=== PATIENT | male | born 1945 | race Caucasian/White ===

== ENCOUNTER → 2019-03-15 06:47 | Outpatient (CLI) | payer MEDICARE, SELFPAY ==
[2019-03-03 09:15] VITALS: BMI 28.7
[2019-03-15 07:44] LABS: Absolute Lymphocyte Count 3.06 X10^3/uL (0.83-4.51); Absolute Neutrophil Count 3.7 X10^3/uL (2.0-7.7); Basophil# 0.06 X10^3/uL; Basophil% 0.8 % (0-1); Eosinophil# 0.28 X10^3/uL; Eosinophils% 3.6 % (0-5); Hematocrit 42.3 % (40-54); Hemoglobin 14.1 g/dL (13.0-16.5); Lymphocyte # 3.06 X10^3/ul (4.0); Mean Corp Hgb Conc 33.3 g/dL (32-36); Mean Corpuscular Hgb 29.9 pg (27.0-32.0); Mean Corpuscular Volume 89.8 fL (80-94); Mean Platelet Vol. 10.7 fl (6.2-12.0); Monocyte# 0.76 X10^3/uL; Monocyte% 9.7 % (0-10); NRBC Flagged by Analyzer 0 % (0-5); Neutrophil # 3.66 X10^3/uL (2.7-7.7); Neutrophil % 46.6 % (47-70); Platelet Count 283 K/mm3 (150-450); RBC Distribution Width SD 39.3 fl (35.1-43.9); Red Blood Count 4.71 M/mm3 (4.6-6.2); White Blood Count 7.8 K/mm3 (4.4-11.0)
[2019-03-15 07:59] LABS: Microalbumin,Random Urine 73.8 mg/L (NO RANGE EST.)
[2019-03-15 08:08] LABS: ALB/GLOB Ratio 1.1 RATIO (0.9-2.4); AST(SGOT) 13 U/L (15-37); Alanine Aminotransfer ALT/SGPT 24 U/L (16-61); Albumin, Serum 3.8 g/dL (3.2-5.0); Alkaline Phosphatase 49 U/L (45-117); Anion Gap 7 (5-15); BUN 18 mg/dL (7-18); BUN/Creat Ratio 16.1 RATIO (10-20); Calcium,Total 9.1 mg/dL (8.5-10.1); Chloride 107 mmol/L (98-107); Cholesterol 168 mg/dL (200); Creatinine, Serum 1.12 mg/dL (0.70-1.30); EST Glomerular Filtration Rate 68 mL/min (>60); Est Glom Filt Rate - Afr Amer 83 mL/min (>60); Globulin 3.6 g/dL (2.2-4.2); Glucose 129 mg/dL (74-106); High Density Lipoprotein 27 mg/dL; Protein, Total 7.4 g/dL (6.4-8.2); Sodium Level 140 mmol/L (136-145); Triglycerides 237 mg/dL; Very Low Density Lipoprotein 47 mg/dL (5-40)
== END ==
PROVIDERS: Family Provider Internal Medicine; PCP Internal Medicine; Referring Provider Internal Medicine; Visit Provider Internal Medicine
DX: E11.9 Type 2 diabetes mellitus without complications (principal)
CPT/HCPCS: 36415; 80053; 80061; 82043; 82570; 85025

== ENCOUNTER → 2019-05-12 08:50 | Outpatient (CLI) | payer MEDICARE, SELFPAY ==
[2019-05-12 08:29] VITALS: BMI 24.8
--- NOTE | 2019-05-12 09:22 | EKG12_ITS ---
Test Reason : CAD Blood Pressure : / mmHG Vent. Rate : 059 BPM Atrial Rate : 059 BPM P-R Int : 204 ms QRS Dur : 086 ms QT Int : 402 ms P-R-T Axes : 041 -36 071 degrees QTc Int : 397 ms Sinus bradycardia Left axis deviation Abnormal ECG Confirmed by LAURY ANDINO, KEYSHA ([id number]), magazine editor MARCI VAZQUEZ ([id number]) on 05/15/2019 3:23:50 PM Referred By: Chase Cohen Confirmed By:KEYSHA SCHAEFFER MD
[2019-05-12 12:55] LABS: Anion Gap 8 (5-15); BUN 17 mg/dL (7-18); BUN/Creat Ratio 13.7 RATIO (10-20); Calcium,Total 9.3 mg/dL (8.5-10.1); Chloride 106 mmol/L (98-107); Creatinine, Serum 1.24 mg/dL (0.70-1.30); EST Glomerular Filtration Rate 61 mL/min (>60); Est Glom Filt Rate - Afr Amer 74 mL/min (>60); Glucose 187 mg/dL (74-106); Potassium 4.3 mmol/L (3.5-5.1); Sodium Level 140 mmol/L (136-145)
== END ==
PROVIDERS: Family Provider Internal Medicine; PCP Internal Medicine; Referring Provider Internal Medicine; Visit Provider Internal Medicine
DX: I10 Essential (primary) hypertension (principal); I25.10 Atherosclerotic heart disease of native coronary artery without angina pectoris
CPT/HCPCS: 36415; 80048; 93005

== ENCOUNTER → 2019-06-20 06:11 | Outpatient (CLI) | payer MEDICARE, SELFPAY ==
[2019-06-13 09:25] VITALS: BMI 24.8
--- NOTE | 2019-06-20 14:36 | STRESSREP ---
Stress Test Report Date: 06-20-19 Procedure: Pharmacologic stress nuclear imaging study Indications: CAD; PCI Consent: Per the patient Procedure: The patient underwent pharmacologic (Regadenoson) evaluation with a peak heart rate of 89 beats per minute (60 %predicted maximal heart rate) and a peak blood pressure of 130/62 mmHg. The baseline ECG demonstrated sinus rhythm. The peak pharmacologic ECG demonstrated no obvious ECG changes. There were no cardiac dysrhythmias pretest, during pharmacologic infusion, or recovery. There was no complaint of chest discomfort during pharmacologic infusion or recovery. The examination was discontinued secondary to completion of protocol. Impression: 1. Pharmacologic (Regadenoson) evaluation 2. Peak pharmacologic ECG with no obvious ECG changes. 3. There were no cardiac dysrhythmias pretest, during pharmacologic infusion, or recovery. 4. Nuclear images pending Myocardial perfusion imaging study: Technique: The patient was injected with 12.0 millicuries of technetium 99m Cardiolite and subsequently rest SPECT Cardiolite nuclear imaging was obtained in the horizontal long, vertical long, and short axis views. The patient underwent pharmacologic (Regadenoson) evaluation with a peak heart rate of 89 beats per minute (60 % percent predicted maximal heart rate) and a peak blood pressure of 130/62 mmHg. The patient was injected with 36.0 millicuries of technetium 99m Cardiolite and subsequently stress SPECT Cardiolite nuclear imaging was obtained in the horizontal long, vertical long, and short axis views. A gated Cardiolite study at peak stress was obtained. Interpretation: Rest and stress SPECT Cardiolite nuclear imaging status post realignment, normalization, and attenuation correction demonstrate relative uniform tracer uptake and myocardial perfusion appearing within normal limits. There is end systolic thickening and brightening. The gated Cardiolite study demonstrates myocardial thickening and inward wall motion. The reported LVEF is 68 %. Impression: 1. Rest and stress SPECT Cardiolite nuclear imaging demonstrate relative uniform tracer uptake and myocardial perfusion appearing within normal limits. 2. The gated Cardiolite study reports an LVEF of 68 %. This note was generated with [employer] software. It may contain incorrect words, spelling, and punctuation that were not noted in checking the note before signing.
== END ==
PROVIDERS: Family Provider Internal Medicine; PCP Internal Medicine; Referring Provider Internal Medicine; Visit Provider Internal Medicine
DX: I25.10 Atherosclerotic heart disease of native coronary artery without angina pectoris (principal); R94.31 Abnormal electrocardiogram [ECG] [EKG]
CPT/HCPCS: 78452; 93017; A9500; A4216; J2785

== ENCOUNTER → 2019-09-12 07:37 | Outpatient (CLI) | payer MEDICARE, SELFPAY ==
[2019-08-30 08:35] VITALS: BMI 24.8
--- NOTE | 2019-09-12 07:37 | ECHOD_ITS ---
Version 2 Reason For Study: HTN Procedure This was a 2D Doppler, Color Flow transthoracic echocardiogram. No parasternal window- used subcostal for PLAX, PSAX. Exam performed in department. Left Ventricle Normal LV size. Mild concentric left ventricular hypertrophy. Left ventricular systolic function is normal. The estimated ejection fraction is 60 %. Stage 1 diastolic dysfunction. No regional wall motion abnormalities noted. Right Ventricle Normal RV size. Normal systolic function. Atria Normal left atrium. Normal right atrium. Mitral Valve Normal mitral valve. Tricuspid Valve Normal tricuspid valve. Aortic Valve Normal aortic valve. Trisinus/trileaflet aortic valve. Pulmonic Valve Normal pulmonic valve. Great Vessels Normal aortic root. Pericardium/Pleural No pericardial effusion. MMode/2D Measurements & Calculations LVIDd: 3.7 cm IVSd: 1.3 cm LAV(MOD-bp): 50.5 ml LVIDs: 2.6 cm LVPWd: 1.3 cm LAV(MOD-bp) Indexed: 24.8 ml/m2 RVDd: 3.2 cm FS: 28.4 % LAV(MOD-sp2): 72.4 ml LAV(MOD-sp4): 36.3 ml SV(MOD-sp4): 54.8 ml SV(sp4-el): 56.3 ml LVAd ap4: 33.8 cm2 EDV(MOD-sp4): 98.7 ml EDV(sp4-el): 101.6 ml LVAs ap4: 20.2 cm2 ESV(MOD-sp4): 44.0 ml ESV(sp4-el): 45.3 ml EF(MOD-sp4): 55.5 % EF(sp4-el): 55.4 % LA A4 area: 16.4 cm2 LA dimension(2D): 3.4 cm RA A4 area: 14.2 cm2 Time Measurements MV dec time: 0.33 sec Doppler Measurements & Calculations MV E max edmundo: 69.1 cm/sec Lat Peak E' Edmundo: 7.7 cm/sec Med Peak E' Edmundo: 4.8 cm/sec MV A max edmundo: 92.8 cm/sec E/E' lat: 8.9 E/E' med: 14.3 MV E/A: 0.74 Ao V2 max: 118.9 cm/sec AI max edmundo: 398.3 cm/sec LV V1 max: 115.7 cm/sec Ao max P.7 mmHg AI max P.5 mmHg LV V1 max P.4 mmHg AI dec slope: 153.1 cm/sec2 AI P1/2t: 762.1 msec TR max edmundo: 226.4 cm/sec TR max P.5 mmHg Interpretation Summary Normal LV size. Mild concentric left ventricular hypertrophy. Left ventricular systolic function is normal. The estimated ejection fraction is 60 %. Stage 1 diastolic dysfunction. Consider amyloid heart disease. Ordering Physician: Prieto Farris Referring Physician: Chase Cohen Performed By: Jayleen Ashton, [place], RVT
== END ==
PROVIDERS: PCP Internal Medicine; Referring Provider Internal Medicine Cardiovascular Disease; Visit Provider Internal Medicine Cardiovascular Disease
DX: I25.10 Atherosclerotic heart disease of native coronary artery without angina pectoris (principal); I10 Essential (primary) hypertension
CPT/HCPCS: 93306

== ENCOUNTER → 2019-09-18 08:29 | Outpatient (CLI) | payer MEDICARE, SELFPAY ==
[2019-09-18 08:14] VITALS: BMI 24.8
[2019-09-18 12:25] LABS: Anion Gap 5 (5-15); BUN 16 mg/dL (7-18); BUN/Creat Ratio 14.3 RATIO (10-20); Calcium,Total 9.5 mg/dL (8.5-10.1); Chloride 107 mmol/L (98-107); Creatinine, Serum 1.12 mg/dL (0.70-1.30); EST Glomerular Filtration Rate 68 mL/min (>60); Est Glom Filt Rate - Afr Amer 83 mL/min (>60); Glucose 217 mg/dL (74-106); Potassium 4.2 mmol/L (3.5-5.1); Sodium Level 137 mmol/L (136-145)
[2019-09-18 12:29] LABS: Microalbumin,Random Urine 53.3 mg/L (NO RANGE EST.); Microalbumin:Creatinine Ratio 44.8 mg/g CRE (<30 mg/g CRE)
== END ==
PROVIDERS: PCP Internal Medicine; Referring Provider Internal Medicine; Visit Provider Internal Medicine
DX: E11.9 Type 2 diabetes mellitus without complications (principal); I10 Essential (primary) hypertension
CPT/HCPCS: 36415; 80048; 82043; 82570

== ENCOUNTER → 2020-08-30 08:17 | Outpatient (CLI) | payer MEDICARE, SELFPAY ==
[2020-08-29 08:25] VITALS: BMI 24.4
[2020-08-30 10:31] LABS: AST(SGOT) 16 U/L (15-37); Alanine Aminotransfer ALT/SGPT 26 U/L (16-61); Alkaline Phosphatase 53 U/L (45-117); Cholesterol 182 mg/dL (200); Globulin 3.7 g/dL (2.2-4.2); High Density Lipoprotein 30 mg/dL; Protein, Total 7.7 g/dL (6.4-8.2); Triglycerides 183 mg/dL; Very Low Density Lipoprotein 37 mg/dL (5-40)
== END ==
PROVIDERS: PCP Internal Medicine; Referring Provider Nurse Practitioner Family; Visit Provider Nurse Practitioner Family
DX: E78.5 Hyperlipidemia, unspecified (principal); I25.10 Atherosclerotic heart disease of native coronary artery without angina pectoris; E11.9 Type 2 diabetes mellitus without complications; I10 Essential (primary) hypertension; Z95.5 Presence of coronary angioplasty implant and graft
CPT/HCPCS: 36415; 80061; 80076

== ENCOUNTER 2020-10-24 07:10 | Outpatient (RCR) | payer MEDICARE, SELFPAY ==
[2020-08-29 08:25] VITALS: BMI 24.4
[2020-10-24] MEDS: COVID-19 VACC, MRNA(PFIZER)/PF 30 MCG/0.3 ML SYRINGE IM (08:36)
[2020-11-14] MEDS: COVID-19 VACC, MRNA(PFIZER)/PF 30 MCG/0.3 ML SYRINGE IM (08:13)
== END 2021-01-21 23:59 ==
LOC: IMMUN 07:10
PROVIDERS: PCP Internal Medicine; Visit Provider Family Medicine
DX: Z23 Encounter for immunization (principal)
CPT/HCPCS: 0001A; 0002A; 91300

== ENCOUNTER → 2020-10-31 09:46 | Outpatient (CLI) | payer MEDICARE, SELFPAY ==
[2020-08-29 08:25] VITALS: BMI 24.4
--- NOTE | 2020-10-31 09:51 | NM_ITS ---
CLINICAL: 75-year-old male with suspected cardiac amyloidosis. 99m Tc PYROPHOSPHATE CARDIAC AMYLOID EXAMINATION COMPARISON: None available FINDINGS: Following the intravenous administration of approximately 15.0 mCi of 99m Tc pyrophosphate, anterior acquisitions of the thorax reveal: 1. There is visualization of uptake within the left-right ventricular blood pool. The ratio of left-right thorax count statistics is 1.35:1 (Normal: < 1.5:1). NM/PYP Spect & Ltd Cardiac Amylio IMPRESSION: 1. NEGATIVE EXAMINATION. There is no scintigraphic evidence of cardiac amyloidosis on the current evaluation. Electronically Signed: Patrice Nolan DO at 7:55 EDT Tel , Service support ,
== END ==
PROVIDERS: PCP Internal Medicine; Referring Provider Internal Medicine Cardiovascular Disease; Visit Provider Internal Medicine Cardiovascular Disease
DX: R93.1 Abnormal findings on diagnostic imaging of heart and coronary circulation (principal); E78.5 Hyperlipidemia, unspecified; G62.9 Polyneuropathy, unspecified; I10 Essential (primary) hypertension; I25.10 Atherosclerotic heart disease of native coronary artery without angina pectoris; I51.7 Cardiomegaly; I51.89 Other ill-defined heart diseases; R06.00 Dyspnea, unspecified; R94.31 Abnormal electrocardiogram [ECG] [EKG]; Z95.5 Presence of coronary angioplasty implant and graft
CPT/HCPCS: 78800; 78803; A9538

== ENCOUNTER → 2020-11-01 08:23 | Outpatient (CLI) | payer MEDICARE, SELFPAY ==
[2020-11-01 08:06] VITALS: BMI 24.8
[2020-11-01 12:27] LABS: Absolute Lymphocyte Count 2.94 X10^3/uL (0.83-4.51); Absolute Neutrophil Count 4.5 X10^3/uL (2.0-7.7); Basophil# 0.06 X10^3/uL; Basophil% 0.7 % (0-1); Eosinophil# 0.16 X10^3/uL; Eosinophils% 1.9 % (0-5); Hematocrit 44.3 % (40-54); Hemoglobin 14.1 g/dL (13.0-16.5); Lymphocyte # 2.94 X10^3/ul (4.0); Lymphocyte % 34.8 % (19-41); Mean Corp Hgb Conc 31.8 g/dL (32-36); Mean Corpuscular Volume 91.2 fL (80-94); Mean Platelet Vol. 10.5 fl (6.2-12.0); Monocyte% 9.5 % (0-10); NRBC Flagged by Analyzer 0 % (0-5); Neutrophil # 4.48 X10^3/uL (2.7-7.7); Neutrophil % 52.9 % (47-70); Platelet Count 305 K/mm3 (150-450); RBC Distribution Width CV 12.2 % (11.6-14.6); RBC Distribution Width SD 40.8 fl (35.1-43.9); Red Blood Count 4.86 M/mm3 (4.6-6.2); White Blood Count 8.5 K/mm3 (4.4-11.0)
[2020-11-01 12:48] LABS: Anion Gap 5 (5-15); BUN 18 mg/dL (7-18); BUN/Creat Ratio 14.6 RATIO (10-20); Calcium,Total 9.9 mg/dL (8.5-10.1); Chloride 104 mmol/L (98-107); Creatinine, Serum 1.23 mg/dL (0.70-1.30); EST Glomerular Filtration Rate 61 mL/min (>60); Est Glom Filt Rate - Afr Amer 74 mL/min (>60); Glucose 155 mg/dL (74-106); PSA,Total - Annual Screen 3.86 ng/mL (0.00-4.00); Potassium 5.3 mmol/L (3.5-5.1); Sodium Level 138 mmol/L (136-145)
== END ==
PROVIDERS: PCP Internal Medicine; Referring Provider Internal Medicine; Visit Provider Internal Medicine
DX: I10 Essential (primary) hypertension (principal); N40.0 Benign prostatic hyperplasia without lower urinary tract symptoms
CPT/HCPCS: 36415; 80048; 84153; 85025; G0103

== ENCOUNTER → 2021-04-17 10:18 | Outpatient (CLI) | payer MEDICARE, SELFPAY ==
--- NOTE | 2021-04-17 10:37 | EKG12_ITS ---
Test Reason : PREOP Blood Pressure : / mmHG Vent. Rate : 063 BPM Atrial Rate : 063 BPM P-R Int : 196 ms QRS Dur : 076 ms QT Int : 400 ms P-R-T Axes : 016 -34 049 degrees QTc Int : 409 ms Normal sinus rhythm Left axis deviation Abnormal ECG Confirmed by AMA ANDINO, RODY ([id number]), scientific publications editor GURJIT HIGUERA ([id number]) on 04/22/2021 8:12:04 AM Referred By: SY Confirmed By:ABEL SERRATO MD
[2021-04-17 11:34] LABS: AST(SGOT) 17 U/L (15-37); Alanine Aminotransfer ALT/SGPT 26 U/L (16-61); Albumin, Serum 4.1 g/dL (3.2-5.0); Alkaline Phosphatase 34 U/L (45-117); Bilirubin, Direct 0.16 mg/dL (0.00-0.30); Cholesterol 170 mg/dL (200); Globulin 3.4 g/dL (2.2-4.2); High Density Lipoprotein 24 mg/dL; Protein, Total 7.5 g/dL (6.4-8.2); Triglycerides 180 mg/dL; Very Low Density Lipoprotein 36 mg/dL (5-40)
== END ==
PROVIDERS: Nurse Practitioner Family; PCP Internal Medicine; Visit Provider Orthopaedic Surgery
DX: Z01.810 Encounter for preprocedural cardiovascular examination (principal); Z01.818 Encounter for other preprocedural examination; E78.00 Pure hypercholesterolemia, unspecified; E78.5 Hyperlipidemia, unspecified
CPT/HCPCS: 36415; 80061; 80076; 93005

== ENCOUNTER → 2021-04-22 10:05 | Outpatient (CLI) | payer MEDICARE, SELFPAY ==
[2021-04-22 10:41] LABS: Hematocrit 39.8 % (40-54); Hemoglobin 13.1 g/dL (13.0-16.5); Mean Corp Hgb Conc 32.9 g/dL (32-36); Mean Corpuscular Hgb 29.4 pg (27.0-32.0); Mean Corpuscular Volume 89.4 fL (80-94); Mean Platelet Vol. 10.6 fl (6.2-12.0); Platelet Count 388 K/mm3 (150-450); RBC Distribution Width CV 12.7 % (11.6-14.6); RBC Distribution Width SD 41.6 fl (35.1-43.9); Red Blood Count 4.45 M/mm3 (4.6-6.2); White Blood Count 10.8 K/mm3 (4.4-11.0)
[2021-04-22 11:06] LABS: Anion Gap 8 (5-15); BUN 26 mg/dL (7-18); BUN/Creat Ratio 20.6 RATIO (10-20); Calcium,Total 9.8 mg/dL (8.5-10.1); Chloride 105 mmol/L (98-107); Creatinine, Serum 1.26 mg/dL (0.70-1.30); EST Glomerular Filtration Rate 59 mL/min (>60); Est Glom Filt Rate - Afr Amer 72 mL/min (>60); Glucose 192 mg/dL (74-106); Potassium 3.7 mmol/L (3.5-5.1); Sodium Level 138 mmol/L (136-145)
== END ==
PROVIDERS: PCP Internal Medicine; Referring Provider Orthopaedic Surgery; Visit Provider Orthopaedic Surgery
DX: Z01.818 Encounter for other preprocedural examination (principal); Z01.810 Encounter for preprocedural cardiovascular examination
CPT/HCPCS: 80048; 85027

== ENCOUNTER 2021-05-02 20:45 | Inpatient (IN) | payer MEDICARE, SELFPAY ==
[2021-05-02] VITALS (10 sets, daily range): BP systolic 131–173; BP diastolic 69–85; PULSE 81–108; RESP 12–18; TEMP 36.5–36.6; O2SAT 96–99; BMI 25.6; BMI 24.6
--- NOTE | 2021-05-02 20:52 | EKG12_ITS ---
Test Reason : CP Blood Pressure : / mmHG Vent. Rate : 089 BPM Atrial Rate : 089 BPM P-R Int : 216 ms QRS Dur : 088 ms QT Int : 374 ms P-R-T Axes : 067 -39 065 degrees QTc Int : 455 ms Sinus rhythm with 1st degree A-V block Left axis deviation Abnormal ECG Confirmed by OBDULIO ANDINO, JANINE ([id number]), editor newspaper GURJIT HIGUERA ([id number]) on 05/05/2021 11:33:21 AM Referred By: ABDON Confirmed By:JANINE MAK MD
[2021-05-02] MEDS: Heparin Injection (Vial) 5,000 UNIT/ML VIAL 4000 UNIT IV (20:53)
--- NOTE | 2021-05-02 20:53 | RAD_ITS ---
STUDY: X-RAY CHEST REASON FOR EXAM: Male, 76 years old. chest pain TECHNIQUE: AP portable COMPARISON: None. FINDINGS: Mildly elevated right hemidiaphragm and minimal atelectasis at the right lung base.. There is no demonstrated pleural abnormality. Normal size heart. Normal mediastinum and samantha. Normal visualized pulmonary arteries. Normal visualized aortic arch and descending thoracic aorta. Dorsal spine and shoulders demonstrate degenerative change. Normal visualized ribs, clavicles, and shoulders. There is no demonstrated abnormality of the visualized soft tissue structures of the upper abdomen. RAD/Chest 1 View (Portable) IMPRESSION: Elevated right hemidiaphragm and minor right basilar atelectasis Electronically Signed: Misha Jurado MD at 22:08 EDT , Service support ,
--- NOTE | 2021-05-02 20:53 | EDS_ITS ---
HPI History of Present Illness Chief Complaint: Chest Pain Informant: patient and spouse/S.O. Narrative Narrative: 76-year-old male with a prior history of coronary artery disease with a stent to his LAD presents to the emergency room with midsternal chest pain. P atient states that symptoms have been present for about 1 hour. It started as a very strong pain in the center of his chest that spread to the right arm and now both arms. He sees Dr. Farris for cardiology. He is not currently on any blood thinners other than a baby aspirin. [facility] Medical History Atherosclerosis of coronary artery of [place] heart without angina pectoris Back problem BPH (benign prostatic hyperplasia) Enlarged prostate Essential (primary) hypertension Flu vaccine need Gastrointestinal complaints, unspecific GERD (gastroesophageal reflux disease) Health care maintenance Hearing problem History of CVA (cerebrovascular accident) (2001) Hyperlipidemia Neuropathy Obstructive sleep apnea Type 2 diabetes mellitus Home Medications aspirin 81 mg chewable tablet 162 mg PO DAILY tab 01/26/19 [History Last Taken Unknown] metformin 1,000 mg tablet 1,000 mg PO BID #180 tab 03/03/19 [Rx Last Taken Unknown] blood sugar diagnostic #100 ea 03/28/19 [Rx Last Taken Unknown] omeprazole 40 mg capsule,delayed release 40 mg PO DAILY #90 cap 08/20/20 [Rx Last Taken Unknown] sitagliptin 100 mg tablet 100 mg PO DAILY #90 tab 08/20/20 [Rx Last Taken Unknown] metoprolol succinate 100 mg tablet,extended release 24 hr 100 mg PO .COMPLEX 08/29/20 [History Last Taken Unknown] multivitamin 1 tab PO DAILY 08/29/20 [History Last Taken Unknown] fenofibrate nanocrystallized 145 mg tablet 145 mg PO DAILY #90 tab 01/31/21 [Rx Last Taken Unknown] amlodipine 5 mg PO DAILY 05/02/21 [History Last Taken Unknown] losartan 75 mg PO DAILY 05/02/21 [History Last Taken Unknown] Allergy/AdvReac Type Severity Reaction Status Date / Time [facility] Allergy Intermediate Nausea Verified 05/02/21 20:59 niacin Allergy GI Upset, Verified 05/02/21 20:59 PUD w/blood, Hot Flashes amoxicillin trihydrate AdvReac Abd Verified 05/02/21 20:59 [From Augmentin] cramps/diarrhea potassium clavulanate AdvReac Abd Verified 05/02/21 20:59 [From Augmentin] cramps/diarrhea Family History Mother Diabetes Myocardial infarction Father AA (aortic aneurysm) Surgical History History of coronary artery stent placement (06/01/03) History of repair of rotator cuff S/P trigger finger release Social History Smoking Status: Former smoker quit date: 08/16/93 Tobacco: How many years used: 30 alcohol intake: current alcohol intake frequency: holidays/special occasions only Alcohol type: beer substance use type: does not use what type of physical activity do you participate in: walking ROS ROS ED Constitutional Constitutional ED: Denies chills or weight loss Eyes Eyes: Denies change in vision or diplopia ENT ENT ED: Denies ear pain, rhinorrhea or sore throat Cardiovascular Cardiovascular: Reports chest pain; Denies orthopnea, palpitations or racing heartbeat Respiratory/Chest Respiratory/Chest: Denies cough, dyspnea or orthopnea Gastrointestinal Gastrointestinal: Denies abdominal pain, diarrhea, nausea or vomiting Genitourinary Genitourinary ED: Denies dysuria, hematuria or urinary frequency Musculoskeletal Musculoskeletal: Denies arthralgias or myalgias Integumentary Denies abscess or rash Neurologic Neurologic: Denies headache(s) or weakness Psychiatric Psychiatric: Denies anxiety, depression, suicidal ideation or suicidal thoughts Endocrine Endocrinology: Denies polydipsia, polyphagia or polyuria Allergic/Immunologic Allergic/Immunologic ED: Denies mouth swelling, tongue swelling or urticaria EXAM Physical Exam Const Vital Signs: 05/02/21 20:45 05/02/21 20:51 05/02/21 21:01 Temperature 97.7 F L 97.7 F L Temperature Source Temporal Temporal Pulse Rate 108 H 108 H Respiratory Rate 18 18 18 Blood Pressure 173/83 H 173/83 H 173/83 H Blood Pressure Mean 113 113 Pulse Ox 98 98 Oxygen Delivery Method Room Air Nasal Cannula Oxygen Flow Rate (L/min) 2 Positive well nourished and well developed General Appearance ED: well developed HEENT Reports normocephalic, head/scalp atraumatic and moist mucous membranes Eyes PERRL and EOMs intact bilaterally Neck no lymphadenopathy, supple and no JVD Resp normal respiratory effort and clear to auscultation bilaterally Cardio regular rate and no murmurs Rate: tachycardic GI normal to inspection, nondistended, normoactive bowel sounds and non-tender Palpation: soft Back/Spine no CVA tenderness and normal ROM Extremity normal to inspection General Extremety ED: Negative for edema General Extremity: Negative for edema Neuro oriented x3 and CN's II-XII intact bilaterally Sensorium / Orientation: alert Motor Exam: strength 5/5 throughout Psych mental status grossly normal Mood & Affect: Negative for depressed or tearful Skin no rashes or lesions noted and no wounds Heart Score History: Highly Suspicious ECG: Significant ST-Depression Age: >/= 65 years Risk Factors: >/= 3 Risk Factors or History of CAD Score: 8 MDM MDM MDM Narrative Medical decision making narrative: On the monitor appears that the patient may be having a STEMI. An EKG was obtained immediately which shows ST elevation in 2 3 and aVF. There were reciprocal changes. Patient received heparin Brilinta aspirin and because of his tachycardia some metoprolol. My interpretation of the chest x-ray is no acute process. STEMI team was called. I reevaluated the patient and he is doing better. I asked for repeat EKG and it shows significant improvement in the inferior leads and no further reciprocal changes. Plan is still to the Education Courses Sales Representative. Lab Data Labs: Laboratory Results - last 24 hr 05/02/21 05/02/21 20:55 20:55 WBC 12.6 H RBC 4.36 L Hgb 12.9 L Hct 39.6 L MCV 90.8 MCH 29.6 MCHC 32.6 RDW Std Deviation 41.7 RDW Coeff of Julianna 12.5 Plt Count 340 MPV 10.6 Immature Gran % (Auto) 0.500 Neut % (Auto) 69.8 Lymph % (Auto) 19.8 Logan % (Auto) 8.8 Eos % (Auto) 0.7 Baso % (Auto) 0.4 Absolute Neuts (auto) 8.8 H Absolute Lymphs (auto) 2.49 Nucleated RBC % 0 PT 13.0 INR 1.0 APTT 26.6 Critical Care Time Critical Care Time: Yes Critical care time (excluding procedures): 30-74 minutes (31 min), Including time spent:, Discussing w/Patient &/or Family/Exchange Specialist, Discussing w/Consultants, Arranging Admission or Transfer and Performing Direct Patient Care at Bedside Discharge Plan Dx/Rx/DC Orders Clinical Impression: ST elevation (STEMI) myocardial infarction Disposition Disposition: Acute Care Hospital [facility]
[2021-05-02] MEDS: Metoprolol Tartrate 5 MG/5 ML Vial IV ×2 (20:54→21:10)
[2021-05-02] MEDS: Aspirin 81 MG TAB.CHEW 324 MG PO (20:55)
[2021-05-02] MEDS: TICAGRELOR 90 MG TABLET 180 MG PO (20:56)
--- NOTE | 2021-05-02 21:04 | HP.PCM.HOS_ITS ---
HPI - General General Date of Admission: 05/02/21 HPI Narrative GENI OJEDA, is a 76 M with a significant history of CAD status post stent; former smoker; hypertension and borderline diabetes who presents to the emergency department with excruciating substernal chest pain that radiates to her bilateral shoulders. He described the pain as sharp. He denies any ameliorating or aggravating factors. The pain started about a 1 hour prior to presentation and has been persistent. Patient was found to have a STEMI and alert was called to the emergency department. [facility] Medical History Atherosclerosis of coronary artery of [place] heart without angina pectoris Back problem BPH (benign prostatic hyperplasia) Enlarged prostate Essential (primary) hypertension Flu vaccine need Gastrointestinal complaints, unspecific GERD (gastroesophageal reflux disease) Health care maintenance Hearing problem History of CVA (cerebrovascular accident) (2001) Hyperlipidemia Neuropathy Obstructive sleep apnea Type 2 diabetes mellitus Home Medications aspirin 81 mg chewable tablet 162 mg PO DAILY tab 01/26/19 [History Last Taken Unknown] metformin 1,000 mg tablet 1,000 mg PO BID #180 tab 03/03/19 [Rx Last Taken Unknown] blood sugar diagnostic #100 ea 03/28/19 [Rx Last Taken Unknown] omeprazole 40 mg capsule,delayed release 40 mg PO DAILY #90 cap 08/20/20 [Rx Last Taken Unknown] sitagliptin 100 mg tablet 100 mg PO DAILY #90 tab 08/20/20 [Rx Last Taken Unknown] metoprolol succinate 100 mg tablet,extended release 24 hr 100 mg PO .COMPLEX 08/29/20 [History Last Taken Unknown] multivitamin 1 tab PO DAILY 08/29/20 [History Last Taken Unknown] fenofibrate nanocrystallized 145 mg tablet 145 mg PO DAILY #90 tab 01/31/21 [Rx Last Taken Unknown] amlodipine 5 mg PO DAILY 05/02/21 [History Last Taken Unknown] losartan 75 mg PO DAILY 05/02/21 [History Last Taken Unknown] Allergy/AdvReac Type Severity Reaction Status Date / Time dulaglutide [From Trulicity] Allergy Intermediate Nausea Verified 05/02/21 20:59 niacin Allergy GI Upset, Verified 05/02/21 20:59 PUD w/blood, Hot Flashes amoxicillin trihydrate AdvReac Abd Verified 05/02/21 20:59 [From Augmentin] cramps/diarrhea potassium clavulanate AdvReac Abd Verified 05/02/21 20:59 [From Augmentin] cramps/diarrhea Family History Mother Diabetes Myocardial infarction Father AA (aortic aneurysm) Surgical History History of coronary artery stent placement (06/01/03) History of repair of rotator cuff S/P trigger finger release Social History Smoking Status: Former smoker quit date: 08/16/93 Tobacco: How many years used: 30 alcohol intake: current alcohol intake frequency: holidays/special occasions only Alcohol type: beer substance use type: does not use what type of physical activity do you participate in: walking ROS ROS Narrative Constitutional: Denies anorexia and change in weight Eyes: Denies blurry vision, change in eye color, change in vision, discharge from eye(s), double vision, erythema, eye pain, loss of vision or other HEENT: Denies abnormal hearing, dysphagia, ear pain, epistaxis, headache(s), hearing loss, nasal congestion, nasal discharge, post nasal drip, sinus pressure, sore throat or other Cardiovascular: Reports chest pain. Denies palpitations. Denies dyspnea on exertion, orthopnea and paroxysmal nocturnal dyspnea Respiratory/Chest: Denies cough, excessive phlegm production, shortness of breath with exertion and wheezing Gastrointestinal: Reports nausea. Denies abdominal pain, coffee ground emesis, constipation, diarrhea, dyspepsia, hematemesis, hematochezia, loose stools, melena, vomiting or other Genitourinary: Denies burning urination, difficulty urinating, dysuria, hematuria, nocturia, urinary frequency, urinary hesitancy, urinary incontinence, urinary urgency or other Musculoskeletal: Denies arthralgias, back pain, joint pain, joint stiffness, joint swelling, myalgias, neck pain or other Neurologic: Denies abnormal gait, abnormal speech, confusion, disequilibrium, dizziness, focal weakness, headache(s), numbness, paresthesias, seizure-like activity, seizures, syncope, tingling, tremor(s) or other Psychiatric: Denies anxiety, depression, homicidal ideation, suicidal ideation or other Endocrinology: Denies change in body appearance, cold intolerance, excessive sweating, heat intolerance, polydipsia, polyuria or other Hematologic/Lymphatic: Denies anemia, easy bleeding, easy bruising, lymphaden opathy or other Integumentary: Denies rashes Allergic/Immunologic: Denies rhinitis, hives, eczema, asthma or other Vital Signs Vital Signs Vital Signs: 05/02/21 20:45 05/02/21 20:51 05/02/21 21:01 Temperature 97.7 F L 97.7 F L Temperature Source Temporal Temporal Pulse Rate 108 H 108 H Respiratory Rate 18 18 18 Blood Pressure 173/83 H 173/83 H 173/83 H Blood Pressure Mean 113 113 Pulse Ox 98 98 Oxygen Delivery Method Room Air Nasal Cannula Oxygen Flow Rate (L/min) 2 Weight Weight: 81 kg Body Mass Index (BMI) 25.6 Physical Exam Narrative Physical exam: General: Well-nourished, well-developed. Head: Normocephalic, atraumatic, no tenderness Eyes: PERRLA, EOMI ENT, no trauma, moist mucous membranes, no rhinorrhea Neck: Nontender, full range of motion, no spinal tenderness, deformities, step- off CVS: Regular rate and rhythm. S1-S2 present. No murmur, gallop or rub. Respiratory : clear to auscultation bilaterally, chest wall nontender, no wheezing Abdomen: Soft, nontender, nondistended, normal bowel sounds, no masses : Deferred Back: Nontender, no CVA tenderness, no midline spinal tenderness, deformities, step-offs Extremities: Nontender full range of motion, no trauma Skin: Normal color, no trauma, abrasions Neuro: Alert, oriented, cranial nerves II through XII grossly intact. Psychiatry: Normal mood. Normal affect. Not depressed. Not anxious. Results Lab / Micro Data Result Diagrams: 05/02/21 20:55 05/02/21 20:55 Assessment & Plan Assessment/Plan (1) ST elevation (STEMI) myocardial infarction: QUALIFIERS: Involved coronary artery: other coronary artery Qualified Code(s): I21.29 - ST elevation (STEMI) myocardial infarction involving other sites PLAN: STEMI Patient was given full dose aspirin; Brilinta; IV bolus; and IV metoprolol at the emergency department, Initial EKG independently interpreted showed ST elevation in inferior leads and with reciprocal ST depressions. Impression of chest x-ray by radiology: Elevated right hemidiaphragm and minor right basilar atelectasis. Actual chest x-ray image was independently interpreted and agree radiologist interpretation Patient will be taken to cardiac cath. Follow cardiology recommendation after cath. We will check lipid panel. Diabetes mellitus Blood glucose was not within goal. Hold Metformin. Sitagliptin continued. Accu- Cheks ordered. Continue correction scale insulin. Hypertension Blood pressure is not within goal Metoprolol; losartan and amlodipine continued Trend blood pressure and adjust blood pressure medications. Hypertriglyceridemia Fenofibrate continued GERD Omeprazole continued DVT prophylaxis IV heparin was given at the ED. Charges/Coding Visit Charges Inpatient E&M: 86738 Init Hosp L3
[2021-05-02 21:05] LABS: Absolute Lymphocyte Count 2.49 X10^3/uL (0.83-4.51); Absolute Neutrophil Count 8.8 X10^3/uL (2.0-7.7); Basophil# 0.05 X10^3/uL; Basophil% 0.4 % (0-1); Eosinophil# 0.09 X10^3/uL; Eosinophils% 0.7 % (0-5); Hematocrit 39.6 % (40-54); Hemoglobin 12.9 g/dL (13.0-16.5); Lymphocyte # 2.49 X10^3/ul (0.83-4.51); Lymphocyte % 19.8 % (19-41); Mean Corp Hgb Conc 32.6 g/dL (32-36); Mean Corpuscular Hgb 29.6 pg (27.0-32.0); Mean Corpuscular Volume 90.8 fL (80-94); Mean Platelet Vol. 10.6 fl (6.2-12.0); Monocyte% 8.8 % (0-10); NRBC Flagged by Analyzer 0 % (0-5); Neutrophil # 8.77 X10^3/uL (2.7-7.7); Neutrophil % 69.8 % (47-70); Platelet Count 340 K/mm3 (150-450); RBC Distribution Width CV 12.5 % (11.6-14.6); RBC Distribution Width SD 41.7 fl (35.1-43.9); Red Blood Count 4.36 M/mm3 (4.6-6.2); White Blood Count 12.6 K/mm3 (4.4-11.0)
--- NOTE | 2021-05-02 21:08 | CM.ED ---
SOCIAL WORK Responded to STEMI Alert. at bedside. This worker to remain available for needs. Carmen Lawson, RECREATION PROFESSOR, [employer]
[2021-05-02 21:13] LABS: Partial Thromboplast Time 26.6 Seconds (24.1-36.2)
[2021-05-02 21:30] LABS: Anion Gap 9 (5-15); BUN 18 mg/dL (7-18); BUN/Creat Ratio 10.1 RATIO (10-20); Calcium,Total 9.1 mg/dL (8.5-10.1); Chloride 107 mmol/L (98-107); Creatinine, Serum 1.78 mg/dL (0.70-1.30); EST Glomerular Filtration Rate 40 mL/min (>60); Est Glom Filt Rate - Afr Amer 48 mL/min (>60); Estimated Creatinine Clearance 37.02 ml/min; Glucose 254 mg/dL (74-106); Sodium Level 141 mmol/L (136-145); Troponin-I HS 149 pg/mL (3.0-78.0)
--- NOTE | 2021-05-02 21:35 | EKG12_ITS ---
Test Reason : CP Blood Pressure : / mmHG Vent. Rate : 110 BPM Atrial Rate : 110 BPM P-R Int : 190 ms QRS Dur : 080 ms QT Int : 340 ms P-R-T Axes : 065 -13 077 degrees QTc Int : 460 ms Sinus tachycardia Inferior-posterior infarct , possibly acute ACUTE [place] / STEMI Abnormal ECG Confirmed by OBDULIO ANDINO, JANINE ([id number]), newspaper managing editor GURJIT HIGUERA ([id number]) on 05/05/2021 11:35:42 AM Referred By: ABDON Confirmed By:JANINE MAK MD
--- NOTE | 2021-05-02 22:39 | EKG12_ITS ---
Test Reason : POST-PCI Blood Pressure : / mmHG Vent. Rate : 080 BPM Atrial Rate : 080 BPM P-R Int : 216 ms QRS Dur : 080 ms QT Int : 384 ms P-R-T Axes : 062 -56 058 degrees QTc Int : 442 ms Sinus rhythm with 1st degree A-V block Left axis deviation Abnormal ECG When compared with ECG of 17-APR-2021 10:38, No significant change was found Confirmed by OBDULIO ANDINO, JANINE ([id number]), electron beam welder setter MARCI VAZQUEZ ([id number]) on 05/06/2021 2:16:30 PM Referred By: MEGAN Confirmed By:JANINE MAK MD
--- NOTE | 2021-05-02 22:46 | PCI.CARDCATH ---
PCI Cardiac Cath Report PCI Report: Procedure performed; Successful percutaneous coronary intervention/PCI of the culprit lesion ruptured plaque in the proximal RCA with predilatation using 2.5 x 15 mm balloon Followed by placement of a drug-eluting stent 3 x 22 mm/Suzanneiro, followed by postdilatation using 3 x 15 mm NC balloon with reduction of stenosis from 90% to 0% and achievement of XAVIER-3 flow. Preprocedure diagnosis; 76-year-old patient, presented to ER this evening developed symptoms of chest pain after he mowed the lawn around 7 PM severe retrosternal with some diaphoresis He was seen by the ER physician where the EKG showed evidence of acute inferior myocardial infarction with ST elevation clearly demonstrated lead to [address] depression demonstrated in V1 V2 Patient had a history of CAD and he has PCI and stent done in [facility] 2002, quit smoking almost 50 years ago according to the patient, type 2 diabetes mellitus Hypertension, hyperlipidemia, gastroesophageal reflux disease. Consent; Risk and benefits of the procedure explained in detail which elected to proceed informed consent obtained. Procedure performed; 1. Left heart catheterization 2. Selective left cholangiography 3. Selective right cholangiography 4. Successful PCI of the culprit RCA as explained 5. Low ventriculogram 6. Performance of LVEDP measurement. 7. Use of TR band to close the right radial artery arteriotomy site. Procedure in detail; Patient brought to the Eligibility Examiner with an emergency he was given aspirin Brilinta and 4000 of heparin in the ER and actually the EKG showed improvement with remarkable reduction of ST elevation in the inferior lead and oral and normalization of ST depression in the one in V2 and also patient noted significant improvement in his symptoms of chest pain mild symptoms of chest pain in the Eligibility Examiner. We will proceed with access using 6 Malawian trauma sheath to the right radial artery then will proceed with a 5 Malawian JL 3.5 advanced ascending aorta cannulated the left main coronary artery multiple views of the left coronary system were obtained including CROATIAN, SLAUGHTER cranial and caudal views Following this we will proceed with guide catheter which is 6 Malawian JR4 guide advanced ascending aorta cannulated the right coronary artery identified the culprit lesion which is ruptured plaque of the proximal RCA Then we proceed with run-through wire across the lesion, followed by using 2.5 x 15 mm regular Emerge balloon followed by placement of drug-eluting stent 3 x 22 mm and postdilated by 3 x 50 mm Following this pigtail catheter was used and elevated clot demonstrated out of projection Following this all catheter removed Medication Eligibility Examiner; Patient was given additional doses of heparin and he was given about 2 bolus of Integrilin and Integrilin infusion Brilinta 180 mg was given in the ER and aspirin was given in the ER. Initial ACT was 184 and he was given additional doses of heparin Findings; Hemodynamics; LV systolic function preserved ejection fraction of around 55% No systolic gradient across aortic valve. No mitral rotation noted LVEDP measuring 20 mmHg Coronary angiography findings; 1. Left main coronary artery large, bifurcating into LAD and the left circumflex artery 2. Left anterior descending artery calcified proximal and mid left anterior descending artery Patency of the proximal to mid stent of the LAD noted, the mid LAD had around 5060% stenosis involving the bifurcation at the site of the diagonal with ostial diagonal around 50 to 60% LAD had diffuse mid and distal atherosclerosis nonobstructive 3. The left circumflex artery large [place] OM high with the proximal OM1 around 60 to 70% Second OM small vessel with diffuse proximal atherosclerosis of around 70%, mid to distal circumflex artery had diffuse atherosclerosis nonobstructive 4. RCA is a culprit with a ruptured plaque in the proximal RCA with 90% with a thrombus Mid RCA had diffuse atherosclerosis of around 50-60% with a distal RCA ectatic and large vessel Conclusion; Patient presented with acute inferior myocardial infarction with improvement of the chest pain symptoms and improvement of ST elevation by medical therapy using heparin Integrilin and aspirin in the emergency department Patient's culprit lesion is ruptured plaque of RCA with successful percutaneous core intervention and placement of drug-eluting stent as a specified Recommendation and plan; 1. We will continue on Integrilin infusion for 18 hours 2. We will add high-dose statin atorvastatin 40 mg 3. Patient will continue on dual antiplatelet therapy/DAPT Brilinta 90 mg twice daily in addition to low-dose aspirin 81 mg for 1 year 4. 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 Farris for continuation of cardiac care plan Nuris Colón MD,[facility]
--- NOTE | 2021-05-02 22:52 | CRPHASE1_ITS ---
Patient Communication PHII Cardiac Rehab Discussed with Patient:: Yes Guide to Cardiac Rehab Given to Patient:: Yes Cardiac Rehab Facility Choice List Given to Patient:: Yes Choice Program [facility] CR PHII:: Communication Given to CR Choice Program Other:: Communication Given to CR Manager Services:: MELVA Refer Phase II Cardiac Rehab:: Yes Sessions:: 36 sessions - 3 days/wk, 12 weeks - PRIOR STENT APPROX 18 YRS AGO AT [facility] Cardiac Rehabilitation Info Cardiac Rehabilitation Program Information: Cardiac Rehabilitation is important for patients like you who are recovering from a heart problem. Cardiac rehabilitation programs are recognized as integral to the continued care of the patient with coronary heart disease. The cardiac rehabilitation program is designed to optimize a patient's physical, psychological, and social functioning. Health career counselor work in cardiac rehabilitation programs and assist you with getting the treatments you need to get stronger and healthier - like exercise, healthy eating habits, and medications. Cardiac rehabilitation has been show to help people with heart problems live longer and have better life enjoyment than people who do not go to cardiac rehabilitation. Please contact the Cardiac Rehabilitation Program at [facility] at in two weeks if you have not heard from them.
--- NOTE | 2021-05-02 22:54 | CRPH1.INSTRU ---
General Education CAD and cardiac anatomy and function:: Patient communicates acknowledgment Explanation of diagnoses and procedures:: Patient communicates acknowledgment Sign/Symptoms of OH:: Patient communicates acknowledgment Antiplatelet therapy: Patient communicates acknowledgment Smoking Recommendations Include:: Previous smoker; encourage continued cessation Nicotine/Smoking Response Code:: Patient communicates acknowledgment Dyslipidemia Patient Dyslipidemia Risk Factors Are:: Total Cholesterol, Triglycerides, HDL, LDL Recommendations Include:: Lipid profile provided, Reviewed NCEP/ATP guidelines, Therapeutic Lifestyle Change dietary guidelines Dyslipidemia Response Code:: Patient communicates acknowledgment Overweight/Obesity Patient Overweight/Obesity Risk Factors Are:: BMI Normal [24-29 & > 65 years old] Hypertension Recommendations Include:: Maintain BP <130/85, Decrease/maintain normal body weight, Moderation of ETOH Hypertension:: Patient communicates acknowledgment Diabetes Patient Diabetes Risk Factors Are:: Elevated blood sugars Recommendations Include:: Maintain fasting blood sugars 70-110 md/dL, Maintain HgbA1c of 6% or less, Monitor blood sugar as prescribed, Diabetic dietary guidelines, Decrease/maintain body weight Diabetes:: Patient communicates acknowledgment Sedentary Patient Sedentary Risk Factors Are:: Lack of regular exercise Recommendations Include:: Aerobic exercise 5-7 times/week for 20-30 minutes continuously, Benefits of regular exercise, Discussed home walking program, Monitored Outpatient Cardiac Rehab Sedentary Response Code:: Patient communicates acknowledgment Stress Patient Stress Risk Factors Are:: Patient denies stress as a risk factor
[2021-05-02] MEDS: Atorvastatin Calcium 40 MG Tablet PO (23:42)
[2021-05-03] VITALS (12 sets, daily range): BP systolic 120–151; BP diastolic 62–85; PULSE 64–89; RESP 11–18; TEMP 36.6; O2SAT 96–99
[2021-05-03 05:25] LABS: Anion Gap 7 (5-15); BUN 15 mg/dL (7-18); BUN/Creat Ratio 11.7 RATIO (10-20); Calcium,Total 8.4 mg/dL (8.5-10.1); Chloride 108 mmol/L (98-107); Cholesterol 173 mg/dL (200); Creatinine, Serum 1.28 mg/dL (0.70-1.30); EST Glomerular Filtration Rate 58 mL/min (>60); Est Glom Filt Rate - Afr Amer 71 mL/min (>60); Estimated Creatinine Clearance 51.49 ml/min; Glucose 123 mg/dL (74-106); High Density Lipoprotein 26 mg/dL; Potassium 3.6 mmol/L (3.5-5.1); Sodium Level 140 mmol/L (136-145); Triglycerides 206 mg/dL; Very Low Density Lipoprotein 41 mg/dL (5-40)
[2021-05-03] MEDS: Pantoprazole Sodium 40 MG Tablet PO (10:12)
[2021-05-03] MEDS: Losartan Potassium 25 MG Tablet 75 MG PO (10:12)
[2021-05-03] MEDS: Multivitamins,Therapeutic Tablet 1 TABLET PO (10:12)
[2021-05-03] MEDS: TICAGRELOR 90 MG TABLET PO (10:12)
[2021-05-03] MEDS: LINAGLIPTIN 5 MG TABLET PO (10:12)
[2021-05-03] MEDS: Metoprolol(XL)Succ 50 MG Tablet PO (10:13)
[2021-05-03] MEDS: Fenofibrate 145 MG Tablet PO (10:13)
[2021-05-03] MEDS: amLODIPine 5 MG Tablet PO (10:13)
[2021-05-03] MEDS: Aspirin 81 MG TAB.CHEW PO (10:17)
[2021-05-03 10:24] LABS: Absolute Lymphocyte Count 2.19 X10^3/uL (0.83-4.51); Absolute Neutrophil Count 5.6 X10^3/uL (2.0-7.7); Basophil# 0.04 X10^3/uL; Basophil% 0.4 % (0-1); Eosinophil# 0.12 X10^3/uL; Eosinophils% 1.3 % (0-5); Hematocrit 37.6 % (40-54); Hemoglobin 12.3 g/dL (13.0-16.5); Lymphocyte # 2.19 X10^3/ul (0.83-4.51); Lymphocyte % 24.5 % (19-41); Mean Corp Hgb Conc 32.7 g/dL (32-36); Mean Corpuscular Hgb 29.9 pg (27.0-32.0); Mean Corpuscular Volume 91.5 fL (80-94); Mean Platelet Vol. 10.9 fl (6.2-12.0); Monocyte# 0.94 X10^3/uL; Monocyte% 10.5 % (0-10); NRBC Flagged by Analyzer 0 % (0-5); Neutrophil # 5.64 X10^3/uL (2.7-7.7); Neutrophil % 63.1 % (47-70); Platelet Count 316 K/mm3 (150-450); RBC Distribution Width CV 12.7 % (11.6-14.6); RBC Distribution Width SD 42.5 fl (35.1-43.9); Red Blood Count 4.11 M/mm3 (4.6-6.2)
--- NOTE | 2021-05-03 10:43 | DCINST_ITS ---
Discharge Instructions Diet Discharge Diet: 1800 Calorie Control Diet Activity Discharge Activity: Return to Normal Activity Weight Bearing Status: Full weight bearing Lifting Restrictions: do not lift more than 10 pounds until you follow up with your sales order processor Follow Up Care Test Results: Test results from this visit will be discussed in further detail at your follow-up appointment, if applicable. Discharge Plan Admission Admit Date/Time: 05/02/21 21:08 Primary Reason for Your Visit: heart attack Attending Provider: Gurwinder Quan Primary Care Provider: Chase Cohen Consulting Providers: Nuris Colón Instructions Additional Instructions / Restrictions: Your dose of metoprolol succinate should be: 50 mg 1 daily starting 05/04/2021 Discharge Orders/Prescriptions Prescriptions: New metoprolol succinate 100 mg Tablet Extended Release 24 Hr 100 mg PO DAILY Qty: 45 RF: 0 aspirin 81 mg Tablet,Chewable 81 mg PO DAILYCM Qty: 0 RF: 0 atorvastatin 40 mg Tablet 40 mg PO QHS Qty: 30 RF: 0 Brilinta 90 mg Tablet 90 mg PO BID Qty: 60 RF: 0 metoprolol succinate 50 mg Tablet Extended Release 24 Hr 50 mg PO DAILY Qty: 30 RF: 0 metoprolol succinate 50 mg tablet extended release 24 hr 50 mg PO DAILY Qty: 1 RF: 0 Continued multivitamin Tablet 1 tab PO DAILY RF: 0 fenofibrate nanocrystallized 145 mg tablet 145 mg PO DAILY Qty: 90 RF: 3 losartan 50 mg tablet 75 mg PO DAILY RF: 0 metformin 1,000 mg tablet 1,000 mg PO BID Qty: 180 RF: 3 (DME) Blood Glucose Test Strip See Rx Instructions .ROUTE .MEDSUPPLY Qty: 100 RF: 3 omeprazole 40 mg capsule,delayed release(DR/EC) 40 mg PO DAILY Qty: 90 RF: 3 sitagliptin 100 mg tablet 100 mg PO DAILY Qty: 90 RF: 3 Discontinued aspirin 81 mg tablet,chewable 162 mg PO DAILY RF: 0 amlodipine 10 mg tablet 5 mg PO DAILY RF: 0 metoprolol succinate 100 mg tablet extended release 24 hr 100 mg PO .COMPLEX RF: 0 Referrals / Follow Up: Chase Cohen MD [Primary Care Provider] - Within 2 Weeks BrentonPrieto cordon MD [STAFF PHYSICIAN] - In 1 Week (call for appointment) Disposition Disposition (needs filled in before D/C Order can be placed): Home, Self Care
--- NOTE | 2021-05-03 11:00 | ECHOCS_ITS ---
Reason For Study: CP Procedure This was a 2D Doppler, Color Flow transthoracic echocardiogram. The study was technically difficult. Contrast injection was performed. Exam performed portable in ICU/CCU. Left Ventricle Normal left ventricle. The estimated ejection fraction is EF 55-60 %. Right Ventricle Normal right ventricle. Normal systolic function. Atria The left atrium is mildly enlarged. Mitral Valve The mitral valve is structurally normal. No prolapse or stenosis seen. No mitral valve insufficiency. Tricuspid Valve Normal tricuspid valve. No tricuspid valve insufficiency. Aortic Valve Normal aortic valve. Pulmonic Valve The pulmonic valve is not well visualized. Great Vessels Normal aortic root. Pericardium/Pleural No pericardial effusion. Medication Diluted definity 3ml given slow IV push to enhance endocardial definition. MMode/2D Measurements & Calculations LVIDd: 4.7 cm IVSd: 1.1 cm LA dimension: 4.0 cm LVIDs: 2.8 cm LVPWd: 0.85 cm RVDd: 3.1 cm FS: 39.9 % LAV(MOD-bp): 44.8 ml LA A4 area: 17.2 cm2 RA A4 area: 13.8 cm2 LAV(MOD-bp) Indexed: 22.9 ml/m2 LAV(MOD-sp2): 42.5 ml LAV(MOD-sp4): 48.7 ml Time Measurements MV dec time: 0.33 sec Doppler Measurements & Calculations MV E max edmundo: 66.9 cm/sec Lat Peak E' Edmundo: 10.5 cm/sec Med Peak E' Edmundo: 7.6 cm/sec MV A max edmundo: 103.8 cm/sec E/E' lat: 6.4 E/E' med: 8.9 MV E/A: 0.64 MV V2 max: 105.3 cm/sec MV P1/2t max edmundo: 81.3 cm/sec Ao V2 max: 141.9 cm/sec MV max P.4 mmHg MV P1/2t: 92.5 msec Ao max P.1 mmHg MV V2 mean: 54.3 cm/sec MV dec slope: 257.4 cm/sec2 MV mean P.4 mmHg MV V2 VTI: 27.7 cm MVA(P1/2t): 2.4 cm2 AI max edmundo: 378.5 cm/sec LV V1 max: 129.1 cm/sec PA V2 max: 98.4 cm/sec AI max P.3 mmHg LV V1 max P.7 mmHg AI dec slope: 194.8 cm/sec2 AI P1/2t: 569.2 msec TR max edmundo: 236.9 cm/sec TR max P.4 mmHg ECHO/Echo Complete W/ Contrast Interpretation Summary The estimated ejection fraction is EF 55-60 %. Normal LV systolic function Grade # I diastolic Dysfunction No change from prior Echo in 08/2019 Ordering Physician: Nuris Colón Referring Physician: Chase Cohen Performed By: Manuelito Clemons RCS
--- NOTE | 2021-05-03 12:20 | CASEMGMT ---
RN CM Face to Face with patient for initial transition planning/care coordination assessment. RN CM introduced self and role at [facility]. Patient sitting in chair, alert and oriented. Patient willing to participate in assessment and is able to answer all questions appropriately. Care providers, pharmacy, and demographics verified. Patient wishes to discharge home, denies need for home health at this time. Patient states he has no further needs or concerns at this time. CM to follow for discharge planning needs that may arise. PCP: Noel Specialists: Brenton senior manufacturing supervisor; sanjay Richmond Preferred Pharmacy: [facility] Insurance: [employer] [facility] Prescription Benefit: yes, Brilinta savings card given to patient Living Will/HPOA: yes, Vanessa Palma LNOK: Living Arrangements: Patient lives with in a 2 story home. Patient is independent at home and able to ambulate stairs. Transportation: self, DME/HHC: Patient states he has shower chair, raised toilet, and walker at home. Patient denies previous HHC or SNF. Disposition Plan: Patient to discharge home with family support and follow-up plans in place. Linda REYES, RN, CM
--- NOTE | 2021-05-03 12:45 | PCM.CONS.C ---
Assessment & Plan Assessment/Plan (1) ST elevation (STEMI) myocardial infarction: QUALIFIERS: Involved coronary artery: other coronary artery Qualified Code(s): I21.29 - ST elevation (STEMI) myocardial infarction involving other sites PLAN: 76-year-old patient presented with acute inferior myocardial infarction Underwent cardiac catheterization with successful PCI of the culprit lesion proximal RCA with placement of drug-eluting stent LV systolic function preserved. With no significant wall motion abnormality. Patient known to have history of CAD with prior PCI and stent of the mid LAD using drug-eluting stent Cypher in May 2003 at [facility] Patient did have history of diabetes mellitus, hypertension Cardiac status stable post PCI and stent with resolution of symptoms of chest pain and on tactical debriefer officer he had underlying normal sinus rhythm frequent PVC Cardiac recommendation plan; 1. Continue DAPT, Brilinta 90 mg twice daily in addition to low-dose aspirin for 1 year 2. I did high-dose statin atorvastatin 40 mg once a day 3. Continue rest of the cardiac medication with the plan of follow-up as an outpatient with [facility] heart group Dr. Farris for continuation of cardiac care plan. 4. I discussed the cardiac medication in detail with the patient and nursing staff as well as with the medical team 5. Patient to be set up for phase 1 cardiac rehab program. (2) Atherosclerosis of coronary artery of sycuan heart without angina pectoris: QUALIFIERS: Coronary Disease-Associated Artery/Lesion type: sycuan artery Qualified Code(s): I25.10 - Atherosclerotic heart disease of sycuan coronary artery without angina pectoris (3) History of coronary artery stent placement: (4) Hyperlipidemia: QUALIFIERS: Hyperlipidemia type: unspecified Qualified Code(s): E78.5 - Hyperlipidemia, unspecified (5) Essential (primary) hypertension: (6) Type 2 diabetes mellitus: HPI Consult Data Date of Consult: 05/03/21 HPI Narrative Reason for Consultation: CAD/STEMI-acute inferior CT HPI Narrative: GENI OJEDA, is a 76 M who presents [facility] Medical History Atherosclerosis of coronary artery of sycuan heart without angina pectoris Back problem BPH (benign prostatic hyperplasia) Enlarged prostate Essential (primary) hypertension Flu vaccine need Gastrointestinal complaints, unspecific GERD (gastroesophageal reflux disease) Health care maintenance Hearing problem History of CVA (cerebrovascular accident) (2001) Hyperlipidemia Neuropathy Obstructive sleep apnea Type 2 diabetes mellitus Home Medications blood sugar diagnostic #100 ea 03/28/19 [Rx Last Taken Unknown] omeprazole 40 mg capsule,delayed release 40 mg PO DAILY #90 cap 08/20/20 [Rx Last Taken Unknown] sitagliptin 100 mg tablet 100 mg PO DAILY #90 tab 08/20/20 [Rx Last Taken Unknown] multivitamin 1 tab PO DAILY 08/29/20 [History Last Taken Unknown] fenofibrate nanocrystallized 145 mg tablet 145 mg PO DAILY #90 tab 01/31/21 [Rx Last Taken Unknown] amlodipine 5 mg PO DAILY 05/02/21 [History Last Taken Unknown] losartan 75 mg PO DAILY 05/02/21 [History Last Taken Unknown] aspirin 81 mg PO DAILYCM #0 tab 05/03/21 [Rx Last Taken Unknown] atorvastatin 40 mg PO QHS #30 tab 05/03/21 [Rx Last Taken Unknown] metformin 1,000 mg PO BID #180 tab 05/03/21 [Rx Last Taken Unknown] metoprolol succinate 100 mg PO DAILY #45 tab 05/03/21 [Rx Last Taken Unknown] ticagrelor [Brilinta] 90 mg PO BID #60 tab 05/03/21 [Rx Last Taken Unknown] Allergy/AdvReac Type Severity Reaction Status Date / Time dulaglutide [From Trulicity] Allergy Intermediate Nausea Verified 05/02/21 20:59 niacin Allergy GI Upset, Verified 05/02/21 20:59 PUD w/blood, Hot Flashes amoxicillin trihydrate AdvReac Abd Verified 05/02/21 20:59 [From Augmentin] cramps/diarrhea potassium clavulanate AdvReac Abd Verified 05/02/21 20:59 [From Augmentin] cramps/diarrhea Family History Mother Diabetes Myocardial infarction Father AA (aortic aneurysm) Surgical History History of coronary artery stent placement (06/01/03) History of repair of rotator cuff S/P trigger finger release Social History Smoking Status: Former smoker quit date: 08/16/93 Tobacco: How many years used: 30 alcohol intake: current alcohol intake frequency: holidays/special occasions only Alcohol type: beer substance use type: does not use what type of physical activity do you participate in: walking Physical Exam Narrative Patient seen and evaluated today at bedside along with the nursing staff Patient sitting comfortably out in a chair has no symptoms of chest pain and has been stable hemodynamically On tactical debriefer officer noted he had infrequent premature ventricular complexes Is alert orientated x3 HEENT normal Cardiovascular exam S1-S2 regular, no murmur no systolic or diastolic murmur, no pericardial rub Chest examination clear to auscultation bilateral Examination lower extremity no clubbing no cyanosis no lower extremity edema Central nervous system exam no focal neurological deficit. Objective Data Vital Signs: Vital Signs Temp Pulse Resp BP Pulse Ox 98 F 75 14 127/70 H 98 05/03/21 10:00 05/03/21 11:51 05/03/21 10:00 05/03/21 10:13 05/03/21 10:00 Oxygen Flow Rate (L/min) 2 Oxygen Delivery Method Room Air Weight: 171 lb 11.841 oz Body Mass Index (BMI) 24.6 Intake & Output: Intake and Output for Last 24 Hours 05/01/21 05/02/21 05/03/21 23:59 23:59 23:59 Intake Total 955 / 955 Output Total 2550 / 2550 Balance -1595 / -1595 Lab / Micro Data Result Diagrams: 05/03/21 04:45 05/03/21 04:45 Labs: Laboratory Results - last 24 hr 05/02/21 20:55: WBC 12.6 H, RBC 4.36 L, Hgb 12.9 L, Hct 39.6 L, MCV 90.8, MCH 29.6, MCHC 32.6, RDW Std Deviation 41.7, RDW Coeff of Julianna 12.5, Plt Count 340, MPV 10.6, Immature Gran % (Auto) 0.500, Neut % (Auto) 69.8, Lymph % (Auto) 19.8, [place] % (Auto) 8.8, Eos % (Auto) 0.7, Baso % (Auto) 0.4, Absolute Neuts (auto) 8.8 H, Absolute Lymphs (auto) 2.49, Nucleated RBC % 0 05/02/21 20:55: PT 13.0, INR 1.0, APTT 26.6 05/02/21 20:55: Sodium 141, Potassium 4.0, Chloride 107, Carbon Dioxide 25.0, Anion Gap 9, BUN 18, Creatinine 1.78 H, Estim Creat Clear Calc 37.02, Est GFR (MDRD) Af Amer 48 L, Est GFR (MDRD) Non-Af 40 L, BUN/Creatinine Ratio 10.1, Glucose 254 H, Calcium 9.1, Troponin I High Sens 149 H* 05/03/21 04:45: WBC 9.0, RBC 4.11 L, Hgb 12.3 L, Hct 37.6 L, MCV 91.5, MCH 29.9, MCHC 32.7, RDW Std Deviation 42.5, RDW Coeff of Julianna 12.7, Plt Count 316, MPV 10.9, Immature Gran % (Auto) 0.200, Neut % (Auto) 63.1, Lymph % (Auto) 24.5, [place] % (Auto) 10.5 H, Eos % (Auto) 1.3, Baso % (Auto) 0.4, Absolute Neuts (auto) 5.6, Absolute Lymphs (auto) 2.19, Nucleated RBC % 0 05/03/21 04:45: Sodium 140, Potassium 3.6, Chloride 108 H, Carbon Dioxide 25.0, Anion Gap 7, BUN 15, Creatinine 1.28, Estim Creat Clear Calc 51.49, Est GFR (MDRD) Af Amer 71, Est GFR (MDRD) Non-Af 58 L, BUN/Creatinine Ratio 11.7, Glucose 123 H, Calcium 8.4 L, Triglycerides 206 H, Cholesterol 173, LDL Cholesterol 106, VLDL Cholesterol 41 H, HDL Cholesterol 26 L Cardiology Labs/Tests 05/02/21 20:55: WBC 12.6 H, RBC 4.36 L, Hgb 12.9 L, Hct 39.6 L, MCV 90.8, MCH 29.6, MCHC 32.6, Plt Count 340, MPV 10.6, Immature Gran % (Auto) 0.500, Neut % (Auto) 69.8, Lymph % (Auto) 19.8, [place] % (Auto) 8.8, Eos % (Auto) 0.7, Baso % (Auto) 0.4, Absolute Neuts (auto) 8.8 H, Nucleated RBC % 0 05/02/21 20:55: PT 13.0, INR 1.0, APTT 26.6 05/02/21 20:55: Sodium 141, Potassium 4.0, Chloride 107, Carbon Dioxide 25.0, Anion Gap 9, BUN 18, Creatinine 1.78 H, Est GFR (MDRD) Af Amer 48 L, Est GFR (MDRD) Non-Af 40 L, BUN/Creatinine Ratio 10.1, Glucose 254 H, Calcium 9.1 05/03/21 04:45: WBC 9.0, RBC 4.11 L, Hgb 12.3 L, Hct 37.6 L, MCV 91.5, MCH 29.9, MCHC 32.7, Plt Count 316, MPV 10.9, Immature Gran % (Auto) 0.200, Neut % (Auto) 63.1, Lymph % (Auto) 24.5, [place] % (Auto) 10.5 H, Eos % (Auto) 1.3, Baso % (Auto) 0.4, Absolute Neuts (auto) 5.6, Nucleated RBC % 0 05/03/21 04:45: Sodium 140, Potassium 3.6, Chloride 108 H, Carbon Dioxide 25.0, Anion Gap 7, BUN 15, Creatinine 1.28, Est GFR (MDRD) Af Amer 71, Est GFR (MDRD) Non-Af 58 L, BUN/Creatinine Ratio 11.7, Glucose 123 H, Calcium 8.4 L, Triglycerides 206 H, Cholesterol 173, LDL Cholesterol 106, VLDL Cholesterol 41 H, HDL Cholesterol 26 L Rhythm: Normal sinus rhythm with infrequent PVC EKG: Acute ST elevation inferior myocardial infarction Radiography Diagnostic Testing: Radiology Impression Chest X-Ray 05/02/21 20:53 IMPRESSION: Elevated right hemidiaphragm and minor right basilar atelectasis Electronically Signed: Misha Jurado MD at 22:08 EDT , Service support ,
[2021-05-03 13:05] LABS: Magnesium 1.7 mg/dL (1.6-2.6)
--- NOTE | 2021-05-03 19:24 | PCM.DC.SUM ---
Providers Date of Admission: 05/02/21 Date of Discharge: 05/03/21 Primary Care Physician: Dr. Chase Cohen MD Consultations 05/02/21 22:49 Consult: Cardiology Routine Consulting Provider: Nuris Colón Reason for Consult: stemi EMERGENT Consult: Yes Notified: Yes Date Notified: 05/02/21 Time Notified: 21:15 Method of Notification: Verbal Method of Consult:: In-Person Comments:: Notified by ED doctor Reason For Visit: STEMI Diagnosis Discharge Diagnosis (1) ST elevation (STEMI) myocardial infarction: Status: Acute Code(s): I21.3 - ST elevation (STEMI) myocardial infarction of unspecified site Qualifiers: Involved coronary artery: other coronary artery Qualified Code(s): I21.29 - ST elevation (STEMI) myocardial infarction involving other sites (2) Atherosclerosis of coronary artery of [place] heart without angina pectoris: Status: Chronic Code(s): I25.10 - Atherosclerotic heart disease of [place] coronary artery without angina pectoris Qualifiers: Coronary Disease-Associated Artery/Lesion type: [place] artery Qualified Code(s): I25.10 - Atherosclerotic heart disease of [place] coronary artery without angina pectoris (3) History of coronary artery stent placement: Status: Resolved Code(s): Z95.5 - Presence of coronary angioplasty implant and graft (4) Hyperlipidemia: Status: Chronic Code(s): E78.5 - Hyperlipidemia, unspecified Qualifiers: Hyperlipidemia type: unspecified Qualified Code(s): E78.5 - Hyperlipidemia, unspecified (5) Essential (primary) hypertension: Status: Chronic Code(s): I10 - Essential (primary) hypertension (6) Type 2 diabetes mellitus: Status: Chronic Code(s): E11.9 - Type 2 diabetes mellitus without complications Plan: 1. ST elevation myocardial infarction type I #2 hyperlipidemia #3 essential hypertension #4 type 2 diabetes Medications at Discharge Home Medications blood sugar diagnostic #100 ea 03/28/19 omeprazole 40 mg capsule,delayed release 40 mg PO DAILY #90 cap 08/20/20 sitagliptin 100 mg tablet 100 mg PO DAILY #90 tab 08/20/20 multivitamin 1 tab PO DAILY 08/29/20 fenofibrate nanocrystallized 145 mg tablet 145 mg PO DAILY #90 tab 01/31/21 losartan 75 mg PO DAILY 05/02/21 aspirin 81 mg PO DAILYCM #0 tab 05/03/21 atorvastatin 40 mg PO QHS #30 tab 05/03/21 metformin 1,000 mg PO BID #180 tab 05/03/21 metoprolol succinate 50 mg PO DAILY #1 tab 05/03/21 metoprolol succinate 50 mg PO DAILY #30 tab 05/03/21 metoprolol succinate 100 mg PO DAILY #45 tab 05/03/21 ticagrelor [Brilinta] 90 mg PO BID #60 tab 05/03/21 Hospital Course Operations None Procedures Cardiac catheterization (With placement of drug-eluting stent in proximal RCA) Summary of Care Provided Minutes Spent on Discharge: 31 Hospital Course: 76-year-old white male was seen in the emergency room at [facility] with complaints of chest discomfort, EKG was obtained and a STEMI alert was called, patient was taken to the cardiac [facility] and a lesion was noted to be present in the RCA. A drug-eluting stent was placed in the RCA, patient had no untoward events after the procedure and was admitted to ICU, echocardiogram was obtained which showed a normal ejection fraction of 55 to 60%. Patient had some PVCs during his ICU stay and he had a 5 beat run of VT. These arrhythmias were felt to be due to reperfusion. On 05/03/2021, patient was seen and examined: On examination he appeared in good health and spirits. Vital signs as documented. Skin warm and dry and without overt rashes. Neck without JVD, neck was supple, trachea midline, thyroid was normal. Lungs clear bilaterally, normal air movement was noted. Heart exam notable for regular rhythm, normal sounds and absence of murmurs, rubs or gallops. Abdomen unremarkable and without evidence of organomegaly, masses, or abdominal aortic enlargement. Bowel sounds are present, abdomen is not distended. Extremities nonedematous, no cyanosis was noted, no clubbing was noted. Neuro: Cranial nerves II through XII are grossly intact, no focal motor deficits were noted, sensation to light touch and pinprick intact, motor exam 5/5 throughout. Psych: Patient is alert and oriented x3, he does not appear anxious or depressed, he does not appear agitated. Patient was discharged home in stable condition on 05/03/2021. Weight / BMI Weight Weight: 77.9 kg Body Mass Index (BMI) 24.6 ABG / Lab / Microbiology Data Result Diagrams: 05/03/21 04:45 05/03/21 04:45 Laboratory: Laboratory Results - last 24 hr 05/02/21 20:55: WBC 12.6 H, RBC 4.36 L, Hgb 12.9 L, Hct 39.6 L, MCV 90.8, MCH 29.6, MCHC 32.6, RDW Std Deviation 41.7, RDW Coeff of [place] 12.5, Plt Count 340, MPV 10.6, Immature Gran % (Auto) 0.500, Neut % (Auto) 69.8, Lymph % (Auto) 19.8, [place] % (Auto) 8.8, Eos % (Auto) 0.7, Baso % (Auto) 0.4, Absolute Neuts (auto) 8.8 H, Absolute Lymphs (auto) 2.49, Nucleated RBC % 0 05/02/21 20:55: PT 13.0, INR 1.0, APTT 26.6 05/02/21 20:55: Sodium 141, Potassium 4.0, Chloride 107, Carbon Dioxide 25.0, Anion Gap 9, BUN 18, Creatinine 1.78 H, Estim Creat Clear Calc 37.02, Est GFR (MDRD) Af Amer 48 L, Est GFR (MDRD) Non-Af 40 L, BUN/Creatinine Ratio 10.1, Glucose 254 H, Calcium 9.1, Troponin I High Sens 149 H* 05/03/21 04:45: WBC 9.0, RBC 4.11 L, Hgb 12.3 L, Hct 37.6 L, MCV 91.5, MCH 29.9, MCHC 32.7, RDW Std Deviation 42.5, RDW Coeff of [place] 12.7, Plt Count 316, MPV 10.9, Immature Gran % (Auto) 0.200, Neut % (Auto) 63.1, Lymph % (Auto) 24.5, [place] % (Auto) 10.5 H, Eos % (Auto) 1.3, Baso % (Auto) 0.4, Absolute Neuts (auto) 5.6, Absolute Lymphs (auto) 2.19, Nucleated RBC % 0 05/03/21 04:45: Sodium 140, Potassium 3.6, Chloride 108 H, Carbon Dioxide 25.0, Anion Gap 7, BUN 15, Creatinine 1.28, Estim Creat Clear Calc 51.49, Est GFR (MDRD) Af Amer 71, Est GFR (MDRD) Non-Af 58 L, BUN/Creatinine Ratio 11.7, Glucose 123 H, Calcium 8.4 L, Triglycerides 206 H, Cholesterol 173, LDL Cholesterol 106, VLDL Cholesterol 41 H, HDL Cholesterol 26 L 05/03/21 04:45: Magnesium 1.7 Radiography Diagnostic Testing: Radiology Impression Chest X-Ray 05/02/21 20:53 IMPRESSION: Elevated right hemidiaphragm and minor right basilar atelectasis Electronically Signed: Misha Jurado MD at 22:08 EDT , Service support , Echocardiogram 05/03/21 11:00 Interpretation Summary The estimated ejection fraction is EF 55-60 %. Normal LV systolic function Grade # I diastolic Dysfunction No change from prior Echo in 08/2019 Ordering Physician: Nuris Colón Referring Physician: Chase Cohen Performed By: Manuelito Clemons [facility] D/C Instructions Discharge Diet: 1800 Calorie Control Diet Weight Bearing Status: Full weight bearing Meaningful Use Info Meaningful Use Diagnoses (Choose all that apply): AMI AMI/Post PCI/Angioplasty Aspirin given w/in 24hrs of arrival?: Yes ASA at discharge?: Yes Antiplatelet Therapy at Discharge:: Yes Statins at discharge?: Yes Parish/ARB at discharge?: Yes Beta [place] at discharge?: Yes Done w/ Acute IL measure.: Yes Documented LVEF (%): 60 Discharge Plan Admission Admit Date/Time: 05/02/21 21:08 Primary Reason for Your Visit: heart attack Attending Provider: Gurwinder Quan Primary Care Provider: Chase Cohen Consulting Providers: Nuris Colón Instructions Additional Instructions / Restrictions: Your dose of metoprolol succinate should be: 50 mg 1 daily starting 05/04/2021 Discharge Orders/Prescriptions Prescriptions: New metoprolol succinate 100 mg Tablet Extended Release 24 Hr 100 mg PO DAILY Qty: 45 RF: 0 aspirin 81 mg Tablet,Chewable 81 mg PO DAILYCM Qty: 0 RF: 0 atorvastatin 40 mg Tablet 40 mg PO QHS Qty: 30 RF: 0 Brilinta 90 mg Tablet 90 mg PO BID Qty: 60 RF: 0 metoprolol succinate 50 mg Tablet Extended Release 24 Hr 50 mg PO DAILY Qty: 30 RF: 0 metoprolol succinate 50 mg tablet extended release 24 hr 50 mg PO DAILY Qty: 1 RF: 0 Continued multivitamin Tablet 1 tab PO DAILY RF: 0 fenofibrate nanocrystallized 145 mg tablet 145 mg PO DAILY Qty: 90 RF: 3 losartan 50 mg tablet 75 mg PO DAILY RF: 0 metformin 1,000 mg tablet 1,000 mg PO BID Qty: 180 RF: 3 (DME) Blood Glucose Test Strip See Rx Instructions .ROUTE .MEDSUPPLY Qty: 100 RF: 3 omeprazole 40 mg capsule,delayed release(DR/EC) 40 mg PO DAILY Qty: 90 RF: 3 sitagliptin 100 mg tablet 100 mg PO DAILY Qty: 90 RF: 3 Discontinued aspirin 81 mg tablet,chewable 162 mg PO DAILY RF: 0 amlodipine 10 mg tablet 5 mg PO DAILY RF: 0 metoprolol succinate 100 mg tablet extended release 24 hr 100 mg PO .COMPLEX RF: 0 Referrals / Follow Up: Prieto Farris MD [STAFF PHYSICIAN] - In 1 Week (call for appointment) Chase Cohen MD [Primary Care Provider] - Within 2 Weeks Disposition Disposition (needs filled in before D/C Order can be placed): Home, Self Care Charges/Coding Visit Charges Inpatient E&M: 83521 Disch Hosp
== END 2021-05-03 18:42 | disposition home or self-care (01) | DRG 247 ==
LOC: ED 20:55 → ICU 21:24
PROVIDERS: Internal Medicine Interventional Cardiology; Admitting Provider Hospitalist; Emergency Provider Emergency Medicine; PCP Internal Medicine; Visit Provider Internal Medicine
DX: I21.19 ST elevation (STEMI) myocardial infarction involving other coronary artery of inferior wall (principal); I47.2 Ventricular tachycardia; I49.3 Ventricular premature depolarization; I25.10 Atherosclerotic heart disease of native coronary artery without angina pectoris; E11.40 Type 2 diabetes mellitus with diabetic neuropathy, unspecified; I10 Essential (primary) hypertension; E78.5 Hyperlipidemia, unspecified; E78.1 Pure hyperglyceridemia; N40.0 Benign prostatic hyperplasia without lower urinary tract symptoms; K21.9 Gastro-esophageal reflux disease without esophagitis; G47.33 Obstructive sleep apnea (adult) (pediatric); Z79.84 Long term (current) use of oral hypoglycemic drugs; Z79.82 Long term (current) use of aspirin; Z79.899 Other long term (current) drug therapy; Z86.73 Personal history of transient ischemic attack (TIA), and cerebral infarction without residual deficits; Z87.891 Personal history of nicotine dependence; Z95.5 Presence of coronary angioplasty implant and graft
CPT/HCPCS: 71045; 80048; 80061; 83735; 84484; 85025; 85610; 85730; 92941; 93005; 93306; 93458; 97802; 99284; C1874; J7030; J7040; Q9957; Q9967; A4216; C1725; C1769; C1887; C1894; C8929; C9606; J1327; J3490

== ENCOUNTER → 2021-05-07 06:59 | Outpatient (CLI) | payer MEDICARE, SELFPAY ==
[2021-05-07 07:48] LABS: Hematocrit 40.2 % (40-54); Hemoglobin 12.8 g/dL (13.0-16.5); Mean Corp Hgb Conc 31.8 g/dL (32-36); Mean Corpuscular Hgb 29.4 pg (27.0-32.0); Mean Corpuscular Volume 92.4 fL (80-94); Mean Platelet Vol. 10.4 fl (6.2-12.0); Platelet Count 337 K/mm3 (150-450); RBC Distribution Width CV 12.4 % (11.6-14.6); RBC Distribution Width SD 42.1 fl (35.1-43.9); Red Blood Count 4.35 M/mm3 (4.6-6.2); White Blood Count 9.7 K/mm3 (4.4-11.0)
== END ==
PROVIDERS: PCP Internal Medicine; Referring Provider Nurse Practitioner Gerontology; Visit Provider Nurse Practitioner Gerontology
DX: K92.1 Melena (principal)
CPT/HCPCS: 36415; 82274; 85027

== ENCOUNTER → 2021-05-14 | Outpatient (CLI) | payer MEDICARE, SELFPAY ==
[2021-05-14 10:27] LABS: Bacteria 0 SEEN /hpf (None Seen); Mucous, Urine 0 SEEN /hpf (<or=2+); Red Blood Cells-Urine 0 SEEN /hpf (0-5); Squamous Epithelial Cells - UA 0 SEEN /hpf (0-5)
[2021-05-14 12:43] LABS: Color, Urine Yellow (Yellow); Glucose, Dipstick Normal (Normal); Ketone-Dipstick Negative (Negative); Leukocyte Esterase-Dipstick 25 /ul (Negative); Nitrite-Dipstick Negative (Negative); Occult Blood-Urine Negative /ul (Negative); Protein-Dipstick 15 mg/dl (Negative); Specific Gravity, Urine 1.015 (1.002-1.030); Urine Bilirubin Dipstick Negative (Negative); Urine Clarity Clear (Clear); Urine Urobilinogen Normal (Normal)
[2021-05-14 12:55] LABS: White Blood Cells 0-5 SEEN /hpf (0-5)
== END | disposition home or self-care (01) ==
LOC: LABSPEC 10:26
PROVIDERS: PCP Internal Medicine; Referring Provider Internal Medicine; Visit Provider Internal Medicine
DX: R30.0 Dysuria (principal)
CPT/HCPCS: 81001

== ENCOUNTER 2021-11-25 05:55 | Emergency (ER) | payer MEDICARE, SELFPAY ==
[2021-11-25 05:58] VITALS: BP 150/76; PULSE 77; RESP 16; TEMP 36.3; O2SAT 98; BMI 25.8
--- NOTE | 2021-11-25 06:25 | CT_ITS ---
STUDY: CT ABDOMEN AND PELVIS WITHOUT CONTRAST REASON FOR EXAM: Male, 76 years old. Hematuria RADIATION DOSAGE (If Supplied By Facility): CTDIvol = ( 7.58 ) mGy, DLP = ( 411.16 ) mGycm TECHNIQUE: Transaxial images were obtained from the dome of the diaphragm to the symphysis pubis without oral contrast, and without intravenous contrast. Sagittal and coronal images were reconstructed. Individualized dose optimization techniques were used for this CT. COMPARISON: None. FINDINGS: The visualized lung bases are unremarkable. The visualized portions of the heart are within normal limits. Normal liver. Normal gallbladder and extrahepatic biliary system. Normal spleen. Normal pancreas. Normal bilateral adrenal glands. Normal right kidney. Normal left kidney. Normal visualized stomach. Normal small intestine. There are multiple colonic diverticula consistent with diverticulosis. The appendix is visualized and appears normal. There is diffuse atherosclerotic calcification of the abdominal aorta, without a demonstrated aneurysm. Normal inferior vena cava. Normal retroperitoneum. Normal urinary bladder. There is enlargement of the prostate gland. Normal abdominal wall. Normal osseous structures. CT/Abdomen/Pelvis without Cont IMPRESSION: Sigmoid diverticulosis. Prostate hypertrophy. Electronically Signed: Jakob Gamez MD at 7:05 EDT ,
[2021-11-25 06:36] VITALS: BP 110/70; BP 115/61; BP 133/69; PULSE 68; PULSE 70; PULSE 80
[2021-11-25 06:51] LABS: Absolute Lymphocyte Count 2.23 X10^3/uL (0.83-4.51); Absolute Neutrophil Count 4.9 X10^3/uL (2.0-7.7); Basophil# 0.06 X10^3/uL; Basophil% 0.7 % (0-1); Eosinophil# 0.24 X10^3/uL; Eosinophils% 2.9 % (0-5); Hematocrit 38.1 % (40-54); Hemoglobin 12.8 g/dL (13.0-16.5); Lymphocyte # 2.23 X10^3/ul (0.83-4.51); Lymphocyte % 27.1 % (19-41); Mean Corp Hgb Conc 33.6 g/dL (32-36); Mean Corpuscular Hgb 29.2 pg (27.0-32.0); Mean Platelet Vol. 10.6 fl (6.2-12.0); Monocyte# 0.77 X10^3/uL; Monocyte% 9.3 % (0-10); NRBC Flagged by Analyzer 0 % (0-5); Neutrophil # 4.92 X10^3/uL (2.7-7.7); Neutrophil % 59.8 % (47-70); Platelet Count 297 K/mm3 (150-450); RBC Distribution Width SD 38.5 fl (35.1-43.9); Red Blood Count 4.38 M/mm3 (4.6-6.2); White Blood Count 8.2 K/mm3 (4.4-11.0)
[2021-11-25 07:04] LABS: Anion Gap 8 (5-15); BUN 21 mg/dL (7-18); BUN/Creat Ratio 16.9 RATIO (10-20); Calcium,Total 9.1 mg/dL (8.5-10.1); Chloride 102 mmol/L (98-107); Creatinine, Serum 1.24 mg/dL (0.70-1.30); EST Glomerular Filtration Rate 60 mL/min (>60); Est Glom Filt Rate - Afr Amer 73 mL/min (>60); Estimated Creatinine Clearance 53.15 ml/min; Glucose 309 mg/dL (74-106); Potassium 3.8 mmol/L (3.5-5.1); Sodium Level 137 mmol/L (136-145)
--- NOTE | 2021-11-25 07:22 | EX.ED.DYSGE1 ---
HPI History of Present Illness Chief Complaint: Complaint Narrative Narrative: Patient is a 76-year-old male who is on aspirin and Plavix because he has had a [place] in the past year. He states that over the past week every time he urinates its been dark red blood present. He states he is passed clots and he thinks may be a few small kidney stones. He denies any dysuria. He denies any fevers or chills. He states he was feeling slightly weak and with the persistent blood over the past 1 week was wondering if he may have lost too much blood or has a kidney stone causing his recurrent bleeding and therefore comes in for evaluation [facility] Medical History Atherosclerosis of coronary artery of [place] heart without angina pectoris Back problem BPH (benign prostatic hyperplasia) Burning with urination Enlarged prostate Essential (primary) hypertension Gastrointestinal complaints, unspecific GERD (gastroesophageal reflux disease) Health care maintenance Hearing problem History of CVA (cerebrovascular accident) (2001) History of ST elevation myocardial infarction (STEMI) (05/02/21) Hyperlipidemia Left knee pain Neuropathy Obstructive sleep apnea ST elevation (STEMI) myocardial infarction Type 2 diabetes mellitus Home Medications blood sugar diagnostic #100 ea 03/28/19 [Rx Last Taken Unknown] multivitamin 1 tab PO DAILY 08/29/20 [History Last Taken Unknown] fenofibrate nanocrystallized 145 mg tablet 145 mg PO DAILY #90 tab 01/31/21 [Rx Last Taken Unknown] losartan 75 mg PO DAILY 05/02/21 [History Last Taken Unknown] aspirin 81 mg PO DAILYCM #0 tab 05/03/21 [Rx Last Taken Unknown] metformin 1,000 mg PO BID #180 tab 05/03/21 [Rx Last Taken Unknown] atorvastatin 40 mg tablet 40 mg PO QHS #90 tab 05/09/21 [Rx Last Taken Unknown] clopidogrel 75 mg tablet 75 mg PO DAILY #90 tab 05/09/21 [Rx Last Taken Unknown] metoprolol succinate 50 mg tablet,extended release 24 hr 50 mg PO DAILY #90 tab 05/09/21 [Rx Last Taken Unknown] omeprazole 40 mg capsule,delayed release 40 mg PO DAILY #90 cap 08/29/21 [Rx Last Taken Unknown] sitagliptin 100 mg tablet 100 mg PO DAILY #90 tab 08/29/21 [Rx Last Taken Unknown] Allergy/AdvReac Type Severity Reaction Status Date / Time dulaglutide [From Trulicity] Allergy Intermediate Nausea Verified 11/25/21 05:56 niacin Allergy GI Upset, Verified 11/25/21 05:56 PUD w/blood, Hot Flashes amoxicillin trihydrate AdvReac Abd Verified 11/25/21 05:56 [From Augmentin] cramps/diarrhea potassium clavulanate AdvReac Abd Verified 11/25/21 05:56 [From Augmentin] cramps/diarrhea Family History Mother Diabetes Myocardial infarction Father AA (aortic aneurysm) Surgical History History of coronary artery stent placement (05/02/21) History of repair of rotator cuff S/P trigger finger release Social History Smoking Status: Former smoker quit date: 08/16/93 Tobacco: How many years used: 30 alcohol intake: current alcohol intake frequency: holidays/special occasions only Alcohol type: beer substance use type: does not use what type of physical activity do you participate in: walking ROS ROS ED Constitutional Constitutional ED: Denies chills or fever(s) ENT ENT ED: Denies sore throat Cardiovascular Cardiovascular: Denies chest pain Respiratory/Chest Respiratory/Chest: Denies cough or dyspnea Gastrointestinal Gastrointestinal: Denies abdominal pain, diarrhea, nausea or vomiting Genitourinary Genitourinary ED: Reports hematuria; Denies dysuria or urinary frequency Musculoskeletal Musculoskeletal: Denies back pain or myalgias Integumentary Denies rash Neurologic Neurologic: Reports weakness; Denies headache(s) Hematologic/Lymphatic Hematologic/Lymphatic: Reports easy bleeding and easy bruising EXAM Physical Exam Const Vital Signs: 11/25/21 05:58 11/25/21 06:36 Temperature 97.3 F L Temperature Source Temporal Pulse Rate 77 Pulse Rate [Lying] 70 Pulse Rate [Sitting (for 1 minute prior to obtaining)] 68 Pulse Rate [Standing (for 1 minute prior to obtaining)] 80 Respiratory Rate 16 Blood Pressure 150/76 H Blood Pressure [Lying] 133/69 H Blood Pressure [Sitting (for 1 minute prior to obtaining)] 115/61 Blood Pressure [Standing (for 1 minute prior to obtaining)] 110/70 Blood Pressure Mean 100 Blood Pressure Mean [Lying] 90 Blood Pressure Mean [Sitting (for 1 minute prior to obtaining)] 79 Blood Pressure Mean [Standing (for 1 minute prior to obtaining)] 83 Pulse Ox 98 Oxygen Delivery Method Room Air Positive well nourished and well developed General Appearance ED: well developed Eyes PERRL and EOMs intact bilaterally General Eye ED: Negative for pale conjunctiva Neck supple Resp normal respiratory effort and clear to auscultation bilaterally Cardio regular rate and regular rhythm GI normal to inspection, nondistended, normoactive bowel sounds, non-tender, non-distended and no masses GI Narrative: No suprapubic pain with palpation or organomegaly noted to suggest urinary retention Auscultation: normoactive bowel sounds Palpation: soft Back/Spine no CVA tenderness Extremity normal to inspection Neuro oriented x3 and CN's II-XII intact bilaterally Sensorium / Orientation: alert Motor Exam: strength 5/5 throughout Psych mental status grossly normal Skin no rashes or lesions noted MDM MDM MDM Narrative Medical decision making narrative: Patient presented to the ER slightly hypertensive and afebrile without physical exam findings to suggest acute urinary retention. Based on his report of hematuria I did elect to check if patient needed a blood transfusion or had derangement to his platelets. His hemoglobin is 12.8 which is the same as it was approximately 8 months ago. His kidney function is at his baseline as well and his platelet count is normal. CT scan was obtained to check for kidney stone versus is bladder mass but just shows prostate hypertrophy. We discussed placing a Fishman catheter in and doing a irrigation of his bladder but patient states he has had this done in the past with minimal symptom improvement and therefore does not want that performed at this time. Therefore at this time as the patient is not need of a transfusion he is not having acute kidney injury or signs of urinary retention/obstruction I do not believe there is need for inpatient placement and he can follow-up with his urologist on an outpatient basis Lab Data Attestation: I reviewed the patient's lab results. Labs: Laboratory Results - last 24 hr 11/25/21 11/25/21 11/25/21 06:45 06:45 06:45 WBC 8.2 RBC 4.38 L Hgb 12.8 L Hct 38.1 L MCV 87.0 MCH 29.2 MCHC 33.6 RDW Std Deviation 38.5 RDW Coeff of [place] 12.0 Plt Count 297 MPV 10.6 Immature Gran % (Auto) 0.200 Neut % (Auto) 59.8 Lymph % (Auto) 27.1 [place] % (Auto) 9.3 Eos % (Auto) 2.9 Baso % (Auto) 0.7 Absolute Neuts (auto) 4.9 Absolute Lymphs (auto) 2.23 Nucleated RBC % 0 PT 13.9 INR 1.1 APTT 23.4 L Sodium 137 Potassium 3.8 Chloride 102 Carbon Dioxide 27.0 Anion Gap 8 BUN 21 H Creatinine 1.24 Estim Creat Clear Calc 53.15 Est GFR (MDRD) Af Amer 73 Est GFR (MDRD) Non-Af 60 BUN/Creatinine Ratio 16.9 Glucose 309 H Calcium 9.1 Urine Color Urine Clarity Urine pH Ur Specific [place] Urine Protein Urine Glucose (UA) Urine Ketones Urine Occult Blood Urine Nitrite Urine Bilirubin Urine Urobilinogen Ur Leukocyte Esterase Urine RBC Urine WBC Ur Squamous Epith Cells Urine Bacteria Urine Mucus 11/25/21 07:40 WBC RBC Hgb Hct MCV MCH MCHC RDW Std Deviation RDW Coeff of [place] Plt Count MPV Immature Gran % (Auto) Neut % (Auto) Lymph % (Auto) [place] % (Auto) Eos % (Auto) Baso % (Auto) Absolute Neuts (auto) Absolute Lymphs (auto) Nucleated RBC % PT INR APTT Sodium Potassium Chloride Carbon Dioxide Anion Gap BUN Creatinine Estim Creat Clear Calc Est GFR (MDRD) Af Amer Est GFR (MDRD) Non-Af BUN/Creatinine Ratio Glucose Calcium Urine Color Red Urine Clarity Turbid Urine pH 7.0 Ur Specific [place] 1.015 Urine Protein 500 H Urine Glucose (UA) 250 H Urine Ketones 15 H Urine Occult Blood 150 H Urine Nitrite Negative Urine Bilirubin 1 H Urine Urobilinogen Normal Ur Leukocyte Esterase Negative Urine RBC > 100 SEEN Urine WBC 0 SEEN Ur Squamous Epith Cells 0 SEEN Urine Bacteria 0 SEEN Urine Mucus 0 SEEN Radiography Diagnostic Testing: Clinical Impression(s) from Imaging Studies Abdomen/Pelvis CT 11/25/21 06:25 IMPRESSION: Sigmoid diverticulosis. Prostate hypertrophy. Electronically Signed: Jakob Gamez MD at 7:05 EDT Reading Location ID and State: [facility] / [place] Tel , Service support , Discharge Plan Triage Chief Complaint: Complaint ED Provider: John Carlson Dx/Rx/DC Orders Clinical Impression: Hematuria, Hypertrophy of prostate Instructions: Hematuria: Possible Causes, ED BPH (Enlarged Prostate) Prescriptions: No Action multivitamin Tablet 1 tab PO DAILY RF: 0 fenofibrate nanocrystallized 145 mg tablet 145 mg PO DAILY Qty: 90 RF: 3 atorvastatin 40 mg tablet 40 mg PO QHS Qty: 90 RF: 3 metoprolol succinate 50 mg tablet extended release 24 hr 50 mg PO DAILY Qty: 90 RF: 3 clopidogrel [Plavix] 75 mg tablet 75 mg PO DAILY Qty: 90 RF: 3 losartan 50 mg tablet 75 mg PO DAILY RF: 0 aspirin 81 mg Tablet,Chewable 81 mg PO DAILYCM Qty: 0 RF: 0 metformin 1,000 mg tablet 1,000 mg PO BID Qty: 180 RF: 3 (DME) Blood Glucose Test Strip See Rx Instructions .ROUTE .MEDSUPPLY Qty: 100 RF: 3 omeprazole 40 mg capsule,delayed release(DR/EC) 40 mg PO DAILY Qty: 90 RF: 3 sitagliptin 100 mg tablet 100 mg PO DAILY Qty: 90 RF: 3 Primary Care Provider: Chase Cohen Referrals: Chase Cohen MD [Primary Care Provider] - Eligio Navarro MD [STAFF PHYSICIAN] - 3-5 Days if not improving Activity Restrictions/Additional Instructions: Please follow-up with urology for repeat evaluation to discuss need for bladder irrigation and or cystoscopy if symptoms persist Disposition Disposition: Home, Self Care
[2021-11-25 07:50] LABS: Bacteria 0 SEEN /hpf (None Seen); Mucous, Urine 0 SEEN /hpf (<or=2+); Squamous Epithelial Cells - UA 0 SEEN /hpf (0-5); White Blood Cells 0 SEEN /hpf (0-5)
[2021-11-25 07:54] LABS: Color, Urine Red (Yellow); Glucose, Dipstick 250 mg/dl (Normal); Ketone-Dipstick 15 mg/dl (Negative); Leukocyte Esterase-Dipstick Negative /ul (Negative); Nitrite-Dipstick Negative (Negative); Occult Blood-Urine 150 /ul (Negative); Protein-Dipstick 500 mg/dl (Negative); Specific Gravity, Urine 1.015 (1.002-1.030); Urine Clarity Turbid (Clear); Urine Urobilinogen Normal (Normal)
[2021-11-25 07:55] LABS: Urine Bilirubin Dipstick 1 mg/dL (Negative)
[2021-11-25 08:02] LABS: International Normalized Ratio 1.1; Prothrombin Time (Protime)PT. 13.9 SECONDS (11.7-14.9)
[2021-11-25 08:03] LABS: Red Blood Cells-Urine > 100 SEEN /hpf (0-5)
[2021-11-25 08:03] LABS: Partial Thromboplast Time 23.4 Seconds (24.1-36.2)
[2021-11-25 08:20] VITALS: BP 142/69; PULSE 74; RESP 16; O2SAT 98
== END 2021-11-25 08:25 | disposition home or self-care (01) ==
PROVIDERS: Emergency Provider Emergency Medicine; PCP Internal Medicine; Visit Provider Emergency Medicine
DX: R31.9 Hematuria, unspecified (principal); N40.0 Benign prostatic hyperplasia without lower urinary tract symptoms; E11.40 Type 2 diabetes mellitus with diabetic neuropathy, unspecified; I25.10 Atherosclerotic heart disease of native coronary artery without angina pectoris; I10 Essential (primary) hypertension; E78.5 Hyperlipidemia, unspecified; G47.33 Obstructive sleep apnea (adult) (pediatric); Z79.02 Long term (current) use of antithrombotics/antiplatelets; Z79.82 Long term (current) use of aspirin; Z79.84 Long term (current) use of oral hypoglycemic drugs; Z79.899 Other long term (current) drug therapy; I25.2 Old myocardial infarction; Z86.73 Personal history of transient ischemic attack (TIA), and cerebral infarction without residual deficits; Z87.891 Personal history of nicotine dependence; Z95.5 Presence of coronary angioplasty implant and graft
CPT/HCPCS: 74176; 80048; 81001; 85025; 85610; 85730; 99284; A4216

== ENCOUNTER → 2021-12-04 | Outpatient (CLI) | payer MEDICARE, SELFPAY ==
--- NOTE | 2021-12-04 | CYSPIN_PTH ---
PATIENT: GENI OJEDA LOC: [facility] U#:[id number] AGE/SX: 76/M ROOM: RE12/04/[address]: Dr. Eligio Navarro MD : 1945 BED: DIS: 12/04/2021 SPEC #: [id number] RECD: 12/05/21 08:43 STATUS: RIAN REMell #: [id number] BRENDA: 12/04/21 00:[address]: Eligio Navarro DEPT: CYTOLOGY RECD BY: Vu Simmons ENTERED: 12/05/21 08:43 SP TYPE: CYSPIN FL OTHR DR: Dr. Chase Cohen MD Tissues: Urine Procedures: Pap Stain (control) Special Stain Group II Cytospin Fluid HEADER OPERATION: Not noted PRE-OP DIAGNOSIS: Gross hematuria TISSUE SUBMITTED: Urine for cytology DIAGNOSIS CYTOLOGY Urine for cytology (cytospin): Negative for malignant cells. Abundant acute inflammatory cells. AM:bo 12/05/2021 CYTOLOGY STUDY Slides are reviewed. CYTOLOGY GROSS Received is 80 ml of red cloudy fluid labeled with the patient's name and and designated per the requisition as urine. Submitted for cytology preparation. / bo 12/05/2021 TC:2 CPT: 51800
[2021-12-04 16:55] LABS: Cytology, Body Fluid / CSF SEE PATHOLOGY REPORT
== END | disposition home or self-care (01) ==
LOC: LABSPEC 16:49
PROVIDERS: PCP Internal Medicine; Visit Provider Urology
DX: R31.0 Gross hematuria (principal)
CPT/HCPCS: 88108; 88313

== ENCOUNTER → 2022-03-04 | Outpatient (CLI) | payer MEDICARE, SELFPAY ==
[2022-03-04 09:37] LABS: Absolute Lymphocyte Count 2.28 X10^3/uL (0.83-4.51); Absolute Neutrophil Count 4.2 X10^3/uL (2.0-7.7); Basophil# 0.06 X10^3/uL; Basophil% 0.8 % (0-1); Eosinophil# 0.15 X10^3/uL; Hematocrit 38.1 % (40-54); Hemoglobin 12.3 g/dL (13.0-16.5); Lymphocyte # 2.28 X10^3/ul (0.83-4.51); Lymphocyte % 30.6 % (19-41); Mean Corp Hgb Conc 32.3 g/dL (32-36); Mean Corpuscular Hgb 28.3 pg (27.0-32.0); Mean Corpuscular Volume 87.8 fL (80-94); Mean Platelet Vol. 10.7 fl (6.2-12.0); Monocyte# 0.75 X10^3/uL; Monocyte% 10.1 % (0-10); NRBC Flagged by Analyzer 0 % (0-5); Neutrophil # 4.17 X10^3/uL (2.7-7.7); Neutrophil % 55.8 % (47-70); Platelet Count 323 K/mm3 (150-450); RBC Distribution Width CV 12.5 % (11.6-14.6); RBC Distribution Width SD 39.9 fl (35.1-43.9); Red Blood Count 4.34 M/mm3 (4.6-6.2); White Blood Count 7.5 K/mm3 (4.4-11.0)
[2022-03-04 10:23] LABS: ALB/GLOB Ratio 1.2 RATIO (0.9-2.4); AST(SGOT) 20 U/L (15-37); Alanine Aminotransfer ALT/SGPT 26 U/L (16-61); Albumin, Serum 3.9 g/dL (3.2-5.0); Alkaline Phosphatase 47 U/L (45-117); Anion Gap 7 (5-15); BUN 16 mg/dL (7-18); BUN/Creat Ratio 12.6 RATIO (10-20); Calcium,Total 8.7 mg/dL (8.5-10.1); Chloride 104 mmol/L (98-107); Cholesterol 147 mg/dL (200); Creatinine, Serum 1.27 mg/dL (0.70-1.30); EST Glomerular Filtration Rate 59 mL/min (>60); Est Glom Filt Rate - Afr Amer 71 mL/min (>60); Globulin 3.3 g/dL (2.2-4.2); Glucose 276 mg/dL (74-106); High Density Lipoprotein 26 mg/dL; Potassium 3.9 mmol/L (3.5-5.1); Protein, Total 7.2 g/dL (6.4-8.2); Sodium Level 137 mmol/L (136-145); Thyroid Stim Hormone (TSH) 1.59 uIU/mL (0.358-3.74); Triglycerides 272 mg/dL; Very Low Density Lipoprotein 54 mg/dL (5-40)
== END | disposition home or self-care (01) ==
LOC: LAB 09:05
PROVIDERS: PCP Internal Medicine; Referring Provider Physician Assistant Medical; Visit Provider Physician Assistant Medical
DX: I25.10 Atherosclerotic heart disease of native coronary artery without angina pectoris (principal); E11.69 Type 2 diabetes mellitus with other specified complication; R09.89 Other specified symptoms and signs involving the circulatory and respiratory systems; R53.83 Other fatigue; E78.5 Hyperlipidemia, unspecified
CPT/HCPCS: 36415; 80053; 80061; 83036; 84443; 85025

== ENCOUNTER → 2022-04-30 | Outpatient (CLI) | payer MEDICARE, SELFPAY ==
--- NOTE | 2022-04-30 09:11 | ART_ITS ---
Reason For Study: decreased pedal pulses Procedure A bilateral lower extremity continuous wave Doppler with analog waveform analysis,segmental pressures,and ankle brachial indexes without exercise. Left Segmental Pressures Left brachial= 127mmHg. Left thigh = 204mmHg. Left calf = 111mmHg. Left posterior tibial artery = 121mmHg. Left dorsalis pedis artery = 113mmHg. The left dorsalis pedis waveforms are biphasic. The left posterior tibial artery waveforms are biphasic. Right Segmental Pressures Right brachial= 134mmHg. Right thigh = 179mmHg. Right calf = 106mmHg. Right posterior tibial artery = 119mmHg. Right dorsalis pedis artery = 103mmHg. The right dorsalis pedis waveforms are biphasic. The right posterior tibial artery waveforms are biphasic. Indices The right ankle brachial index by the dorsalis pedis is .77. The right ankle brachial index by the posterior tibial artery is .89. The left ankle brachial index by the posterior tibial artery is .9. The left ankle brachial index by the dorsalis pedis is .84. VL/Lower Ext Art Exam w/o Exercis Interpretation Summary Right SAL 0.89, mild arterial insufficiency. Doppler/PVR waveforms and segmenta l pressures reveal distal SFA/popliteal disease Left SAL 0.9, mild arterial insufficiency Doppler/PVR waveforms reveal distal S FA/popliteal disease. Ordering Physician: Corry Moura Performed By: Jay Jay Fay, RVT
== END | disposition home or self-care (01) ==
LOC: CVS 08:26
PROVIDERS: PCP Internal Medicine; Visit Provider Physician Assistant Medical
DX: I73.9 Peripheral vascular disease, unspecified (principal); R09.89 Other specified symptoms and signs involving the circulatory and respiratory systems; R53.83 Other fatigue; I25.10 Atherosclerotic heart disease of native coronary artery without angina pectoris
CPT/HCPCS: 93923

== ENCOUNTER → 2022-05-05 | Outpatient (CLI) | payer MEDICARE, SELFPAY ==
--- NOTE | 2022-05-01 09:37 | HP.PCM_ITS ---
History and Physical History and Physical [facility] Patient Name: Juan Alberto Palma : 1945 From:? AUTUMN HOLLOWAY PA-C? DATE OF SURGERY:? 05/11/2022 SCHEDULED PROCEDURE:? left knee arthroscopy with medial meniscectomy and subchondral plasty of the medial femoral condyle HISTORY OF PRESENT ILLNESS: Preoperative history and physical exam was performed on May 01, 2022.? This is a 77-year-old male who has had ongoing pain for several years in his left knee.? Patient has been treated for underlying osteoarthritis.? He has had previous corticosteroid injections.? He has tried oral medications including meloxicam and Tylenol.? Patient has had previous MRI which did reveal medial meniscus tear and osteoarthritis.? Patient has pain with activities of daily living.? Pain is located over the medial aspect of the left knee.? He is currently taking Plavix from hat brim and crown laminating operator.? He has had previous heart attack and stent placement.? We have obtain surgical clearance from the hat brim and crown laminating operator Dr. Farris.? Milk Of Lime Slaker did recommend we stop the Plavix 7 days before surgery.? Patient states he is no longer taking aspirin.? After failing conservative measures and discussing treatment options with Dr. Juan Alberto Richmond, the patient does wish to proceed with a left knee arthroscopy with medial meniscectomy and some chondroplasty of the medial femoral condyle.? He currently denies any chest pain, shortness of breath, fevers chills or recent infections.? Patient has medical history pertinent for type 2 diabetes mellitus, hypertension, sleep apnea, previous stroke, previous heart attack with stent placement. REVIEW OF SYSTEMS: Review Of Systems: Constitutional: Denies change in appetite, fever,or weight change. Cardiovasular: Denies chest pain, heart murmur and irregular heartbeat. Respiratory: Denies cough, pneumonia, shortness of breath, tuberculosis and wheezing. Gastrointestinal: Denies constipation, diarrhea, heartburn, nausea, rectal itching, bloody stools and vomiting. Genitourinary: Denies incontinence. Musculoskeletal: Reports gait disturbance, but denies leg swelling, pain, trouble walking and weakness. Skin: Denies Raynaud's, history of shingles and tattoo. Neurological: Denies ambulatory dysfunction, dizziness, numbness/tingling and tremor. Psychiatric: Denies anxiety, insomnia and stress. Hematologic/Lymphatic: Reports bleeding/bruising tendency, but denies anemia and past transfusion. Reviewed and updated. PAST MEDICAL HISTORY: Advance Care Plan: Other Directive, LIVING WILL Effective Date: 10/08/2015 Past Medical History: Medical Problems: Arthritis, Diabetes, Hard of Hearing, High Blood Pressure, Hypercholesterolemia, Psoriasis, Sleep Apnea, Stroke, Vision Problems/Blind Covid-19 - VACCINATED - (10/24/2020)(11/14/2020) Heart Attack Accidents: None Surgical Hx: Shoulder Arthroscopy Lt - @[facility] DR. CALIX Stent Lad - (2002) @[facility] RT Trigger Finger Release - (10/18/2015) [email or web address] Middle Finger, Trigger Release of A1 Rpabhu - (04/23/2021) Dr Cristopher Richmond @ [facility] Stent Placed - (05/02/2021) [facility] Cyst Removed From LT Ankle - TEENAGER Anesthesia Complications: None Assistive Devices: Glasses Reviewed and updated. SOCIAL HISTORY: Social History: Marital: .Occupation: Retired.Work Status: Retired.Hand Dominance: Left- handed. Personal Habits:? Cigarette Use: Former.Smokeless Tobacco: Never Used Smokeless Tobacco.E-Cigarette Use: Never used.Alcohol: Occasionally.Drug Use: Denies Use.Enjoy Exercising: Never Exercises. Reviewed, no changes. VITALS: Ht: 70.5 Wt: 178lb Wt k.741 BMI: 25.2 BP: 112/68 Pulse: 66 T: 98.1 T: 36.7C Pain Level: 4 O2SatR: 98 ALLERGIES: Niacin Augmentin? MEDICATIONS: Omeprazole 40 mg 1 cap PO daily, Metformin HCL 1000 mg 2 tabs PO daily, Toprol XL 100 mg 1 tab PO daily, Aspirin 81 mg `1 x/day by mouth, Januvia 100 mg 1 by mouth every day, Fenofibrate 145 mg 1 by mouth every day, Losartan Potassium 50 mg 1 by mouth every day, Multivitamin? take one(1) tablet daily., Atorvastatin Calcium 20 mg 1 by mouth every day, Plavix 75 mg unsure going to call in PRE-OP EXAM:? General appearance:NORMAL? ? ? Other: Eyes: Conjunctivae and lids: NORMAL? Pupils: ERR Ears, Nose, Mouth, and Throat: NORMAL? Other: Inspection of lips, teeth and gums: NORMAL? ?Other: Neck: Examination of neck: no masses noted. Respiratory: Assessment of respiratory effort: NORMAL? ?Other: ?Auscultation of lungs: clear to auscultation no wheezes, rhonchi or rales. Cardiovascular:? Auscultation of heart: regular rate and rhythm, no murmurs, gallops or rubs. PHYSICAL EXAMINATION: On exam the left knee there is no erythema or signs of infection.? He has tenderness to palpation diffusely throughout the medial aspect of the left knee.? No significant tenderness laterally.? Range of motion: 0 extension to approximately 108 flexion.? Positive Nimco's examination which does reproduce symptoms medially.? Negative anterior/posterior drawer exam, negative varus/valgus stress test.? Patient does walk with a slight limping gait.? Sensation intact to light touch. IMAGING STUDIES: Previous x-rays of the left knee revealed grade 3-4 medial osteoarthritis and grade 3 patellofemoral osteoarthritis and grade 2 lateral osteoarthritis with calcification of the femoral artery. 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 IMPRESSION: 1.? Left knee osteoarthritis with medial meniscus tear 2.? Hypertension 3.? Type 2 diabetes mellitus 4.? Hypercholesterolemia 5.? Sleep apnea 6.? Stroke 7.? Previous history of heart attack with stent placement 8.? Psoriasis? PLAN: Dr. Juan Alberto Richmond did discuss and review with the patient all treatment options including surgical versus nonsurgical options.? Patient does wish to proceed with the above-stated procedure.? Potential risks, benefits, and complications of the procedure were discussed in detail including but not limited to , i nfection, nerve and blood vessel damage, persistent pain, numbness, tingling, paresthesias, blood clot, pulmonary embolism, and requirement for possible further surgery.? The patient expressed full understanding and has no further questions for the doctor.? Patient does agree to proceed with the above-stated procedure and has signed the surgery consent form.? We will undergo preoperative lab work and EKG.? Patient was instructed to bring walker to day of surgery.? He will be weightbearing as tolerated with walker postoperatively.? Follow-up per postop instructions. We discussed the current risks associated with COVID 19.? This does include the risk of exposure while in the hospital.? Patient was reassured local hospitals have low infection rates and are taking all necessary precautions to avoid exposure to patients.? In addition, we discussed strategies that can be used to help limit exposure including those that limit the patient's time in the hospital.? Also using strategies to limit the patient's need for continued inpatient services after being discharged from the hospital.? Patient was notified that we will need to comply with any screening or testing the hospital wishes to perform or that surgery may be delayed for any positive results. This dictation was created using voice recognition software. Phonetic and/or grammatical errors may exist. ___? I have re-examined the patient.? There are no clinical changes since date of exam. ___? See progress notes for changes. ___? Dictated on admission Date: ? ? ?Time: Signature:
--- NOTE | 2022-05-05 07:58 | EKG12_ITS ---
Test Reason : PREOP Blood Pressure : / mmHG Vent. Rate : 061 BPM Atrial Rate : 061 BPM P-R Int : 180 ms QRS Dur : 070 ms QT Int : 390 ms P-R-T Axes : 066 -46 058 degrees QTc Int : 392 ms Normal sinus rhythm Left axis deviation Abnormal ECG Confirmed by LAURY ANDINO, KEYSHA ([id number]), assistant production editor GURJIT HIGUERA ([id number]) on 05/06/2022 11:10:26 AM Referred By: Juan Alberto Richmond Confirmed By:KEYSHA SCHAEFFER MD
[2022-05-05 08:14] LABS: Hematocrit 39.4 % (40-54); Hemoglobin 13.3 g/dL (13.0-16.5); Mean Corp Hgb Conc 33.8 g/dL (32-36); Mean Corpuscular Hgb 29.6 pg (27.0-32.0); Mean Corpuscular Volume 87.6 fL (80-94); Mean Platelet Vol. 10.8 fl (6.2-12.0); Platelet Count 325 K/mm3 (150-450); RBC Distribution Width CV 12.3 % (11.6-14.6); RBC Distribution Width SD 39.4 fl (35.1-43.9); White Blood Count 8.1 K/mm3 (4.4-11.0)
[2022-05-05 08:23] LABS: Partial Thromboplast Time 25.1 Seconds (24.1-36.2)
[2022-05-05 08:52] LABS: Anion Gap 8 (5-15); BUN 19 mg/dL (7-18); BUN/Creat Ratio 15.6 RATIO (10-20); Calcium,Total 9.5 mg/dL (8.5-10.1); Chloride 101 mmol/L (98-107); Creatinine, Serum 1.22 mg/dL (0.70-1.30); EST Glomerular Filtration Rate 61 mL/min (>60); Est Glom Filt Rate - Afr Amer 74 mL/min (>60); Glucose 269 mg/dL (74-106); Potassium 4.1 mmol/L (3.5-5.1); Sodium Level 137 mmol/L (136-145)
[2022-05-05 08:53] LABS: Hemoglobin A1c 9.1 % (3.8-5.6)
== END | disposition home or self-care (01) ==
LOC: PAT 06-01 12:20
PROVIDERS: Anesthesiology; PCP Internal Medicine; Referring Provider Orthopaedic Surgery; Visit Provider Orthopaedic Surgery
DX: Z01.818 Encounter for other preprocedural examination (principal); E11.9 Type 2 diabetes mellitus without complications; M17.12 Unilateral primary osteoarthritis, left knee; I10 Essential (primary) hypertension; E78.00 Pure hypercholesterolemia, unspecified; G47.30 Sleep apnea, unspecified; Z86.73 Personal history of transient ischemic attack (TIA), and cerebral infarction without residual deficits; I25.2 Old myocardial infarction; Z79.01 Long term (current) use of anticoagulants; Z79.899 Other long term (current) drug therapy; Z95.5 Presence of coronary angioplasty implant and graft
CPT/HCPCS: 36415; 80048; 83036; 85027; 85610; 85730; 93005

== ENCOUNTER → 2022-07-17 | Outpatient (CLI) | payer MEDICARE, SELFPAY ==
[2022-07-17 09:01] LABS: Hemoglobin A1c 7.5 % (3.8-5.6)
[2022-07-17 09:04] LABS: Anion Gap 8 (5-15); BUN 26 mg/dL (7-18); BUN/Creat Ratio 19.4 RATIO (10-20); Calcium,Total 9.6 mg/dL (8.5-10.1); Chloride 106 mmol/L (98-107); Creatinine, Serum 1.34 mg/dL (0.70-1.30); EST Glomerular Filtration Rate 55 mL/min (>60); Est Glom Filt Rate - Afr Amer 67 mL/min (>60); Glucose 165 mg/dL (74-106); Potassium 4.1 mmol/L (3.5-5.1); Sodium Level 140 mmol/L (136-145)
== END | disposition home or self-care (01) ==
PROVIDERS: PCP Internal Medicine; Referring Provider Internal Medicine; Visit Provider Internal Medicine
DX: E11.69 Type 2 diabetes mellitus with other specified complication (principal)
CPT/HCPCS: 36415; 80048; 83036

== ENCOUNTER → 2022-09-30 | Outpatient (CLI) | payer MEDICARE, SELFPAY ==
[2022-09-30 12:55] LABS: Absolute Lymphocyte Count 1.94 X10^3/uL (0.83-4.51); Absolute Neutrophil Count 4.3 X10^3/uL (2.0-7.7); Basophil# 0.08 X10^3/uL; Basophil% 1.1 % (0-1); Eosinophil# 0.22 X10^3/uL; Hematocrit 41.2 % (40-54); Hemoglobin 13.2 g/dL (13.0-16.5); Lymphocyte # 1.94 X10^3/ul (0.83-4.51); Lymphocyte % 26.6 % (19-41); Mean Corpuscular Hgb 29.1 pg (27.0-32.0); Mean Corpuscular Volume 90.9 fL (80-94); Mean Platelet Vol. 10.9 fl (6.2-12.0); Monocyte# 0.74 X10^3/uL; Monocyte% 10.1 % (0-10); NRBC Flagged by Analyzer 0 % (0-5); Neutrophil # 4.31 X10^3/uL (2.7-7.7); Neutrophil % 59.1 % (47-70); Platelet Count 296 K/mm3 (150-450); RBC Distribution Width CV 12.9 % (11.6-14.6); RBC Distribution Width SD 42.7 fl (35.1-43.9); Red Blood Count 4.53 M/mm3 (4.6-6.2); White Blood Count 7.3 K/mm3 (4.4-11.0)
[2022-09-30 13:13] LABS: Hemoglobin A1c 7.9 % (3.8-5.6)
[2022-09-30 13:15] LABS: Anion Gap 9 (5-15); BUN 25 mg/dL (7-18); BUN/Creat Ratio 15.7 RATIO (10-20); Calcium,Total 9.4 mg/dL (8.5-10.1); Chloride 108 mmol/L (98-107); Creatinine, Serum 1.59 mg/dL (0.70-1.30); EST Glomerular Filtration Rate 45 mL/min (>60); Est Glom Filt Rate - Afr Amer 55 mL/min (>60); Glucose 213 mg/dL (74-106); Potassium 4.6 mmol/L (3.5-5.1); Sodium Level 141 mmol/L (136-145)
[2022-09-30 13:33] LABS: Microalbumin,Random Urine < 5.0 mg/L (NO RANGE EST.)
== END | disposition home or self-care (01) ==
LOC: BIMLAB 09:26
PROVIDERS: PCP Internal Medicine; Referring Provider Internal Medicine; Visit Provider Internal Medicine
DX: E11.69 Type 2 diabetes mellitus with other specified complication (principal)
CPT/HCPCS: 36415; 80048; 82043; 82570; 83036; 85025

== ENCOUNTER 2023-04-09 10:04 | Emergency (ER) | payer MEDICARE, SELFPAY ==
[2023-04-09 10:06] VITALS: BP 141/76; PULSE 68; RESP 14; TEMP 37.2; O2SAT 99; BMI 24.1
--- NOTE | 2023-04-09 10:17 | CT_ITS ---
INDICATION: Pain EXAMINATION: CT ABDOMEN AND PELVIS WITHOUT CONTRAST - CT Abdomen And Pelvis W/O Contrast Injection TECHNIQUE: Helically acquired images were obtained of the abdomen and pelvis without oral or IV contrast. A radiation dose optimization technique was used for this scan. IV Contrast dosage and agent: None. Oral contrast: None. RADIATION DOSAGE (If Supplied By Facility): CTDIvol = ( 7.42 ) mGy, DLP = ( 409.63 ) mGycm COMPARISON: Prior study dated: November 25, 2021 FINDINGS: LOWER CHEST: Lung bases are clear. There are coronary artery calcifications. The lack of intravenous contrast limits evaluation of solid visceral organs. LIVER: Homogeneous. No focal mass. GALLBLADDER AND BILIARY TREE: No calcified gallstones. No gallbladder distension or wall edema. No intra- or extrahepatic biliary ductal dilation. PANCREAS: No focal cystic or solid mass. SPLEEN: Normal size without focal cystic or solid mass. ADRENAL GLANDS: No nodules. KIDNEYS AND URETERS: Normal renal size and position. No hydronephrosis. PERITONEUM: No ascites or free air. No other fluid collection. BOWEL: No evidence of acute appendicitis. No stomach or bowel distension. There are diverticula arising from the colon. No focal inflammatory change. LYMPH NODES: No enlarged mesenteric or retroperitoneal lymph nodes. VESSELS: Aorta is non-dilated. There are peripheral calcifications of the abdominal aorta consistent with atherosclerosis. URINARY BLADDER: There is a Fishman catheter within an incompletely distended urinary bladder. There is high attenuation fluid within the urinary bladder. REPRODUCTIVE ORGANS: The prostate gland is enlarged. ABDOMINAL WALL: No discrete abdominal or pelvic wall hernia. BONES: There are degenerative changes of the visualized thoracic and lumbar spine. CT/Abdomen/Pelvis without Cont IMPRESSION: Enlarged prostate gland. High attenuation fluid within the urinary bladder may be secondary to proteinaceous material and/or blood; cannot exclude an occult mass. Atherosclerosis. Colonic diverticulosis. Electronically Signed: Amanda Vickers MD at 11:29 EDT ,
--- NOTE | 2023-04-09 10:21 | EX.ED.DYSGE1 ---
HPI <ZABRINA Rodriguez - Last Filed: 04/09/23 14:25> History of Present Illness Chief Complaint: Complaint Narrative Narrative: 77-year-old male with history of PAD, CAD, BPH GERD type 2 diabetes presents to the emergency department for hematuria for 1.5 weeks. Patient is on Plavix secondary to history of stroke as well as CAD. Patient states 1.5 weeks has been having gross hematuria, over the last 3 to 4 days having more increasing clots. He denies any urinary retention. Patient that he has had this in the past, however it usually after he does something physical, however when he is resting it goes away. This time is not going away. He did see Dr. Navarro in the past. Has not seen him for multiple years. Patient states have lower abdominal pain, back pain. Worse on the right side. Denies any fever chills nausea or vomiting. PFSH <ZABRINA Rodriguez - Last Filed: 04/09/23 14:25> [facility] Medical History Arthritis Atherosclerosis of coronary artery of alutiiq heart without angina pectoris Back problem BPH (benign prostatic hyperplasia) Burning with urination Cardiology follow-up encounter Enlarged prostate Essential (primary) hypertension Excessive bleeding Former smoker Gastrointestinal complaints, unspecific GERD (gastroesophageal reflux disease) Health care maintenance Hearing problem History of CVA (cerebrovascular accident) (2001) History of echocardiogram History of heart attack History of ST elevation myocardial infarction (STEMI) (05/02/21) History of stress test Hyperlipidemia Left knee pain Leg cramps Neuropathy Obstructive sleep apnea ST elevation (STEMI) myocardial infarction Stroke/cerebrovascular accident Type 2 diabetes mellitus Wears glasses Home Medications blood sugar diagnostic (Blood Glucose Test strips) #100 ea 03/28/19 [Rx Last Taken Unknown] multivitamin 1 tab PO DAILY supplement 08/29/20 [History Last Taken Unknown] clopidogrel 75 mg tablet (Plavix) 75 mg PO DAILY #90 tabs 03/16/22 [Rx Last Taken 05/01/22] fenofibrate nanocrystallized 145 mg tablet 145 mg PO DAILY HLD 05/04/22 [History Last Taken Unknown] losartan 100 mg tablet 100 mg PO DAILY HTN 05/04/22 [History Last Taken Unknown] atorvastatin 40 mg tablet 40 mg PO QHS cholesterol #90 tabs 05/20/22 [Rx Last Taken Unknown] metoprolol succinate 50 mg tablet,extended release 24 hr 50 mg PO DAILY HTN #90 tabs 05/20/22 [Rx Last Taken Unknown] empagliflozin 25 mg tablet (Jardiance) 25 mg PO QAM #90 tabs 07/01/22 [Rx Last Taken Unknown] pantoprazole 40 mg tablet,delayed release (Protonix) 40 mg PO DAILY #90 tabs 07/01/22 [Rx Last Taken Unknown] sitagliptin phosphate 100 mg tablet (Januvia) 100 mg PO DAILY DM #90 tabs 07/01/22 [Rx Last Taken Unknown] amlodipine 10 mg tablet See Rx Instructions .Route .COMPLEX #90 TABLETS 03/03/23 [Rx Last Taken Unknown] Allergy/AdvReac Type Severity Reaction Status Date / Time dulaglutide [From Trulicity] Allergy Intermediate Nausea Verified 04/09/23 10:05 niacin Allergy GI Upset, Verified 04/09/23 10:05 PUD w/blood, Hot Flashes amoxicillin trihydrate AdvReac Abd Verified 04/09/23 10:05 [From Augmentin] cramps/diarrhea potassium clavulanate AdvReac Abd Verified 04/09/23 10:05 [From Augmentin] cramps/diarrhea Family History Mother Diabetes Myocardial infarction Father AA (aortic aneurysm) Surgical History History of cardiac catheterization History of colonoscopy History of coronary artery stent placement (05/02/21) History of foot surgery History of repair of rotator cuff S/P trigger finger release Social History Smoking Status: Former smoker quit date: 08/16/93 Tobacco: How many years used: 30 alcohol intake: current alcohol intake frequency: holidays/special occasions only Alcohol type: beer substance use type: does not use what type of physical activity do you participate in: walking ROS <ZABRINA Rodriguez - Last Filed: 04/09/23 14:25> ROS ED ROS Narrative Constitutional: Negative for fever, chills, weight loss, weakness Eyes: Negative for vision loss, vision change, double vision ENT: Negative for any sore throat, ear pain, congestion Cardiovascular: Negative for any chest pain, tightness, palpitations Respiratory: Negative for any cough, sputum production, hemoptysis, dyspnea, dyspnea on exertion, orthopnea Gastrointestinal: Negative for any nausea, vomiting, diarrhea, constipation, blood in stool, blood in vomit. Positive for lower abdominal pain : Negative for any urinary frequency, dysuria, retention. Positive for gross hematuria, blood clots. Muscle skeletal: Negative for any muscle joint pain, stiffness, myalgias, arthralgias, neck pain. Positive for lower back pain worse on the right Neurological: Negative for any headache, syncope, numbness or tingling, dizziness Skin: Negative for any rashes, lumps, itching, abrasions, lacerations Psychiatric: Negative for any depression, anxiety, stress, suicidal ideation, homicidal ideation Hematologic: Negative for any easy bruising, excessive bruising, easy bleeding Allergies: Negative for any eczema, hives, rash EXAM <ZABRINA Rodriguez - Last Filed: 04/09/23 14:25> Physical Exam Narrative Exam Narrative: Vital signs reviewed. HEET: Head normocephalic atraumatic, TMs clear bilaterally. Posterior pharynx is clear, moist mucous membranes. Nares clear bilaterally. Neck: Supple with no lymphadenopathy or tenderness. No signs of meningismus, negative jolt sign. Cardiac: Regular rate and rhythm no murmurs gallops or rubs, equal peripheral pulses bilaterally. Respiratory: Lungs clear to auscultation bilaterally. No chest tenderness. Abdomen: Soft, nondistended. No abdominal bruit or pulsatile masses. No hepatosplenomegaly. Positive for suprapubic pain on palpation. Extremities: No peripheral edema, no signs of gross trauma or deformity. Active full range of motion of all extremities. Neuro: Cranial nerves II through XII intact, no focal neurological deficits. Skin: Clean dry and intact with no rash, purpura, petechiae, vesicles or pustules. Backs/flank: Positive right-sided CVA tenderness. No midline spinal tenderness, no deformity. Patient does have chronic back pain. He states that this feels slightly different. Psych: Normal mood and affect. No SI, HI or acute psychosis. Const Vital Signs: 04/09/23 10:06 04/09/23 12:28 Temperature 99 F 99 F Temperature Source Temporal Temporal Pulse Rate 68 60 Respiratory Rate 14 18 Blood Pressure 141/76 H 139/62 H Blood Pressure Mean 97 87 Pulse Ox 99 97 Oxygen Delivery Method Room Air Room Air Positive well nourished and well developed General Appearance ED: well developed <Dr. Isaac Hawley MD - Last Filed: 04/09/23 14:32> Physical Exam Const Vital Signs: 04/09/23 10:06 04/09/23 12:28 Temperature 99 F 99 F Temperature Source Temporal Temporal Pulse Rate 68 60 Respiratory Rate 14 18 Blood Pressure 141/76 H 139/62 H Blood Pressure Mean 97 87 Pulse Ox 99 97 Oxygen Delivery Method Room Air Room Air MDM <ZABRINA Rodriguez - Last Filed: 04/09/23 14:25> MDM Lab Data Labs: Laboratory Results - last 24 hr 04/09/23 04/09/23 10:20 11:30 WBC 7.5 RBC 4.76 Hgb 13.7 Hct 42.2 MCV 88.7 MCH 28.8 MCHC 32.5 RDW Std Deviation 41.7 RDW Coeff of Julianna 12.8 Plt Count 247 MPV 10.3 Immature Gran % (Auto) 0.100 Neut % (Auto) 58.9 Lymph % (Auto) 26.3 Collier % (Auto) 12.1 H Eos % (Auto) 1.9 Baso % (Auto) 0.7 Absolute Neuts (auto) 4.4 Absolute Lymphs (auto) 1.98 Nucleated RBC % 0 PT 13.7 INR 1.0 Sodium 137 Potassium 4.2 Chloride 108 H Carbon Dioxide 26.0 Anion Gap 3 L BUN 17 Creatinine 1.00 Estim Creat Clear Calc 64.89 Est GFR (MDRD) Af Amer 94 Est GFR (MDRD) Non-Af 77 BUN/Creatinine Ratio 17.1 Glucose 125 H Calcium 9.1 Urine Color Red Urine Clarity Sl. Cloudy Urine pH 8.0 Ur Specific [place] 1.010 Urine Protein 100 H Urine Glucose (UA) 1000 H Urine Ketones Negative Urine Occult Blood 250 H Urine Nitrite Negative Urine Bilirubin Negative Urine Urobilinogen Normal Ur Leukocyte Esterase 25 H Urine RBC > 100 SEEN Urine WBC 0 SEEN Ur Squamous Epith Cells 0 SEEN Urine Bacteria 0 SEEN Urine Mucus 0 SEEN Radiography Diagnostic Testing: Clinical Impression(s) from Imaging Studies Abdomen/Pelvis CT 04/09/23 10:17 IMPRESSION: Enlarged prostate gland. High attenuation fluid within the urinary bladder may be secondary to proteinaceous material and/or blood; cannot exclude an occult mass. Atherosclerosis. Colonic diverticulosis. Electronically Signed: Amanda Vickers MD at 11:29 EDT , Treatment and Re-Evaluation :: Patient appears generally well, patient appears nontoxic, vital signs are stable. Presents to the emerged department for 1.5 weeks of hematuria, passing blood clots. Patient will receive a full work-up with laboratory values to rule out any infection, renal insufficiency. CT scan of the abdomen without contrast concerning for any obstructing uropathy, masses, cystitis. Patient CBC was unremarkable, chemistries were unremarkable PT/INR within normal limits. Patient did receive a CT scan of the abdomen pelvis concerning for obstructive uropathy. CT scan showed fluid within the urinary bladder may be secondary to proteinaceous material and/or blood. This is likely blood clots. Patient did have a three-way Fishman inserted, patient tolerated well. Patient has 2000 L irrigation. After irrigation, patient did have light-colored redness however no more clots. At this time, patient be able to discharge home. Urinalysis negative for infection. Patient will need to follow-up with urology this upcoming week. He has seen urology in the past. Patient was given strict return precautions. All questions answered, patient stable for discharge. Patient diagnosed with hematuria. He will also hold his Plavix for couple days. <Dr. Isaac Hawley MD - Last Filed: 04/09/23 14:32> [facility] Lab Data Labs: Laboratory Results - last 24 hr 04/09/23 04/09/23 10:20 11:30 WBC 7.5 RBC 4.76 Hgb 13.7 Hct 42.2 MCV 88.7 MCH 28.8 MCHC 32.5 RDW Std Deviation 41.7 RDW Coeff of Julianna 12.8 Plt Count 247 MPV 10.3 Immature Gran % (Auto) 0.100 Neut % (Auto) 58.9 Lymph % (Auto) 26.3 Collier % (Auto) 12.1 H Eos % (Auto) 1.9 Baso % (Auto) 0.7 Absolute Neuts (auto) 4.4 Absolute Lymphs (auto) 1.98 Nucleated RBC % 0 PT 13.7 INR 1.0 Sodium 137 Potassium 4.2 Chloride 108 H Carbon Dioxide 26.0 Anion Gap 3 L BUN 17 Creatinine 1.00 Estim Creat Clear Calc 64.89 Est GFR (MDRD) Af Amer 94 Est GFR (MDRD) Non-Af 77 BUN/Creatinine Ratio 17.1 Glucose 125 H Calcium 9.1 Urine Color Red Urine Clarity Sl. Cloudy Urine pH 8.0 Ur Specific [place] 1.010 Urine Protein 100 H Urine Glucose (UA) 1000 H Urine Ketones Negative Urine Occult Blood 250 H Urine Nitrite Negative Urine Bilirubin Negative Urine Urobilinogen Normal Ur Leukocyte Esterase 25 H Urine RBC > 100 SEEN Urine WBC 0 SEEN Ur Squamous Epith Cells 0 SEEN Urine Bacteria 0 SEEN Urine Mucus 0 SEEN Radiography Diagnostic Testing: Clinical Impression(s) from Imaging Studies Abdomen/Pelvis CT 04/09/23 10:17 IMPRESSION: Enlarged prostate gland. High attenuation fluid within the urinary bladder may be secondary to proteinaceous material and/or blood; cannot exclude an occult mass. Atherosclerosis. Colonic diverticulosis. Electronically Signed: Amanda Vickers MD at 11:29 EDT , Treatment and Re-Evaluation Comments:: I have personally performed a face to face assessment of the patient and have reviewed the BLAKE Note. I performed a substantive portion of the visit including all aspects of the following. My cortez findings include: History is intermittent hematuria without clots for the past week or so, in the past day or 2, has been persistent, and this morning he has been urinating lots of clots. He will have intermittent retention, then he can increase pressure with Valsalva and expel the clot in the rest of the urine/blood. No other new symptoms including abdominal pain, back pain, fevers or chills. Exam is mild suprapubic tenderness, otherwise abdomen is benign. No guarding or rebound. No CVA tenderness. No distress. Medical Decison Making CT, blood work, urinalysis, Fishman and irrigate. Patient amenable. Other additions or changes: I reviewed the labs and urinalysis. They are benign and do not indicate acute infection. We irrigated the patient with continuous bladder irrigation, 2 bags. The bleeding lessened, it is persistent but the urine is red and transparent. Offered admission he declines and wants to go home. We discussed the pros and cons of keeping the catheter in place, I recommend keeping it until he sees urology mostly to avoid urinary retention due to clots. At this time he is amenable but would prefer to take a syringe home to take it out if he cannot get into see urology soon, urology is not on-call to discuss today. He has been on clopidogrel for 2 years we will have him hold that temporarily and continue the aspirin he is comfortable with that plan. Discharge Plan Triage Chief Complaint: Complaint ED Midlevel Provider: Onesimo Morris ED Provider: Isaac Hawley Dx/Rx/DC Orders Clinical Impression: Hematuria Instructions: ED Hematuria Prescriptions: No Action multivitamin Tablet 1 tab PO DAILY Jardiance 25 mg tablet 25 mg PO QAM Qty: 90 3RF Januvia 100 mg tablet 100 mg PO DAILY Qty: 90 3RF pantoprazole [Protonix] 40 mg tablet,delayed release (DR/EC) 40 mg PO DAILY Qty: 90 3RF losartan 100 mg tablet 100 mg PO DAILY fenofibrate nanocrystallized 145 mg tablet 145 mg PO DAILY (DME) Blood Glucose Test Strip See Rx Instructions .ROUTE .MEDSUPPLY Qty: 100 3RF Rx Instructions: One Touch Ultra - As directed Daily clopidogrel [Plavix] 75 mg tablet 75 mg PO DAILY Qty: 90 3RF atorvastatin 40 mg tablet 40 mg PO QHS Qty: 90 3RF metoprolol succinate 50 mg tablet extended release 24 hr 50 mg PO DAILY Qty: 90 3RF amlodipine 10 mg tablet See Rx Instructions .ROUTE .COMPLEX Qty: 90 3RF Dose Instruction: TAKE 1 TABLET DAILY Rx Instructions: TAKE 1 TABLET DAILY Primary Care Provider: Chase Cohen Referrals: Chase Cohen MD [Primary Care Provider] - Eligio Navarro MD [Med Staff - Active Staff] - Activity Restrictions/Additional Instructions: Please follow-up with urology. Call to make an appointment today or Wednesday. Disposition Disposition: Home, Self Care
[2023-04-09 10:33] LABS: Absolute Lymphocyte Count 1.98 X10^3/uL (0.83-4.51); Absolute Neutrophil Count 4.4 X10^3/uL (2.0-7.7); Basophil# 0.05 X10^3/uL; Basophil% 0.7 % (0-1); Eosinophil# 0.14 X10^3/uL; Eosinophils% 1.9 % (0-5); Hematocrit 42.2 % (40-54); Hemoglobin 13.7 g/dL (13.0-16.5); Lymphocyte # 1.98 X10^3/ul (0.83-4.51); Lymphocyte % 26.3 % (19-41); Mean Corp Hgb Conc 32.5 g/dL (32-36); Mean Corpuscular Hgb 28.8 pg (27.0-32.0); Mean Corpuscular Volume 88.7 fL (80-94); Mean Platelet Vol. 10.3 fl (6.2-12.0); Monocyte# 0.91 X10^3/uL; Monocyte% 12.1 % (0-10); NRBC Flagged by Analyzer 0 % (0-5); Neutrophil # 4.43 X10^3/uL (2.7-7.7); Neutrophil % 58.9 % (47-70); Platelet Count 247 K/mm3 (150-450); RBC Distribution Width CV 12.8 % (11.6-14.6); RBC Distribution Width SD 41.7 fl (35.1-43.9); Red Blood Count 4.76 M/mm3 (4.6-6.2); White Blood Count 7.5 K/mm3 (4.4-11.0)
[2023-04-09 10:42] LABS: Prothrombin Time (Protime)PT. 13.7 SECONDS (11.7-14.9)
[2023-04-09 10:47] LABS: Anion Gap 3 (5-15); BUN 17 mg/dL (7-18); BUN/Creat Ratio 17.1 RATIO (10-20); Calcium,Total 9.1 mg/dL (8.5-10.1); Chloride 108 mmol/L (98-107); EST Glomerular Filtration Rate 77 mL/min (>60); Est Glom Filt Rate - Afr Amer 94 mL/min (>60); Estimated Creatinine Clearance 64.89 ml/min; Glucose 125 mg/dL (74-106); Potassium 4.2 mmol/L (3.5-5.1); Sodium Level 137 mmol/L (136-145)
[2023-04-09] MEDS: 0.9% Normal Saline 1,000 ML 1000 ML IV (11:02)
[2023-04-09] MEDS: Lidocaine Jelly 2% 20 ML Syringe (URO-JET) 1 APPLIC TOPICAL (11:02)
[2023-04-09 11:34] LABS: Bacteria 0 SEEN /hpf (None Seen); Mucous, Urine 0 SEEN /hpf (<or=2+); Squamous Epithelial Cells - UA 0 SEEN /hpf (0-5); White Blood Cells 0 SEEN /hpf (0-5)
[2023-04-09 11:43] LABS: Color, Urine Red (Yellow); Glucose, Dipstick 1000 mg/dl (Normal); Ketone-Dipstick Negative (Negative); Leukocyte Esterase-Dipstick 25 /ul (Negative); Nitrite-Dipstick Negative (Negative); Occult Blood-Urine 250 /ul (Negative); Protein-Dipstick 100 mg/dl (Negative); Urine Bilirubin Dipstick Negative (Negative); Urine Clarity Sl. Cloudy (Clear); Urine Urobilinogen Normal (Normal)
[2023-04-09 11:50] LABS: Red Blood Cells-Urine > 100 SEEN /hpf (0-5)
[2023-04-09 12:28] VITALS: BP 139/62; PULSE 60; RESP 18; TEMP 37.2; O2SAT 97
--- NOTE | 2023-04-09 15:08 | ED.RN ---
Dr. Hawley notified of clots at ok. offered to keep and irrigate more. pt pleasant but desires to go home at this time. leg bag placed. given syringe and 2,000 ml bag. informed pt to come back if urine not draining or increased pain. also is to call urology today
== END 2023-04-09 15:10 | disposition home or self-care (01) ==
PROVIDERS: Nurse Practitioner; Emergency Provider Emergency Medicine; PCP Internal Medicine; Visit Provider Emergency Medicine
DX: R31.0 Gross hematuria (principal); E11.51 Type 2 diabetes mellitus with diabetic peripheral angiopathy without gangrene; E11.40 Type 2 diabetes mellitus with diabetic neuropathy, unspecified; I25.10 Atherosclerotic heart disease of native coronary artery without angina pectoris; R10.30 Lower abdominal pain, unspecified; M54.50 Low back pain, unspecified; I10 Essential (primary) hypertension; E78.5 Hyperlipidemia, unspecified; N40.0 Benign prostatic hyperplasia without lower urinary tract symptoms; Z79.02 Long term (current) use of antithrombotics/antiplatelets; Z79.899 Other long term (current) drug therapy; Z86.73 Personal history of transient ischemic attack (TIA), and cerebral infarction without residual deficits; Z87.891 Personal history of nicotine dependence
CPT/HCPCS: 51702; 74176; 80048; 81001; 85025; 85610; 96360; 99284; J7030; A4216

== ENCOUNTER → 2023-07-05 | Outpatient (CLI) | payer MEDICARE, SELFPAY ==
[2023-07-05 08:39] LABS: Bacteria 0 SEEN /hpf (None Seen); Mucous, Urine 0 SEEN /hpf (<or=2+); Red Blood Cells-Urine 0 SEEN /hpf (0-5); Squamous Epithelial Cells - UA 0 SEEN /hpf (0-5); White Blood Cells 0 SEEN /hpf (0-5)
[2023-07-05 12:58] LABS: Absolute Lymphocyte Count 2.34 X10^3/uL (0.83-4.51); Absolute Neutrophil Count 4.7 X10^3/uL (2.0-7.7); Basophil# 0.07 X10^3/uL; Basophil% 0.9 % (0-1); Eosinophil# 0.18 X10^3/uL; Eosinophils% 2.2 % (0-5); Hematocrit 46.8 % (40-54); Hemoglobin 14.8 g/dL (13.0-16.5); Lymphocyte # 2.34 X10^3/ul (0.83-4.51); Lymphocyte % 28.9 % (19-41); Mean Corp Hgb Conc 31.6 g/dL (32-36); Mean Corpuscular Hgb 28.6 pg (27.0-32.0); Mean Corpuscular Volume 90.3 fL (80-94); Mean Platelet Vol. 10.9 fl (6.2-12.0); Monocyte% 9.9 % (0-10); NRBC Flagged by Analyzer 0 % (0-5); Neutrophil # 4.67 X10^3/uL (2.7-7.7); Neutrophil % 57.7 % (47-70); Platelet Count 287 K/mm3 (150-450); RBC Distribution Width SD 42.9 fl (35.1-43.9); Red Blood Count 5.18 M/mm3 (4.6-6.2); White Blood Count 8.1 K/mm3 (4.4-11.0)
[2023-07-05 13:08] LABS: Color, Urine Yellow (Yellow); Glucose, Dipstick 1000 mg/dl (Normal); Ketone-Dipstick Negative (Negative); Leukocyte Esterase-Dipstick Negative /ul (Negative); Nitrite-Dipstick Negative (Negative); Occult Blood-Urine 10 /ul (Negative); Protein-Dipstick Negative (Negative); Urine Bilirubin Dipstick Negative (Negative); Urine Clarity Clear (Clear); Urine Urobilinogen Normal (Normal); Urine pH 6.5 (5.0 - 8.0)
[2023-07-05 13:13] LABS: ALB/GLOB Ratio 1.2 RATIO (0.9-2.4); AST(SGOT) 17 U/L (15-37); Alanine Aminotransfer ALT/SGPT 36 U/L (16-61); Albumin, Serum 4.2 g/dL (3.2-5.0); Alkaline Phosphatase 50 U/L (45-117); Anion Gap 6 (5-15); BUN 22 mg/dL (7-18); BUN/Creat Ratio 16.3 RATIO (10-20); Calcium,Total 9.4 mg/dL (8.5-10.1); Chloride 105 mmol/L (98-107); Cholesterol 140 mg/dL (200); Creatinine, Serum 1.35 mg/dL (0.70-1.30); EST Glomerular Filtration Rate 54 mL/min (>60); Est Glom Filt Rate - Afr Amer 66 mL/min (>60); Globulin 3.4 g/dL (2.2-4.2); Glucose 189 mg/dL (74-106); High Density Lipoprotein 31 mg/dL; PSA,Total - Annual Screen 4.04 ng/mL (0.00-4.00); Potassium 4.9 mmol/L (3.5-5.1); Protein, Total 7.6 g/dL (6.4-8.2); Sodium Level 138 mmol/L (136-145); T4 Free Direct 1.09 ng/dL (0.76-1.46); Thyroid Stim Hormone (TSH) 1.59 uIU/mL (0.358-3.74); Triglycerides 198 mg/dL; Very Low Density Lipoprotein 40 mg/dL (5-40)
== END | disposition home or self-care (01) ==
LOC: BIMLAB 08:38
PROVIDERS: PCP Internal Medicine; Referring Provider Internal Medicine; Visit Provider Internal Medicine
DX: E11.69 Type 2 diabetes mellitus with other specified complication (principal); Z13.29 Encounter for screening for other suspected endocrine disorder; N40.0 Benign prostatic hyperplasia without lower urinary tract symptoms
CPT/HCPCS: 36415; 80053; 80061; 81001; 84153; 84439; 84443; 85025; G0103

== ENCOUNTER → 2023-10-06 | Outpatient (CLI) | payer MEDICARE, SELFPAY ==
--- OUTSIDE RECORDS SUMMARY | 2023-10-06 10:15 | XMS RPT_ITS | CCD ---
Author Name Unknown Address [address] [place] [address] [address] [place] [address] Organization [facility] Progress note 02-07-2021 Note Date & Type Note Facility 02-07-2021 Note HNO ID: [id number] Author: Jose Daniel Núñez RN Service: ? Author Type: Registered Nurse Type: Progress Notes Filed: 02/07/2021 1:59 PM Note Text: [facility] Enrollment Provider Action/FYI: Chart Reviewed: Pt does not have a [facility] PCP Patient referred by: C Kim Contact made with patient: Patient not outreached at this time. Closing: Patient does not meet criteria. PCC to reassess patient in a month. END OUTREACH Niya Sky RN February 07, 2021 1:35 PM [facility] Clinical Note 02-07-2021 Note Date & Type Note Facility 02-07-2021 Note Patient Outreach [place] RUSTYGENI ([id number]) 1945 Date Time Provider Department 02/07/21 JOSE DANIEL NÚÑEZ [facility] During your visit today, we recorded the following information about you: Niya Sky RN 02/07/2021 1:59 PM Signed [facility] Enrollment Provider Action/FYI: Chart Reviewed: Pt does not have a [facility] PCP Patient referred by: C Kim Contact made with patient: Patient not outreached at this time. Closing: Patient does not meet criteria. PCC to reassess patient in a month. END OUTREACH Niya Sky RN February 07, 2021 1:35 PM Allergies As of Date: 02/07/2021 Noted Allergy Reaction AUGMENTIN (AMOXICILLIN-POT CLAVUL*05/27/2005 5 - Intolerance Comments: stomach cramps NIACIN 06/09/2010 8 - GI Upset Comments: pud with bleed,hot flashes Date Reviewed: 03/18/2018 Reviewed by: Elicia Bolanos LPN - Fully Assessed Reason for Visit: Community Monitoring Outreach [Other] Cmt: [facility] Monitoring Program Primary Visit Diagnosis:Chronic obstructive pulmonary disease, unspecified COPD type (HCC) [J44.9] Order(s):CONSULT TO PRIMARY CARE COORDINATION CD [[id number]] Order #: [id number]: 1 Prescriptions as of 02/07/2021 Sig: ATORVASTATIN 40 MG TABLET Take 1 tablet by mouth once d* METOPROLOL SUCCINATE ER 100 M* Take 1 tablet by mouth once d* OMEPRAZOLE 40 MG CAPSULE,KAIDEN* TAKE 1 CAPSULE DAILY FINASTERIDE 5 MG TABLET TAKE 1 TABLET DAILY FENOFIBRATE NANOCRYSTALLIZED * TAKE 1 TABLET DAILY LOSARTAN 50 MG TABLET Take 1 tablet by mouth once d* METFORMIN ER 500 MG TABLET,EX* Take 2 tablets by mouth twice* TADALAFIL 20 MG TABLET Take 1 tablet by mouth as nee* VALSARTAN 160 MG TABLET Take 1 tablet by mouth once d* LANCETS Test blood sugar(s) fasting a* BLOOD-GLUCOSE METER Dispense 1 meter Kit. Dx: Gloria* BLOOD SUGAR DIAGNOSTIC STRIPS Test blood sugar(s) as needed* FEXOFENADINE 60 MG TABLET Take 1 tablet by mouth once d* SELENIUM SULFIDE 2.5 % SHAMPOO apply three times weekly- DI* BLOOD SUGAR DIAGNOSTIC, DRUM-* Test blood sugar(s) 2 times w* BLOOD SUGAR DIAGNOSTIC, DRUM-* Test blood sugar(s) 2 times w* * ASPIRIN 81 MG TABLET Take 2 tablets by mouth once * * CHOLECALCIFEROL (VITAMIN D3) * Take one(1) tablet daily. * CO Q-10 10 MG CAPSULE Take one(1) tablet daily. Problem List As Of Date 02/07/2021 Noted Resolved Coronary atherosclerosis [I25.10] DM w/o Complication Type II, Uncontrolled [IMO0* 02/06/2010 Other diseases of pharynx, not elsewhere classi* 06/15/2016 CHRONIC AIRWAY OBSTRUCTION NEC [J44.9] ESOPHAGEAL REFLUX [K21.9] Myalgia and myositis, unspecified [VSB3111] 06/15/2016 Hyperlipidemia [E78.5] 09/17/2015 BENIGN NEOPLASM LG BOWEL [D12.6] 08/06/2006 DIVERTICULOSIS OF COLON W/O BLEED [K57.30] 08/06/2006 ENTHESOPATHY, SITE NOS [M77.9] 01/12/2007 Diabetes mellitus (HCC) [E11.9] 01/12/2007 06/15/2016 PERS HX COLONIC POLYPS [Z86.010] 10/14/2007 MASS IN SUBCUTANEOUS TISSUE [R22.9] 06/07/2008 06/15/2016 Stroke [I63.9] Diabetic 06/15/2016 Shoulder pain [M25.519] 05/26/2011 06/15/2016 Pain in joint, shoulder region [M25.519] 07/01/2011 06/15/2016 Diaphragmatic hernia without mention of obstruc*09/22/2011 Acute gastritis without mention of hemorrhage [*09/22/2011 06/15/2016 Hypertension [I10] 02/26/2012 ASHD (arteriosclerotic heart disease) [I25.10] 02/26/2012 Medicare annual wellness visit, initial [Z00.00]10/04/2012 Medicare annual wellness visit, subsequent [Z00*01/19/2014 Gross hematuria [R31.0] 01/19/2014 Hypertrophy of prostate with urinary obstructio*01/19/2014 Mixed hyperlipidemia [E78.2] 09/17/2015 Status post insertion of drug eluting coronary *03/17/2016 Type 2 diabetes mellitus with diabetic neuropat*12/15/2016 Encounter Status:Closed by NYIA SKY on 02/07/21 [facility] Summary Purpose Family History No Family History Records Found Advance Directives No Advanced Directives Records Found Additional Source Comments (unrecognized sect ion and content) No Status Records Found INFORMATION SOURCE (unrecogn ized section and content) FOR RECORDS PERTAINING TO PATIENTS WHO ARE OR HAVE BEEN ENROLLED IN A CHEMICAL DEPENDENCY/SUBSTANCEABUSE PROGRAM, SOME INFORMATION MAY BE OMITTED. This clinical summary was aggregated from multiple sources. Caution should be exercised in using it in the provision of clinical care. This summary normalizes information from multiple sources, and as a consequence, information in this document may materially change the coding, format and clinical context of patient data. In addition, data may be omitted in some cases. CLINICAL DECISIONS SHOULD BE BASED ON THE PRIMARY CLINICAL RECORDS. [employer] [facility]. provides no warranty or guarantee of the accuracy or completeness of information in this document.
[2023-10-06 13:09] LABS: AST(SGOT) 20 U/L (15-37); Alanine Aminotransfer ALT/SGPT 35 U/L (16-61); Alkaline Phosphatase 46 U/L (45-117); Bilirubin, Direct 0.17 mg/dL (0.00-0.30); Cholesterol 142 mg/dL (200); Globulin 3.5 g/dL (2.2-4.2); High Density Lipoprotein 35 mg/dL; Protein, Total 7.5 g/dL (6.4-8.2); Triglycerides 184 mg/dL; Very Low Density Lipoprotein 37 mg/dL (5-40)
[2023-10-06 13:34] LABS: Anion Gap 6 (5-15); BUN 25 mg/dL (7-18); BUN/Creat Ratio 15.7 RATIO (10-20); Calcium,Total 9.9 mg/dL (8.5-10.1); Chloride 108 mmol/L (98-107); Creatinine, Serum 1.59 mg/dL (0.70-1.30); EST Glomerular Filtration Rate 45 mL/min (>60); Est Glom Filt Rate - Afr Amer 55 mL/min (>60); Glucose 198 mg/dL (74-106); PSA,Total- Diagnostic 4.38 ng/mL (0.0-4.0); Potassium 4.2 mmol/L (3.5-5.1); Sodium Level 139 mmol/L (136-145); T4 Total, Thyroxin 10.8 ug/dL (4.5-12.1); Thyroid Stim Hormone (TSH) 1.63 uIU/mL (0.358-3.74)
== END | disposition home or self-care (01) ==
LOC: BIMLAB 09:36
PROVIDERS: Physician Assistant Medical; PCP Internal Medicine; Visit Provider Internal Medicine
DX: E11.69 Type 2 diabetes mellitus with other specified complication (principal); I25.10 Atherosclerotic heart disease of native coronary artery without angina pectoris; I10 Essential (primary) hypertension; N40.0 Benign prostatic hyperplasia without lower urinary tract symptoms
CPT/HCPCS: 36415; 80048; 80061; 80076; 83036; 84153; 84436; 84443

== ENCOUNTER → 2024-05-02 | Outpatient (CLI) | payer MEDICARE, SELFPAY ==
[2024-05-02 12:11] LABS: Absolute Lymphocyte Count 1.92 X10^3/uL (0.83-4.51); Absolute Neutrophil Count 3.7 X10^3/uL (2.0-7.7); Basophil# 0.06 X10^3/uL; Basophil% 0.9 % (0-1); Eosinophil# 0.22 X10^3/uL; Eosinophils% 3.2 % (0-5); Hematocrit 43.3 % (40-54); Hemoglobin 13.8 g/dL (13.0-16.5); Lymphocyte # 1.92 X10^3/ul (0.83-4.51); Lymphocyte % 28.4 % (19-41); Mean Corp Hgb Conc 31.9 g/dL (32-36); Mean Corpuscular Hgb 29.1 pg (27.0-32.0); Mean Corpuscular Volume 91.4 fL (80-94); Monocyte# 0.81 X10^3/uL; NRBC Flagged by Analyzer 0 % (0-5); Neutrophil # 3.74 X10^3/uL (2.7-7.7); Neutrophil % 55.2 % (47-70); Platelet Count 276 K/mm3 (150-450); RBC Distribution Width CV 13.1 % (11.6-14.6); RBC Distribution Width SD 44.2 fl (35.1-43.9); Red Blood Count 4.74 M/mm3 (4.6-6.2); White Blood Count 6.8 K/mm3 (4.4-11.0)
[2024-05-02 13:07] LABS: ALB/GLOB Ratio 1.2 RATIO (0.9-2.4); AST(SGOT) 20 U/L (15-37); Alanine Aminotransfer ALT/SGPT 26 U/L (16-61); Albumin, Serum 4.2 g/dL (3.2-5.0); Alkaline Phosphatase 42 U/L (45-117); Anion Gap 8 (5-15); BUN 25 mg/dL (7-18); BUN/Creat Ratio 15.7 RATIO (10-20); Calcium,Total 10.1 mg/dL (8.5-10.1); Chloride 105 mmol/L (98-107); Creatinine, Serum 1.59 mg/dL (0.70-1.30); EST Glomerular Filtration Rate 45 mL/min (>60); Est Glom Filt Rate - Afr Amer 54 mL/min (>60); Globulin 3.4 g/dL (2.2-4.2); Glucose 116 mg/dL (74-106); Potassium 3.9 mmol/L (3.5-5.1); Protein, Total 7.6 g/dL (6.4-8.2); Sodium Level 138 mmol/L (136-145)
== END | disposition home or self-care (01) ==
LOC: BIMLAB 07:58
PROVIDERS: PCP Internal Medicine; Visit Provider Nurse Practitioner
DX: I10 Essential (primary) hypertension (principal); E11.9 Type 2 diabetes mellitus without complications; E78.5 Hyperlipidemia, unspecified; N40.0 Benign prostatic hyperplasia without lower urinary tract symptoms
CPT/HCPCS: 36415; 80053; 83036; 84153; 85025

== ENCOUNTER → 2024-11-09 | Outpatient (CLI) | payer MEDICARE, SELFPAY ==
--- NOTE | 2024-11-09 11:49 | RAD_ITS ---
PROCEDURE: CERV SPINE 2 OR 3 VIEWS 11/09/2024 REASON FOR EXAM: NECK PAIN TECHNIQUE: 3 views of the cervical spine. AP, lateral and open mouth odontoid view COMPARISON: None available FINDINGS: The cervical spine is visualized on the lateral view from the skull base to the bottom of C6. C7 and the C7-T1 alignment is not visualized due to shoulder overlap on the lateral view. Otherwise no acute fracture or malalignment identified. No prevertebral soft tissue swelling. C5-6 spondylosis/discogenic change with qyzu-po-cutawshz disc space narrowing. Rcgtd-eqxevup-nttb-left appearing multilevel facet degenerative changes. Suggestion of possible carotid calcification. The visualized apices appear clear. RAD/Cerv Spine 2 or 3 Views IMPRESSION: The cervical spine is visualized on the lateral view from the skull base to the bottom of C6. C7 and the C7-T1 alignment is not visualized due to shoulder overlap on the lateral view. Otherwise no acute fra cture or malalignment identified. C5-6 spondylosis/discogenic change with vpqe-vx-kbmmbquc disc space narrowing. Ejhik-woyqdrp-zipn-left appearing multilevel facet degenerative changes. Reading Location: [id number]
== END | disposition home or self-care (01) ==
PROVIDERS: PCP Internal Medicine; Referring Provider Internal Medicine; Visit Provider Internal Medicine
DX: M54.2 Cervicalgia (principal)
CPT/HCPCS: 72040

== ENCOUNTER → 2024-11-28 | Outpatient (CLI) | payer MEDICARE, SELFPAY ==
[2024-11-28 11:19] LABS: AST(SGOT) 19 U/L (<=37); Alanine Aminotransfer ALT/SGPT 15 U/L (<=46); Albumin, Serum 4.4 g/dL (3.4-4.8); Alkaline Phosphatase 47 U/L (40-129); Bilirubin, Direct 0.22 mg/dL (0.00-0.30); Cholesterol 164 mg/dL (<=200); Globulin 2.6 g/dL (2.2-4.2); High Density Lipoprotein 24 mg/dL; Low Density Lipoprotein Calc. 74 mg/dL; Triglycerides 329 mg/dL; Very Low Density Lipoprotein 66 mg/dL (5-40)
== END | disposition home or self-care (01) ==
LOC: LAB 09:11
PROVIDERS: PCP Internal Medicine; Referring Provider Physician Assistant Medical; Visit Provider Physician Assistant Medical
DX: E78.5 Hyperlipidemia, unspecified (principal)
CPT/HCPCS: 36415; 80061; 80076

== ENCOUNTER → 2025-02-23 | Outpatient (CLI) | payer MEDICARE, SELFPAY ==
--- OUTSIDE RECORDS SUMMARY | 2025-02-23 06:29 | XMS RPT_ITS | CCD ---
Author Organization [facility] Care Team Providers Care Animal Services Officer Name Role Phone Dr. Chase Cohen Primary Care Provider [phone] Dr. Chase Cohen Referring Provider [phone] Dr. Prieto Farris Attending Provider [phone] Dr. Chase Cohen Primary Care Provider [phone] Dr. Chase Cohen Referring Provider [phone] DARIANA Laureano Attending Provider Dr. Fahad Cooper Attending Provider [phone] Dr. Chase Cohen Primary Care Provider [phone]) Dr. Chase Cohen Attending Provider [phone] Dr. Chase Cohen Referring Provider [phone] Dr. Chase Cohen MD Primary Care Provider Dr. Chase Cohen MD Referring Provider [phone]) Asa Burgess Attending Provider [phone] Dr. Chase Cohen MD Attending Provider [phone]) Corry Laureano Attending Provider [phone]) Corry Laureano Referring Provider [phone] Chase Cohen Primary Care Unavailable Asa Burgess Attending Unavailable Chase Cohen Referring Unavailable Chase Cohen Primary Care Unavailable Corry Moura Attending Unavailabl e Oleghe, Efewongbe Referring Unavailable Fatou Diamond Attending Unavailable Oleghe, Efewongbe Primary Care Unavailable Oleghe, Efewongbe Referring Unavailable Fatou Diamond Attending Unavailable Oleghe, Efewongbe Primary Care Unavailable Oleghe, Efewongbe Primary Care Unavailable Oleghe, Efewongbe Attending Unavailable Oleghe, Efewongbe Referring Unavailable Oleghe, Efewongbe Primary Care Unavailable Corry Moura Attending Unavailabl e Corry Moura Referring Unavailabl e Allergies Allergy Classification Reported Allergen(s) Allergy Type Date of Onset Reaction(s) Facility (8 sources) Amoxicillin; Translations: [amoxicillin trihydrate] Drug Allergy 2 Abd cramps/diarrhea [facility] (7 sources) dulaglutide Drug Allergy 2 Nausea [facility] (7 sources) Niacin Drug Allergy 2 GI Upset, PUD w/blood, Hot Flashes [facility] (8 sources) potassium clavulanate; Translations: [potassium clavulanate] Propensity to adverse reactions 2 Abd cramps/diarrhea [facility] (1 source) dulaglutide Drug Allergy 5 [facility] Repository (1 source) Niacin Drug Allergy 5 [facility] Rep[facility] Medications Current Medications Medication Drug Class(es) Dates Sig (Normalized) Sig (Original) Blood-Glucose Meter (Onetouch Ultra2 Meter) misc (3 sources) Start: 06-07-2023 Blood-Glucose Meter (Onetouch Ultra2 Meter) misc Active 0 .Route June 07, 2023 12:00am As directed Start: 06-07-2023 Blood-Glucose Meter (Onetouch Ultra2 Meter) misc Active 0 .Route June 06, 2023 11:00pm As directed cyclobenzaprine hydrochloride 5 mg oral tablet (2 sources) Muscle Relaxant Start: 11-09-2024 take 1 tablet by mouth three times daily as needed for muscle spasms Cyclobenzaprine 5 mg tablet Active 5 mg PO THREE TIMES A DAY as needed for muscle spasm November 09, 2024 12:00am hydrOXYzine hydrochloride 25 mg oral tablet (2 sources) Antihistamine Start: 11-09-2024 take 1 tablet by mouth three times daily as needed Hydroxyzine Hcl 25 mg tablet Active 25 mg PO THREE TIMES A DAY as needed for itching November 09, 2024 12:00am 24 hr metoprolol succinate 50 mg extended release oral tablet (20 sources) beta-Adrenergic Maribell Start: 04-19-2024 End: 11-09-2024 take 1 tablet by mouth once daily Metoprolol Succinate 50 mg tablet extended release 24 hr Active 50 mg PO DAILY November 09, 2024 10:53am Start: 05-03-2021 End: 11-29-2023 take 1 tablet by mouth once daily Metoprolol Succinate 50 mg tablet extended release 24 hr Discontinued 50 mg PO DAILY 2023 10:14am November 29, 2023 8:49am Start: 01-19-2014 End: 05-09-2021 take 1 tablet by mouth once daily Metoprolol Succinate 100 mg tablet extended release 24 hr Discontinued 100 mg PO .COMPLEX August 29, 2020 11:03am May 03, 2021 10:48am 100 mg PO 1/2 tablet (50 mg) dailiy for 2 weeks then 1 tablet (100 mg) daily; Multivitamin preparation (5 sources) Start: 08-29-2020 take 1 tablet by mouth once daily Multivitamin Active 1 TABLET PO DAILY August 29, 2020 9:30am Start: 08-29-2020 take 1 tablet by citlaly th once daily Multivitamin Active 1 TABLET PO DAILY August 29, 2020 12:00am Start: 08-29-2020 take 1 tablet by citlaly th once daily Multivitamin Active 1 TABLET PO DAILY August 29, 2020 1:00am Multivitamin tablet (2 sources) Start: 08-29-2020 Multivitamin t ablet Active 1 {tbl} PO DAILY August 29, 2020 1:00am Completed/Discontinued Medications Medication Drug Class(es) Dates Sig (Normalized) Sig (Original) amLODIPine 10 mg oral tablet (20 sources) Dihydropyridine Calcium Channel Maribell Start: 04-01-2022 End: 01-18-2024 Amlodipine 10 mg tablet Discontinued 0 .ROUTE .COMPLEX March 03, 2023 6:58pm January 18, 2024 8:53am TAKE 1 TABLET DAILY Start: 05-02-2021 End: 05-03-2021 take 5 mg by mouth once daily Amlodipine 10 mg tablet Discontinued 5 mg PO DAILY May 02, 2021 9:09pm May 03, 2021 4:00pm Start: 05-02-2021 End: 05-03-2021 take 5 mg by mouth once daily Amlodipine Discontinued 5 MG PO DAILY May 02, 2021 8:09pm May 03, 2021 3:00pm Start: 11-04-2020 End: 05-02-2021 take 1 tablet by mouth once daily Amlodipine 10 mg tablet Discontinued 10 mg PO DAILY November 04, 2020 9:26am May 02, 2021 9:09pm Start: 05-12-2019 End: 11-04-2020 take 1 tablet by mouth once daily Amlodipine 5 mg tablet Discontinued 5 mg PO DAILY January 12, 2020 12:44pm November 04, 2020 9:27am aspirin 81 mg chewable tablet (20 sources) Platelet Aggregation Inhibitor, Nonsteroidal Anti-inflammatory Drug Start: 05-03-2021 End: 03-04-2022 take 1 tablet by mouth once daily at mealtime Aspirin 81 mg Tablet,Chewable Discontinued 81 mg PO DAILY WITH MEALS 0 May 03, 2021 12:00am March 04, 2022 8:37am Start: 01-26-2019 End: 05-03-2021 take 2 tablets by mouth once daily Aspirin 81 mg tablet,chewable Discontinued 162 mg PO DAILY January 26, 2019 6:14pm May 03, 2021 10:48am Start: 01-26-2019 End: 05-03-2021 take 162 mg by mouth once daily Aspirin Discontinued 162 MG PO DAILY January 26, 2019 5:14pm May 03, 2021 9:48am Start: 01-19-2014 End: 01-26-2019 take 1 tablet by mouth once daily Aspirin 81 MG tablet,chewable Discontinued 81 mg PO DAILY@0800 January 19, 2014 12:00am January 26, 2019 6:20pm atorvastatin 40 mg oral tablet (20 sources) HMG-CoA Reductase Inhibitor Start: 05-03-2021 End: 05-02-2024 take 1 tablet by mouth at bedtime Atorvastatin 40 mg tablet Discontinued 40 mg PO AT BEDTIME 2023 10:14am May 02, 2024 7:32am Start: 01-19-2014 End: 01-26-2019 take 1 tablet by mouth at bedtime Atorvastatin 40 MG tablet Discontinued 40 mg PO AT BEDTIME January 19, 2014 12:00am January 26, 2019 6:21pm cholecalciferol 0.05 mg oral capsule (14 sources) Vitamin D Start: 01-26-2019 End: 05-02-2021 take 1 capsule by mouth once daily Cholecalciferol (Vitamin D3) 2,000 unit capsule Discontinued 2000 U PO DAILY January 26, 2019 12:00am May 02, 2021 8:32am Start: 01-19-2014 End: 01-26-2019 take 1 capsule by mouth once daily Cholecalciferol (Vitamin D3) 1,000 UNIT capsule Discontinued 1000 U PO DAILY January 19, 2014 12:00am January 26, 2019 6:15pm ciprofloxacin 500 mg oral tablet (7 sources) Quinolone Antimicrobial Start: 01-26-2014 End: 01-26-2019 take 1 tablet by mouth twice daily Ciprofloxacin Hcl 500 MG tablet Discontinued 500 mg PO TWICE A DAY January 26, 2014 12:00am January 26, 2019 6:21pm clopidogrel 75 mg oral tablet (20 sources) P2Y12 Platelet Inhibitor Start: 03-16-2022 End: 07-24-2024 take 1 tablet by mouth once daily Clopidogrel (Plavix) 75 mg tablet Discontinued 75 mg PO DAILY June 14, 2023 2:31pm July 24, 2024 12:06pm Start: 05-09-2021 End: 03-16-2022 Clopidogrel (Plavix) 75 mg t ablet Discontinued 75 mg PO DAILY May 09, 2021 12:00am March 16, 2022 10:19am When you complete the course of Brilinta, the next day take 4 Plavix at once then once a day after. Coenzyme Q14-Jjkczlt E 1 EACH capsule (2 sources) Start: 01-19-2014 End: 05-02-2021 take 1 capsule by mouth once daily Coenzyme L38-Tadhtgt E 1 EACH capsule Discontinued 1 {tbl} PO DAILY January 19, 2014 12:00am May 02, 2021 8:32am 0.5 ml dulaglutide 3 mg/ml auto-injector (7 sources) GLP-1 Receptor Agonist Start: 03-03-2019 End: 04-07-2019 Dulaglutide (Trulicity) 1.5 mg/0.5 mL pen injector Discontinued 1.5 mg SC EVERY WEEK 2 March 03, 2019 12:00am April 07, 2019 10:11am empagliflozin 25 mg oral tablet (19 sources) Sodium-Glucose Cotransporter 2 Inhibitor Start: 05-19-2022 End: 10-12-2023 take 1 tablet by mouth once daily in the morning Empagliflozin (Jardiance) 25 mg tablet Discontinued 25 mg PO EVERY MORNING June 07, 2023 4:55pm October 12, 2023 5:21pm fenofibrate 145 mg oral tablet (20 sources) Peroxisome Proliferator Receptor alpha Agonist Start: 01-19-2014 End: 05-02-2024 take 1 tablet by mouth once daily Fenofibrate Nanocrystallized 145 mg tablet Discontinued 0 .ROUTE .COMPLEX December 20, 2023 8:47am May 02, 2024 7:32am TAKE 1 TABLET BY MOUTH EVERY DAY finasteride 5 mg oral tablet (20 sources) 5-alpha Reductase Inhibitor Start: 01-19-2014 End: 08-29-2020 take 1 tablet by mouth once daily Finasteride 5 mg tablet Discontinued 5 mg PO DAILY January 12, 2020 12:43pm August 29, 2020 9:31am Fluad Quad (65yr up)(PF) 60 mcg (15 mcg x 4)/0.5mL IM syringe (flu vac (1 source) Start: 05-02-2021 End: 05-02-2021 Fluad Quad (65yr up)(PF) 60 mcg (15 mcg x 4)/0.5mL IM syringe (flu vac Discontinued 60 MCG IM ONCE 0.5 May 02, 2021 8:21am May 02, 2021 9:27am glimepiride 1 mg oral tablet (7 sources) Sulfonylurea Start: 01-19-2014 End: 01-26-2019 take 1 tablet by mouth twice daily Glimepiride 1 MG tablet Discontinued 1 mg PO TWICE A DAY January 19, 2014 12:00am January 26, 2019 6:21pm hydrocortisone 0.025 mg/mg topical ointment (2 sources) Corticosteroid Start: 10-06-2023 End: 11-09-2024 Hydrocortisone 2.5 % ointment Discontinued 1 NMA TOPICAL TWICE A DAY as needed for rash 454 October 06, 2023 1:00am November 09, 2024 10:22am losartan potassium 100 mg oral tablet (20 sources) Angiotensin 2 Receptor Maribell Start: 04-01-2022 End: 05-02-2024 take 1 tablet by mouth once daily for hypertension Losartan 100 mg tablet Discontinued 0 .ROUTE .COMPLEX March 21, 2024 9:08am May 02, 2024 7:32am TAKE 1 TABLET BY MOUTH DAILY FOR HYPERTENSION Start: 05-02-2021 End: 04-01-2022 Losartan 50 mg tablet Discon tinued 75 mg PO DAILY May 02, 2021 9:09pm April 01, 2022 10:27am Start: 05-02-2021 End: 04-01-2022 take 75 mg by mouth once daily Losartan Discontinued 7 5 MG PO DAILY May 02, 2021 8:09pm April 01, 2022 9:27am Start: 11-04-2020 End: 05-02-2021 take 2 tablets by mouth once daily Losartan 50 mg tablet Discontinued 100 mg PO DAILY 180 90 December 10, 2020 12:05pm May 02, 2021 9:09pm Start: 11-04-2020 End: 05-02-2021 take 100 mg by mouth once daily Losartan Discontinued 100 MG PO DAILY 180 90 December 10, 2020 11:05am May 02, 2021 8:09pm Start: 11-01-2020 End: 11-04-2020 take 1 tablet by mouth once daily Losartan 100 mg tablet Discontinued 100 mg PO DAILY 90 November 01, 2020 8:18am November 04, 2020 9:27am Start: 04-07-2019 End: 11-01-2020 Losartan 50 mg tablet Discon tinued 75 mg PO DAILY July 24, 2019 1:01pm September 18, 2019 9:21am Start: 04-07-2019 End: 11-01-2020 take 75 mg by mouth once daily Losartan Discontinued 7 5 MG PO DAILY July 24, 2019 12:01pm September 18, 2019 8:21am Start: 01-26-2019 End: 04-07-2019 take 1 tablet by mouth once daily Losartan 50 mg tablet Discontinued 50 mg PO DAILY March 03, 2019 10:30am April 07, 2019 10:27am metFORMIN hydrochloride 1000 mg oral tablet (20 sources) Biguanide Start: 03-03-2019 End: 05-03-2021 take 1 tablet by mouth twice daily Metformin 1,000 mg tablet Discontinued 1000 mg PO TWICE A DAY 180 March 03, 2019 10:30am May 03, 2021 11:06am Start: 01-26-2019 End: 03-03-2019 take 2 tablets by mouth twice daily Metformin 500 mg tablet Discontinued 1000 mg PO TWICE A DAY January 26, 2019 12:00am March 03, 2019 10:31am Start: 01-26-2019 End: 03-03-2019 take 1000 mg by mouth twice daily Metformin Discontinued 1000 MG PO TWICE A DAY January 25, 2019 11:00pm March 03, 2019 9:31am Start: 01-19-2014 End: 01-26-2019 take 1 tablet by mouth twice daily at mealtime Metformin 1,000 MG tablet Discontinued 1000 mg PO TWICE DAILY WITH MEALS January 19, 2014 12:00am January 26, 2019 6:16pm Garwin-3 Fatty Acids-Fish Oil (5 sources) Start: 01-19-2014 End: 05-02-2021 Garwin-3 Fatty Acids-Fish Oil Discontinued 1 EACH PO DAILY January 19, 2014 2:39pm May 02, 2021 8:32am Start: 01-19-2014 End: 05-02-2021 Garwin-3 Fatty Acids-Fish Oil Discontinued 1 EACH PO DAILY January 18, 2014 11:00pm May 02, 2021 7:32am Start: 01-19-2014 End: 05-02-2021 Garwin-3 Fatty Acids-Fish Oil Discontinued 1 EACH PO DAILY January 19, 2014 12:00am May 02, 2021 8:32am Garwin-3 Fatty Acids-Fish Oil 1 EACH capsule,delayed release(DR/EC) (2 sources) Start: 01-19-2014 End: 05-02-2021 Garwin-3 Fatty Acids-Fish Oil 1 EACH capsule,delayed release(DR/EC) Discontinued 1 NMA PO DAILY January 19, 2014 12:00am May 02, 2021 8:32am omeprazole 40 mg delayed release oral capsule (20 sources) Proton Pump Inhibitor Start: 01-19-2014 End: 07-01-2022 take 1 capsule by mouth once daily Omeprazole 40 mg capsule,delayed release(DR/EC) Discontinued 40 mg PO DAILY 90 August 29, 2021 12:22pm May 04, 2022 12:07pm pantoprazole 40 mg delayed release oral tablet (15 sources) Proton Pump Inhibitor Start: 07-01-2022 End: 10-12-2023 take 1 tablet by mouth once daily Pantoprazole (Protonix) 40 mg tablet,delayed release (DR/EC) Discontinued 40 mg PO DAILY June 07, 2023 4:56pm October 12, 2023 5:21pm phenazopyridine hydrochloride 100 mg oral tablet (7 sources) Start: 01-26-2014 End: 01-26-2019 take 1 tablet by mouth three times daily Phenazopyridine 100 MG tablet Discontinued 100 mg PO THREE TIMES A DAY January 26, 2014 12:00am January 26, 2019 6:21pm Selenium Sulfide-Menthol (20 sources) Start: 08-29-2020 End: 05-02-2021 Selenium Sulfide-Menthol Discontinued 118 ML TOPICAL .3XW August 29, 2020 8:32am May 02, 2021 7:33am Start: 08-29-2020 End: 05-02-2021 Selenium Sulfide-Menthol Dis continued 118 ML TOPICAL .3XW August 29, 2020 9:32am May 02, 2021 8:33am Start: 02-15-2020 End: 08-29-2020 Selenium Sulfide-Menthol Dis continued 118 ML TOPICAL .3XW 325 February 15, 2020 12:23pm August 29, 2020 8:33am Start: 02-15-2020 End: 08-29-2020 Selenium Sulfide-Menthol Dis continued 118 ML TOPICAL .3XW 325 February 15, 2020 1:23pm August 29, 2020 9:33am Start: 06-13-2019 End: 02-15-2020 Selenium Sulfide-Menthol Dis continued 118 ML TOPICAL .3XW 325 June 13, 2019 7:38am February 15, 2020 12:23pm Start: 06-13-2019 End: 02-15-2020 Selenium Sulfide-Menthol Dis continued 118 ML TOPICAL .3XW 325 June 13, 2019 8:38am February 15, 2020 1:23pm Start: 01-26-2019 End: 06-13-2019 Selenium Sulfide-Menthol Dis continued 118 ML TOPICAL .3XW January 26, 2019 5:17pm June 13, 2019 7:39am Start: 01-26-2019 End: 06-13-2019 Selenium Sulfide-Menthol Dis continued 118 ML TOPICAL .3XW January 26, 2019 6:17pm June 13, 2019 8:39am Start: 01-19-2014 End: 01-26-2019 Selenium Sulfide-Menthol Dis continued 118 ML TP DAILY January 19, 2014 2:39pm January 26, 2019 6:20pm Start: 01-19-2014 End: 01-26-2019 Selenium Sulfide-Menthol Dis continued 118 ML TP DAILY January 18, 2014 11:00pm January 26, 2019 5:20pm Start: 01-19-2014 End: 01-26-2019 Selenium Sulfide-Menthol Dis continued 118 ML TP DAILY January 19, 2014 12:00am January 26, 2019 6:20pm Selenium Sulfide-Menthol 1 % shampoo (8 sources) Start: 08-29-2020 End: 05-02-2021 Selenium Sulfide-Menthol 1 % shampoo Discontinued 118 mL TOPICAL .3XW as needed August 29, 2020 9:32am May 02, 2021 8:33am Start: 02-15-2020 End: 08-29-2020 Selenium Sulfide-Menthol 1 % shampoo Discontinued 118 mL TOPICAL .3XW 325 February 15, 2020 1:23pm August 29, 2020 9:33am Start: 06-13-2019 End: 02-15-2020 Selenium Sulfide-Menthol 1 % shampoo Discontinued 118 mL TOPICAL .3XW 325 June 13, 2019 8:38am February 15, 2020 1:23pm Start: 01-26-2019 End: 06-13-2019 Selenium Sulfide-Menthol 1 % shampoo Discontinued 118 mL TOPICAL .3XW January 26, 2019 6:17pm June 13, 2019 8:39am Selenium Sulfide-Menthol 118 ML suspension (2 sources) Start: 01-19-2014 End: 01-26-2019 Selenium Sulfide-Menthol 118 ML suspension Discontinued 118 mL TP DAILY January 19, 2014 12:00am January 26, 2019 6:20pm SITagliptin 100 mg oral tablet (20 sources) Dipeptidyl Peptidase 4 Inhibitor Start: 09-18-2019 End: 07-26-2024 Sitagliptin Phosphate (Januvia) 100 mg tablet Discontinued 0 .ROUTE .COMPLEX August 12, 2023 10:29am July 26, 2024 3:39pm TAKE 1 TABLET DAILY FOR DIABETES MELLITUS Start: 04-07-2019 End: 09-18-2019 take 1 tablet by mouth once daily Sitagliptin Phosphate (Januvia) 50 mg tablet Discontinued 50 mg PO DAILY July 18, 2019 8:59pm September 18, 2019 9:21am sucralfate 1000 mg oral tablet (7 sources) Aluminum Complex Start: 01-19-2014 End: 01-26-2019 take 1 tablet by mouth once daily Sucralfate 1 GM tablet Discontinued 1 g PO DAILY January 19, 2014 12:00am January 26, 2019 6:18pm tadalafil 20 mg oral tablet (7 sources) Phosphodiesterase 5 Inhibitor Start: 01-19-2014 End: 01-26-2019 take 1 tablet by mouth once daily Tadalafil 20 MG tablet Discontinued 20 mg PO DAILY January 19, 2014 12:00am January 26, 2019 6:20pm ticagrelor 90 mg oral tablet (7 sources) Start: 05-03-2021 End: 05-09-2021 take 1 tablet by mouth twice daily Ticagrelor (Brilinta) 90 mg Tablet Discontinued 90 mg PO TWICE A DAY 60 May 03, 2021 12:00am May 09, 2021 1:41pm ubidecarenone 50 mg / vitamin e 5 unt oral capsule (5 sources) Start: 01-19-2014 End: 05-02-2021 take 1 tablet by mouth once daily Coenzyme F73-Qkarjuz E Discontinued 1 TABLET PO DAILY January 18, 2014 11:00pm May 02, 2021 7:32am valsartan 160 mg oral tablet (7 sources) Angiotensin 2 Receptor Maribell Start: 01-19-2014 End: 01-26-2019 take 1 tablet by mouth once daily Valsartan 160 MG tablet Discontinued 160 mg PO DAILY January 19, 2014 12:00am January 26, 2019 6:19pm Problems Active Problems Problem Classification Problem Date Documented Da te Episodic/Chronic Acute myocardial infarction (7 sources) Myocardial infarction; Translations: [ST elevation (STEMI) myocardial infarction of unspecified site] 05-06-2021 Chronic Allergic reactions (2 sources) Inflammatory dermatosis; Translations: [Dermatitis, unspecified] 10-06-2023 Episodic Chronic kidney disease (2 sources) Chronic kidney disease; Translations: [Chronic kidney disease, unspecified] 05-01-2024 Chronic Chronic kidney disease (1 source) Chronic kidney disease; Translations: [Chronic kidney disease, stage 3a] Onset: 4 Coronary atherosclerosis and other heart disease (18 sources) History of acute ST segment elevation myocardial infarction; Translations: [Old myocardial infarction] Onset: 1 Chronic Diabetes mellitus with complications (1 source) Type 2 diabetes mellitus with other specified complication; Translations: [Type 2 diabetes mellitus with other specified complication] Onset: 4 Chronic Diabetes mellitus without complication (9 sources) Type 2 diabetes mellitus; Translations: [Type 2 diabetes mellitus without complications] Onset: 4 08-01-2021 Chronic Disorders of lipid metabolism (13 sources) Hyperlipidemia; Translations: [Hyperlipidemia, unspecified] Onset: 5 Chronic Esophageal disorders (8 sources) Gastroesophageal reflux disease; Translations: [Gastro-esophageal reflux disease without esophagitis] Onset: 4 08-28-2019 Chronic Essential hypertension (13 sources) Essential hypertension; Translations: [Essential (primary) hypertension] Onset: 5 Chronic Gastrointestinal hemorrhage (7 sources) Feces color: tarry; Translations: [Melena] 08-25-2021 Episodic Genitourinary symptoms and ill-defined conditions (18 sources) Blood in urine; Translations: [Hematuria, unspecified] 04-09-2023 Episodic Hyperplasia of prostate (17 sources) Benign prostatic hyperplasia; Translations: [Benign prostatic hyperplasia without lower urinary tract symptoms] Onset: 4 08-01-2021 Chronic Immunizations and screening for infectious disease (7 sources) Needs influenza immunization; Translations: [Encounter for immunization] 08-25-2021 Episodic Malaise and fatigue (8 sources) Fatigue; Translations: [Other fatigue] Episodic Other circulatory disease (6 sources) Abnormal peripheral pulse; Translations: [Other specified symptoms and signs involving the circulatory and respiratory systems] 03-04-2022 Episodic Other circulatory disease (2 sources) Other specified symptoms and signs involving the circulatory and respiratory systems; Translations: [Other symptoms involving cardiovascular system] Episodic Other inflammatory condition of skin (4 sources) Generalized pruritus ; Translations: [Pruritus, unspecified] 11-09-2024 Episodic Other non-traumatic joint disorders (7 sources) Pain in left knee; Translations: [Left knee pain] 08-25-2021 Episodic Other nutritional; endocrine; and metabolic disorders (2 sources) Weight decreased; Translations: [Abnormal weight loss] 05-02-2024 Episodic Other screening for suspected conditions (not mental disorders or infectious disease) (10 sources) Echocardiogram abnormal; Translations: [Abnormal findings on diagnostic imaging of heart and coronary circulation] 05-06-2021 Episodic Peripheral and visceral atherosclerosis (4 sources) Peripheral vascular disease, unspecified; Translations: [Peripheral arterial disease] 05-29-2022 Chronic Spondylosis; intervertebral disc disorders; other back problems (5 sources) Neck pain; Translations: [Cervicalgia] Onset: 11-09-2024 Episodic Past or Other Problems Problem Classification Problem Date Documented Da te Episodic/Chronic Coronary atherosclerosis and other heart disease (1 source) Presence of coronary angioplasty implant and graft; Translations: [Percutaneous transluminal coronary angioplasty status] Onset: 05-02-2021 Episodic Other nutritional; endocrine; and metabolic disorders (1 source) Abnormal weight loss; Translations: [Abnormal weight loss] Onset: 05-02-2024 Episodic Results Test Name Value Interpretation Reference Range Facility Bilirubin directOrdered By: Corry Moura on 11-28-2024 Bilirubin.direct [Mass/Vol] 0.22 mg/dL 0.00-0.30 [facility] Bilirubin, totalOrdered By: Corry Moura on 11-28-2024 Bilirubin [Mass/Vol] 0.50 mg/dL 0.00-1.30 [facility] Calculated very low density lipoprotein (VLDL) cholesterol measurementOrdered By: Corry Moura on 11-28-2024 VLDL Cholesterol 66 mg/dL High 5-40 [facility] Cardiology Visit Reporton Cardiology Visit Report [facility] [address] [place], [place] [address]. [address] [place], [place] [address] OFFICE VISIT Date of Service: 11/28/24 MR#: [id number] Acct: [id number] Name: GENI LINDSAY Rep #: [id number] : 1945 Provider: DARIANA Hutchins Age/Sex: 79/M Location: [facility] Status: Signed HPI HPI History of Present Illness Details: Geni Lindsay 79-year-old gentleman that presents here today for a cardiovascular follow-up. He does have a history of coronary artery disease with angioplasty and stenting to his mid LAD in 2012 and ostium of the diagonal vessel at that time also. He also has a history of hypertension, hyperlipidemia. He had presented to the emergency room in April [address] elevation myocardial infarction was taken urgently to the collaborating supervising physician and underwent angioplasty and stenting of his right coronary artery. From a cardiac standpoint, patient is doing well. He does not have any chest discomfort/heaviness /tightness. His exercise tolerance is stable for his age. He does not have any worsening symptoms of shortness of breath. He denies any PND. He does not have any orthopnea. He does not have any symptoms of congestive heart failure. He does not have any palpitations that he is aware of. He does sometimes have positional dizziness. He does not have any near-syncope or syncope. He does not have any lower extremity edema. He does not have any symptoms of claudication. He does have concerns over ED. Intake Vital Signs 11/29/23 08:47 11/09/24 10:21 11/28/24 08:17 Height 5 ft 10 in 5 ft 10 in 5 ft 10 in Weight: 176 lb BMI 25.2 BP 114/67 Blood Pressure Location Lt brachial Position Sitting Respiration 18 Pulse 69 Pulse Source NIBP Intake Visit Reasons: 1 Y FU 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 Is patient in pain?: No Allergies dulaglutide (From Trulicity) Allergy (Intermediate, Verified 11/28/24 08:22) Nausea niacin Allergy (Verified 11/28/24 08:22) GI Upset, PUD w/blood, Hot Flashes amoxicillin trihydrate (From Augmentin) Adverse Reaction (Verified 11/28/24 08:22) Abd cramps/diarrhea potassium clavulanate (From Augmentin) Adverse Reaction (Verified 11/28/24 08:22) Abd cramps/diarrhea Medications ???Medication ???Instructions ???Recorded ???Confirmed ???Type multivitamin 1 tab PO DAILY supplement 08/29/20 11/28/24 History blood-glucose meter (PanvideaTouch #1 ea 06/07/23 11/09/24 Rx Ultra2 Meter) blood sugar diagnostic (Blood #100 ea 07/06/23 11/09/24 Rx Glucose Test strips) empagliflozin 25 mg tablet See Rx Instructions .Route 4 11/28/24 Rx (Jardiance) .COMPLEX #90 tabs pantoprazole 40 mg tablet,delayed See Rx Instructions .Route 11/28/24 Rx release .COMPLEX #90 tabs amlodipine 10 mg tablet 10 mg PO DAILY #90 TABLETS 4 11/28/24 Rx atorvastatin 40 mg tablet 40 mg PO QHS cholesterol #90 tabs 05/02/24 11/28/24 Rx fenofibrate nanocrystallized 145 See Rx Instructions .Route 4 11/28/24 Rx mg tablet .COMPLEX #90 tabs losartan 100 mg tablet See Rx Instructions .Route 4 11/28/24 Rx .COMPLEX #90 tabs clopidogrel 75 mg tablet (Plavix) 75 mg PO DAILY #90 tabs 07/24/24 11/28/24 Rx sitagliptin phosphate 100 mg 100 mg PO DAILY for diabetes 07/2611/28/24 Rx tablet (Januvia) mellitus #90 TABLETS cyclobenzaprine 5 mg tablet 5 mg PO TID PRN muscle spasm #30 0 11/09/24 11/28/24 Rx tabs hydroxyzine HCl 25 mg tablet 25 mg PO TID PRN itching #30 tabs 11/09/24 11/28/24 Rx metoprolol succinate 50 mg 50 mg PO DAILY HTN #90 tabs 11/28/24 Rx tablet,extended release 24 hr Ejection fraction %: 55 (55-60) Have you fallen in the past year?: No [facility] Medical History Dermatitis Screening for thyroid disorder Wears glasses Arthritis Excessive bleeding Stroke/cerebrovascul ar accident Former smoker Leg cramps History of heart attack History of stress test History of echocardiogram Cardiology follow-up encounter Left knee pain Burning with urination History of ST elevation myocardial infarction (STEMI) (05/02/21) ST elevation (STEMI) myocardial infarction Health care maintenance Obstructive sleep apnea Hyperlipidemia Essential (primary) hypertension History of CVA (cerebrovascular accident) (2001) Atherosclerosis of coronary artery of [place] heart without angina pectoris BPH (benign prostatic hyperplasia) GERD (gastroesophageal reflux disease) Type 2 diabetes mellitus Enlarged prostate Neuropathy Hearing problem Gastrointestinal complaints, unspecific Back problem Surgical History History of cardiac catheterization History of foot surgery History of colonoscopy S/P trigger finger release (more content not included)... Normal [facility] LDL calc ser/plasOrdered By: Corry Moura on 11-28-2024 LDL Cholesterol, Calculated 74 mg/dL [facility] Comment on above: Vzjnhkodkl=516-924 m g/dL & Higher Zzfz=017 mg/dL or greater Laboratory - Chemistry and C hemistry - challengeOrdered By: Corry Moura on 11-28-2024 AST [Catalytic activity/Vol] 19 U/L <38 [facility] Lipid Profileon 11-28-2024 CHOL:HDL 6.80 Normal [facility] Comment on above: Order Comment: Comme nts: okay to do non fasting Performed By: #### L 500.3400, L500.4100 #### [facility] [address] [place], [address] Cholesterol [Mass/Vol] 164 mg/dL Normal <=200 [facility] Comment on above: Order Comment: Comme nts: okay to do non fasting Result Comment: Chol esterol level, Desirable <200 mg/dL Borderline high cholesterol 200-239 mg/dL High cholesterol >=240 mg/dL Recommendations of the NCEP Adult Treatment Panel for the following risk-cutoff thresholds for the [place] population. Performed By: #### L 500.3400, L500.4100 #### [facility] [address] [place], [address] Cholesterol in HDL [Mass/Vol] 24 mg/dL Low [facility] Comment on above: Order Comment: Comme nts: okay to do non fasting Result Comment: Maddi onal Cholesterol Education Program (NCEP) guidelines: <40 mg/dL: Low HDL-cholesterol (major risk factor for CHD) >= 60 mg/dL: High HDL-cholesterol (negative risk factor for CHD) HDL-cholesterol is affected by a number of factors, e.g. smoking, exercise, hormones, sex and age. Performed By: #### L 500.3400, L500.4100 #### [facility] [address] [place], [address] Cholesterol in LDL [Mass/Vol] 74 mg/dL Normal [facility] Comment on above: Order Comment: Comme nts: okay to do non fasting Result Comment: Bord jvugje=058-574 mg/dL Higher Tdiq=051 mg/dL or greater Performed By: #### L 500.3400, L500.4100 #### [facility] [address] [place], [address] Cholesterol in VLDL [Mass/Vol] 66 mg/dL High 5-40 [facility] Comment on above: Order Comment: Comme nts: okay to do non fasting Performed By: #### L 500.3400, L500.4100 #### [facility] [address] [place], [address] Triglyceride [Mass/Vol] 329 mg/dL High [facility] Comment on above: Order Comment: Comme nts: okay to do non fasting Result Comment: The drugs N-Acetylcysteine and Metamizole may falsely depress this assay. Normal range: <150 mg/dL Borderline High: 150-199 mg/dL High: 200-499 mg/dL Very High: >500 mg/dL Performed By: #### L 500.3400, L500.4100 #### [facility] [address] [place], [address] Liver Profileon 11-28-2024 Albumin [Mass/Vol] 4.4 g/dL Normal 3.4-4.8 [facility] Comment on above: Order Comment: Comme nts: okay to do non fasting okay to do non fasting Performed By: #### L 500.3400, L500.4100 #### [facility] [address] [place], [address] ALK PHOS 47 U/L Normal 40-129 [facility] Comment on above: Order Comment: Comme nts: okay to do non fasting okay to do non fasting Performed By: #### L 500.3400, L500.4100 #### [facility] [address] [place], [address] ALT [Catalytic activity/Vol] 15 U/L Normal <=46 [facility] Comment on above: Order Comment: Comme nts: okay to do non fasting okay to do non fasting Performed By: #### L 500.3400, L500.4100 #### [facility] [address] [place], [address] AST [Catalytic activity/Vol] 19 U/L Normal <=37 [facility] Comment on above: Order Comment: Comme nts: okay to do non fasting okay to do non fasting Performed By: #### L 500.3400, L500.4100 #### [facility] [address] [place], [address] Bilirubin [Mass/Vol] 0.50 mg/dL Normal 0.00-1.30 [facility] Comment on above: Order Comment: Comme nts: okay to do non fasting okay to do non fasting Performed By: #### L 500.3400, L500.4100 #### [facility] [address] [place], [address] Bilirubin.direct [Mass/Vol] 0.22 mg/dL Normal 0.00-0.30 [facility] Comment on above: Order Comment: Comme nts: okay to do non fasting okay to do non fasting Performed By: #### L 500.3400, L500.4100 #### [facility] [address] [place], [address] Globulin (S) [Mass/Vol] 2.6 g/dL Normal 2.2-4.2 [facility] Comment on above: Order Comment: Comme nts: okay to do non fasting okay to do non fasting Performed By: #### L 500.3400, L500.4100 #### [facility] [address] [place], [place], [id number] T PROT 7.0 g/dL Normal 5.9-8.4 [facility] Comment on above: Order Comment: Comme nts: okay to do non fasting okay to do non fasting Performed By: #### L 500.3400, L500.4100 #### [facility] [address] [place], [place], [id number] Screening total cholesterol/ high density lipoprotein (HDL) cholesterol ratioOrdered By: Corry Moura on 11-28-2024 Cholesterol.total/Choles terol in HDL [Mass ratio] 6.80 {ratio} [facility] Serum globulin measurementOr dered By: Corry Moura on 11-28-2024 Globulin (S) [Mass/Vol] 2.6 g/dL 2.2-4.2 [facility] Serum or plasma alanine navarro otransferase (ALT) measurementOrdered By: Corry Moura on 11-28-2024 ALT [Catalytic activity/Vol] 15 U/L <47 [facility] Serum or plasma albumin joya urement (mass/volume)Ordered By: Corry Moura on 11-28-2024 Albumin [Mass/Vol] 4.4 g/dL 3.4-4.8 [facility] Serum or plasma alkaline yannick sphatase measurementOrdered By: Corry Moura on 11-28-2024 ALP [Catalytic activity/Vol] 47 U/L 40-129 [facility] Serum or plasma cholesterol in HDL measurement (mass/volume)Ordered By: Corry Moura on 11-28-2024 Cholesterol in HDL [Mass/Vol] 24 mg/dL Low >40 [facility] Comment on above: National Cholesterol Education Program (NCEP) guidelines:<40 mg/dL: Low HDL-cholesterol (major risk factor for CHD)>= 60 mg/dL: High HDL-cholesterol (negative risk factor for CHD)HDL-cholesterol is affected by a number of factors, e.g. smoking, exercise, hormones, sex and age. Serum or plasma cholesterol measurement (mass/volume)Ordered By: Corry Moura on 11-28-2024 Cholesterol [Mass/Vol] 164 mg/dL <201 [facility] Comment on above: Cholesterol level, D esirable <200 mg/dLBorderline high cholesterol 200-239 mg/dLHigh cholesterol >=240 mg/dLRecommendations of the NCEP Adult Treatment Panel for the following risk-cutoff thresholds for the [place] population. Total proteinOrdered By: Merlin Moura on 11-28-2024 Protein [Mass/Vol] 7.0 g/dL 5.9-8.4 [facility] Triglycerides measurementOrd ered By: Corry Moura on 11-28-2024 Triglyceride [Mass/Vol] 329 mg/dL High <[address] [facility] Comment on above: The drugs N-Acetylcy steine and Metamizole may falsely depress this assay. Normal range: <150 mg/dLBorderline High: 150-199 mg/dLHigh: 200-499 mg/dLVery High: >500 mg/dL Cerv Spine 2 or 3 Viewson Cerv Spine 2 or 3 Views [facility] Imaging Services [address] [place] [address] [id number] Cerv Spine 2 or 3 Views MR#: [id number] Acct: [id number] Name: GENI LINDSAY Rep #: [id number] : 1945 M 79 From: Sourav Reeder MD PCP: Dr. Chase Cohen MD Status: REG CLI Study: Cerv Spine 2 or 3 Views Date of Exam: 11/09/24 Exam# [id number] Ordering Dr: Asa Lopez PROCEDURE: CERV SPINE 2 OR 3 VIEWS 11/09/2024 REASON FOR EXAM: NECK PAIN TECHNIQUE: 3 views of the cervical spine. AP, lateral and open mouth odontoid view COMPARISON: None available FINDINGS: The cervical spine is visualized on the lateral view from the skull base to the bottom of C6. C7 and the C7-T1 alignment is not visualized due to shoulder overlap on the lateral view. Otherwise no acute fracture or malalignment identified. No prevertebral soft tissue swelling. C5-6 spondylosis/discogen ic change with jbzp-sk-fmgsqvgr disc space narrowing. Wyngd-dflwbvr-ltio-l eft appearing multilevel facet degenerative changes. Suggestion of possible carotid calcification. The visualized apices appear clear. RAD/Cerv Spine 2 or 3 Views IMPRESSION: The cervical spine is visualized on the lateral view from the skull base to the bottom of C6. C7 and the C7-T1 alignment is not visualized due to shoulder overlap on the lateral view. Otherwise no acute fracture or malalignment identified. C5-6 spondylosis/discogen ic change with kbnc-zy-gxulexad disc space narrowing. Chbfg-cbiyevr-vxyr-l eft appearing multilevel facet degenerative changes. Reading Location: [id number] CC: Dr. Chase Cohen MD; DARIANA Joshua Application Support Analyst: Signed Normal [facility] Internal Medicine Office Vis iton 11-09-2024 Internal Medicine Office Visit [facility] [place] [address] OFFICE VISIT Date of Service: 11/09/24 MR#: [id number] Acct: [id number] Name: GENI LINDSAY Rep #: [id number] : 1945 Provider: DARIANA Joshua Age/Sex: 79/M Location: [facility] Status: Signed Intake Vital Signs 05/02/24 07:25 11/09/24 10:21 Height 5 ft 10 in 5 ft 10 in Weight: 164 lb 175 lb BMI 23.5 25.1 BP 142/80 H 130/70 H Blood Pressure Location Lt brachial Lt brachial Position Sitting Sitting Respiration 14 14 Pulse 59 L 67 Pulse Source Monitor Monitor Temp 97.4 F L 98.1 F Temp Source Temporal Temporal Pulse Oximetry (%) 95 99 Oxygen Delivery Method room air room air Intake Visit Reasons: STIFF / PAIN NECK / 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 Is patient in pain?: Yes (neck pain) Pain scale (1-10): 7 Allergies dulaglutide (From Trulicity) Allergy (Intermediate, Verified 11/09/24 10:12) Nausea niacin Allergy (Verified 11/09/24 10:12) GI Upset, PUD w/blood, Hot Flashes amoxicillin trihydrate (From Augmentin) Adverse Reaction (Verified 11/09/24 10:12) Abd cramps/diarrhea potassium clavulanate (From Augmentin) Adverse Reaction (Verified 11/09/24 10:12) Abd cramps/diarrhea Medications ???Medication ???Instructions ???Recorded ???Confirmed ???Type multivitamin 1 tab PO DAILY supplement 08/29/20 11/09/24 History blood-glucose meter (OneTouch #1 ea 06/07/23 11/09/24 Rx Ultra2 Meter) blood sugar diagnostic (Blood #100 ea 07/06/23 11/09/24 Rx Glucose Test strips) empagliflozin 25 mg tablet See Rx Instructions .Route 11/09/24 Rx (Jardiance) .COMPLEX #90 tabs pantoprazole 40 mg tablet,delayed See Rx Instructions .Route 11/09/24 Rx release .COMPLEX #90 tabs amlodipine 10 mg tablet 10 mg PO DAILY #90 TABLETS 4 11/09/24 Rx atorvastatin 40 mg tablet 40 mg PO QHS cholesterol #90 tabs 05/02/24 11/09/24 Rx fenofibrate nanocrystallized 145 See Rx Instructions .Route 4 11/09/24 Rx mg tablet .COMPLEX #90 tabs losartan 100 mg tablet See Rx Instructions .Route 4 11/09/24 Rx .COMPLEX #90 tabs clopidogrel 75 mg tablet (Plavix) 75 mg PO DAILY #90 tabs 07/24/24 11/09/24 Rx sitagliptin phosphate 100 mg 100 mg PO DAILY for diabetes 07/2611/09/24 Rx tablet (Januvia) mellitus #90 TABLETS cyclobenzaprine 5 mg tablet 5 mg PO TID PRN muscle spasm #30 0 11/09/24 11/09/24 Rx tabs hydroxyzine HCl 25 mg tablet 25 mg PO TID PRN itching #30 tabs 11/09/24 11/09/24 Rx metoprolol succinate 50 mg 50 mg PO DAILY HTN #90 tabs 11/09/24 Rx tablet,extended release 24 hr Have you fallen in the past year?: No Nurse's Note: States that for several months he has been very itchy and is unable to get relief, states he started new meds at the time this started and is concerned it is due to meds. Has been treating w/ moisterizing lotion. Has not tried any otc steroid, antiitch, and allergy meds. There is no change visible on skin. Dr. cohen prescribed hydrocortisone cream but he said it is a mess and did not help. It is all over. States he broke his neck when he was 17 it healed and he has not had any issues since. In the past couple of months he noticed that his neck is stiff around c-1 and putting any pressure on it, ROM is impaired as it hurts and doesn't move well, Moving makes the pain very shapr and shoots all the way down the back into both legs. He states it is stiff and hurts all the time. Has been using lidocaine roll on, and heat which doesn't help for long. He is having difficulty sleeping. He states he has not tried any otc meds as he is uncertain if it will interact w/ meds. He knows he has arthritis and did not have any known injury. [facility] Medical History Dermatitis Screening for thyroid disorder Wears glasses Arthritis Excessive bleeding Stroke/cerebrovascul ar accident Former smoker Leg cramps History of heart attack History of stress test History of echocardiogram Cardiology follow-up encounter Left knee pain Burning with urination History of ST elevation myocardial infarction (STEMI) (05/02/21) ST elevation (STEMI) myocardial infarction Health care maintenance Obstructive sleep apnea Hyperlipidemia Essential (primary) hypertension History of CVA (cerebrovascular accident) (2001) Atherosclerosis of coronary artery of [place] heart without angina pectoris BPH (benign prostatic hyperplasia) GERD (gastroesophageal reflux disease) Type 2 diabetes mellitus Enlarged prostate Neuropathy Hearing problem Gastrointestinal complaints, unspecific Back problem Surgical History History of cardiac catheterization Histo (more content not included)... Normal [facility] PSA Serial Monitoron 024 PSA, TOTAL 5.0 ng/mL Abnormal 0.0-4.0 [facility] Comment on above: Result Comment: Josse QUINTANA methodology. According to the [place] [employer], Serum PSA should decrease and remain at undetectable levels after radical prostatectomy. The AUA defines biochemical recurrence as an initial PSA value 0.2 ng/mL or greater followed by a subsequent confirmatory PSA value 0.2 ng/mL or greater. Values obtained with different assay methods or kits cannot be used interchangeably. Results cannot be interpreted as absolute evidence of the presence or absence of malignant disease. Performed at: [address] [id number] [employer]: Jaden Blanco PhD, Phone: [phone] Performed By: #### L 500.4050, L3110.0525, L501.9985, L100.0100 #### [facility] [address] [place], [address] CBC W/Diff, Automatedon 04-16 Absolute Lymph 1.92 X10 3/uL Normal 0.83-4.51 [facility] Comment on above: Performed By: #### L 500.4050, L3110.0525, L501.9985, L100.0100 #### [facility] [address] [place], [address] Absolute Neut 3.7 X10 3/uL Normal 2.0-7.7 [facility] Comment on above: Performed By: #### L 500.4050, L3110.0525, L501.9985, L100.0100 #### [facility] [address] [place], [address] Basophils/100 WBC (Bld) 0.9 % Normal 0-[address] [facility] Comment on above: Performed By: #### L 500.4050, L3110.0525, L501.9985, L100.0100 #### [facility] [address] [place], [address] Eosinophils/100 WBC (Bld) 3.2 % Normal 0-5 [facility] Comment on above: Performed By: #### L 500.4050, L3110.0525, L501.9985, L100.0100 #### [facility] [address] [place], [address] Erythrocyte distribution width (RBC) [Ratio] 13.1 % Normal 11.6-14.6 [facility] Comment on above: Performed By: #### L 500.4050, L3110.0525, L501.9985, L100.0100 #### [facility] [address] [place], [address] Hematocrit (Bld) [Volume fraction] 43.3 % Normal 40-54 [facility] Comment on above: Performed By: #### L 500.4050, L3110.0525, L501.9985, L100.0100 #### [facility] [address] [place], [address] Hemoglobin (Bld) [Mass/Vol] 13.8 g/dL Normal 13.0-16.5 [facility] Comment on above: Performed By: #### L 500.4050, L3110.0525, L501.9985, L100.0100 #### [facility] [address] [place], [address] IG% 0.300 Normal 0.0-0.9 [facility] Comment on above: Result Comment: IG% - Immature Granulocytes (promyelocytes, myelocytes and metamyelocytes) > 1% indicates that a LEFT SHIFT is Present. Performed By: #### L 500.4050, L3110.0525, L501.9985, L100.0100 #### [facility] [address] [place], [address] Lymphocytes/100 WBC (Bld) 28.4 % Normal 19-41 [facility] Comment on above: Performed By: #### L 500.4050, L3110.0525, L501.9985, L100.0100 #### [facility] [address] [place], [address] MCH (RBC) [Entitic mass] 29.1 pg Normal 27.0-32.0 [facility] Comment on above: Performed By: #### L 500.4050, L3110.0525, L501.9985, L100.0100 #### [facility] [address] [place], [address] MCHC (RBC) [Mass/Vol] 31.9 g/dL Low 32-36 [facility] Comment on above: Performed By: #### L 500.4050, L3110.0525, L501.9985, L100.0100 #### [facility] [address] [place], [address] MCV (RBC) [Entitic vol] 91.4 fL Normal 80-94 [facility] Comment on above: Performed By: #### L 500.4050, L3110.0525, L501.9985, L100.0100 #### [facility] [address] [place], [address] Monocytes/100 WBC (Bld) 12.0 % High 0-10 [facility] Comment on above: Performed By: #### L 500.4050, L3110.0525, L501.9985, L100.0100 #### [facility] [address] [place], [address] Neutrophils/100 WBC (Bld) 55.2 % Normal 47-70 [facility] Comment on above: Performed By: #### L 500.4050, L3110.0525, L501.9985, L100.0100 #### [facility] [address] [place], [address] Nucleated RBC (Bld) [#/Vol] 0 10*3/uL Normal 0-5 [facility] Comment on above: Performed By: #### L 500.4050, L3110.0525, L501.9985, L100.0100 #### [facility] [address] [place], [address] Platelet mean volume (Bld) [Entitic vol] 11.0 fL Normal 6.2-12.0 [facility] Comment on above: Performed By: #### L 500.4050, L3110.0525, L501.9985, L100.0100 #### [facility] [address] [place], [address] Platelets (Bld) [#/Vol] 276 10*3/uL Normal 150-450 [facility] Comment on above: Performed By: #### L 500.4050, L3110.0525, L501.9985, L100.0100 #### [facility] [address] [place], [address] RBC (Bld) [#/Vol] 4.74 10*6/uL Normal 4.6-6.2 [facility] Comment on above: Performed By: #### L 500.4050, L3110.0525, L501.9985, L100.0100 #### [facility] [address] [place], [address] RDW SD 44.2 fl High 35.1-43.9 [facility] Comment on above: Performed By: #### L 500.4050, L3110.0525, L501.9985, L100.0100 #### [facility] [address] [place], [address] WBC (Bld) [#/Vol] 6.8 10*3/uL Normal 4.4-11.0 [facility] Comment on above: Performed By: #### L 500.4050, L3110.0525, L501.9985, L100.0100 #### [facility] [address] [place], [address] Comprehensive Metabolic Prof [facility] 05-02-2024 Albumin [Mass/Vol] 4.2 g/dL Normal 3.2-5.0 [facility] Comment on above: Performed By: #### L 500.4050, L3110.0525, L501.9985, L100.0100 #### [facility] [address] [place], [address] Albumin/Globulin [Mass ratio] 1.2 {ratio} Normal 0.9-2.4 [facility] Comment on above: Performed By: #### L 500.4050, L3110.0525, L501.9985, L100.0100 #### [facility] [address] [place], [address] ALK P 42 U/L Low 45-117 [facility] Comment on above: Performed By: #### L 500.4050, L3110.0525, L501.9985, L100.0100 #### [facility] [address] [place], [address] ALT [Catalytic activity/Vol] 26 U/L Normal 16-61 [facility] Comment on above: Performed By: #### L [id number], L3110.0525, L501.9985, L100.0100 #### [facility] [address] [place], [address] AST [Catalytic activity/Vol] 20 U/L Normal 15-37 [facility] Comment on above: Performed By: #### L [id number], L3110.0525, L501.9985, L100.0100 #### [facility] [address] [place], [address] Bilirubin [Mass/Vol] 0.70 mg/dL Normal 0.20-1.00 [facility] Comment on above: Result Comment: For patients on eltrombopag therapy, use of Dimension [place] TBIL is not recommended. Performed By: #### L 500.4050, L3110.0525, L501.9985, L100.0100 #### [facility] [address] [place], [address] BUN/CRE 15.7 RATIO Normal 10-20 [facility] Comment on above: Performed By: #### L [id number], L3110.0525, L501.9985, L100.0100 #### [facility] [address] [place], [address] CA,Total 10.1 mg/dL Normal 8.5-10.1 [facility] Comment on above: Performed By: #### L [id number], L3110.0525, L501.9985, L100.0100 #### [facility] [address] [place], [address] Chloride [Moles/Vol] 105 mmol/L Normal 98-107 [facility] Comment on above: Performed By: #### L [id number], L3110.0525, L501.9985, L100.0100 #### [facility] [address] [place], [address] CO2 [Moles/Vol] 25.0 mmol/L Normal 21.0-32.0 [facility] Comment on above: Performed By: #### L 500.4050, L3110.0525, L501.9985, L100.0100 #### [facility] [address] [place], [address] Creatinine [Mass/Vol] 1.59 mg/dL High 0.70-1.30 [facility] Comment on above: Result Comment: The validity of the calculated GFR GFRAA in patients over 70 years has not been determined. Clinical correlation is essential. Performed By: #### L 500.4050, L3110.0525, L501.9985, L100.0100 #### [facility] [address] [place], [address] EST GFR - AA 54 mL/min Low >60 [facility] Comment on above: Result Comment: Afri can [place] GFR Calc Performed By: #### L 500.4050, L3110.0525, L501.9985, L100.0100 #### [facility] [address] [place], [address] GAP 8 Normal 5-15 [facility] Comment on above: Performed By: #### L 500.4050, L3110.0525, L501.9985, L100.0100 #### [facility] [address] [place], [address] GFR/1.73 sq M.predicted among non-blacks MDRD (S/P/Bld) [Vol rate/Area] 45 mL/min/{1.73_m2} Low >60 [facility] Comment on above: Result Comment: Non- GFR Calc Performed By: #### L 500.4050, L3110.0525, L501.9985, L100.0100 #### [facility] [address] [place], [address] Globulin (S) [Mass/Vol] 3.4 g/dL Normal 2.2-4.2 [facility] Comment on above: Performed By: #### L 500.4050, L3110.0525, L501.9985, L100.0100 #### [facility] [address] [place], [address] Glucose [Mass/Vol] 116 mg/dL High 74-106 [facility] Comment on above: Result Comment: Fast ing Glucose result from 100 to 125 mg/dL suggests IMPAIRED HOMEOSTASIS per A.D.A. criteria. Performed By: #### L 500.4050, L3110.0525, L501.9985, L100.0100 #### [facility] [address] [place], [address] Potassium [Moles/Vol] 3.9 mmol/L Normal 3.5-5.1 [facility] Comment on above: Performed By: #### L 500.4050, L3110.0525, L501.9985, L100.0100 #### [facility] [address] [place], [address] Sodium [Moles/Vol] 138 mmol/L Normal 136-145 [facility] Comment on above: Performed By: #### L 500.4050, L3110.0525, L501.9985, L100.0100 #### [facility] [address] [place], [address] T PROT 7.6 g/dL Normal 6.4-8.2 [facility] Comment on above: Performed By: #### L 500.4050, L3110.0525, L501.9985, L100.0100 #### [facility] [address] [place], [address] Urea nitrogen [Mass/Vol] 25 mg/dL High 7-18 [facility] Comment on above: Performed By: #### L 500.4050, L3110.0525, L501.9985, L100.0100 #### [facility] [address] [place], [address] Hemoglobin A1con 05-02-2024 HbA1c (Bld) [Mass fraction] 6.0 % High 3.8-5.6 [facility] Comment on above: Result Comment: Norm al < 5.7 % Prediabetic 5.7 - 6.4 % Diabetic >or= 6.5 % Please note range changes. Performed By: #### L 500.4050, L3110.0525, L501.9985, L100.0100 #### [facility] [address] [place], [address] Internal Medicine Office Vis hina 05-01-2024 Internal Medicine Office Visit [facility] [address] [place] [address] [address] [place] [address] OFFICE VISIT Date of Service: 05/02/24 MR#: [id number] Acct: [id number] Name: GENI LINDSAY Rep #: [id number] : 1945 Provider: ZABRINA henley Age/Sex: 79/M Location: [facility] Status: Signed Intake Vital Signs 11/29/23 08:47 04/19/24 14:00 05/02/24 07:25 Height 5 ft 10 in 5 ft 10 in 5 ft 10 in Weight: 172 lb 164 lb BMI 24.7 23.5 BP 135/71 H 142/80 H Blood Pressure Location Lt brachial Lt brachial Position Sitting Sitting Respiration 18 14 Pulse 58 L 59 L Pulse Source Monitor Monitor Temp 97.4 F L Temp Source Temporal Pulse Oximetry (%) 96 95 Oxygen Delivery Method room air Intake Visit Reasons: ACUTE MED FU Chief Complaint: Follow-up chronic conditions 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 Is patient in pain?: No Allergies dulaglutide (From Trulicity) Allergy (Intermediate, Verified 05/02/24 07:19) Nausea niacin Allergy (Verified 05/02/24 07:19) GI Upset, PUD w/blood, Hot Flashes amoxicillin trihydrate (From Augmentin) Adverse Reaction (Verified 05/02/24 07:19) Abd cramps/diarrhea potassium clavulanate (From Augmentin) Adverse Reaction (Verified 05/02/24 07:19) Abd cramps/diarrhea Medications ???Medication ???Instructions ???Recorded ???Confirmed ???Type multivitamin 1 tab PO DAILY supplement 08/29/20 05/02/24 History blood-glucose meter (OneTouch #1 ea 06/07/23 05/02/24 Rx Ultra2 Meter) clopidogrel 75 mg tablet (Plavix) 75 mg PO DAILY #90 tabs 06/14/23 05/02/24 Rx blood sugar diagnostic (Blood #100 ea 07/06/23 05/02/24 Rx Glucose Test strips) sitagliptin phosphate 100 mg See Rx Instructions .Route 08/12/23 05/02/24 Rx tablet (Januvia) .COMPLEX #90 tabs hydrocortisone 2.5 % topical 1 applic topical BID PRN rash #454 10/06/23 05/02/24 Rx ointment grams empagliflozin 25 mg tablet See Rx Instructions .Route 10/12/23 05/02/24 Rx (Jardiance) .COMPLEX #90 tabs pantoprazole 40 mg tablet,delayed See Rx Instructions .Route 10/12/23 05/02/24 Rx release .COMPLEX #90 tabs amlodipine 10 mg tablet 10 mg PO DAILY #90 TABLETS 01/18/24 05/02/24 Rx metoprolol succinate 50 mg 50 mg PO DAILY HTN #90 tabs 04/19/24 05/02/24 Rx tablet,extended release 24 hr atorvastatin 40 mg tablet 40 mg PO QHS cholesterol #90 tabs 05/02/24 05/02/24 Rx fenofibrate nanocrystallized 145 See Rx Instructions .Route 05/02/24 05/02/24 Rx mg tablet .COMPLEX #90 tabs losartan 100 mg tablet See Rx Instructions .Route 05/02/24 05/02/24 Rx .COMPLEX #90 tabs Have you fallen in the past year?: No Nurse's Note: Needs losartan, atorvastatin, and fenofibrate refilled. [facility] Medical History Dermatitis Screening for thyroid disorder Wears glasses Arthritis Excessive bleeding Stroke/cerebrovascul ar accident Former smoker Leg cramps History of heart attack History of stress test History of echocardiogram Cardiology follow-up encounter Left knee pain Burning with urination History of ST elevation myocardial infarction (STEMI) (05/02/21) ST elevation (STEMI) myocardial infarction Health care maintenance Obstructive sleep apnea Hyperlipidemia Essential (primary) hypertension History of CVA (cerebrovascular accident) (2001) Atherosclerosis of coronary artery of [place] heart without angina pectoris BPH (benign prostatic hyperplasia) GERD (gastroesophageal reflux disease) Type 2 diabetes mellitus Enlarged prostate Neuropathy Hearing problem Gastrointestinal complaints, unspecific Back problem Surgical History History of cardiac catheterization History of foot surgery History of colonoscopy S/P trigger finger release History of repair of rotator cuff History of coronary artery stent placement (05/02/21) Family History Mother Diabetes Myocardial infarction Father AA (aortic aneurysm) Social History (Reviewed 05/02/24 @ 07:19 by LUÍS Lambert Smoking Status: Former smoker quit date: 08/16/93 Tobacco: How many years used: 30 alcohol intake: current alcohol intake frequency: holidays/special occasions only Alcohol type: beer substance use type: does not use what type of physical activity do you participate in: walking HPI HPI Chief Complaint: Follow-up chronic conditions Details: GENI LINDSAY, is a 79 M who presents to the office today for routine follow-up of chronic medical conditions. He is a patient of Dr. Chavez and was last seen in office on 10/06/2023. History of T2DM: Currently managed with Jardiance and sitagliptin which he states he is taking as prescribed. He does monitor his blood glucose (more content not included)... Normal [facility] Absolute lymphocyte countOrd ered By: Chase Cohen on 07-05-2023 Lymphocytes Auto (Unsp spec) [#/Vol] 2.34 10*3/uL 0.83-4.51 [facility] Basophil percentageOrdered B y: Chase Cohen on 07-05-2023 Basophil percentage 0 SEEN /hpf 0-5 [facility] Basophils/100 WBC (Bld) 0.9 % 0-1 [facility] Bilirubin [Mass/Vol] 0.50 mg/dL 0.20-1.00 [facility] Comment on above: For patients on eltr ombopag therapy, use of Dimension [place] TBIL is not recommended. Chloride [Moles/Vol] 105 mmol/L 98-107 [facility] Cholesterol [Mass/Vol] 140 mg/dL <200 [facility] Comment on above: <200 mg/dL Desirable 200-240 mg/dL Borderline >240 mg/dL High Risk Eosinophils/100 WBC (Bld) 2.2 % 0-5 [facility] Glucose [Mass/Vol] 189 mg/dL 74-106 [facility] Comment on above: Fasting Glucose resu lt greater than or equal to 126 mg/dL suggests DIABETES MELLITUS per A.D.A. criteria. Neutrophils (Bld) [#/Vol] 4.7 10*3/uL 2.0-7.7 [facility] Neutrophils/100 WBC (Bld) 57.7 % 47-70 [facility] Potassium [Moles/Vol] 4.9 mmol/L 3.5-5.1 [facility] Protein [Mass/Vol] 7.6 g/dL 6.4-8.2 [facility] Sodium [Moles/Vol] 138 mmol/L 136-145 [facility] Triglyceride [Mass/Vol] 198 mg/dL <[address] [facility] Comment on above: The drugs N-Acetylcy steine and Metamizole may falsely depress this assay.Serum Triglycerides Reference Interval Normal <150 mg/dL Borderline high 150 - 199 mg/dL High 200 - 499 mg/dL Very High > or = 500 mg/dL WBC (Bld) [#/Vol] 8.1 10*3/uL 4.4-11.0 [facility] Bilirubin Test strip Ql (U)O rdered By: Chase Cohen on 07-05-2023 Bilirubin Ql (U) Negative Negative [facility] Blood erythrocytes count (nu mber/volume)Ordered By: Chase Cohen on 07-05-2023 RBC (Bld) [#/Vol] 5.18 10*6/uL 4.6-6.2 [facility] Blood hemoglobin measurement (mass/volume)Ordered By: Chase Cohen on 07-05-2023 Hemoglobin (Bld) [Mass/Vol] 14.8 g/dL 13.0-16.5 [facility] Blood lymphocytes/100 leukoc ytesOrdered By: Chase Cohen on 07-05-2023 Lymphocytes/100 WBC (Bld) 28.9 % 19-41 [facility] Blood monocytes/100 leukocyt esOrdered By: Chase Cohen on 07-05-2023 Monocytes/100 WBC (Bld) 9.9 % 0-10 [facility] Blood platelet mean volumeOr dered By: Chase Cohen on 07-05-2023 Platelet mean volume (Bld) [Entitic vol] 10.9 fL 6.2-12.0 [facility] Determination of erythrocyte mean corpuscular volume (MCV)Ordered By: Chase Cohen on 07-05-2023 MCV (RBC) [Entitic vol] 90.3 fL 80-[address] [facility] Hematocrit Auto (Bld) [Volum e fraction]Ordered By: Chase Cohen on 07-05-2023 Hematocrit (Bld) [Volume fraction] 46.8 % 40-54 [facility] Ketones Test strip Ql (U)Ord ered By: audigoldsmithlaverne Cohen on 07-05-2023 Ketones Ql (U) Negative Negative [facility] - Chemistry and C hemistry - challengeOrdered By: [facility] Cohen on 07-05-2023 ALP [Catalytic activity/Vol] 50 U/L 45-117 [facility] ALT [Catalytic activity/Vol] 36 U/L 16-61 [facility] CO2 [Moles/Vol] 27.0 mmol/L 21.0-32.0 [facility] Free T4 [Mass/Vol] 1.09 ng/dL 0.76-1.46 [facility] Globulin (S) [Mass/Vol] 3.4 g/dL 2.2-4.[address] [facility] Urea nitrogen/Creatinine [Mass ratio] 16.3 mg/mg 10-20 [facility] - Hematology and Cell countsOrdered By: [facility] Durbinpapito on 07-05-2023 Erythrocyte distribution width (RBC) [Entitic vol] 42.9 fL 35.1-43.9 [facility] Erythrocyte distribution width (RBC) [Ratio] 13.0 % 11.6-14.6 [facility] Immature granulocytes/100 WBC (Bld) 0.400 % 0.0-0.9 [facility] Comment on above: IG% - Immature Granu locytes (promyelocytes, myelocytes and metamyelocytes) > 1% indicates that a LEFT SHIFT is Present. MCH (RBC) [Entitic mass] 28.6 pg 27.0-32.0 [facility] Nucleated RBC/100 WBC (Bld) [Ratio] 0 % 0-5 [facility] MCHC Auto (RBC) [Mass/Vol]Or dered By: Chase Cohen on 07-05-2023 MCHC (RBC) [Mass/Vol] 31.6 g/dL 32-36 [facility] Mucus LM Ql (Urine sed)Order ed By: Chase Cohen on 07-05-2023 Mucus Ql (Urine sed) 0 SEEN /hpf [facility] Nitrite Test strip Ql (U)Ord ered By: Chase Cohen on 07-05-2023 Nitrite Ql (U) Negative Negative [facility] No Panel InformationOrdered By: Chase Cohen on 07-05-2023 Estimated GFR (MDRD) Amer 66 mL/min >60 [facility] Comment on above: GFR Calc Estimated GFR (MDRD) Non-Af Amer 54 mL/min >60 [facility] Comment on above: Non- GFR Calc Prostate Specific Antigen Screen 4.04 ng/mL 0.00-4.00 [facility] Comment on above: This test was perfor med using the TPSA assay method for [employer] chemistry system. Values obtained with differentassay methods cannot be used interchangably.When changing PSA assays in the course of monitoring apatient, additional sequential testing should be carriedout to confirm baseline values. Thyroid Stimulating Hormone (TSH) 1.59 uIU/mL 0.358-3.74 [facility] Platelets bldOrdered By: Misael jocelynlaverne Cohen on 07-05-2023 Platelets (Bld) [#/Vol] 287 10*3/uL 150-450 [facility] Protein Test strip Ql (U)Ord ered By: Chase Cohen on 07-05-2023 Protein Ql (U) Negative Negative [facility] Serum or plasma albumin joya urement (mass/volume)Ordered By: Chase Cohen on 07-05-2023 Albumin [Mass/Vol] 4.2 g/dL 3.2-5.0 [facility] Serum or plasma albumin/glob ulin mass ratioOrdered By: Chase Cohen on 07-05-2023 Albumin/Globulin [Mass ratio] 1.2 {ratio} 0.9-2.4 [facility] Serum or plasma calcium joya urement (mass/volume)Ordered By: Chase Cohen on 07-05-2023 Calcium [Mass/Vol] 9.4 mg/dL 8.5-10.1 [facility] Serum or plasma cholesterol in HDL measurement (mass/volume)Ordered By: Chase Cohen on 07-05-2023 Cholesterol in HDL [Mass/Vol] 31 mg/dL >40 [facility] Comment on above: The drugs N-Acetylcy steine and Metamizole may falsely depress this assay. Reference Range HDL <40 mg/dL Low HDL Cholesterol HDL >or= 60 mg/dL High HDL Cholesterol Serum or plasma cholesterol in VLDL measurement (mass/volume)Ordered By: Chase Cohen on 07-05-2023 Cholesterol in VLDL [Mass/Vol] 40 mg/dL 5-40 [facility] Serum or plasma creatinine m easurement (mass/volume)Ordered By: Chase Cohen on 07-05-2023 Creatinine [Mass/Vol] 1.35 mg/dL 0.70-1.30 [facility] Comment on above: The validity of the calculated GFR & GFRAA in patients over 70 years has not been determined. Clinical correlation is essential. Serum or plasma low density lipoprotein (LDL) cholesterol measurement (mass/volume)Ordered By: Chase Cohen on 07-05-2023 Cholesterol in LDL [Mass/Vol] 69 mg/dL 0-130 [facility] Serum or plasma urea nitroge n measurement (mass/volume)Ordered By: Chase Cohen on 07-05-2023 Urea nitrogen [Mass/Vol] 22 mg/dL 7-18 [facility] Squamous epithelial cells de tection in urine sediment by light microscopyOrdered By: Chase Cohen on 07-05-2023 Epithelial cells.squamous LM Ql (Urine sed) 0 SEEN /hpf 0-5 [facility] Thin prep Papanicolaou smear with manual screeningOrdered By: Chase Cohen on 07-05-2023 Thin prep Papanicolaou smear with manual screening 17 U/L 15-37 [facility] Thin prep Papanicolaou smear with manual screening 6 5-15 [facility] Urine blood detectionOrdered By: Chase Cohen on 07-05-2023 RBC Ql (U) 10 /ul Negative [facility] RBC Ql (U) 0 SEEN /hpf 0-5 [facility] Urine clarityOrdered By: Misael Cohen on 07-05-2023 Clarity (U) Clear Clear [facility] Urine color determinationOrd ered By: Chase Cohen on 07-05-2023 Color (U) Yellow Yellow [facility] Urine glucose detectionOrder ed By: Chase Cohen on 07-05-2023 Glucose Ql (U) 1000 mg/dl Normal [facility] Urine leukocyte esterase det ection by dipstickOrdered By: Chase Cohen on 07-05-2023 Leukocyte esterase Test strip Ql (U) Negative Negative [facility] Urine pHOrdered By: Janis Cohen on 07-05-2023 pH (U) 6.5 [pH] 5.0 - 8.0 [facility] Urine sediment bacteria coun t by microscopy (number/high power field)Ordered By: Chase Cohen on 07-05-2023 Bacteria LM.HPF (Urine sed) [#/Area] 0 /[HPF] None Seen [facility] Urine specific gravity measu rementOrdered By: Chase Cohen on 07-05-2023 Specific gravity (U) [Rel density] 1.010 1.002-1.030 [facility] Urobilinogen Auto test strip Ql (U)Ordered By: Chase Cohen on 07-05-2023 Urobilinogen Ql (U) Normal mg/dl Normal [facility] Absolute lymphocyte countOrd ered By: Onesimo Morris on 04-09-2023 Lymphocytes Auto (Unsp spec) [#/Vol] 1.98 10*3/uL 0.83-4.51 [facility] Basophil percentageOrdered B y: Onesimo Morris on 04-09-2023 Basophil percentage 0 SEEN /hpf 0-5 [facility] Basophils/100 WBC (Bld) 0.7 % 0-[address] [facility] Chloride [Moles/Vol] 108 mmol/L 98-107 [facility] Eosinophils/100 WBC (Bld) 1.9 % 0-5 [facility] Glucose [Mass/Vol] 125 mg/dL 74-106 [facility] Comment on above: Fasting Glucose resu lt from 100 to 125 mg/dL suggests IMPAIRED HOMEOSTASIS per A.D.A. criteria. Neutrophils (Bld) [#/Vol] 4.4 10*3/uL 2.0-7.7 [facility] Neutrophils/100 WBC (Bld) 58.9 % 47-70 [facility] Potassium [Moles/Vol] 4.2 mmol/L 3.5-5.1 [facility] Sodium [Moles/Vol] 137 mmol/L 136-145 [facility] WBC (Bld) [#/Vol] 7.5 10*3/uL 4.4-11.0 [facility] Bilirubin Test strip Ql (U)O rdered By: Onesimo Morris on 04-09-2023 Bilirubin Ql (U) Negative Negative [facility] Blood erythrocytes count (nu mber/volume)Ordered By: Onesimo Morris on 04-09-2023 RBC (Bld) [#/Vol] 4.76 10*6/uL 4.6-6.2 [facility] Blood hemoglobin measurement (mass/volume)Ordered By: Onesimo Morris on 04-09-2023 Hemoglobin (Bld) [Mass/Vol] 13.7 g/dL 13.0-16.5 [facility] Blood lymphocytes/100 leukoc ytesOrdered By: Onesimo Morris on 04-09-2023 Lymphocytes/100 WBC (Bld) 26.3 % 19-41 [facility] Blood monocytes/100 leukocyt esOrdered By: Onesimo Morris on 04-09-2023 Monocytes/100 WBC (Bld) 12.1 % 0-[address] [facility] Blood platelet mean volumeOr dered By: Onesimo Morris on 04-09-2023 Platelet mean volume (Bld) [Entitic vol] 10.3 fL 6.2-12.0 [facility] Determination of erythrocyte mean corpuscular volume (MCV)Ordered By: Onesimo Morris on 04-09-2023 MCV (RBC) [Entitic vol] 88.7 fL 80-[address] [facility] Hematocrit Auto (Bld) [Volum e fraction]Ordered By: Onesimo Morris on 04-09-2023 Hematocrit (Bld) [Volume fraction] 42.2 % 40-54 [facility] INR in Blood by Coagulation assayOrdered By: Onesimo Morris on 04-09-2023 INR Coag (Bld) [Relative time] 1.0 {INR} [facility] Ketones Test strip Ql (U)Ord ered By: Onesimo Morris on 04-09-2023 Ketones Ql (U) Negative Negative [facility] - Chemistry and C hemistry - challengeOrdered By: Onesimo Morris on 04-09-2023 CO2 [Moles/Vol] 26.0 mmol/L 21.0-32.0 [facility] Urea nitrogen/Creatinine [Mass ratio] 17.1 mg/mg 10-20 [facility] Laboratory - CoagulationOrde red By: Onesimo Morris on 04-09-2023 PT Coag (PPP) [Time] 13.7 s 11.7-14.9 [facility] Laboratory - Hematology and Cell countsOrdered By: Onesimo Morris on 04-09-2023 Erythrocyte distribution width (RBC) [Entitic vol] 41.7 fL 35.1-43.9 [facility] Erythrocyte distribution width (RBC) [Ratio] 12.8 % 11.6-14.6 [facility] Immature granulocytes/100 WBC (Bld) 0.100 % 0.0-0.9 [facility] Comment on above: IG% - Immature Granu locytes (promyelocytes, myelocytes and metamyelocytes) > 1% indicates that a LEFT SHIFT is Present. MCH (RBC) [Entitic mass] 28.8 pg 27.0-32.0 [facility] Nucleated RBC/100 WBC (Bld) [Ratio] 0 % 0-5 [facility] MCHC Auto (RBC) [Mass/Vol]Or dered By: Onesimo Morris on 04-09-2023 MCHC (RBC) [Mass/Vol] 32.5 g/dL 32-36 [facility] Mucus LM Ql (Urine sed)Order ed By: Onesimo Morris on 04-09-2023 Mucus Ql (Urine sed) 0 SEEN /hpf [facility] Nitrite Test strip Ql (U)Ord ered By: Onesimo Morris on 04-09-2023 Nitrite Ql (U) Negative Negative [facility] No Panel InformationOrdered By: Onesimo Morris on 04-09-2023 Estimated Creatinine Clearance Calc 64.89 ml/min [facility] Estimated GFR (MDRD) Amer 94 mL/min >60 [facility] Comment on above: GFR Calc Estimated GFR (MDRD) Non-Af Amer 77 mL/min >60 [facility] Comment on above: Non- GFR Calc Platelets bldOrdered By: Kayley Morris on 04-09-2023 Platelets (Bld) [#/Vol] 247 10*3/uL 150-450 [facility] Protein Test strip Ql (U)Ord ered By: Onesimo Morris on 04-09-2023 Protein Ql (U) 100 mg/dl Negative [facility] Serum or plasma calcium joya urement (mass/volume)Ordered By: Onesimo Morris on 04-09-2023 Calcium [Mass/Vol] 9.1 mg/dL 8.5-10.1 [facility] Serum or plasma creatinine m easurement (mass/volume)Ordered By: Onesimo Morris on 04-09-2023 Creatinine [Mass/Vol] 1.00 mg/dL 0.70-1.30 [facility] Comment on above: The validity of the calculated GFR & GFRAA in patients over 70 years has not been determined. Clinical correlation is essential. Serum or plasma urea nitroge n measurement (mass/volume)Ordered By: Onesimo Morris on 04-09-2023 Urea nitrogen [Mass/Vol] 17 mg/dL 7-18 [facility] Squamous epithelial cells de tection in urine sediment by light microscopyOrdered By: Onesimo Morris on 04-09-2023 Epithelial cells.squamous LM Ql (Urine sed) 0 SEEN /hpf 0-5 [facility] Thin prep Papanicolaou smear with manual screeningOrdered By: Onesimo Morris on 04-09-2023 Thin prep Papanicolaou smear with manual screening 3 5-15 [facility] Urine blood detectionOrdered By: Onesimo Morris on 04-09-2023 RBC Ql (U) 250 /ul Negative [facility] RBC Ql (U) > 100 SEEN /hpf 0-5 [facility] Urine clarityOrdered By: Kayley Morris on 04-09-2023 Clarity (U) Sl. Cloudy Clear [facility] Urine color determinationOrd ered By: Onesimo Morris on 04-09-2023 Color (U) Red Yellow [facility] Urine glucose detectionOrder ed By: Onesimo Morris on 04-09-2023 Glucose Ql (U) 1000 mg/dl Normal [facility] Urine leukocyte esterase det ection by dipstickOrdered By: Onesimo Morris on 04-09-2023 Leukocyte esterase Test strip Ql (U) 25 /ul Negative [facility] Urine pHOrdered By: Onesimo ellison on 04-09-2023 pH (U) 8.0 [pH] 5.0 - 8.0 [facility] Urine sediment bacteria coun t by microscopy (number/high power field)Ordered By: Onesimo Morris on 04-09-2023 Bacteria LM.HPF (Urine sed) [#/Area] 0 /[HPF] None Seen [facility] Urine specific gravity measu rementOrdered By: Onesimo Morris on 04-09-2023 Specific gravity (U) [Rel density] 1.010 1.002-1.030 [facility] Urobilinogen Auto test strip Ql (U)Ordered By: Onesimo Morris on 04-09-2023 Urobilinogen Ql (U) Normal mg/dl Normal [facility] Absolute lymphocyte counton 03-04-2022 Lymphocytes Auto (Unsp spec) [#/Vol] 2.28 10*3/uL 0.83-4.51 [facility] Work Phone: Basophil percentageon 2021 Basophils/100 WBC (Bld) 0.8 % 0-[address] [facility] Work Phone: Bilirubin [Mass/Vol] 0.50 mg/dL 0.20-1.00 [facility] Work Phone: Comment on above: For patients on eltr ombopag therapy, use of Dimension [place] TBIL is not recommended. Chloride [Moles/Vol] 104 mmol/L 98-107 [facility] Work Phone: Cholesterol [Mass/Vol] 147 mg/dL <200 [facility] Work Phone: Comment on above: <200 mg/dL Desirable 200-240 mg/dL Borderline >240 mg/dL High Risk Eosinophils/100 WBC (Bld) 2.0 % 0-5 [facility] Work Phone: Glucose [Mass/Vol] 276 mg/dL 74-106 [facility] Work Phone: [phone] Comment on above: Glucose result great er than or equal to 200 mg/dLsuggests DIABETES MELLITUS per A.D.A. criteria. Neutrophils (Bld) [#/Vol] 4.2 10*3/uL 2.0-7.7 [facility] Work Phone: Neutrophils/100 WBC (Bld) 55.8 % 47-70 [facility] Work Phone: Potassium [Moles/Vol] 3.9 mmol/L 3.5-5.1 [facility] Work Phone: Protein [Mass/Vol] 7.2 g/dL 6.4-8.2 [facility] Work Phone: Sodium [Moles/Vol] 137 mmol/L 136-145 [facility] Work Phone: Triglyceride [Mass/Vol] 272 mg/dL <[address] [facility] Work Phone: Comment on above: The drugs N-Acetylcy steine and Metamizole may falsely depress this assay.Serum Triglycerides Reference Interval Normal <150 mg/dL Borderline high 150 - 199 mg/dL High 200 - 499 mg/dL Very High > or = 500 mg/dL WBC (Bld) [#/Vol] 7.5 10*3/uL 4.4-11.0 [facility] Work Phone: Blood erythrocytes count (nu mber/volume)on 03-04-2022 RBC (Bld) [#/Vol] 4.34 10*6/uL 4.6-6.2 [facility] Work Phone: Blood hemoglobin measurement (mass/volume)on 03-04-2022 Hemoglobin (Bld) [Mass/Vol] 12.3 g/dL 13.0-16.5 [facility] Work Phone: Blood lymphocytes/100 leukoc yteson 03-04-2022 Lymphocytes/100 WBC (Bld) 30.6 % 19-41 [facility] Work Phone: Blood monocytes/100 leukocyt eson 03-04-2022 Monocytes/100 WBC (Bld) 10.1 % 0-[address] [facility] Work Phone: Blood platelet mean volumeon 03-04-2022 Platelet mean volume (Bld) [Entitic vol] 10.7 fL 6.2-12.0 [facility] Work Phone: Determination of erythrocyte mean corpuscular volume (MCV)on 03-04-2022 MCV (RBC) [Entitic vol] 87.8 fL 80-[address] [facility] Work Phone: Hematocrit Auto (Bld) [Volum e fraction]on 03-04-2022 Hematocrit (Bld) [Volume fraction] 38.1 % 40-54 [facility] Work Phone: Laboratory - Chemistry and C hemistry - challengeon 03-04-2022 ALP [Catalytic activity/Vol] 47 U/L 45-117 [facility] Work Phone: ALT [Catalytic activity/Vol] 26 U/L 16-61 [facility] Work Phone: CO2 [Moles/Vol] 26.0 mmol/L 21.0-32.0 [facility] Work Phone: Globulin (S) [Mass/Vol] 3.3 g/dL 2.2-4.[address] [facility] Work Phone: Urea nitrogen/Creatinine [Mass ratio] 12.6 mg/mg 10-20 [facility] Work Phone: Laboratory - Hematology and Cell countson 03-04-2022 Erythrocyte distribution width (RBC) [Entitic vol] 39.9 fL 35.1-43.9 [facility] Work Phone: Erythrocyte distribution width (RBC) [Ratio] 12.5 % 11.6-14.6 [facility] Work Phone: Immature granulocytes/100 WBC (Bld) 0.700 % 0.0-0.9 [facility] Work Phone: Comment on above: IG% - Immature Granu locytes (promyelocytes, myelocytes and metamyelocytes) > 1% indicates that a LEFT SHIFT is Present. MCH (RBC) [Entitic mass] 28.3 pg 27.0-32.0 [facility] Work Phone: Nucleated RBC/100 WBC (Bld) [Ratio] 0 % 0-5 [facility] Work Phone: MCHC Auto (RBC) [Mass/Vol]on 03-04-2022 MCHC (RBC) [Mass/Vol] 32.3 g/dL 32-36 [facility] Work Phone: No Panel Informationon 03-04 Estimated GFR (MDRD) Amer 71 mL/min >60 [facility] Work Phone: Comment on above: GFR Calc Estimated GFR (MDRD) Non-Af Amer 59 mL/min >60 [facility] Work Phone: Comment on above: Non- GFR Calc Thyroid Stimulating Hormone (TSH) 1.59 uIU/mL 0.358-3.74 [facility] Work Phone: Platelets bldon 03-04-2022 Platelets (Bld) [#/Vol] 323 10*3/uL 150-450 [facility] Work Phone: Serum or plasma albumin joya urement (mass/volume)on 03-04-2022 Albumin [Mass/Vol] 3.9 g/dL 3.2-5.0 [facility] Work Phone: Serum or plasma albumin/glob ulin mass ratioon 03-04-2022 Albumin/Globulin [Mass ratio] 1.2 {ratio} 0.9-2.4 [facility] Work Phone: Serum or plasma calcium joya urement (mass/volume)on 03-04-2022 Calcium [Mass/Vol] 8.7 mg/dL 8.5-10.1 [facility] Work Phone: Serum or plasma cholesterol in HDL measurement (mass/volume)on 03-04-2022 Cholesterol in HDL [Mass/Vol] 26 mg/dL >40 [facility] Work Phone: Comment on above: The drugs N-Acetylcy steine and Metamizole may falsely depress this assay. Reference Range HDL <40 mg/dL Low HDL Cholesterol HDL >or= 60 mg/dL High HDL Cholesterol Serum or plasma cholesterol in VLDL measurement (mass/volume)on 03-04-2022 Cholesterol in VLDL [Mass/Vol] 54 mg/dL 5-40 [facility] Work Phone: Serum or plasma creatinine m easurement (mass/volume)on 03-04-2022 Creatinine [Mass/Vol] 1.27 mg/dL 0.70-1.30 [facility] Work Phone: Comment on above: The validity of the calculated GFR & GFRAA in patients over 70 years has not been determined. Clinical correlation is essential. Serum or plasma low density lipoprotein (LDL) cholesterol measurement (mass/volume)on 03-04-2022 Cholesterol in LDL [Mass/Vol] 67 mg/dL 0-130 [facility] Work Phone: Serum or plasma urea nitroge n measurement (mass/volume)on 03-04-2022 Urea nitrogen [Mass/Vol] 16 mg/dL 7-18 [facility] Work Phone: Thin prep Papanicolaou smear with manual screeningon 03-04-2022 Thin prep Papanicolaou smear with manual screening 20 U/L 15-37 [facility] Work Phone: Thin prep Papanicolaou smear with manual screening 7 5-15 [facility] Work Phone: Whole blood hemoglobin A1c/t otal hemoglobin ratio (mass fraction)on 03-04-2022 HbA1c (Bld) [Mass fraction] 9.0 % 3.8-5.6 [facility] Work Phone: Comment on above: Normal < 5.7 % Predi abetic 5.7 - 6.4 % Diabetic >or= 6.5 % Please note range changes. Cytology report of Body flui d Cyto stainon 12-04-2021 Cytology report Cyto stain Doc (Body fld) SEE PATHOLOGY REPORT [facility] Work Phone: Comment on above: Specimen submitted t o Anatomical Pathology Department for testing. Absolute lymphocyte counton 11-25-2021 Lymphocytes Auto (Unsp spec) [#/Vol] 2.23 10*3/uL 0.83-4.51 [facility] Work Phone: Basophil percentageon 2021 Basophil percentage 0 SEEN /hpf 0-5 [facility] Work Phone: Basophils/100 WBC (Bld) 0.7 % 0-[address] [facility] Work Phone: Chloride [Moles/Vol] 102 mmol/L 98-107 [facility] Work Phone: Eosinophils/100 WBC (Bld) 2.9 % 0-5 [facility] Work Phone: Glucose [Mass/Vol] 309 mg/dL 74-106 [facility] Work Phone: Comment on above: Glucose result great er than or equal to 200 mg/dLsuggests DIABETES MELLITUS per A.D.A. criteria. Neutrophils (Bld) [#/Vol] 4.9 10*3/uL 2.0-7.7 [facility] Work Phone: [phone] Neutrophils/100 WBC (Bld) 59.8 % 47-70 [facility] Work Phone: Potassium [Moles/Vol] 3.8 mmol/L 3.5-5.1 [facility] Work Phone: Sodium [Moles/Vol] 137 mmol/L 136-145 [facility] Work Phone: WBC (Bld) [#/Vol] 8.2 10*3/uL 4.4-11.0 [facility] Work Phone: Bilirubin Test strip Ql (U)o n 11-25-2021 Bilirubin Ql (U) 1 mg/dL Negative [facility] Work Phone: Comment on above: COLOR OF URINE MAY A FFECT DIPSTICK RESULTS. Blood erythrocytes count (nu mber/volume)on 11-25-2021 RBC (Bld) [#/Vol] 4.38 10*6/uL 4.6-6.2 [facility] Work Phone: Blood hemoglobin measurement (mass/volume)on 11-25-2021 Hemoglobin (Bld) [Mass/Vol] 12.8 g/dL 13.0-16.5 [facility] Work Phone: Blood lymphocytes/100 leukoc yteson 11-25-2021 Lymphocytes/100 WBC (Bld) 27.1 % 19-41 [facility] Work Phone: Blood monocytes/100 leukocyt eson 11-25-2021 Monocytes/100 WBC (Bld) 9.3 % 0-[address] [facility] Work Phone: Blood platelet mean volumeon 11-25-2021 Platelet mean volume (Bld) [Entitic vol] 10.6 fL 6.2-12.0 [facility] Work Phone: Determination of erythrocyte mean corpuscular volume (MCV)on 11-25-2021 MCV (RBC) [Entitic vol] 87.0 fL 80-[address] [facility] Work Phone: Hematocrit Auto (Bld) [Volum e fraction]on 11-25-2021 Hematocrit (Bld) [Volume fraction] 38.1 % 40-54 [facility] Work Phone: INR in Blood by Coagulation assayon 11-25-2021 INR Coag (Bld) [Relative time] 1.1 {INR} [facility] Work Phone: Ketones Test strip Ql (U)on 11-25-2021 Ketones Ql (U) 15 mg/dl Negative [facility] Work Phone: Laboratory - Chemistry and C hemistry - challengeon 11-25-2021 CO2 [Moles/Vol] 27.0 mmol/L 21.0-32.0 [facility] Work Phone: Urea nitrogen/Creatinine [Mass ratio] 16.9 mg/mg 10-20 [facility] Work Phone: [phone] Laboratory - Coagulationon 0 11-25-2021 aPTT Coag (Bld) [Time] 23.4 s 24.1-36.2 [facility] Work Phone: PT Coag (PPP) [Time] 13.9 s 11.7-14.9 [facility] Work Phone: Laboratory - Hematology and Cell countson 11-25-2021 Erythrocyte distribution width (RBC) [Entitic vol] 38.5 fL 35.1-43.9 [facility] Work Phone: Erythrocyte distribution width (RBC) [Ratio] 12.0 % 11.6-14.6 [facility] Work Phone: Immature granulocytes/100 WBC (Bld) 0.200 % 0.0-0.9 [facility] Work Phone: Comment on above: IG% - Immature Granu locytes (promyelocytes, myelocytes and metamyelocytes) > 1% indicates that a LEFT SHIFT is Present. MCH (RBC) [Entitic mass] 29.2 pg 27.0-32.0 [facility] Work Phone: Nucleated RBC/100 WBC (Bld) [Ratio] 0 % 0-5 [facility] Work Phone: MCHC Auto (RBC) [Mass/Vol]on 11-25-2021 MCHC (RBC) [Mass/Vol] 33.6 g/dL 32-36 [facility] Work Phone: Mucus LM Ql (Urine sed)on Mucus Ql (Urine sed) 0 SEEN /hpf [facility] Work Phone: Nitrite Test strip Ql (U)on 11-25-2021 Nitrite Ql (U) Negative Negative [facility] Work Phone: No Panel Informationon 11-25 Estimated Creatinine Clearance Calc 53.15 ml/min [facility] Work Phone: Estimated GFR (MDRD) Amer 73 mL/min >60 [facility] Work Phone: Comment on above: GFR Calc Estimated GFR (MDRD) Non-Af Amer 60 mL/min >60 [facility] Work Phone: Comment on above: Non- GFR Calc Platelets bldon 11-25-2021 Platelets (Bld) [#/Vol] 297 10*3/uL 150-450 [facility] Work Phone: Protein Test strip Ql (U)on 11-25-2021 Protein Ql (U) 500 mg/dl Negative [facility] Work Phone: Serum or plasma calcium joya urement (mass/volume)on 11-25-2021 Calcium [Mass/Vol] 9.1 mg/dL 8.5-10.1 [facility] Work Phone: Serum or plasma creatinine m easurement (mass/volume)on 11-25-2021 Creatinine [Mass/Vol] 1.24 mg/dL 0.70-1.30 [facility] Work Phone: Comment on above: The validity of the calculated GFR & GFRAA in patients over 70 years has not been determined. Clinical correlation is essential. Serum or plasma urea nitroge n measurement (mass/volume)on 11-25-2021 Urea nitrogen [Mass/Vol] 21 mg/dL 7-18 [facility] Work Phone: Squamous epithelial cells de tection in urine sediment by light microscopyon 11-25-2021 Epithelial cells.squamous LM Ql (Urine sed) 0 SEEN /hpf 0-5 [facility] Work Phone: Thin prep Papanicolaou smear with manual screeningon 11-25-2021 Thin prep Papanicolaou smear with manual screening 8 - [facility] Work Phone: Urine blood detectionon - RBC Ql (U) 150 /ul Negative [facility] Work Phone: RBC Ql (U) > 100 SEEN /hpf 0-5 [facility] Work Phone: Urine clarityon 11-25-2021 Clarity (U) Turbid Clear [facility] Work Phone: Urine color determinationon 11-25-2021 Color (U) Red Yellow [facility] Work Phone: Urine glucose detectionon Glucose Ql (U) 250 mg/dl Normal [facility] Work Phone: Urine leukocyte esterase det ection by dipstickon 11-25-2021 Leukocyte esterase Test strip Ql (U) Negative Negative [facility] Work Phone: Urine pHon 11-25-2021 pH (U) 7.0 [pH] 5.0 - 8.0 [facility] Work Phone: Urine sediment bacteria coun t by microscopy (number/high power field)on 11-25-2021 Bacteria LM.HPF (Urine sed) [#/Area] 0 /[HPF] None Seen [facility] Work Phone: Urine specific gravity measu rementon 11-25-2021 Specific gravity (U) [Rel density] 1.015 1.002-1.030 [facility] Work Phone: Urobilinogen Auto test strip Ql (U)on 11-25-2021 Urobilinogen Ql (U) Normal mg/dl Normal [facility] Work Phone: Vital Signs Date Time Vital Sign Value Performing Clinician Kendall acuna 11-28-2024 08:17-0400 Body height 177.[address] Chase Cohen MD Work Phone: [facility] 11-28-2024 08:17-0400 Body mass index (BMI) [Ratio] 25.2 kg/m2 Dr. Chase Cohen MD Work Phone: [facility] 11-28-2024 08:17-0400 Body weight 79.[address] Chase Cohen MD Work Phone: [facility] 11-28-2024 08:17-0400 Diastolic blood pressure 67 mm[Hg] Dr. Chase Cohen MD Work Phone: [facility] 11-28-2024 08:17-0400 Heart rate 69 /min Dr. Chase Cohen MD Work Phone: [facility] 11-28-2024 08:17-0400 Respiratory rate 18 /min Dr. Chase Cohen MD Work Phone: [facility] 11-28-2024 08:17-0400 Systolic blood pressure 114 mm[Hg] Dr. Chase Cohen MD Work Phone: [facility] 11-09-2024 10:21-0400 Body height 177.[address] Chase Cohen MD Work Phone: [facility] 11-09-2024 10:21-0400 Body mass index (BMI) [Ratio] 25.1 kg/m2 Dr. Chase Cohen MD Work Phone: [facility] 11-09-2024 10:21-0400 Body temperature 98.1 [degF] Dr. Chase Cohen MD Work Phone: [facility] 11-09-2024 10:21-0400 Body weight 79.[address] Chase Cohen MD Work Phone: [facility] 11-09-2024 10:21-0400 Diastolic blood pressure 70 mm[Hg] Dr. Chase Cohen MD Work Phone: [facility] 11-09-2024 10:21-0400 Heart rate 67 /min Dr. Chase Cohen MD Work Phone: [facility] 11-09-2024 10:21-0400 Respiratory rate 14 /min Dr. Chase Cohen MD Work Phone: [facility] 11-09-2024 10:21-0400 SaO2% (BldA) [Mass fraction] 99 % Dr. Chase Cohen MD Work Phone: [facility] 11-09-2024 10:21-0400 Systolic blood pressure 130 mm[Hg] Dr. Chase Cohen MD Work Phone: [facility] 07-05-2023 08:09-0500 Body height 177.[address] Chase Cohen Work Phone: [facility] 07-05-2023 08:09-0500 Body mass index (BMI) [Ratio] 24 kg/m2 Dr. Chase Cohen Work Phone: [facility] 07-05-2023 08:09-0500 Body temperature 98 [degF] Dr. Chase Cohen Work Phone: [facility] 07-05-2023 08:09-0500 Body weight 76.[address] Chase Cohen Work Phone: [facility] 07-05-2023 08:09-0500 Diastolic blood pressure 82 mm[Hg] Dr. Chase Cohen Work Phone: [facility] 07-05-2023 08:09-0500 Heart rate 64 /min Dr. Chase Cohen Work Phone: [facility] 07-05-2023 08:09-0500 Respiratory rate 16 /min Dr. Chase Cohen Work Phone: [facility] 07-05-2023 08:09-0500 SaO2% (BldA) [Mass fraction] 98 % Dr. Chase Cohen Work Phone: [facility] 07-05-2023 08:09-0500 Systolic blood pressure 138 mm[Hg] Dr. Chase Cohen Work Phone: [facility] 04-09-2023 12:28-0400 Body temperature 99 [degF] [facility] 04-09-2023 12:28-0400 Diastolic blood pressure 62 mm[Hg] [facility] 04-09-2023 12:28-0400 Heart rate 60 /min [facility] 04-09-2023 12:28-0400 Respiratory rate 18 /min [facility] 04-09-2023 12:28-0400 SaO2% (BldA) [Mass fraction] 97 % [facility] 04-09-2023 12:28-0400 Systolic blood pressure 139 mm[Hg] [facility] 04-09-2023 10:06-0400 Body height 177.8 cm [facility] 04-09-2023 10:06-0400 Body mass index (BMI) [Ratio] 24.1 kg/m2 [facility] 04-09-2023 10:06-0400 Body weight 76.3 kg [facility] 03-04-2022 08:33-0400 Body height 177.[address] Chase Cohen Work Phone: [facility] Work Phone: 03-04-2022 08:33-0400 Body mass index (BMI) [Ratio] 25 kg/m2 Dr. Chase Cohen Work Phone: [facility] Work Phone: 03-04-2022 08:33-0400 Body weight 78.[address] Chase Cohen Work Phone: [facility] Work Phone: 03-04-2022 08:33-0400 Diastolic blood pressure 70 mm[Hg] Dr. Chase Cohen Work Phone: [facility] Work Phone: 03-04-2022 08:33-0400 Heart rate 60 /min Dr. Chase Cohen Work Phone: [facility] Work Phone: 03-04-2022 08:33-0400 Systolic blood pressure 148 mm[Hg] Dr. Chase Cohen Work Phone: [facility] Work Phone: 11-25-2021 08:20-0400 Diastolic blood pressure 69 mm[Hg] Dr. Chase Cohen Work Phone: [facility] Work Phone: 11-25-2021 08:20-0400 Heart rate 74 /min Dr. Chase Cohen Work Phone: [facility] Work Phone: 11-25-2021 08:20-0400 Respiratory rate 16 /min Dr. Chase Cohen Work Phone: [facility] Work Phone: 11-25-2021 08:20-0400 SaO2% (BldA) [Mass fraction] 98 % Dr. Chase Cohen Work Phone: [facility] Work Phone: 11-25-2021 08:20-0400 Systolic blood pressure 142 mm[Hg] Dr. Chase Cohen Work Phone: [facility] Work Phone: 11-25-2021 05:58-0400 Body height 177.[address] Chase Cohen Work Phone: [facility] Work Phone: 11-25-2021 05:58-0400 Body mass index (BMI) [Ratio] 25.8 kg/m2 Dr. Chase Cohen Work Phone: [facility] Work Phone: 11-25-2021 05:58-0400 Body temperature 97.3 [degF] Dr. Chase Cohen Work Phone: [facility] Work Phone: 11-25-2021 05:58-0400 Body weight 81.[address] Chase Cohen Work Phone: [facility] Work Phone: 09-02-2021 06:07-0500 Body weight 82.[address] Chase Cohen Work Phone: [facility] Work Phone: 09-02-2021 06:07-0500 Diastolic blood pressure 71 mm[Hg] Dr. Chase Cohen Work Phone: [facility] Work Phone: 09-02-2021 06:07-0500 Heart rate 80 /min Dr. Chase Cohen Work Phone: [facility] Work Phone: 09-02-2021 06:07-0500 Respiratory rate 16 /min Dr. Chase Cohen Work Phone: [facility] Work Phone: 09-02-2021 06:07-0500 SaO2% (BldA) [Mass fraction] 96 % Dr. Chase Cohen Work Phone: [facility] Work Phone: 09-02-2021 06:07-0500 Systolic blood pressure 126 mm[Hg] Dr. Chase Cohen Work Phone: [facility] Work Phone: 08-29-2020 07:25-0500 Body mass index (BMI) [Ratio] 24.4 kg/m2 Dr. Chase Cohen Work Phone: [facility] Work Phone: Encounters Encounter Date Encounter Type Care Provider Facility Start: 11-28-2024 End: 11-28-[address] Chase Cohen MD Work Phone: [facility] Work Phone: Start: 11-28-2024 End: 11-28-2024 Patient encounter procedure [facility] -[facility] Work Phone: Start: 11-28-2024 End: 11-28-2024 Patient encounter procedure Cor[facility] -[facility] Work Phone: Start: 11-28-2024 End: 11-28-2024 ambulatory Royerstefan Cohen Facility:[facility] Start: 11-28-2024 End: 11-28-2024 ambulatory audigoldsmithlaverne Cohen Facility:[facility] Start: 11-09-2024 End: 11-09-[address] Chase Cohen MD Work Phone: [facility] Work Phone: Start: 11-09-2024 End: 11-09-[address] Chase Cohen MD -Radiology, [facility] Work Phone: Start: 11-09-2024 End: 11-09-2024 Patient encounter procedure As[facility] -[facility] Work Phone: Start: 11-09-2024 End: 11-09-[facility] Start: 11-09-2024 End: 11-09-2024 ambulatory [facility] Facility:[facility] Start: 05-02-2024 End: 05-02-2024 [facility] Start: 05-02-2024 End: 05-02-2024 ambulatory [facility] Facility:[facility] Start: 07-05-2023 End: 07-05-[address] Chase Cohen Work Phone: [facility] Work Phone: Start: 07-05-2023 End: 07-05-2023 Encounter for general adult medical examination without abnormal findings Dr. Chase Cohen Work Phone: [facility] Start: 07-05-2023 End: 07-05-[address] Chase Cohen Work Phone: [facility] Work Phone: Start: 04-09-2023 End: 04-09-2023 Emergency department patient visit [facility]Emergency Department Work Phone: Start: 04-30-2022 Non-patient / Non-visit Dr. Royer Cohen Work Phone: [facility] Start: 04-30-2022 End: 04-30-[address] Chase Cohen Work Phone: [facility] Work Phone: Start: 04-30-2022 End: 04-30-[address] Chase Cohen Work Phone: [facility]-Cardiovascula r Services Start: 03-04-2022 End: 03-04-[address] Chase Cohen Work Phone: [facility]Laboratory Start: 03-04-2022 End: 03-04-[address] Chase Cohen Work Phone: [facility] Start: 12-04-2021 End: 12-04-[address] Chase Cohen Work Phone: [facility]-Laboratory, Specimen Start: 11-25-2021 End: 11-25-2021 Emergency department patient visit Dr. Chase Cohen Work Phone: [facility]-Emergency Department Start: 09-02-[address] Papito Cohen Work Phone: [facility] Start: 09-02-[address] Suzy Cohen MD Work Phone: [facility] Start: 09-02-2021 End: 09-02-2021 Admission to same day surgery center Dr. Chase Cohen Work Phone: [facility] Start: 09-02-2021 End: 09-02-[address] Chase Cohen Work Phone: [facility] Start: 01-31-[address] Papito Cohen Work Phone: [facility] Procedures Date Procedure Procedure Detail Performing Clinician Start: 11-09-2024 X-ray of cervical spine Dr. Chase Cohen MD Work Phone: Start: 04-09-2023 CT of abdomen and pelvis without contrast Start: 11-25-2021 CT of abdomen and pelvis without contrast Dr. Chase Cohen Work Phone: Start: 05-02-2021 History of placement of stent for coronary artery disease History of coronary artery stent placement Dr. Chase Cohen Work Phone: Comment on above: PCI-JOMAR-Mid LAD w/ C ypher Stent POBA-D1 05/2003; DLC-QEH-[id number] RCA w/ 3 x 22 mm Orsiro Stent 05/02/21 H/O: surgery S/P trigger fing er release Dr. Chase Cohen Work Phone: Plan of Treatment Date Care Activity Detail Author Ankle brachial pressure index [facility] Work Phone: Hemoglobin A1c/Hemoglobin.total in Blood [facility] Patient Education [facility] Work Phone: Patient referral [facility] Work Phone: Immunizations Immunization Date Immunization Notes Care Provider Fa cility 09-14-2024 Covid (Mohan & Mohan) Dr. Chase Cohen MD Work Phone: [facility] 09-14-2024 Seasonal trivalent influenza vaccine, adjuvanted, preservative free Dr. Chase Cohen MD Work Phone: [facility] 06-07-2023 RSV Adult Recombinan t (Arexvy) Dr. Chase Cohen MD Work Phone: [facility] 05-24-2023 influenza, injectabl e, quadrivalent, preservative free Dr. Chase Cohen MD Work Phone: [facility] 05-24-2023 Pfizer Covid-19 (Comirnaty) Dr. Chase Cohen MD Work Phone: [facility] 05-19-2022 Covid Pfizer Bivalen t Booster Dr. Chase Cohen MD Work Phone: [facility] 05-19-2022 influenza, injectabl e, quadrivalent, preservative free Dr. Chase Cohen MD Work Phone: [facility] 07-28-2021 Covid (Pfizer) Dr. Chase Cohen MD Work Phone: [facility] 05-02-[address] Chase Cohen Work Phone: [facility] 11-14-2020 Covid (Pfizer) Dr. Chase Cohen Work Phone: [facility] 10-24-2020 Covid (Pfizer) Dr. Chase Cohen Work Phone: [facility] 06-05-2020 influenza, injectabl e, quadrivalent, preservative free Dr. Chase Cohen MD Work Phone: [facility] 06-13-2019 influenza, injectabl e, quadrivalent, preservative free Dr. Chase Cohen Work Phone: [facility] 06-13-2019 influenza, seasonal, injectable Dr. Chase Cohen Work Phone: [facility] 06-13-2019 Fluad 2019-20 65yr up(PF)45 mcg(15 mcgx3)/0.5 mL intramuscular syringe (flu vac Dr. Chase Cohen Work Phone: [facility] Work Phone: 06-15-2016 influenza, high dose seasonal, preservative-free Dr. Chase Cohen MD Work Phone: [facility] 09-17-2015 pneumococcal conjuga te vaccine, [address] Chase Cohen MD Work Phone: [facility] Payers Date Payer Category Payer Self-pay [id number] 2023 Private Health Insurance 101 [id number] Medicare [id number] Private Health Insurance [id number] Unknown [id number] [id number] Unknown [id number] Unknown [id number] [id number] [id number] Unknown [id number] [id number] Unknown [id number] [id number] [id number] Unknown [id number] [id number] [id number] Social History Date Type Detail Facility Start: 11-25-2021 End: 07-05-2023 Tobacco smoking status ORIS Unknown if ever smoked [facility] Start: 1945 Sex Assigned At Male W [facility] Start: 04-19-2024 End: 11-28-2024 Tobacco smoking status NHIS Ex-smoker (finding) [facility] Start: 11-14-2024 End: 12-04-2024 Sex Male (finding) [facility] Medical Equipment Procedure Code Equipment Code Equipment Origin al Text Equipment Identifier Dates ([id number]) Drug-eluting coronary artery stent, bioabsorbable-polyme r-coated ()[id number] FDA Start: 05-02-2021 ([id number]) Drug-eluting coronary artery stent, bioabsorbable-polyme r-coated ()[id number] FDA Start: 05-02-2021 Blood Sugar Diagnostic (Blood Glucose Test) strip Start: 03-28-2019 Blood Sugar Diagnostic (Blood Glucose Test) strip Start: 03-23-2019 End: 03-23-2019 Blood Sugar Diagnostic (Blood Glucose Test) strip Start: 03-23-2019 End: 03-28-2019 Blood Sugar Diagnostic (Blood Glucose Test) strip Start: 03-28-2019 Blood Sugar Diagnostic (Blood Glucose Test) strip Start: 03-23-2019 End: 03-23-2019 Blood Sugar Diagnostic (Blood Glucose Test) strip Start: 03-23-2019 End: 03-28-2019 Blood Sugar Diagnostic (Blood Glucose Test) strip Start: 03-28-2019 Blood Sugar Diagnostic (Blood Glucose Test) strip Start: 03-23-2019 End: 03-23-2019 Blood Sugar Diagnostic (Blood Glucose Test) strip Start: 03-23-2019 End: 03-28-2019 Blood Sugar Diagnostic (Blood Glucose Test) strip Start: 03-28-2019 Blood Sugar Diagnostic (Blood Glucose Test) strip Start: 03-23-2019 End: 03-23-2019 Blood Sugar Diagnostic (Blood Glucose Test) strip Start: 03-23-2019 End: 03-28-2019 Blood Sugar Diagnostic (Blood Glucose Test) strip Start: 07-06-2023 Blood Sugar Diagnostic (Blood Glucose Test) strip Start: 03-23-2019 End: 03-23-2019 Blood Sugar Diagnostic (Blood Glucose Test) strip Start: 03-23-2019 End: 03-28-2019 Blood Sugar Diagnostic (Blood Glucose Test) strip Start: 03-28-2019 End: 07-06-2023 Blood Sugar Diagnostic (Blood Glucose Test) strip Start: 07-06-2023 Blood Sugar Diagnostic (Blood Glucose Test) strip Start: 03-23-2019 End: 03-23-2019 Blood Sugar Diagnostic (Blood Glucose Test) strip Start: 03-23-2019 End: 03-28-2019 Blood Sugar Diagnostic (Blood Glucose Test) strip Start: 03-28-2019 End: 07-06-2023 Blood Sugar Diagnostic (Blood Glucose Test) strip Start: 07-06-2023 Blood Sugar Diagnostic (Blood Glucose Test) strip Start: 03-23-2019 End: 03-23-2019 Blood Sugar Diagnostic (Blood Glucose Test) strip Start: 03-23-2019 End: 03-28-2019 Blood Sugar Diagnostic (Blood Glucose Test) strip Start: 03-28-2019 End: 07-06-2023 Clinical Notes 02-07-2021 to 11-09-2024 Note Date & Type Note Facility 11-09-2024 Radiology Diagnostic study note [facility] Imaging Services [address] [place] [id number] Cerv Spine 2 or 3 Views MR#: [id number] Acct: [id number] Name: GENI LINDSAY Rep #: [id number] : 1945 79 From: Umair Reeder MD PCP: Dr. Chase Cohen MD Status: R EG CLI Study:Cerv Spine 2 or 3 Views Date of Exam: 11/09/24 Exam# [id number] Ordering Dr: Oswaldo Lopez PA PROCEDURE: CERV SPINE 2 OR 3 VIEWS 11/09/2024 REASON FOR EXAM: NECK PAIN TECHNIQUE: 3 views of the cervical spine. AP, lateral and open mouth odontoid view COMPARISON: None available FINDINGS: The cervical spine is visualized on the lateral view from the skull base to the bottom of C6. C7 and the C7-T1 alignment is not visualized due to shoulder overlap on the lateral view. Otherwise no acute fracture or malalignment identified. No prevertebral soft tissue swelling. C5-6 spondylosis/discogenic change with uwwz-bs-tfrhitcz disc space narrowing. Gcwcp-axxymhv-hrpu-left appearing multilevel facet degenerative changes. Suggestion of possible carotidcalcification. The visualized apices appear clear. RAD/Cerv Spine 2 or 3 Views IMPRESSION: The cervical spine is visualized on the lateral view from the skull base to the bottom of C6. C7 and the C7-T1 alignment is not visualized due to shoulder overlap on the lateral view. Otherwise no acute fracture or malalignment identified. C5-6 spondylosis/discogenic change with cize-hd-haeyuefd disc space narrowing. Kdihr-lfgkdnz-dvpm-left appearing multilevel facet degenerative changes. Reading Location: [id number] CC: Dr. Chase Cohen MD; DARIANA Joshua ~ Application Support Analyst: Signed [facility] 11-09-2024 Evaluation note Diagnosis Onset Date Resolution Generalized pruritus acute Donny h 2024 9:55am Neck pain acute November 09 9:55am [facility] Work Phone: 1(150) 201-456903-27-2025 Evaluation note* Diagnosis Onset Date Resolution Status Admit Date Generalized pruritus acute Donny h 2024 9:55am Neck pain acute November 09 9:55am Atherosclerosis of coronary artery of [place] heart without angina pectoris chronic November 28, 2024 7:53am Essential (primary) hypertension chr onic November 28, 2024 7:53am Hyperlipidemia chronic November 7:53am [facility] Work Phone: 1(399) 822-881608-25-2023 Discharge summary Author Isaac Hawley [facility] April 09, 2023 3:04pm Note Date/Time April 09, 2023 10 :25am [facility] Medical Records Department [address] [place] [address] Emergency Department Summary 04/09/23 MR#: [id number] Acct: [id number] Name: RUSTYGENI ENMA Rep #:[id number] : 1945 77 From: Isaac Hawley MD PCP: Dr. Chase Cohen MD Status:R EG ER Location: ED ADDENDUM by Dr. Isaac Hawley MD on 04/09/23 at 1504 Prior to discharge, the patient was bleeding a little more and having more clotscome out as the nurse discussed with me. I advised the patient that we should continue more irrigation. He refuses and wants to leave. 04/09/23 1504<Electronically signed by Isaac Hawley MD> Cosigner Signature (if applicable): 04/09/23 1425 <Electronically signed by Minna GERBER> cc: Dr. Chase Cohen MD ~* Signed HPI <ZABRINA Rodriguez - Last Filed: 04/09/23 14:25> History of Present Illness Chief Complaint: Complaint Narrative Narrative: 77-year-old male with history of PAD, CAD, BPH GERD type 2 diabetes presents to the emergency department for hematuria for 1.5 weeks. Patient is on Plavix secondary to history of stroke as well as CAD. Patient states 1.5 weeks has been having gross hematuria, over the last 3 to 4 days having more increasing clots. He denies any urinary retention. Patient that he has had this in the past, however it usually after he does something physical, however when he is resting it goes away. This time is not going away. He did see Dr. Navarro in the past. Has not seen him for multiple years. Patient states have lower abdominal pain, back pain. Worse on the right side. Denies any fever chills nausea or vomiting. PFS <ZABRINA Rodriguez - Last Filed: 04/09/23 14:25> [facility] Medical History Arthritis Atherosclerosis of coronary artery of [place] heart without angina pectoris Back problem BPH (benign prostatic hyperplasia) Burning with urination Cardiology follow-up encounter Enlarged prostate Essential (primary) hypertension Excessive bleeding Former smoker Gastrointestinal complaints, unspecific GERD (gastroesophageal reflux disease) Health care maintenance Hearing problem History of CVA (cerebrovascular accident) (2001) History of echocardiogram History of heart attack History of ST elevation myocardial infarction (STEMI) (05/02/21) History of stress test Hyperlipidemia Left knee pain Leg cramps Neuropathy Obstructive sleep apnea ST elevation (STEMI) myocardial infarction Stroke/cerebrovascular accident Type 2 diabetes mellitus Wears glasses Home Medications blood sugar diagnostic (Blood Glucose Test strips) #100 ea 03/28/19 [Rx Last Taken Unknown] multivitamin 1 tab PO DAILY supplement 08/29/20 [History Last Taken Unknown] clopidogrel 75 mg tablet (Plavix) 75 mg PO DAILY #90 tabs 03/16/22 [Rx Last Taken 05/01/22] fenofibrate nanocrystallized 145 mg tablet 145 mg PO DAILY HLD 05/04/22 [History Last Taken Unknown] losartan 100 mg tablet 100 mg PO DAILY HTN 05/04/22 [History Last Taken Unknown] atorvastatin 40 mg tablet 40 mg PO QHS cholesterol #90 tabs 05/20/22 [Rx Last Taken Unknown] metoprolol succinate 50 mg tablet,extended release 24 hr 50 mg PO DAILY HTN #90 tabs 05/20/22 [Rx Last Taken Unknown] empagliflozin 25 mg tablet (Jardiance) 25 mg PO QAM #90 tabs 07/01/22 [Rx Last Taken Unknown] pantoprazole 40 mg tablet,delayed release (Protonix) 40 mg PO DAILY #90 tabs 07/01/22 [Rx Last Taken Unknown] sitagliptin phosphate 100 mg tablet (Januvia) 100 mg PO DAILY DM #90 tabs 07/01/22 [Rx Last Taken Unknown] amlodipine 10 mg tablet See Rx Instructions .Route .COMPLEX #90 TABLETS 03/03/23[Rx Last Taken Unknown] Allergy/AdvReac Type Severity Reaction Status Date / Time dulaglutide [From Trulicity] Allergy Intermediate Nausea Verified 04/09/23 10:05 niacin Allergy GI Upset, Verified 04/09/23 10:05 PUD w/blood, Hot Flashes amoxicillin trihydrate AdvReac Abd Verified 04/09/23 10:05 [From Augmentin] cramps/diarrhea potassium clavulanate AdvReac Abd Verified 04/09/23 10:05 [From Augmentin] cramps/diarrhea Family History Mother Diabetes Myocardial infarction Father AA (aortic aneurysm) Surgical History History of cardiac catheterization History of colonoscopy History of coronary artery stent placement (05/02/21) History of foot surgery History of repair of rotator cuff S/P trigger finger release Social History Smoking Status: Former smoker quit date: 08/16/93 Tobacco: How many years used: 30 alcohol intake: current alcohol intake frequency: holidays/special occasions only Alcohol type: beer substance use type: does not use what type of physical activity do you participate in: walking ROS <ZABRINA Rodriguez - Last Filed: 04/09/23 14:25> ROS ED ROS Narrative Constitutional: Negative for fever, chills, weight loss, weakness Eyes: Negative for vision loss, vision change, double vision ENT: Negative for any sore throat, ear pain, congestion Cardiovascular: Negative for any chest pain, tightness, palpitations Respiratory: Negative for any cough, sputum production, hemoptysis, dyspnea, dyspnea on exertion, orthopnea Gastrointestinal: Negative for any nausea, vomiting, diarrhea, constipation, blood in stool, blood in vomit. Positive for lower abdominal pain : Negative for any urinary frequency, dysuria, retention. Positive for gross hematuria, blood clots. Muscle skeletal: Negative for any muscle joint pain, stiffness, myalgias, arthralgias, neck pain. Positive for lower back pain worse on the right Neurological: Negative for any headache, syncope, numbness or tingling, dizziness Skin: Negative for any rashes, lumps, itching, abrasions, lacerations Psychiatric: Negative for any depression, anxiety, stress, suicidal ideation, homicidal ideation Hematologic: Negative for any easy bruising, excessive bruising, easy bleeding Allergies: Negative for any eczema, hives, rash EXAM <ZABRINA Rodriguez - Last Filed: 04/09/23 14:25> Physical Exam Narrative Exam Narrative: Vital signs reviewed. HEET: Head normocephalic atraumatic, TMs clear bilaterally. Posterior pharynx is clear, moist mucous membranes. Nares clear bilaterally. Neck: Supple with no lymphadenopathy or tenderness. No signs of meningismus, negative jolt sign. Cardiac: Regular rate and rhythm no murmurs gallops or rubs, equal peripheral pulses bilaterally. Respiratory: Lungs clear to auscultation bilaterally. No chest tenderness. Abdomen: Soft, nondistended. No abdominal bruit or pulsatile masses. No hepatosplenomegaly. Positive for suprapubic pain on palpation. Extremities: No peripheral edema, no signs of gross trauma or deformity. Activefull range of motion of all extremities. Neuro: Cranial nerves II through XII intact, no focal neurological deficits. Skin: Clean dry and intact with no rash, purpura, petechiae, vesicles or pustules. Backs/flank: Positive right-sided CVA tenderness. No midline spinal tenderness,no deformity. Patient does have chronic back pain. He states that this feels slightly different. Psych: Normal mood and affect. No SI, HI or acute psychosis. Const Vital Signs: 04/09/23 10:06 04/09/23 12:28 Temperature 99 F 99 F Temperature Source Temporal Temporal Pulse Rate 68 60 Respiratory Rate 14 18 Blood Pressure 141/76 H 139/62 H Blood Pressure Mean 97 87 Pulse Ox 99 97 Oxygen Delivery Method Room Air Room Air Positive well nourished and well developed General Appearance ED: well developed <Dr. Isaac Hawley MD - Last Filed: 04/09/23 14:32> Physical Exam Const Vital Signs: 04/09/23 10:06 04/09/23 12:28 Temperature 99 F 99 F Temperature Source Temporal Temporal Pulse Rate 68 60 Respiratory Rate 14 18 Blood Pressure 141/76 H 139/62 H Blood Pressure Mean 97 87 Pulse Ox 99 97 Oxygen Delivery Method Room Air Room Air MDM <ZABRINA Rodriguez - Last Filed: 04/09/23 14:25> MDM Lab Data Labs: Laboratory Results - last 24 hr 04/09/23 04/09/23 10:20 11:30 WBC 7.5 RBC 4.76 Hgb 13.7 Hct 42.2 MCV 88.7 MCH 28.8 MCHC 32.5 RDW Std Deviation 41.7 RDW Coeff of Julian[place] 12.8 Plt Count 247 MPV 10.3 Immature Gran % (Auto) 0.100 Neut % (Auto) 58.9 Lymph % (Auto) 26.3 [place] % (Auto) 12.1 H Eos % (Auto) 1.9 Baso % (Auto) 0.7 Absolute Neuts (auto) 4.4 Absolute Lymphs (auto) 1.98 Nucleated RBC % 0 PT 13.7 INR 1.0 Sodium 137 Potassium 4.2 Chloride 108 H Carbon Dioxide 26.0 Anion Gap 3 L BUN 17 Creatinine 1.00 Estim Creat Clear Calc 64.89 Est GFR (MDRD) Af Amer 94 Est GFR (MDRD) Non-Af 77 BUN/Creatinine Ratio 17.1 Glucose 125 H Calcium 9.1 Urine Color Red Urine Clarity Sl. Cloudy Urine pH 8.0 Ur Specific Basco 1.010 Urine Protein 100 H Urine Glucose (UA) 1000 H Urine Ketones Negative Urine Occult Blood 250 H Urine Nitrite Negative Urine Bilirubin Negative Urine Urobilinogen Normal Ur Leukocyte Esterase 25 H Urine RBC > 100 SEEN Urine WBC 0 SEEN Ur Squamous Epith Cells 0 SEEN Urine Bacteria 0 SEEN Urine Mucus 0 SEEN Radiography Diagnostic Testing: Clinical Impression(s) from Imaging Studies Abdomen/Pelvis CT 04/09/23 10:17 IMPRESSION: Enlarged prostate gland. High attenuation fluid within the urinary bladder may be secondary to proteinaceous material and/or blood; cannot exclude an occult mass. Atherosclerosis. Colonic diverticulosis. Electronically Signed: Amanda Vickers MD at 11:29 EDT , Treatment and Re-Evaluation :: Patient appears generally well, patient appears nontoxic, vital signs are stable. Presents to the emerged department for 1.5 weeks of hematuria, passing blood clots. Patient will receive a full work-up with laboratory values to ruleout any infection, renal insufficiency. CT scan of the abdomen without contrastconcerning for any obstructing uropathy, masses, cystitis. Patient CBC was unremarkable, chemistries were unremarkable PT/INR within normallimits. Patient did receive a CT scan of the abdomen pelvis concerning for obstructive uropathy. CT scan showed fluid within the urinary bladder may be secondary to proteinaceous material and/or blood. This is likely blood clots. Patient did have a three-way Fishman inserted, patient tolerated well. Patient has 2000 L irrigation. After irrigation, patient did have light-colored rednesshowever no more clots. At this time, patient be able to discharge home. Urinalysis negative for infection. Patient will need to follow-up with urology this upcoming week. He has seen urology in the past. Patient was given strict return precautions. All questions answered, patient stable for discharge. Patient diagnosed with hematuria. He will also hold his Plavix for couple days. <Dr. Isaac Hawley MD - Last Filed: 04/09/23 14:32> [facility] Lab Data Labs: Laboratory Results - last 24 hr 04/09/23 04/09/23 10:20 11:30 WBC 7.5 RBC 4.76 Hgb 13.7 Hct 42.2 MCV 88.7 MCH 28.8 MCHC 32.5 RDW Std Deviation 41.7 RDW Coeff of Julianna 12.8 Plt Count 247 MPV 10.3 Immature Gran % (Auto) 0.100 Neut % (Auto) 58.9 Lymph % (Auto) 26.3 [place] % (Auto) 12.1 H Eos % (Auto) 1.9 Baso % (Auto) 0.7 Absolute Neuts (auto) 4.4 Absolute Lymphs (auto) 1.98 Nucleated RBC % 0 PT 13.7 INR 1.0 Sodium 137 Potassium 4.2 Chloride 108 H Carbon Dioxide 26.0 Anion Gap 3 L BUN 17 Creatinine 1.00 Estim Creat Clear Calc 64.89 Est GFR (MDRD) Af Amer 94 Est GFR (MDRD) Non-Af 77 BUN/Creatinine Ratio 17.1 Glucose 125 H Calcium 9.1 Urine Color Red Urine Clarity Sl. Cloudy Urine pH 8.0 Ur Specific Basco 1.010 Urine Protein 100 H Urine Glucose (UA) 1000 H Urine Ketones Negative Urine Occult Blood 250 H Urine Nitrite Negative Urine Bilirubin Negative Urine Urobilinogen Normal Ur Leukocyte Esterase 25 H Urine RBC > 100 SEEN Urine WBC 0 SEEN Ur Squamous Epith Cells 0 SEEN Urine Bacteria 0 SEEN Urine Mucus 0 SEEN Radiography Diagnostic Testing: Clinical Impression(s) from Imaging Studies Abdomen/Pelvis CT 04/09/23 10:17 IMPRESSION: Enlarged prostate gland. High attenuation fluid within the urinary bladder may be secondary to proteinaceous material and/or blood; cannot exclude an occult mass. Atherosclerosis. Colonic diverticulosis. Electronically Signed: Amanda Vickers MD at 11:29 EDT , Treatment and Re-Evaluation Comments:: I have personally performed a face to face assessment of the patient and have reviewed the BLAKE Note. I performed a substantive portion of the visit including all aspects of the following. My cortez findings include: History is intermittent hematuria without clots for the past week or so, in the past day or 2, has been persistent, and this morning he has been urinating lots of clots. He will have intermittent retention, then he can increase pressure with Valsalva and expel the clot in the rest of the urine/blood. No other new symptoms including abdominal pain, back pain, fevers or chills. Exam is mild suprapubic tenderness, otherwise abdomen is benign. No guarding orrebound. No CVA tenderness. No distress. Medical Decison Making CT, blood work, urinalysis, Fishman and irrigate. Patient amenable. Other additions or changes: I reviewed the labs and urinalysis. They are benignand do not indicate acute infection. We irrigated the patient with continuous bladder irrigation, 2 bags. The bleeding lessened, it is persistent but the urine is red and transparent. Offered admission he declines and wants to go home. We discussed the pros and cons of keeping the catheter in place, I recommend keeping it until he sees urology mostly to avoid urinary retention dueto clots. At this time he is amenable but would prefer to take a syringe home to take it out if he cannot get into see urology soon, urology is not on-call todiscuss today. He has been on clopidogrel for 2 years we will have him hold that temporarily and continue the aspirin he is comfortable with that plan. Discharge Plan Triage Chief Complaint: Complaint ED Midlevel Provider: Onesimo Morris ED Provider: Isaac Hawley Dx/Rx/DC Orders Clinical Impression: Hematuria Instructions: ED Hematuria Prescriptions: No Action multivitamin Tablet 1 tab PO DAILY Jardiance 25 mg tablet 25 mg PO QAM Qty: 90 3RF Januvia 100 mg tablet 100 mg PO DAILY Qty: 90 3RF pantoprazole [Protonix] 40 mg tablet,delayed release (DR/EC) 40 mg PO DAILY Qty: 90 3RF losartan 100 mg tablet 100 mg PO DAILY fenofibrate nanocrystallized 145 mg tablet 145 mg PO DAILY (DME) Blood Glucose Test Strip See Rx Instructions .ROUTE .MEDSUPPLY Qty: 100 3RF Rx Instructions: One Touch Ultra - As directed Daily clopidogrel [Plavix] 75 mg tablet 75 mg PO DAILY Qty: 90 3RF atorvastatin 40 mg tablet 40 mg PO QHS Qty: 90 3RF metoprolol succinate 50 mg tablet extended release 24 hr 50 mg PO DAILY Qty: 90 3RF amlodipine 10 mg tablet See Rx Instructions .ROUTE .COMPLEX Qty: 90 3RF Dose Instruction: TAKE 1 TABLET DAILY Rx Instructions: TAKE 1 TABLET DAILY Primary Care Provider: Chase Cohen Referrals: Chase Cohen MD [Primary Care Provider] - Eligio Navarro MD [Med Staff - Active Staff] - Activity Restrictions/Additional Instructions: Please follow-up with urology. Call to make an appointment today or Wednesday. Disposition Disposition: Home, Self Care What to do if you have Problems For any increased pain, shortness of breath, bleeding, nausea or vomiting, chestpain, or any unexpected problems, contact your Primary Care Provider. Call [facility] ([phone]) or report to the closest Emergency Room. Call 911 if necessary. 04/09/23 1432 <Electronically signed by Isaac Hawley MD> Cosigner Signature (if applicable): 04/09/23 1425 <Electronically signed by Onesimo MERCADOC> CC: Dr. Chase Cohen MD ~ Signed [facility] Work Phone: [phone]) 811-567509-17-2021 Evaluation note* Diagnosis Onset Date Resolution Status Encounter for pre-operative cardiovascular clearance acute Essential (primary) hypertension chronic Hyperlipidemia chronic History of coronary artery stent placement April 162020 resolved [facility] Work Phone: 1(812) 114-626306-25-2021 NoteHNO ID: [id number] Author: Nick Núñez RN Service: ? Author Type: Registered Nurse Type: Progress Notes Filed: 02/07/2021 1:59 PM Note Text: [facility] Enrollment Provider Action/FYI: Chart Reviewed: Pt does not have a [facility] PCP Patient referred by: C Kim Contact made with patient: Patient not outreached at this time. Closing: Patient does not meet criteria. PCC to reassess patient in a month. END OUTREACH Niya Romero RN February 07, 2021 1:35 [facility]06-25-2021 NotePatient Outreach ([facility]) GENI LINDSAY ([id number]) 1945 M Date Time Provider Department 02/07/21 [facility] During your visit today, we recorded the following information about you: Niya Romero RN 02/07/2021 1:59 PM Signed [facility] Enrollment Provider Action/FYI: Chart Reviewed: Pt does not have a [facility] PCP Patient referred by: C Kim Contact made with patient: Patient not outreached at this time. Closing: Patient does not meet criteria. PCC to reassess patient in a month. 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 Encounter Status:Closed by NIYA ROMERO [facility]/21[facility] Diagnosis Onset Date Resolution Status Diminished pulses in lower extremity acute Fatigue acute Atherosclerosis of coronary artery of [place] heart without angina pectoris chronic Essential (primary) hypertension chronic Hyperlipidemia chronic [facility] Work Phone: Evaluation noteNo assessment information available [facility] Work Phone: Evaluation note* Diagnosis Onset Date Resolution Status Health care maintenance acut e BPH (benign prostatic hyperplasia) chronic Essential (primary) hypertension chronic Hyperlipidemia chronic Type 2 diabetes mellitus chr onic [facility] Work Phone[facility] Work Phone: Hospital Discharge instructions Additional Instructions Please follow-up with urology. Call to make an appointment today or Wednesday. [facility] Work Phone: Reason for referral (narrative)No reason for referral information availableWMercy Health St[facility] Work Phone: Summary Purpose Family History No Family History Records Found Relationship Condition Age at Onset Recorded Date/T fani mother Diabetes mellitus Unknown Myocardial infarction Unknown father Aortic aneurysm Unknown Advance Directives No Advanced Directives Records Found Advance Directive Response Recorded Date/ Time Advance Directives Yes January 19 4 2:22pm Living Will Yes November 25, 2021 5:57am Power of Fuel Cell Binder Yes November 25 5:57am Advance Directive Response Recorded Date/ Time Name of Medical Power of Fuel Cell Binder tari lindsay November 25, 2021 5:57am Advance Directives Yes January 19 4 2:22pm Living Will Yes November 25, 2021 5:57am Power of Fuel Cell Binder Yes November 25 5:57am Advance Directive Response Recorded Date/ Time Advance Directives Yes January 19 4 2:22pm Living Will Yes May 04, 2022 12:08pm Power of Fuel Cell Binder Yes April 12:08pm Advance Directive Response Recorded Date/ Time Advance Directives Yes January 19 4 2:22pm Living Will Yes April 09 11:07am Power of Fuel Cell Binder Yes April 09, 023 11:07am Name of Medical Power of Fuel Cell Binder present April 09, 2023 11:07am Advance Directive Response Recorded Date/ Time Name of Medical Power of Fuel Cell Binder present April 09, 2023 10:07am Advance Directives Yes January 19 1:22pm Living Will Yes April 09 10:07am Power of Fuel Cell Binder Yes April 09, 023 10:07am Advance Directive Response Recorded Date/ Time Advance Directives Yes April 2:00pm Advance Directive Response Recorded Date/ Time Living Will Yes April 09 11:07am Do you have a Healthcare Power of Fuel Cell Binder? Yes April 09, 2023 11:07am Advance Directives Yes April 2:00pm Chief Complaint and Reason for Visit Chief Complaint 1 y fu hematuria Reason for Visit Encounter for pre-op erative cardiovascular clearance Essential (primary) hypertension Hyperlipidemia History of coronary artery stent placement Chief Complaint hematuria 6 M FU Reason for Visit Diminished pulses in lower extremity Fatigue Atherosclerosis of coronary artery of [place] heart without angina pectoris Essential (primary) hypertension Hyperlipidemia Chief Complaint 6 M FU DECREASED PEDAL PULSES Reason for Visit Diminished pulses in lower extremity Fatigue Atherosclerosis of coronary artery of [place] heart without angina pectoris Essential (primary) hypertension Hyperlipidemia Chief Complaint URINARY Chief Complaint URINARY MED FOLLOW UP Reason for Visit [facility] BPH (benign prostatic hyperplasia) Essential (primary) hypertension Hyperlipidemia Type 2 diabetes mellitus Chief Complaint Admit Date STIFF / PAIN NECK / ITCHY November 09 9:55am JUST LEFT OFFICE NEEDS ORDER November 09, 2024 11:35am Reason for Visit Admit Date Generalized pruritus November 09, 2024 9: 55am Neck pain November 09, 2024 9:5 5am Chief Complaint Admit Date STIFF / PAIN NECK / ITCHY November 09 9:55am JUST LEFT OFFICE NEEDS ORDER November 09, 2024 11:35am 1 Y FU November 28, 2024 7:5 3am INT LABS November 28, 2024 9:1 0am Reason for Visit Admit Date Generalized pruritus November 09, 2024 9: 55am Neck pain November 09, 2024 9:5 5am Atherosclerosis of coronary artery of [place] heart without angina pectoris November 28, 2024 7:53am Essential (primary) hypertension November 142024 7:53am Hyperlipidemia November 28, 2024 7:5 3am Additional Source Comments (unrecognized sect ion and content) No Status Records FoundNo Status Records Found INFORMATION SOURCE (unrecogn ized section and content) DATE CREATED AUTHOR 09/29/2021 [facility] DATE CREATED AUTHOR AUTHOR'S ORGANIZ ATION 12/04/2024 [facility] Goals (unrecognized section and content) Goals may be documented in a n alternate sectionGoals may be documented in an alternate sectionGoals may be documented in an alternate sectionGoals may be documented in an alternate sectionGoals may be documented in an alternate sectionGoals may be documented in an alternate sectionGoals may be documented in an alternate section Care Teams (unrecognized sec tion and content) Team Status: Active Member Role Status Dates Dr. Chase Cohen MD Family Provider Active Dr. Chase Cohen MD Primary Care Provider Active Team Status: Inactive Member Role Status Dates Dr. Chase Cohen MD Primary Care Provider Active Dr. Isaac Hawley MD Emergency Provider Active Team Status: Inactive Member Role Status Dates Dr. Chase Cohen MD Primary Care Roxi peterson, Attending Provider, Referring Provider Active Team Status: Inactive Member Role Status Dates Dr. Chase Cohen MD Primary Care Provider Active Dr. Isaac Hawley MD Attending Provider, Emergency Provider Active Team Status: Inactive Member Role Status Dates Dr. Chase Cohen MD Primary Care Provider Active Start: November 09, 2024 End: November 09, 2024 Dr. Chase Cohen MD Referring Provider Active Start: November 09, 2024 End: November 09, 2024 Asa [place], [place] Attending Provider Active St art: November 09, 2024 End: November 09, 2024 Team Status: Inactive Member Role Status Dates Dr. Chase Cohen MD Primary Care Provider Active Start: November 09, 2024 End: November 09, 2024 Dr. Chase Cohen MD Attending Provider Active Start: November 09, 2024 End: November 09, 2024 Dr. Chase Cohen MD Referring Provider Active Start: November 09, 2024 End: November 09, 2024 Team Status: Active Member Role Status Dates Dr. Chase Cohen MD Primary Care Provider Active Team Status: Inactive Member Role Status Dates Dr. Chase Cohen MD Primary Care Provider Active Start: November 28, 2024 End: November 28, 2024 Dr. Chase Cohen MD Referring Provider Active Start: November 28, 2024 End: November 28, 2024 DARIANA Rosales Attending Provider Active Start: November 28, 2024 End: November 28, 2024 Team Status: Inactive Member Role Status Dates Dr. Chase Cohen MD Primary Care Provider Active Start: November 28, 2024 End: November 28, 2024 DARIANA Rosales Attending Provider Active Start: November 28, 2024 End: November 28, 2024 DARIANA Rosales Referring Provider Active Start: November 28, 2024 End: November 28, 2024 FOR RECORDS PERTAINING TO PATIENTS WHO ARE [...] BE BASED ON THE PRIMARY CLINICAL RECORDS. [facility] [employer] provides no warranty or guarantee of the accuracy or completeness of information in this document.
[2025-02-23 09:22] LABS: AST(SGOT) 20 U/L (<=37); Alanine Aminotransfer ALT/SGPT 16 U/L (<=46); Albumin, Serum 4.5 g/dL (3.4-4.8); Alkaline Phosphatase 39 U/L (40-129); Bilirubin, Direct 0.17 mg/dL (0.00-0.30); Cholesterol 165 mg/dL (<=200); Globulin 2.6 g/dL (2.2-4.2); Low Density Lipoprotein Calc. 108 mg/dL; Triglycerides 142 mg/dL; Very Low Density Lipoprotein 28 mg/dL (5-40); cholesterol:hdl ratio screen 5.77
== END | disposition home or self-care (01) ==
LOC: LAB 06:26
PROVIDERS: PCP Internal Medicine; Referring Provider Physician Assistant Medical; Visit Provider Physician Assistant Medical
DX: E78.00 Pure hypercholesterolemia, unspecified (principal)
CPT/HCPCS: 36415; 80061; 80076

== ENCOUNTER → 2025-03-05 | Outpatient (CLI) | payer MEDICARE, SELFPAY ==
[2025-03-05 12:41] LABS: Hematocrit 39.0 % (40-54); Hemoglobin 13.0 g/dL (13.0-16.5); Immature Granulocytes Count 0.020 X10^3/uL (0.0-0.0); Mean Corp Hgb Conc 33.3 g/dL (32-36); Mean Corpuscular Volume 90.3 fL (80-94); Mean Platelet Vol. 10.8 fl (6.2-12.0); NRBC Flagged by Analyzer 0 % (0-5); Platelet Count 296 K/mm3 (150-450); RBC Distribution Width CV 13.4 % (11.6-14.6); RBC Distribution Width SD 44.0 fl (35.1-43.9); Red Blood Count 4.32 M/mm3 (4.6-6.2); White Blood Count 6.8 K/mm3 (4.4-11.0)
[2025-03-05 13:13] LABS: Anion Gap 9 (5-15); BUN 26 mg/dL (4-19); BUN/Creat Ratio 16.6 RATIO (10-20); Calcium,Total 9.8 mg/dL (7.6-11.0); Carbon Dioxide 24.0 mmol/L (21.0-32.0); Chloride 105 mmol/L (98-108); Glucose 140 mg/dL (70-99); PSA,Total - Annual Screen 5.06 ng/mL (0.02-4.00); Potassium 4.9 mmol/L (3.3-5.1)
== END | disposition home or self-care (01) ==
LOC: BIMLAB 11:03
PROVIDERS: PCP Internal Medicine; Referring Provider Internal Medicine; Visit Provider Internal Medicine
DX: I10 Essential (primary) hypertension (principal); E11.9 Type 2 diabetes mellitus without complications; N40.0 Benign prostatic hyperplasia without lower urinary tract symptoms; Z12.5 Encounter for screening for malignant neoplasm of prostate
CPT/HCPCS: 36415; 80048; 83036; 84153; 85025; G0103

== ENCOUNTER → 2025-04-04 | Outpatient (CLI) | payer MEDICARE, SELFPAY ==
[2025-04-05 13:08] LABS: PSA, Free 2.49 ng/mL; PSA, Free % 49.2 % (.); PSA, Total Ultrasensitive 5.060 ng/mL (0.000-4.000)
== END | disposition home or self-care (01) ==
LOC: LAB 08:05
PROVIDERS: PCP Internal Medicine; Referring Provider Urology; Visit Provider Urology
DX: N40.1 Benign prostatic hyperplasia with lower urinary tract symptoms (principal)
CPT/HCPCS: 36415; 84153; 84154

== ENCOUNTER → 2025-04-12 | Outpatient (CLI) | payer MEDICARE, SELFPAY ==
--- NOTE | 2025-04-12 07:19 | CT_ITS ---
PROCEDURE: CT ABD/PELVIS W/WO CONTRAST 04/12/2025 REASON FOR EXAM: GROSS HEMATURIA TECHNIQUE: CT ABD/PELVIS W/WO CONTRAST Coronal and Sagittal reconstruction series were provided. CONTRAST: Isovue-300 VOLUME: 100 mL One or more dose reduction techniques were used (e.g., Automated exposure control, adjustment of the mA and/or kV according to patient size, use of iterative reconstruction technique. RADIATION DOSE SUMMARY: CTDlvol: 49.0 mGy DLP: 1890.94 mGycm COMPARISON: CT abdomen and pelvis without contrast, 04/09/2023. FINDINGS: Lung bases: The lung bases are clear. There are no pleural effusions. The heart size is normal. There is no pericardial effusion. There is calcific vascular disease of the coronary arteries in the visualized thoracic aorta. Liver: Normal size. No mass. Gallbladder: Normal. Spleen: Normal size. Pancreas: Normal size without evidence of mass surrounding inflammation or ductal dilation. Adrenals: Normal. Kidneys: Normal renal sizes. No hydronephrosis. There are small cortical cysts in both kidneys. Bladder: There is bladder wall thickening consistent with bladder outlet obstruction and/or cystitis. Reproductive Organs: The prostate gland measures 7.3 cm in transverse dimension and 7.2 cm in vertical dimension bulging into the floor of the urinary bladder. The seminal vesicles are unremarkable. There is no free fluid in the pelvis. There are few reactive inguinal lymph nodes bilaterally. Bowel: There is a small hiatal hernia. There are scattered colonic diverticuli without evidence of acute inflammation. There is stool throughout the colon. Appendix: The appendix is not identified. There is no inflammatory process identified in the right lower quadrant to suggest appendicitis. Lymph nodes: No suspicious lymph node enlargement. Vasculature: There is diffuse calcific vascular disease of the abdominal aorta. There is ectasia of the infrarenal abdominal aorta without aneurysm. Peritoneum / Retroperitoneum: There are no abnormal intra or retroperitoneal masses or fluid collections. There are no abdominal wall defects. Bones: There are no significant bony abnormalities. CT/CT Abd/Pelvis W/WO Contrast IMPRESSION: 1. Marked prostatomegaly. 2. There is thickening of the bladder wall consistent with bladder outlet obst ruction. 3. There is no evidence of nephrolithiasis, ureterolithiasis or hydronephrosis . 4. Mild constipation. 5. Other findings as noted. No significant change from prior noncontrast CT abdomen and pelvis. Reading Location: [id number]
--- OUTSIDE RECORDS SUMMARY | 2025-04-12 07:23 | XMS RPT_ITS | CCD ---
Author Organization [facility] Care Team Providers Care Occupational Health And Safety Manager Name Role Phone Dr. Chase Cohen Primary [...] 0) Corry Laureano Referring Provider [phone] Corry Laureano Attending Unavail able Chase Cohen Primary Care Unavailable Oleafshin, Efewongbe Referring Unavailable Noel Efewongbe Primary Care Unavailable Hodan Cohenonglaverne Attending Unavailable Oleghe, Efewongbe Referring Unavailable Corry Laureano Attending Unavail able Corry Laureano Referring Unavail able Oleghe, Efewongbe Primary Care Unavailable Oleghe, Efewongbe Primary Care Unavailable Eligio Navarro Attending Unavailable Eligio Navarro Referring Unavailable Oleghe, Efewongbe Primary Care Unavailable Oleghe, Efewongbe Attending Unavailable Oleghe, Efewongbe Referring Unavailable Oleghe, Efewongbe Primary Care Unavailable Fatou Diamond Attending Unavailable Oleghe, Efewongbe Referring Unavailable Oleghe, Efewongbe Primary Care Unavailable Oleghe, Efewongbe Attending Unavailable Corry Laureano Attending Unavail able Corry Laureano Referring Unavail able Oleghe, Efewongbe Primary Care Unavailable Oleghe, Efewongbe Referring Unavailable Oleghe, Efewongbe Primary Care Unavailable Fatou Diamond Attending Unavailable Oleghe, Efewongbe Referring Unavailable Oleghe, Efewongbe Primary Care Unavailable Asa Burgess Attending Unavailable Dr. Chase Cohen MD Primary Care Provider Corry Laureano Attending Provider Corry Laureano Referring Provider [phone] Dr. Chase Cohen MD Attending Provider Dr. Chase Cohen MD Referring Provider Melanie ANDINO, Dr. Eligio Greer Attending Provider Dr. Eligio Navarro MD Referring Provider [phone] Allergies Allergy Classification Reported Allergen(s) Allergy Type Date of Onset Reaction(s) Facility (12 sources) Amoxicillin; Translations: [amoxicillin trihydrate] Drug Allergy 2 Abd cramps/diarrhea [facility] (11 sources) dulaglutide Drug Allergy 2 Nausea [facility] (11 sources) Niacin Drug Allergy 2 GI Upset, PUD w/blood, Hot Flashes [facility] (12 sources) potassium clavulanate; Translations: [potassium clavulanate] Propensity to adverse reactions 2 Abd cramps/diarrhea [facility] (1 source) dulaglutide Drug Allergy 5 [facility] (1 source) Niacin Drug Allergy 5 [facility] Medications Current Medications Medication Drug Class(es) Dates Sig (Normalized) Sig (Original) Blood-Glucose Meter (Onetouch Ultra2 Meter) misc (7 sources) Start: 06-07-2023 Blood-Glucose Meter (Onetouch Ultra2 Meter) misc Active 0 .Route 1 0 June 07, 2023 12:00am Type 2 diabetes mellitus Type 2 diabetes mellitus with other specified complication As directed Start: 06-07-2023 Blood-Glucose Meter (Onetouch Ultra2 Meter) misc Active 0 .Route 1 June 07, 2023 12:00am As directed Start: 06-07-2023 Blood-Glucose Meter (Onetouch Ultra2 Meter) misc Active 0 .Route 1 June 06, 2023 11:00pm As directed 24 hr metoprolol succinate 50 mg extended release oral tablet (20 sources) beta-Adrenergic Maribell Start: 04-19-2024 End: 11-09-2024 take 1 tablet by mouth once daily Metoprolol Succinate 50 mg tablet extended release 24 hr Active 50 mg PO DAILY 90 3 November 09, 2024 10:53am HTN Start: 05-03-2021 End: 11-29-2023 take 1 tablet by mouth once daily Metoprolol Succinate 50 mg tablet extended release 24 hr Discontinued 50 mg PO DAILY 90 3 2023 10:14am November 29, 2023 8:49am HTN Start: 01-19-2014 End: 05-09-2021 take 1 tablet [...] Start: 08-29-2020 take 1 tablet by citlaly once daily Multivitamin Active 1 TABLET PO DAILY August 29, 2020 12:00am Start: 08-29-2020 take 1 tablet by citlaly th once daily Multivitamin Active 1 TABLET PO DAILY August 29, 2020 1:00am Multivitamin tablet (6 sources) Start: 08-29-2020 Multivitamin t ablet Active 1 {tbl} PO DAILY August 29, 2020 1:00am supplement Start: 08-29-2020 Multivitamin t ablet Active 1 {tbl} PO DAILY August 29, 2020 1:00am Completed/Discontinued Medications Medication Drug Class(es) Dates Sig (Normalized) Sig (Original) amLODIPine 10 mg oral tablet (20 sources) Dihydropyridine Calcium Channel Maribell Start: 04-01-2022 End: 03-06-2025 take 1 tablet by mouth once daily Amlodipine 10 mg tablet Discontinued 10 mg PO DAILY 90 3 January 18, 2024 8:53am March 06, 2025 3:46pm Start: 05-02-2021 End: 05-03-2021 take 5 mg [...] mg tablet Discontinued 10 mg PO DAILY 90 3 November 04, 2020 9:26am May 02, 2021 9:09pm Start: 05-12-2019 End: 11-04-2020 take 1 tablet by mouth once daily Amlodipine 5 mg tablet Discontinued 5 mg PO DAILY 90 3 January 12, 2020 12:44pm November 04, 2020 9:27am aspirin 81 mg chewable tablet (20 sources) Platelet Aggregation Inhibitor, Nonsteroidal Anti-inflammatory Drug Start: 05-03-2021 End: 03-04-2022 take 1 tablet by mouth once daily at mealtime Aspirin 81 mg Tablet,Chewable Discontinued 81 mg PO DAILY WITH MEALS 0 0 May 03, 2021 12:00am March 04, [...] tablet Discontinued 40 mg PO AT BEDTIME 90 3 2023 10:14am May 02, 2024 7:32am cholesterol Start: 01-19-2014 End: 01-26-2019 take 1 tablet by mouth at bedtime Atorvastatin 40 MG tablet Discontinued 40 mg PO AT BEDTIME January 19, 2014 12:00am January 26, 2019 6:21pm cholecalciferol 0.05 mg oral capsule (20 sources) Vitamin D Start: 01-26-2019 End: 05-02-2021 [...] 2019 6:15pm ciprofloxacin 500 mg oral tablet (11 sources) Quinolone Antimicrobial Start: 01-26-2014 End: 01-26-2019 take 1 tablet by mouth twice daily Ciprofloxacin Hcl 500 MG tablet Discontinued 500 mg PO TWICE A DAY 6 0 January 26, 2014 12:00am January 26, 2019 6:21pm clopidogrel 75 mg oral tablet (20 sources) [id number] Platelet Inhibitor Start: 03-16-2022 End: 07-24-2024 take 1 tablet by mouth once daily Clopidogrel (Plavix) 75 mg tablet Discontinued 75 mg PO DAILY 90 3 June 14, 2023 2:31pm July 24, 2024 12:06pm Start: 05-09-2021 End: 03-16-2022 Clopidogrel (Plavix) 75 mg t ablet Discontinued 75 mg PO DAILY 90 3 May 09, 2021 12:00am March 16, 2022 10:19am When you complete the course of Brilinta, the next day take 4 Plavix at once then once a day after. Coenzyme [id number] E 1 EACH capsule (6 sources) Start: 01-19-2014 End: 05-02-2021 take 1 capsule by mouth once daily Coenzyme N22-Tjbavjo E 1 EACH capsule Discontinued 1 {tbl} PO DAILY January 19, 2014 12:00am May 02, 2021 8:32am cyclobenzaprine hydrochloride 5 mg oral tablet (6 sources) Muscle Relaxant Start: 11-09-2024 End: 03-05-2025 take 1 tablet by mouth three times daily as needed for muscle spasms Cyclobenzaprine 5 mg tablet Discontinued 5 mg PO THREE TIMES A DAY as needed for muscle spasm 30 0 November 09, 2024 12:00am March 05, 2025 10:16am 0.5 ml dulaglutide 3 mg/ml auto-injector (11 sources) GLP-1 Receptor Agonist Start: 03-03-2019 End: 04-07-2019 Dulaglutide (Trulicity) 1.5 mg/0.5 mL pen injector Discontinued 1.5 mg SC EVERY WEEK 2 2 March 03, 2019 12:00am April 07, 2019 10:11am empagliflozin 25 mg oral tablet (20 sources) Sodium-Glucose Cotransporter 2 Inhibitor Start: 05-19-2022 End: 03-05-2025 take 1 tablet by mouth once daily in the morning Empagliflozin (Jardiance) 25 mg tablet Discontinued 0 .ROUTE .COMPLEX 30 January 09, 2025 10:37am March 05, 2025 10:15am TAKE 1 TABLET BY MOUTH EVERY MORNING fenofibrate 145 mg oral tablet (20 sources) Peroxisome Proliferator Receptor alpha Agonist Start: 01-19-2014 End: 05-02-2024 take 1 tablet by mouth once daily Fenofibrate Nanocrystallized 145 mg tablet Discontinued 0 .ROUTE .COMPLEX 90 0 December 20, 2023 8:47am May 02, 2024 7:32am TAKE 1 TABLET BY MOUTH EVERY DAY finasteride 5 mg oral tablet (20 sources) 5-alpha Reductase Inhibitor Start: 01-19-2014 End: 08-29-2020 take 1 tablet by mouth once daily Finasteride 5 mg tablet Discontinued 5 mg PO DAILY 90 3 January 12, 2020 12:43pm August 29, 2020 9:31am Fluad Quad (65yr up)(PF) 60 mcg (15 mcg x 4)/0.5mL IM syringe (flu vac (1 source) Start: 05-02-2021 End: 05-02-2021 Fluad Quad (65yr up)(PF) 60 mcg (15 mcg x 4)/0.5mL IM syringe (flu vac Discontinued 60 MCG IM ONCE 0.5 May 02, 2021 8:21am May 02, 2021 9:27am glimepiride 1 mg oral tablet (11 sources) Sulfonylurea Start: 01-19-2014 End: 01-26-2019 take 1 tablet by mouth twice daily Glimepiride 1 MG tablet Discontinued 1 mg PO TWICE A DAY January 19, 2014 12:00am January 26, 2019 6:21pm hydrocortisone 0.025 mg/mg topical ointment (6 sources) Corticosteroid Start: 10-06-2023 End: 11-09-2024 Hydrocortisone 2.5 % ointment Discontinued 1 NMA TOPICAL TWICE A DAY as needed for rash 454 1 October 06, 2023 1:00am November 09, 2024 10:22am hydrOXYzine hydrochloride 25 mg oral tablet (6 sources) Antihistamine Start: 11-09-2024 End: 03-05-2025 take 1 tablet by mouth three times daily as needed Hydroxyzine Hcl 25 mg tablet Discontinued 25 mg PO THREE TIMES A DAY as needed for itching 30 0 November 09, 2024 12:00am March 05, 2025 10:16am losartan potassium 100 mg oral tablet (20 sources) Angiotensin 2 Receptor Maribell Start: 04-01-2022 End: 05-02-2024 take 1 tablet by mouth once daily for hypertension Losartan 100 mg tablet Discontinued 0 .ROUTE .COMPLEX 30 March 21, 2024 9:08am May 02, 2024 [...] Discontinued 100 mg PO DAILY 180 90 3 December 10, 2020 12:05pm May 02, 2021 9:09pm Start: 11-04-2020 End: 05-02-2021 take 100 mg by mouth once daily Losartan Discontinued 100 MG PO DAILY 180 90 December 10, 2020 11:05am May 02, 2021 8:09pm Start: 11-01-2020 End: 11-04-2020 take 1 tablet by mouth once daily Losartan 100 mg tablet Discontinued 100 mg PO DAILY 90 90 November 01, 2020 8:18am November 04, 2020 9:27am Start: 04-07-2019 End: 11-01-2020 Losartan 50 mg tablet Discon tinued 75 mg PO DAILY 90 3 July 24, 2019 1:01pm September 18, 2019 9:21am Start: 04-07-2019 End: 11-01-2020 take 75 mg by mouth once daily Losartan Discontinued 7 5 MG PO DAILY 90 July 24, 2019 12:01pm September 18, 2019 8:21am Start: 01-26-2019 End: 04-07-2019 take 1 tablet by mouth once daily Losartan 50 mg tablet Discontinued 50 mg PO DAILY 90 3 March 03, 2019 10:30am April 07, 2019 10:27am metFORMIN hydrochloride 1000 mg oral tablet (20 sources) Biguanide Start: 03-03-2019 End: 05-03-2021 take 1 tablet by mouth twice daily Metformin 1,000 mg tablet Discontinued 1000 mg PO TWICE A DAY 180 3 March 03, 2019 10:30am May 03, 2021 [...] 19, 2014 12:00am January 26, 2019 6:16pm [place]-3 Fatty Acids-Fish Oil (5 sources) Start: 01-19-2014 End: 05-02-2021 [place]-3 Fatty Acids-Fish Oil Discontinued 1 EACH PO DAILY January 19, 2014 2:39pm May 02, 2021 8:32am Start: 01-19-2014 End: 05-02-2021 [place]-3 Fatty Acids-Fish Oil Discontinued 1 EACH PO DAILY January 18, 2014 11:00pm May 02, 2021 7:32am Start: 01-19-2014 End: 05-02-2021 [place]-3 Fatty Acids-Fish Oil Discontinued 1 EACH PO DAILY January 19, 2014 12:00am May 02, 2021 8:32am [place]-3 Fatty Acids-Fish Oil 1 EACH capsule,delayed release(DR/EC) (6 sources) Start: 01-19-2014 End: 05-02-2021 [place]-3 Fatty Acids-Fish Oil 1 EACH capsule,delayed release(DR/EC) [...] pantoprazole 40 mg delayed release oral tablet (20 sources) Proton Pump Inhibitor Start: 07-01-2022 End: 12-11-2024 take 1 tablet by mouth once daily Pantoprazole 40 mg tablet,delayed release (DR/EC) Discontinued 0 .ROUTE .COMPLEX 90 October 12, 2023 5:21pm December 11, 2024 10:20am TAKE 1 TABLET BY MOUTH DAILY phenazopyridine hydrochloride 100 mg oral tablet (11 sources) Start: 01-26-2014 End: 01-26-2019 take 1 tablet by mouth three times daily Phenazopyridine 100 MG tablet Discontinued 100 mg PO THREE TIMES A DAY 10 0 January 26, 2014 12:00am January 26, 2019 [...] 2019 6:20pm Selenium Sulfide-Menthol 1 % shampoo (20 sources) Start: 08-29-2020 End: 05-02-2021 Selenium Sulfide-Menthol 1 % shampoo Discontinued 118 mL TOPICAL .3XW as needed August 29, 2020 9:32am May 02, 2021 8:33am Start: 02-15-2020 End: 08-29-2020 Selenium Sulfide-Menthol 1 % shampoo Discontinued 118 mL TOPICAL .3XW 325 3 February 15, 2020 1:23pm August 29, 2020 9:33am Start: 02-15-2020 End: 08-29-2020 Selenium Sulfide-Menthol 1 % shampoo Discontinued 118 mL TOPICAL .3XW 325 February 15, 2020 1:23pm August 29, 2020 9:33am Start: 06-13-2019 End: 02-15-2020 Selenium Sulfide-Menthol 1 % shampoo Discontinued 118 mL TOPICAL .3XW 325 3 June 13, 2019 8:38am February 15, 2020 1:23pm Start: 06-13-2019 End: 02-15-2020 Selenium Sulfide-Menthol 1 % shampoo Discontinued 118 mL TOPICAL .3XW 325 June 13, 2019 8:38am February 15, 2020 1:23pm Start: 01-26-2019 End: 06-13-2019 Selenium Sulfide-Menthol 1 % shampoo Discontinued 118 mL TOPICAL .3XW January 26, 2019 6:17pm June 13, 2019 8:39am Selenium Sulfide-Menthol 118 ML suspension (6 sources) Start: 01-19-2014 End: 01-26-2019 Selenium Sulfide-Menthol 118 ML suspension Discontinued 118 mL TP DAILY January 19, 2014 12:00am January 26, 2019 6:20pm SITagliptin 100 mg oral tablet (20 sources) Dipeptidyl Peptidase 4 Inhibitor Start: 09-18-2019 End: 03-06-2025 take 1 tablet by mouth once daily for diabetes mellitus Sitagliptin Phosphate (Januvia) 100 mg tablet Discontinued 100 mg PO DAILY 30 0 December 11, 2024 10:19am March 06, 2025 3:46pm for diabetes mellitus Start: 04-07-2019 End: 09-18-2019 take 1 tablet by mouth once daily Sitagliptin Phosphate (Januvia) 50 mg tablet Discontinued 50 mg PO DAILY 90 3 July 18, 2019 8:59pm September 18, 2019 9:21am sucralfate 1000 mg oral tablet (11 sources) Aluminum Complex Start: 01-19-2014 End: 01-26-2019 take 1 tablet by mouth once daily Sucralfate 1 GM tablet Discontinued 1 g PO DAILY January 19, 2014 12:00am January 26, 2019 6:18pm tadalafil 20 mg oral tablet (11 sources) Phosphodiesterase 5 Inhibitor Start: 01-19-2014 End: 01-26-2019 take 1 tablet by mouth once daily Tadalafil 20 MG tablet Discontinued 20 mg PO DAILY January 19, 2014 12:00am January 26, 2019 6:20pm ticagrelor 90 mg oral tablet (11 sources) Start: 05-03-2021 End: 05-09-2021 take 1 tablet by mouth twice daily Ticagrelor (Brilinta) 90 mg Tablet Discontinued 90 mg PO TWICE A DAY 60 0 May 03, 2021 12:00am May 09, 2021 1:41pm ubidecarenone 50 mg / vitamin e 5 unt oral capsule (5 sources) Start: 01-19-2014 End: 05-02-2021 take 1 tablet by mouth once daily Coenzyme G81-Xmfzywd E Discontinued 1 TABLET PO DAILY January 18, 2014 11:00pm May 02, 2021 7:32am valsartan 160 mg oral tablet (11 sources) Angiotensin 2 Receptor Maribell Start: 01-19-2014 End: 01-26-2019 take 1 tablet by mouth once daily Valsartan 160 MG tablet Discontinued 160 mg PO DAILY January 19, 2014 12:00am January 26, 2019 6:19pm Problems Active Problems Problem Classification Problem Date Documented Da te Episodic/Chronic Acute myocardial infarction (11 sources) Myocardial infarction; Translations: [ST elevation (STEMI) myocardial infarction of unspecified site] 05-06-2021 Chronic Allergic reactions (6 sources) Inflammatory dermatosis; Translations: [Dermatitis, unspecified] 10-06-2023 Episodic Chronic kidney disease (6 sources) Chronic kidney disease; Translations: [Chronic kidney disease, unspecified] 05-01-2024 Chronic Chronic kidney disease (1 source) Chronic kidney disease; Translations: [Chronic kidney disease, stage 3a] Onset: 4 Coronary atherosclerosis and other heart disease (20 sources) History of acute ST segment elevation myocardial infarction; Translations: [Old myocardial infarction] Onset: 1 Chronic Diabetes mellitus with complications (1 source) Type 2 diabetes mellitus with other specified complication; Translations: [Type 2 diabetes mellitus with other specified complication] Onset: 4 Chronic Diabetes mellitus without complication (15 sources) Type 2 diabetes mellitus; Translations: [Type 2 diabetes mellitus without complications] Onset: 5 08-01-2021 Chronic Disorders of lipid metabolism (20 sources) Hyperlipidemia; Translations: [Hyperlipidemia, unspecified] Onset: 5 Chronic Esophageal disorders (14 sources) Gastroesophageal reflux disease; Translations: [Gastro-esophageal reflux disease without esophagitis] Onset: 4 08-28-2019 Chronic Essential hypertension (20 sources) Essential hypertension; Translations: [Essential (primary) hypertension] Onset: 5 Chronic Gastrointestinal hemorrhage (11 sources) Feces color: tarry; Translations: [Melena] 08-25-2021 Episodic Genitourinary symptoms and ill-defined conditions (20 sources) Blood in urine; Translations: [Hematuria, unspecified] 04-09-2023 Episodic Hyperplasia of prostate (20 sources) Benign prostatic hyperplasia; Translations: [Benign prostatic hyperplasia without lower urinary tract symptoms] Onset: 4 08-01-2021 Chronic Immunizations and screening for infectious disease (11 sources) Needs influenza immunization; Translations: [Encounter for immunization] 08-25-2021 Episodic Malaise and fatigue (12 sources) Fatigue; Translations: [Other fatigue] Episodic Other circulatory disease (10 sources) Abnormal peripheral pulse; Translations: [Other specified symptoms and signs involving the circulatory and respiratory systems] 03-04-2022 Episodic Other circulatory disease (2 sources) Other specified symptoms and signs involving the circulatory and respiratory systems; Translations: [Other symptoms involving cardiovascular system] Episodic Other inflammatory condition of skin (11 sources) Generalized pruritus ; Translations: [Pruritus, unspecified] 11-09-2024 Episodic Other non-traumatic joint disorders (11 sources) Pain in left knee; Translations: [Left knee pain] 08-25-2021 Episodic Other nutritional; endocrine; and metabolic disorders (6 sources) Weight decreased; Translations: [Abnormal weight loss] 05-02-2024 Episodic Other screening for suspected conditions (not mental disorders or infectious disease) (18 sources) Echocardiogram abnormal; Translations: [Abnormal findings on diagnostic imaging of heart and coronary circulation] 05-06-2021 Episodic Peripheral and visceral atherosclerosis (8 sources) Peripheral vascular disease, unspecified; Translations: [Peripheral arterial disease] 05-29-2022 Chronic Spondylosis; intervertebral disc disorders; other back problems (12 sources) Neck pain; Translations: [Cervicalgia] Onset: 11-09-2024 [...] Test Name Value Interpretation Reference Range Facility PSA Total+%Freeon 04-05-2025 PSA, FREE 2.49 ng/mL Normal N/A [facility] Comment on above: Result Comment: Josse QUINTANA methodology. Performed By: #### L 3110.0500 #### [facility] [address] [place], [address] PSA, FREE % 49.2 Normal . [facility] Comment on above: Result Comment: The table below lists the probability of prostate cancer for men with non-suspicious GABRIELLA results and total PSA between 4 and 10 ng/mL, by patient age (Travis et al, MARIELLE 1998, 279:1542). % Free PSA 50-64 yr 65-75 yr 0.00-10.00% 56% 55% 10.01-15.00% 24% 35% 15.01-20.00% 17% 23% 20.01-25.00% 10% 20% >25.00% 5% 9% Please note: Travis et al did not make specific recommendations regarding the use of percent free PSA for any other population of men. Performed at: [facility] [address] [place], [place] [id number] Email Production Specialist: Jaden Blanco PhD, Phone: [phone] Performed By: #### L 3110.0500 #### [facility] [address] [place], [address] PSA, TOTAL ULTR 5.060 ng/mL Abnormal 0.000-4.000 [facility] Comment on above: Result Comment: Roch e ECLIA methodology. According to the [place] [employer], Serum PSA should decrease and remain at undetectable levels after radical prostatectomy. The AUA defines biochemical recurrence as an initial PSA value 0.200 ng/mL or greater followed by a subsequent confirmatory PSA value 0.200 ng/mL or greater. Values obtained with different assay methods or kits cannot be used interchangeably. Results cannot be interpreted as absolute evidence of the presence or absence of malignant disease. Performed By: #### L 3110.0500 #### [facility] [address] [place], [address] Serum or plasma free prostat e specific antigen (PSA)/total PSA mass ratioOrdered By: Eligio Navarro on 04-04-2025 Free PSA/Total PSA [Mass fraction] 49.2 % . [facility] Comment on above: The table below list s the probability of prostate cancer formen with non-suspicious GABRIELLA results and total PSA between4 and 10 ng/mL, by patient age (Travis et al, MARIELLE 1998,279:1542). % Free PSA 50-64 yr 65-75 yr 0.00-10.00% 56% 55% 10.01-15.00% 24% 35% 15.01-20.00% 17% 23% 20.01-25.00% 10% 20% >25.00% 5% 9%Please note: Travis et al did not make specific recommendations regarding the use of percent free PSA for any other population of men.Performed at: [facility] [place], [place] [id number] Director: Jaden Blanco PhD, Phone: [phone] Absolute lymphocyte countOrd ered By: Royeraudidaphnelaverne Cohen on 03-05-2025 Lymphocytes Auto (Unsp spec) [#/Vol] 2.18 10*3/uL 0.83-4.51 [facility] Absolute neutrophil countOrd ered By: alivia Durbinagustinap on 03-05-2025 Neutrophils (Bld) [#/Vol] 3.6 10*3/uL 2.0-7.7 [facility] Anion gap in Serum or Plasma Ordered By: audigreenuplaverne Cohen on 03-05-2025 Anion gap [Moles/Vol] 9 mmol/L - [facility] Automated lymphocyte count a s percentage of total leukocytesOrdered By: Chase Cohen on 03-05-2025 Lymphocytes/100 WBC Auto (Unsp spec) 32.1 % - [facility] BUN/creatinine ratioOrdered By: Chase Cohen on 03-05-2025 Urea nitrogen/Creatinine [Mass ratio] 16.6 mg/mg - [facility] Basic Metabolic Profile (BMP )on 03-05-2025 BUN/CRE 16.6 RATIO Normal - [facility] Comment on above: Performed By: #### L 500.2500, L100.0100, L501.9910, L501.9985 #### [facility] [address] [place], [address] Calcium [Mass/Vol] 9.8 mg/dL Normal 7.6-11.0 [facility] Comment on above: Performed By: #### L 500.2500, L100.0100, L501.9910, [id number] #### [facility] [address] [place], [address] Chloride [Moles/Vol] 105 mmol/L Normal 98-108 [facility] Comment on above: Performed By: #### L 500.2500, L100.0100, L501.9910, [id number] #### [facility] [address] [place], [address] CO2 [Moles/Vol] 24.0 mmol/L Normal 21.0-32.0 [facility] Comment on above: Performed By: #### L 500.2500, L100.0100, L501.9910, [id number] #### [facility] [address] [place], [address] Creatinine [Mass/Vol] 1.54 mg/dL High 0.70-1.20 [facility] Comment on above: Performed By: #### L 500.2500, L100.0100, [id number], [id number] #### [facility] [address] [place], [address] GAP 9 Normal 5-15 [facility] Comment on above: Performed By: #### L 500.2500, L100.0100, [id number], [id number] #### [facility] [address] [place], [address] GFR/1.73 sq M.predicted among non-blacks MDRD (S/P/Bld) [Vol rate/Area] 46 mL/min/{1.73_m2} Low >60 [facility] Comment on above: Result Comment: mL/m in/1.73m2 CKD-EPI Creatinine Equation (2020) Performed By: #### L 500.2500, L100.0100, L501.9910, L501.9985 #### [facility] [address] [place], [address] Glucose [Mass/Vol] 140 mg/dL High 70-99 [facility] Comment on above: Performed By: #### L 500.2500, L100.0100, [id number], [id number] #### [facility] [address] [place], [address] Potassium [Moles/Vol] 4.9 mmol/L Normal 3.3-5.1 [facility] Comment on above: Performed By: #### L 500.2500, L100.0100, L501.9910, [id number] #### [facility] [address] [place], [address] Sodium [Moles/Vol] 139 mmol/L Normal 133-145 [facility] Comment on above: Performed By: #### L 500.2500, L100.0100, L501.9910, L501.9985 #### [facility] [address] [place], [address] Urea nitrogen [Mass/Vol] 26 mg/dL High 4-19 [facility] Comment on above: Performed By: #### L 500.2500, L100.0100, L501.9910, L501.9985 #### [facility] [address] [place], [address] Basophil percentageOrdered B y: Chase Cohen on 03-05-2025 Basophils/100 WBC (Bld) 0.7 % 0-1 [facility] CBC W/Diff, Automatedon 02-14 Absolute Lymph 2.18 X10 3/uL Normal 0.83-4.51 [facility] Comment on above: Performed By: #### L 500.2500, L100.0100, L501.9910, L501.9985 #### [facility] [address] [place], [address] Absolute Neut 3.6 X10 3/uL Normal 2.0-7.7 [facility] Comment on above: Performed By: #### L 500.2500, L100.0100, L501.9910, L501.9985 #### [facility] [address] [place], [address] Basophils/100 WBC (Bld) 0.7 % Normal 0-1 [facility] Comment on above: Performed By: #### L 500.2500, L100.0100, L501.9910, L501.9985 #### [facility] [address] [place], [address] Eosinophils/100 WBC (Bld) 2.8 % Normal 0-5 [facility] Comment on above: Performed By: #### L 500.2500, L100.0100, L501.9910, L501.9985 #### [facility] [address] [place], [address] Erythrocyte distribution width (RBC) [Ratio] 13.4 % Normal 11.6-14.6 [facility] Comment on above: Performed By: #### L 500.2500, L100.0100, L501.9910, L501.9985 #### [facility] [address] [place], [address] Hematocrit (Bld) [Volume fraction] 39.0 % Low 40-54 [facility] Comment on above: Performed By: #### L 500.2500, L100.0100, L501.9910, L501.9985 #### [facility] [address] [place], [address] Hemoglobin (Bld) [Mass/Vol] 13.0 g/dL Normal 13.0-16.5 [facility] Comment on above: Performed By: #### L 500.2500, L100.0100, L501.9910, L501.9985 #### [facility] [address] [place], [address] IG% 0.300 Normal 0.0-0.9 [facility] Comment on above: Result Comment: IG% - Immature Granulocytes (promyelocytes, myelocytes and metamyelocytes) > 1% indicates that a LEFT SHIFT is Present. Performed By: #### L 500.2500, L100.0100, L501.9910, L501.9985 #### [facility] [address] [place], [address] Lymphocytes/100 WBC (Bld) 32.1 % Normal 19-41 [facility] Comment on above: Performed By: #### L 500.2500, L100.0100, L501.9910, L501.9985 #### [facility] [address] [place], [address] MCH (RBC) [Entitic mass] 30.1 pg Normal 27.0-32.0 [facility] Comment on above: Performed By: #### L 500.2500, L100.0100, L501.9910, L501.9985 #### [facility] [address] [place], [address] MCHC (RBC) [Mass/Vol] 33.3 g/dL Normal 32-36 [facility] Comment on above: Performed By: #### L 500.2500, L100.0100, L501.9910, L501.9985 #### [facility] [address] [place], [address] MCV (RBC) [Entitic vol] 90.3 fL Normal 80-94 [facility] Comment on above: Performed By: #### L 500.2500, L100.0100, L501.9910, L501.9985 #### [facility] [address] [place], [address] Monocytes/100 WBC (Bld) 10.6 % High 0-10 [facility] Comment on above: Performed By: #### L 500.2500, L100.0100, L501.9910, L501.9985 #### [facility] [address] [place], [address] Neutrophils/100 WBC (Bld) 53.5 % Normal 47-70 [facility] Comment on above: Performed By: #### L 500.2500, L100.0100, L501.9910, L501.9985 #### [facility] [address] [place], [address] Nucleated RBC (Bld) [#/Vol] 0 10*3/uL Normal 0-5 [facility] Comment on above: Performed By: #### L 500.2500, L100.0100, L501.9910, L501.9985 #### [facility] [address] [place], [address] Platelet mean volume (Bld) [Entitic vol] 10.8 fL Normal 6.2-12.0 [facility] Comment on above: Performed By: #### L 500.2500, L100.0100, L501.9910, L501.9985 #### [facility] [address] [place], [address] Platelets (Bld) [#/Vol] 296 10*3/uL Normal 150-450 [facility] Comment on above: Performed By: #### L 500.2500, L100.0100, L501.9910, L501.9985 #### [facility] [address] [place], [address] RBC (Bld) [#/Vol] 4.32 10*6/uL Low 4.6-6.2 [facility] Comment on above: Performed By: #### L 500.2500, L100.0100, L501.9910, L501.9985 #### [facility] [address] [place], [address] RDW SD 44.0 fl High 35.1-43.9 [facility] Comment on above: Performed By: #### L 500.2500, L100.0100, L501.9910, L501.9985 #### [facility] [address] [place], [address] WBC (Bld) [#/Vol] 6.8 10*3/uL Normal 4.4-11.0 [facility] Comment on above: Performed By: #### L 500.2500, L100.0100, L501.9904, L501.9925 #### [facility] [address] [place], [address] Carbon dioxide, total [Moles /volume] in Central venous bloodOrdered By: Chase Cohen on 03-05-2025 CO2 [Moles/Vol] 24.0 mmol/L 21.0-32.0 [facility] Chloride assayOrdered By: Royer Cohen on 03-05-2025 Chloride [Moles/Vol] 105 mmol/L 98-108 [facility] Eosinophil percentageOrdered By: Hodangreenuplaverne Cohen on 03-05-2025 Eosinophils/100 WBC (Bld) 2.8 % 0-5 [facility] Erythrocyte distribution wid th ratioOrdered By: audigreenuplaverne Cohen on 03-05-2025 Erythrocyte distribution width (RBC) [Ratio] 13.4 % 11.6-14.6 [facility] Erythrocyte distribution wid th standard deviationOrdered By: audigreenuplaverne Cohen on 03-05-2025 Erythrocyte distribution width (RBC) [Ratio] 44.0 fl High 35.1-43.9 [facility] Glomerular filtration rate ( GFR) estimation/1.73 sq m using serum, plasma, or whole bOrdered By: Chase Cohen on 03-05-2025 GFR/1.73 sq M.predicted among non-blacks MDRD (S/P/Bld) [Vol rate/Area] 46 mL/min/{1.73_m2} Low >60 [facility] Comment on above: mL/min/1.73m2 CKD-EP I Creatinine Equation (2020) Hematocrit Auto (Bld) [Volum e fraction]Ordered By: Chase Cohen on 03-05-2025 Hematocrit (Bld) [Volume fraction] 39.0 % Low 40-54 [facility] Hemoglobin A1con 03-05-2025 HbA1c (Bld) [Mass fraction] 6.7 % High <=5.6 [facility] Comment on above: Result Comment: Norm al < 5.7 % Prediabetic 5.7 - 6.4 % Diabetic >or= 6.5 % Please note range changes. Performed By: #### L 500.2500, L100.0100, L501.9910, L501.9921 #### [facility] [address] [place], [address] Hemoglobin A1c percentageOrd ered By: Chase Cohen on 03-05-2025 HbA1c (Bld) [Mass fraction] 6.7 % High <5.7 [facility] Comment on above: Normal < 5.7 % Predi abetic 5.7 - 6.4 % Diabetic >or= 6.5 % Please note range changes. Hemoglobin measurementOrdere d By: Chase Cohen on 03-05-2025 Hemoglobin (Bld) [Mass/Vol] 13.0 g/dL 13.0-16.5 [facility] Immature granulocytes/100 WB C Auto (Bld)Ordered By: Chaes Cohen on 03-05-2025 Immature granulocytes/100 WBC (Bld) 0.300 % 0.0-0.9 [facility] Comment on above: IG% - Immature Granu locytes (promyelocytes, myelocytes and metamyelocytes) > 1% indicates that a LEFT SHIFT is Present. Internal Medicine Office Vis itocolin 03-05-2025 Internal Medicine Office Visit [facility] [address] [place] [address] [place] [address] OFFICE VISIT Date of Service: 03/05/25 MR#: [id number] Acct: [id number] Name: GENI LINDSAY Rep #: [id number] : 1945 Provider: Dr. Chase traylor MD Age/Sex: 79/M Location: [facility] Status: Signed Intake Vital Signs 11/28/24 08:17 03/05/25 10:11 Height 5 ft 10 in 5 ft 10 in Weight: 167 lb BMI 23.9 BP 122/60 H Blood Pressure Location Lt brachial Position Sitting Respiration 18 Pulse 63 Pulse Source Monitor Temp 97.8 F Temp Source Temporal Pulse Oximetry (%) 97 Oxygen Delivery Method room air Intake Visit Reasons: med fu Chief Complaint: med fu Is patient in pain?: No Allergies dulaglutide (From Trulicity) Allergy (Intermediate, Verified 03/05/25 10:14) Nausea niacin Allergy (Verified 03/05/25 10:14) GI Upset, PUD w/blood, Hot Flashes amoxicillin trihydrate (From Augmentin) Adverse Reaction (Verified 03/05/25 10:14) Abd cramps/diarrhea potassium clavulanate (From Augmentin) Adverse Reaction (Verified 03/05/25 10:14) Abd cramps/diarrhea Medications ???Medication ???Instructions ???Recorded ???Confirmed ???Type multivitamin 1 tab PO DAILY supplement 08/29/20 03/05/25 History blood-glucose meter (OneTouch #1 ea 06/07/23 03/05/25 Rx Ultra2 Meter) blood sugar diagnostic (Blood #100 ea 07/06/23 03/05/25 Rx Glucose Test strips) amlodipine 10 mg tablet 10 mg PO DAILY #90 TABLETS 4 03/05/25 Rx atorvastatin 40 mg tablet 40 mg PO QHS cholesterol #90 tabs 05/02/24 03/05/25 Rx fenofibrate nanocrystallized 145 See Rx Instructions .Route 4 03/05/25 Rx mg tablet .COMPLEX #90 tabs losartan 100 mg tablet See Rx Instructions .Route 4 03/05/25 Rx .COMPLEX #90 tabs clopidogrel 75 mg tablet (Plavix) 75 mg PO DAILY #90 tabs 07/24/24 11/28/24 Rx metoprolol succinate 50 mg 50 mg PO DAILY HTN #90 tabs 03/05/25 Rx tablet,extended release 24 hr pantoprazole 40 mg tablet,delayed See Rx Instructions .Route 03/05/25 Rx release .COMPLEX #90 tabs sitagliptin phosphate 100 mg 100 mg PO DAILY for diabetes 12/1103/05/25 Rx tablet (Januvia) mellitus #30 TABLETS Have you fallen in the past year?: No Nurse's Note: pt reports having occasional blood in the urine. states that this happens after he mows across bumpy land. [facility] Medical History Dermatitis Screening for thyroid disorder [...] accident) (2001) 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 pectoris BPH (benign prostatic [...] infarction Father AA (aortic aneurysm) Social History Smoking Status: Former smoker quit date: 08/16/93 Tobacco: How many years used: 30 alcohol intake: never substance use type: does not use caffeine: Yes Type: coffee Number of servings: 2 what type of physical activity do you participate in: walking HPI HPI Chief Complaint: med fu Details: GENI LINDSAY, is a 79 M who presents to the office today for The patient is a 79-year-old male presenting with hematuria and diabetes mellitus management. The patient reported experiencing hematuria, which he noticed after working outside in hot weather and riding on a bumpy tractor. Lasted for a few days and resolved. No other associated factor. History of BPH, had seen urology in the past but not recently. The patient has a history of diabetes mellitus and previously experienced a yeast infection, which he attributed to the use of Jardiance. He discontinued Jardiance several months ago, and the yeast infection resolved with topical treatment. Currently taking Januvia. The p (more content not included)... Normal [facility] MCV (mean corpuscular volume ) determinationOrdered By: Chase Cohen on 03-05-2025 MCV (RBC) [Entitic vol] 90.3 fL 80-94 [facility] Mean corpuscular hemoglobin (MCH) determinationOrdered By: Chase Cohen on 03-05-2025 MCH (RBC) [Entitic mass] 30.1 pg 27.0-32.0 [facility] Mean corpuscular hemoglobin concentration (MCHC) determinationOrdered By: Chase Cohen on 03-05-2025 MCHC (RBC) [Mass/Vol] 33.3 g/dL 32-36 [facility] Mean platelet volume determi nationOrdered By: Chase Cohen on 03-05-2025 Platelet mean volume (Bld) [Entitic vol] 10.8 fL 6.2-12.0 [facility] Monocyte percentageOrdered B y: Chase Cohen on 03-05-2025 Monocytes/100 WBC (Bld) 10.6 % High 0-10 [facility] Neutrophil percentageOrdered By: [facility] Cohen on 03-05-2025 Neutrophils/100 WBC (Bld) 53.5 % 47-70 [facility] Nucleated red blood cell per centageOrdered By: audigreenuplaverne Cohen on 03-05-2025 Nucleated RBC/100 WBC (Bld) [Ratio] 0 % 0-5 [facility] PSA,Total - Annual Screenon 03-05-2025 PSA,TOT SCREEN 5.06 ng/mL High 0.02-4.00 [facility] Comment on above: Result Comment: This test was performed using the [employer] tPSA method. Measured values of a patient??sample can vary depending on the testing procedure used. PSA values determined on patient samples by different testing procedures cannot be used interchangeably. If there is a change in PSA assays while monitoring therapy, sequential testing should be performed to confirm baseline values. Performed By: #### L 500.2500, L100.0100, L501.9910, L501.9985 #### [facility] [place], [address] Platelet countOrdered By: Royer alivia Ramakrishnaagustinap on 03-05-2025 Platelets (Bld) [#/Vol] 296 10*3/uL 150-450 [facility] Potassium measurement (mass/ volume)Ordered By: Chase Cohen on 03-05-2025 Potassium (Unsp spec) [Mass/Vol] 4.9 mmol/L 3.3-5.1 [facility] RBC Auto (Bld) [#/Vol]Ordere d By: Chase Ramakrishnaafshin on 03-05-2025 RBC (Bld) [#/Vol] 4.32 10*6/uL Low 4.6-6.2 [facility] Serum creatinine measurement (mass/volume)Ordered By: Royeraudidaphnelaverne Durbinagustinap on 03-05-2025 Creatinine [Mass/Vol] 1.54 mg/dL High 0.70-1.20 [facility] Serum glucose measurement (m ass/volume)Ordered By: Chase Durbinagustinap on 03-05-2025 Glucose [Mass/Vol] 140 mg/dL High 70-99 [facility] Serum or plasma calcium joya urement (mass/volume)Ordered By: Royeraudidaphnelaverne Durbinagustinap on 03-05-2025 Calcium [Mass/Vol] 9.8 mg/dL 7.6-11.0 [facility] Serum or plasma urea nitroge n measurement (mass/volume)Ordered By: Royeraudidaphnelaverne Durbinagustinap on 03-05-2025 Urea nitrogen [Mass/Vol] 26 mg/dL High 4-19 [facility] Sodium levelOrdered By: Royeraudi stefan Ramakrishnaagustinap on 03-05-2025 Sodium [Moles/Vol] 139 mmol/L 133-145 [facility] White blood cell (WBC) count Ordered By: Royeralivia Cohen on 03-05-2025 WBC (Bld) [#/Vol] 6.8 10*3/uL 4.4-11.0 [facility] Bilirubin directOrdered By: Corry Moura on 02-23-2025 Bilirubin.direct [Mass/Vol] 0.17 mg/dL 0.00-0.30 [facility] Bilirubin, totalOrdered By: Corry Moura on 02-23-2025 Bilirubin [Mass/Vol] 0.38 mg/dL 0.00-1.30 [facility] Calculated very low density lipoprotein (VLDL) cholesterol measurementOrdered By: Corry Moura on 02-23-2025 Calculated very low density lipoprotein (VLDL) cholesterol measurement 28 mg/dL 5-40 [facility] LDL calc ser/plasOrdered By: Corry Moura on 02-23-2025 Cholesterol in LDL [Mass/Vol] 108 mg/dL [facility] Comment on above: Weonyudwrb=558-540 m g/dL & Higher Wjxl=374 mg/dL or greater Laboratory - Chemistry and C hemistry - challengeOrdered By: Corry Moura on 02-23-2025 AST [Catalytic activity/Vol] 20 U/L <38 [facility] Lipid Profileon 02-23-2025 CHOL:HDL 5.77 Normal [facility] Comment on above: Performed By: #### L 500.3400, L500.4100 ####[facility] [address] [place], [address] Cholesterol [Mass/Vol] 165 mg/dL Normal <=200 [facility] Comment on above: Result Comment: Chol esterol level, Desirable <200 mg/dL Borderline high cholesterol 200-239 mg/dL High cholesterol >=240 mg/dL Recommendations of the NCEP Adult Treatment Panel for the following risk-cutoff thresholds for the [place] population. Performed By: #### L 500.3400, L500.4100 ####[facility] [address] [place], [address] Cholesterol in HDL [Mass/Vol] 29 mg/dL Low [facility] Comment on above: Result Comment: Maddi onal Cholesterol Education Program (NCEP) guidelines: <40 mg/dL: Low HDL-cholesterol (major risk factor for CHD) >= 60 mg/dL: High HDL-cholesterol (negative risk factor for CHD) HDL-cholesterol is affected by a number of factors, e.g. smoking, exercise, hormones, sex and age. Performed By: #### L 500.3400, L500.4100 ####[facility] [address] [place], [address] Cholesterol in LDL [Mass/Vol] 108 mg/dL Normal [facility] Comment on above: Result Comment: Bord nuwtee=818-405 mg/dL Higher Opbb=094 mg/dL or greater Performed By: #### L 500.3400, L500.4100 ####[facility] [address] [place], [address] Cholesterol in VLDL [Mass/Vol] 28 mg/dL Normal 5-40 [facility] Comment on above: Performed By: #### L 500.3400, L500.4100 ####[facility] [address] [place], [address] Triglyceride [Mass/Vol] 142 mg/dL Normal [facility] Comment on above: Result Comment: The drugs N-Acetylcysteine and Metamizole may falsely depress this assay. Normal range: <150 mg/dL Borderline High: 150-199 mg/dL High: 200-499 mg/dL Very High: >500 mg/dL Performed By: #### L 500.3400, L500.4100 ####[facility] [address] [place], [address] Liver Profileon 02-23-2025 Albumin [Mass/Vol] 4.5 g/dL Normal 3.4-4.8 [facility] Comment on above: Performed By: #### L 500.3400, L500.4100 ####[facility] [address] [place], [address] ALK PHOS 39 U/L Low 40-129 [facility] Comment on above: Performed By: #### L 500.3400, L500.4100 ####[facility] [address] [place], [address] ALT [Catalytic activity/Vol] 16 U/L Normal <=46 [facility] Comment on above: Performed By: #### L 500.3400, L500.4100 ####[facility] [address] [place], [address] AST [Catalytic activity/Vol] 20 U/L Normal <=37 [facility] Comment on above: Performed By: #### L 500.3400, L500.4100 ####[facility] [address] [place], [address] Bilirubin [Mass/Vol] 0.38 mg/dL Normal 0.00-1.30 [facility] Comment on above: Performed By: #### L 500.3400, L500.4100 ####[facility] [address] [place], [address] Bilirubin.direct [Mass/Vol] 0.17 mg/dL Normal 0.00-0.30 [facility] Comment on above: Performed By: #### L 500.3400, L500.4100 ####[facility] [address] [place], [address] Globulin (S) [Mass/Vol] 2.6 g/dL Normal 2.2-4.2 [facility] Comment on above: Performed By: #### L 500.3400, L500.4100 ####[facility] [address] [place], [address] T PROT 7.0 g/dL Normal 5.9-8.4 [facility] Comment on above: Performed By: #### L 500.3400, L500.4100 ####[facility] [address] [place], [address] Screening total cholesterol/ high density lipoprotein (HDL) cholesterol ratioOrdered By: Corry Moura on 02-23-2025 Cholesterol.total/Choles terol in HDL [Mass ratio] 5.77 {ratio} [facility] Serum globulin measurementOr dered By: Corry Moura on 02-23-2025 Globulin (S) [Mass/Vol] 2.6 g/dL 2.2-4.2 [facility] Serum or plasma alanine navarro otransferase (ALT) measurementOrdered By: Corry Moura on 02-23-2025 ALT [Catalytic activity/Vol] 16 U/L <47 [facility] Serum or plasma albumin joya urement (mass/volume)Ordered By: Corry Moura on 02-23-2025 Albumin [Mass/Vol] 4.5 g/dL 3.4-4.8 [facility] Serum or plasma alkaline yannick sphatase measurementOrdered By: Corry Moura on 02-23-2025 ALP [Catalytic activity/Vol] 39 U/L Low 40-129 [facility] Serum or plasma cholesterol in HDL measurement (mass/volume)Ordered By: Corry Moura on 02-23-2025 Cholesterol in HDL [Mass/Vol] 29 mg/dL Low >40 [facility] Comment on above: National Cholesterol Education Program (NCEP) guidelines:<40 mg/dL: Low HDL-cholesterol (major risk factor for CHD)>= 60 mg/dL: High HDL-cholesterol (negative risk factor for CHD)HDL-cholesterol is affected by a number of factors, e.g. smoking, exercise, hormones, sex and age. Serum or plasma cholesterol measurement (mass/volume)Ordered By: Corry Moura on 02-23-2025 Cholesterol [Mass/Vol] 165 mg/dL <201 [facility] Comment on above: Cholesterol level, D esirable <200 mg/dLBorderline high cholesterol 200-239 mg/dLHigh cholesterol >=240 mg/dLRecommendations of the NCEP Adult Treatment Panel for the following risk-cutoff thresholds for the [place] population. Total proteinOrdered By: Merlin Moura on 02-23-2025 Protein [Mass/Vol] 7.0 g/dL 5.9-8.4 [facility] Triglycerides measurementOrd ered By: Corry Moura on 02-23-2025 Triglyceride [Mass/Vol] 142 mg/dL <199 [facility] Comment on above: The drugs N-Acetylcy steine and Metamizole may falsely depress this assay. Normal range: <150 mg/dLBorderline High: 150-199 mg/dLHigh: 200-499 mg/dLVery High: >500 mg/dL Bilirubin directOrdered By: Corry Moura on 11-28-2024 Bilirubin.direct [Mass/Vol] 0.22 mg/dL 0.00-0.30 [facility] Bilirubin, totalOrdered By: Corry Moura on 11-28-2024 Bilirubin [Mass/Vol] 0.50 mg/dL 0.00-1.30 [facility] Calculated very low density lipoprotein (VLDL) cholesterol measurementOrdered By: Corry Moura on 11-28-2024 Calculated very low density lipoprotein (VLDL) cholesterol measurement 66 mg/dL High 5-40 [facility] VLDL Cholesterol 66 mg/dL High 5-40 [facility] Cardiology Visit Reporton Cardiology Visit Report [facility] [address] [place] [address] [address] [place] [address] OFFICE VISIT Date of Service: 11/28/24 MR#: [id number] Acct: [id number] Name: GENI LINDSAY Rep #: [id number] : 1945 Provider: DARIANA Hutchins Age/Sex: 79/M Location: [facility] Status: Signed HPI HPI History of Present [...] myocardial infarction was taken urgently to the lab animal technician and underwent angioplasty and stenting of his [...] NIBP Intake Visit Reasons: 1 Y FU [employer] Super[employer] Required: No Is patient in pain?: No [...] DAILY supplement 08/29/20 11/28/24 History blood-glucose meter (OneTouch #1 ea 06/07/23 [...] you fallen in the past year?: No PFSH Medical History Dermatitis Screening for thyroid disorder [...] accident) (2001) 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 pectoris BPH (benign prostatic hyperplasia) GERD (gastroesophageal reflux disease) Type 2 diabetes mellitus Enlarged prostate Neuropathy Hearing problem Gastrointestinal complaints, unspecific Back problem Surgical History History of cardiac catheterization History of foot surgery History of colonoscopy S/P trigger finger release (more content not included)... Normal [facility] LDL calc ser/plasOrdered By: Corry Moura on 11-28-2024 Cholesterol in LDL [Mass/Vol] 74 mg/dL [facility] Comment on above: Fwfwmqdack=694-125 m g/dL & Higher Ryux=714 mg/dL or greater LDL Cholesterol, Calculated 74 mg/dL [facility] Comment on above: Vgkttkfhop=024-638 m g/dL & Higher Xggv=780 mg/dL or greater Laboratory - Chemistry and C hemistry - challengeOrdered By: Corry Moura on 11-28-2024 AST [Catalytic activity/Vol] 19 U/L <38 [facility] Lipid Profileon 11-28-2024 CHOL:HDL 6.80 Normal [facility] Comment on above: Order Comment: Comme nts: okay to do non fasting Performed By: #### L 500.3400, L500.4100 ####[facility] [address] [place], [address] Cholesterol [Mass/Vol] 164 mg/dL Normal <=200 [facility] Comment on above: Order Comment: Comme nts: okay to do non fasting Result Comment: Chol esterol level, Desirable <200 mg/dL Borderline high cholesterol 200-239 mg/dL High cholesterol >=240 mg/dL Recommendations of the NCEP Adult Treatment Panel for the following risk-cutoff thresholds for the [place] population. Performed By: #### L 500.3400, L500.4100 ####[facility] [address] [place], [address] Cholesterol in HDL [Mass/Vol] 24 mg/dL Low [facility] Comment on above: Order Comment: Comme nts: okay to do non fasting Result Comment: Maddi onal Cholesterol Education Program (NCEP) guidelines: <40 mg/dL: Low HDL-cholesterol (major risk factor for CHD) >= 60 mg/dL: High HDL-cholesterol (negative risk factor for CHD) HDL-cholesterol is affected by a number of factors, e.g. smoking, exercise, hormones, sex and age. Performed By: #### L 500.3400, L500.4100 ####[facility] [address] [place], [address] Cholesterol in LDL [Mass/Vol] 74 mg/dL Normal [facility] Comment on above: Order Comment: Comme nts: okay to do non fasting Result Comment: Bord wfzqsn=879-178 mg/dL Higher Skfy=334 mg/dL or greater Performed By: #### L 500.3400, L500.4100 ####[facility] [address] [place], [address] Cholesterol in VLDL [Mass/Vol] 66 mg/dL High 5-40 [facility] Comment on above: Order Comment: Comme nts: okay to do non fasting Performed By: #### L 500.3400, L500.4100 ####[facility] [address] [place], [address] Triglyceride [Mass/Vol] 329 mg/dL High [facility] Comment on above: Order Comment: Comme nts: okay to do non fasting Result Comment: The drugs N-Acetylcysteine and Metamizole may falsely depress this assay. Normal range: <150 mg/dL Borderline High: 150-199 mg/dL High: 200-499 mg/dL Very High: >500 mg/dL Performed By: #### L 500.3400, L500.4100 ####[facility] [address] [place], [address] Liver Profileon 11-28-2024 Albumin [Mass/Vol] 4.4 g/dL Normal 3.4-4.8 [facility] Comment on above: Order Comment: Comme nts: okay to do non fastingokay to do non fasting Performed By: #### L 500.3400, L500.4100 ####[facility] [address] [place], [address] ALK PHOS 47 U/L Normal 40-129 [facility] Comment on above: Order Comment: Comme nts: okay to do non fastingokay to do non fasting Performed By: #### L 500.3400, L500.4100 ####[facility] [address] [place], [address] ALT [Catalytic activity/Vol] 15 U/L Normal <=46 [facility] Comment on above: Order Comment: Comme nts: okay to do non fastingokay to do non fasting Performed By: #### L 500.3400, L500.4100 ####[facility] [address] [place], [address] AST [Catalytic activity/Vol] 19 U/L Normal <=37 [facility] Comment on above: Order Comment: Comme nts: okay to do non fastingokay to do non fasting Performed By: #### L 500.3400, L500.4100 ####[facility] [address] [place], [address] Bilirubin [Mass/Vol] 0.50 mg/dL Normal 0.00-1.30 [facility] Comment on above: Order Comment: Comme nts: okay to do non fastingokay to do non fasting Performed By: #### L 500.3400, L500.4100 ####[facility] [address] [place], [address] Bilirubin.direct [Mass/Vol] 0.22 mg/dL Normal 0.00-0.30 [facility] Comment on above: Order Comment: Comme nts: okay to do non fastingokay to do non fasting Performed By: #### L 500.3400, L500.4100 ####[facility] [address] [place], [address] Globulin (S) [Mass/Vol] 2.6 g/dL Normal 2.2-4.2 [facility] Comment on above: Order Comment: Comme nts: okay to do non fastingokay to do non fasting Performed By: #### L 500.3400, L500.4100 ####[facility] [address] [place], [address] T PROT 7.0 g/dL Normal 5.9-8.4 [facility] Comment on above: Order Comment: Comme nts: okay to do non fastingokay to do non fasting Performed By: #### L 500.3400, L500.4100 ####[facility] [address] [place], [address] Screening total cholesterol/ high density lipoprotein (HDL) cholesterol ratioOrdered By: Corry Moura on 11-28-2024 Cholesterol.total/Choles terol in HDL [Mass ratio] 6.80 {ratio} [facility] Serum globulin measurementOr dered By: Corry Moura on 11-28-2024 Globulin (S) [Mass/Vol] 2.6 g/dL 2.2-4.2 [facility] Serum or plasma alanine navarro otransferase (ALT) measurementOrdered By: Corry Moura on 11-28-2024 ALT [Catalytic activity/Vol] 15 U/L <47 [facility] Serum or plasma albumin joya urement (mass/volume)Ordered By: Corry Moura on 11-28-2024 Albumin [Mass/Vol] 4.4 g/dL 3.4-4.8 [facility] Serum or plasma alkaline yannick sphatase measurementOrdered By: Corry Moura on 11-28-2024 ALP [Catalytic activity/Vol] 47 U/L 40-129 [facility] Serum or plasma cholesterol in HDL measurement (mass/volume)Ordered By: Corry Moura on 11-28-2024 Cholesterol in HDL [Mass/Vol] 24 mg/dL Low >40 [facility] Comment on above: National Cholesterol Education Program (NCEP) guidelines:<40 mg/dL: Low HDL-cholesterol (major risk factor for CHD)>= 60 mg/dL: High HDL-cholesterol (negative risk factor for CHD)HDL-cholesterol is affected by a number of factors, e.g. smoking, exercise, hormones, sex and age. Serum or plasma cholesterol measurement (mass/volume)Ordered By: Corry Moura on 11-28-2024 Cholesterol [Mass/Vol] 164 mg/dL <201 [facility] Comment on above: Cholesterol level, D esirable <200 mg/dLBorderline high cholesterol 200-239 mg/dLHigh cholesterol >=240 mg/dLRecommendations of the NCEP Adult Treatment Panel for the following risk-cutoff thresholds for the [place] population. Total proteinOrdered By: Merlin Moura on 11-28-2024 Protein [Mass/Vol] 7.0 g/dL 5.9-8.4 [facility] Triglycerides measurementOrd ered By: Corry Moura on 11-28-2024 Triglyceride [Mass/Vol] 329 mg/dL High <199 [facility] Comment on above: The drugs N-Acetylcy steine and Metamizole may falsely depress this assay. Normal range: <150 mg/dLBorderline High: 150-199 mg/dLHigh: 200-499 mg/dLVery High: >500 mg/dL Cerv Spine 2 or 3 Viewson Cerv Spine 2 or 3 Views [facility] [address] [place] [address] Cerv Spine 2 or 3 Views MR#: [id number] Acct: [id number] Name: GENI LINDSAY Rep #: [id number] : 1945 M 79 From: Sourav Reeder MD PCP: Dr. Chase Cohen MD Status: REG CLI Study: Cerv Spine 2 or 3 Views Date of Exam: 11/09/24 Exam# [id number] Ordering Dr: Asa Lopez PROCEDURE: CERV SPINE [...] tissue swelling. C5-6 spondylosis/discogen ic change with ieha-jb-aysmsvth disc space narrowing. Cjgww-hivcueg-bmtx-l eft appearing multilevel facet degenerative changes. Suggestion [...] malalignment identified. C5-6 spondylosis/discogen ic change with oomc-ma-xwktnmoq disc space narrowing. Ygfup-xdspqae-ycxv-l eft appearing multilevel facet degenerative changes. Reading Location: [id number] CC: Dr. Chase Cohen MD; DARIANA Joshua Clarifier Operator Helper: Signed Normal [facility] Internal Medicine Office Vis hina 11-09-2024 Internal Medicine Office Visit [facility] [address] [place] [address] [place] [address] OFFICE VISIT Date of Service: 11/09/24 MR#: [id number] Acct: [id number] Name: GENI LINDSAY Rep #: [id number] : 1945 Provider: DARIANA Joshua Age/Sex: 79/M Location: [facility] Status: Signed Intake Vital Signs 05/02/24 07:25 [...] Reasons: STIFF / PAIN NECK / ITCHY [employer] Supervisor Required: No Is patient in pain?: Yes [...] 25 mg tablet See Rx Instructions .Route 2 4 11/09/24 Rx (Jardiance) .COMPLEX #90 tabs pantoprazole [...] and did not have any known injury. [facility] Medical History Dermatitis Screening for thyroid disorder [...] accident) (2001) 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 pectoris BPH (benign prostatic hyperplasia) GERD (gastroesophageal reflux disease) Type 2 diabetes mellitus Enlarged prostate Neuropathy Hearing problem Gastrointestinal complaints, unspecific Back problem Surgical History History of cardiac catheterization Histo (more content not included)... Normal [facility] PSA Serial Monitoron 024 PSA, TOTAL 5.0 ng/mL Abnormal 0.0-4.0 [facility] Comment on above: Result Comment: Josse QUINTANA methodology. According to the [place] [employer], Serum PSA should decrease and [...] or absence of malignant disease. Performed at: - [address] [id number] Email Production Specialist: Jaden Blanco PhD, Phone: [phone] Performed By: #### L 698.0251, L169.1427, H717.5251, Y0711.8410 ####[facility] [address] [place], [address] CBC W/Diff, Automatedon 04-16 Absolute Lymph 1.92 X10 3/uL Normal 0.83-4.51 [facility] Comment on above: Performed By: #### L 501.9985, L100.0100, L500.4050, L3110.0525 #### [facility] Laboratory [address] [place], [address] Absolute Neut 3.7 X10 3/uL Normal 2.0-7.7 [facility] Comment on above: Performed By: #### L 501.9985, L100.0100, L500.4050, L3110.0525 #### [facility] [address] [place], [address] Basophils/100 WBC (Bld) 0.9 % Normal 0-1 [facility] Comment on above: Performed By: #### L 501.9985, L100.0100, L500.4050, L3110.0525 #### [facility] [address] [place], [address] Eosinophils/100 WBC (Bld) 3.2 % Normal 0-5 [facility] Comment on above: Performed By: #### L 501.9985, L100.0100, L500.4050, L3110.0525 #### [facility] [address] [place], [address] Erythrocyte distribution width (RBC) [Ratio] 13.1 % Normal 11.6-14.6 [facility] Comment on above: Performed By: #### L 501.9985, L100.0100, L500.4050, L3110.0525 #### [facility] [address] [place], [address] Hematocrit (Bld) [Volume fraction] 43.3 % Normal 40-54 [facility] Comment on above: Performed By: #### L 501.9985, L100.0100, L500.4050, L3110.0525 #### [facility] [address] [place], [address] Hemoglobin (Bld) [Mass/Vol] 13.8 g/dL Normal 13.0-16.5 [facility] Comment on above: Performed By: #### L 501.9985, L100.0100, L500.4050, L3110.0525 #### [facility] [address] [place], [address] IG% 0.300 Normal 0.0-0.9 [facility] Comment on above: Result Comment: IG% - Immature Granulocytes (promyelocytes, myelocytes and metamyelocytes) > 1% indicates that a LEFT SHIFT is Present. Performed By: #### L 501.9985, L100.0100, L500.4050, L3110.0525 #### [facility] [address] [place], [address] Lymphocytes/100 WBC (Bld) 28.4 % Normal 19-41 [facility] Comment on above: Performed By: #### L 501.9985, L100.0100, L500.4050, L3110.0525 #### [facility] [address] [place], [address] MCH (RBC) [Entitic mass] 29.1 pg Normal 27.0-32.0 [facility] Comment on above: Performed By: #### L 501.9985, L100.0100, L500.4050, L3110.0525 #### [facility] [address] [place], [address] MCHC (RBC) [Mass/Vol] 31.9 g/dL Low 32-36 [facility] Comment on above: Performed By: #### L 501.9985, L100.0100, L500.4050, L3110.0525 #### [facility] [address] [place], [address] MCV (RBC) [Entitic vol] 91.4 fL Normal 80-94 [facility] Comment on above: Performed By: #### L 501.9985, L100.0100, L500.4050, L3110.0525 #### [facility] [address] [place], [address] Monocytes/100 WBC (Bld) 12.0 % High 0-10 [facility] Comment on above: Performed By: #### L 501.9985, L100.0100, L500.4050, L3110.0525 #### [facility] [address] [place], [address] Neutrophils/100 WBC (Bld) 55.2 % Normal 47-70 [facility] Comment on above: Performed By: #### L 501.9985, L100.0100, L500.4050, L3110.0525 #### [facility] [address] [place], [address] Nucleated RBC (Bld) [#/Vol] 0 10*3/uL Normal 0-5 [facility] Comment on above: Performed By: #### L 501.9985, L100.0100, L500.4050, L3110.0525 #### [facility] [address] [place], [address] Platelet mean volume (Bld) [Entitic vol] 11.0 fL Normal 6.2-12.0 [facility] Comment on above: Performed By: #### L 501.9985, L100.0100, L500.4050, L3110.0525 #### [facility] [address] [place], [address] Platelets (Bld) [#/Vol] 276 10*3/uL Normal 150-450 [facility] Comment on above: Performed By: #### L 501.9985, L100.0100, L500.4050, L3110.0525 #### [facility] Laboratory [address] [place], [address] RBC (Bld) [#/Vol] 4.74 10*6/uL Normal 4.6-6.2 [facility] Comment on above: Performed By: #### L 501.9985, L100.0100, L500.4050, L3110.0525 #### [facility] [address] [place], [address] RDW SD 44.2 fl High 35.1-43.9 [facility] Comment on above: Performed By: #### L 501.9985, L100.0100, L500.4050, L3110.0525 #### [facility] [address] [place], [address] WBC (Bld) [#/Vol] 6.8 10*3/uL Normal 4.4-11.0 [facility] Comment on above: Performed By: #### L 501.9985, L100.0100, L500.4050, L3110.0525 #### [facility] [address] [place], [address] Comprehensive Metabolic Prof [facility] 05-02-2024 Albumin [Mass/Vol] 4.2 g/dL Normal 3.2-5.0 [facility] Comment on above: Performed By: #### L 501.9985, L100.0100, L500.4050, L3110.0525 ####[facility] [address] [place], [address] Albumin/Globulin [Mass ratio] 1.2 {ratio} Normal 0.9-2.4 [facility] Comment on above: Performed By: #### L 501.9985, L100.0100, L500.4050, L3110.0525 ####[facility] [address] [place], [address] ALK P 42 U/L Low 45-117 [facility] Comment on above: Performed By: #### L 501.9985, L100.0100, L500.4050, L3110.0525 ####[facility] [address] [place], [address] ALT [Catalytic activity/Vol] 26 U/L Normal 16-61 [facility] Comment on above: Performed By: #### L 501.9985, L100.0100, L500.4050, L3110.0525 ####[facility] [address] [place], [address] AST [Catalytic activity/Vol] 20 U/L Normal 15-37 [facility] Comment on above: Performed By: #### L 501.9985, L100.0100, L500.4050, L3110.0525 ####[facility] [address] [place], [address] Bilirubin [Mass/Vol] 0.70 mg/dL Normal 0.20-1.00 [facility] Comment on above: Result Comment: For patients on eltrombopag therapy, use of Dimension [place] TBIL is not recommended. Performed By: #### L 501.9985, L100.0100, L500.4050, L3110.0525 ####[facility] [address] [place], [address] BUN/CRE 15.7 RATIO Normal 10-20 [facility] Comment on above: Performed By: #### L 501.9985, L100.0100, L500.4050, L3110.0525 ####[facility] [address] [place], [address] CA,Total 10.1 mg/dL Normal 8.5-10.1 [facility] Comment on above: Performed By: #### L 501.9985, L100.0100, L500.4050, L3110.0525 ####[facility] [address] [place], [address] Chloride [Moles/Vol] 105 mmol/L Normal 98-107 [facility] Comment on above: Performed By: #### L 501.9985, L100.0100, L500.4050, L3110.0525 ####[facility] [address] [place], [address] CO2 [Moles/Vol] 25.0 mmol/L Normal 21.0-32.0 [facility] Comment on above: Performed By: #### L 501.9985, L100.0100, L500.4050, L3110.0525 ####[facility] [address] [place], [address] Creatinine [Mass/Vol] 1.59 mg/dL High 0.70-1.30 [facility] Comment on above: Result Comment: The validity of the calculated GFR GFRAA in patients over 70 years has not been determined. Clinical correlation is essential. Performed By: #### L 501.9985, L100.0100, L500.4050, L3110.0525 ####[facility] [address] [place], [address] EST GFR - AA 54 mL/min Low >60 [facility] Comment on above: Result Comment: Afri can [place] GFR Calc Performed By: #### L 501.9985, L100.0100, L500.4050, L3110.0525 ####[facility] [address] [place], [address] GAP 8 Normal 5-15 [facility] Comment on above: Performed By: #### L 501.9985, L100.0100, L500.4050, L3110.0525 ####[facility] [address] [place], [address] GFR/1.73 sq M.predicted among non-blacks MDRD (S/P/Bld) [Vol rate/Area] 45 mL/min/{1.73_m2} Low >60 [facility] Comment on above: Result Comment: Non- GFR Calc Performed By: #### L 501.9985, L100.0100, L500.4050, L3110.0525 ####[facility] [address] [place], [address] Globulin (S) [Mass/Vol] 3.4 g/dL Normal 2.2-4.2 [facility] Comment on above: Performed By: #### L 501.9985, L100.0100, L500.4050, L3110.0525 ####[facility] [address] [place], [address] Glucose [Mass/Vol] 116 mg/dL High 74-106 [facility] Comment on above: Result Comment: Fast ing Glucose result from 100 to 125 mg/dL suggests IMPAIRED HOMEOSTASIS per A.D.A. criteria. Performed By: #### L 501.9985, L100.0100, L500.4050, L3110.0525 ####[facility] [address] [place], [address] Potassium [Moles/Vol] 3.9 mmol/L Normal 3.5-5.1 [facility] Comment on above: Performed By: #### L 501.9985, L100.0100, L500.4050, L3110.0525 ####[facility] [address] [place], [address] Sodium [Moles/Vol] 138 mmol/L Normal 136-145 [facility] Comment on above: Performed By: #### L 501.9985, L100.0100, L500.4050, L3110.0525 ####[facility] [address] [place], [address] T PROT 7.6 g/dL Normal 6.4-8.2 [facility] Comment on above: Performed By: #### L 501.9985, L100.0100, L500.4050, L3110.0525 ####[facility] [address], [address] Urea nitrogen [Mass/Vol] 25 mg/dL High 7-18 [facility] Comment on above: Performed By: #### L 501.9985, L100.0100, L500.4050, L3110.0525 ####[facility] [address] [place], [address] Hemoglobin A1con 05-02-2024 HbA1c (Bld) [Mass fraction] 6.0 % High 3.8-5.6 [facility] Comment on above: Result Comment: Norm al < 5.7 % Prediabetic 5.7 - 6.4 % Diabetic >or= 6.5 % Please note range changes. Performed By: #### L 501.9985, L100.0100, L500.4050, L3110.0525 ####[facility] [address] [place], [address] Internal Medicine Office Vis iton 05-01-2024 Internal Medicine Office Visit [facility] [place] [address] [place] [address] OFFICE VISIT Date of Service: 05/02/24 MR#: [id number] Acct: [id number] Name: RUSTYGENI NORWOOD Rep #: [id number] : 1945 Provider: ZABRINA henley Age/Sex: 79/M Location: [facility] Status: Signed Intake Vital Signs 11/29/23 08:47 [...] MED FU Chief Complaint: Follow-up chronic conditions [employer] Supervisor Required: No Is patient in pain?: No [...] Note: Needs losartan, atorvastatin, and fenofibrate refilled. [facility] Medical History Dermatitis Screening for thyroid disorder [...] accident) (2001) 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 pectoris BPH (benign prostatic [...] infarction Father AA (aortic aneurysm) Social History Smoking Status: Former smoker quit [...] blood glucose (more content not included)... Normal [facility] Absolute lymphocyte countOrd ered By: Chase Cohen on 11-20-2023 Lymphocytes Auto (Unsp spec) [#/Vol] 2.34 10*3/uL 0.83-4.51 [facility] Basophil percentageOrdered B y: Chase Cohen on 07-05-2023 Basophil percentage 0 SEEN /hpf 0-5 [facility] Basophils/100 WBC (Bld) 0.9 % 0-1 [facility] Bilirubin [Mass/Vol] 0.50 mg/dL 0.20-1.00 [facility] Comment on above: For patients on eltr ombopag therapy, use of Dimension [place] TBIL is not recommended. Chloride [Moles/Vol] 105 mmol/L 98-107 [facility] Cholesterol [Mass/Vol] 140 mg/dL <200 [facility] Comment on above: <200 mg/dL Desirable 200-240 mg/dL Borderline >240 mg/dL High Risk Eosinophils/100 WBC (Bld) 2.2 % 0-5 [facility] Glucose [Mass/Vol] 189 mg/dL 74-106 [facility] Comment on above: Fasting Glucose resu lt greater than or equal to 126 mg/dL suggests DIABETES MELLITUS per A.D.A. criteria. Neutrophils (Bld) [#/Vol] 4.7 10*3/uL 2.0-7.7 [facility] Neutrophils/100 WBC (Bld) 57.7 % 47-70 [facility] Potassium [Moles/Vol] 4.9 mmol/L 3.5-5.1 [facility] Protein [Mass/Vol] 7.6 g/dL 6.4-8.2 [facility] Sodium [Moles/Vol] 138 mmol/L 136-145 [facility] Triglyceride [Mass/Vol] 198 mg/dL <199 [facility] Comment on above: The drugs N-Acetylcy steine [...] on 07-05-2023 Bilirubin Ql (U) Negative Negative [facility] Blood erythrocytes count (nu mber/volume)Ordered By: Chase Cohen on 07-05-2023 RBC (Bld) [#/Vol] 5.18 10*6/uL 4.6-6.2 [facility] Blood hemoglobin measurement (mass/volume)Ordered By: Chase Cohen on 07-05-2023 Hemoglobin (Bld) [Mass/Vol] 14.8 g/dL 13.0-16.5 [facility] Blood lymphocytes/100 leukoc ytesOrdered By: audigreenuplaverne Cohen on 07-05-2023 Lymphocytes/100 WBC (Bld) 28.9 % 19-41 [facility] Blood monocytes/100 leukocyt esOrdered By: audigreenuplaverne Cohen on 07-05-2023 Monocytes/100 WBC (Bld) 9.9 % 0-10 [facility] Blood platelet mean volumeOr dered By: Chase Cohen on 07-05-2023 Platelet mean volume (Bld) [Entitic vol] 10.9 fL 6.2-12.0 [facility] Determination of erythrocyte mean corpuscular volume (MCV)Ordered By: Chase Cohen on 07-05-2023 MCV (RBC) [Entitic vol] 90.3 fL 80-94 [facility] Hematocrit Auto (Bld) [Volum e fraction]Ordered By: Chase Cohen on 07-05-2023 Hematocrit (Bld) [Volume fraction] 46.8 % 40-54 [facility] Ketones Test strip Ql (U)Ord ered By: Chase Cohen on 07-05-2023 Ketones Ql (U) Negative Negative [facility] Laboratory - Chemistry and C hemistry - challengeOrdered By: Chase Cohen on 07-05-2023 ALP [Catalytic activity/Vol] 50 U/L 45-117 [facility] ALT [Catalytic activity/Vol] 36 U/L 16-61 [facility] CO2 [Moles/Vol] 27.0 mmol/L 21.0-32.0 [facility] Free T4 [Mass/Vol] 1.09 ng/dL 0.76-1.46 [facility] Globulin (S) [Mass/Vol] 3.4 g/dL 2.2-4.2 [facility] Urea nitrogen/Creatinine [Mass ratio] 16.3 mg/mg 10- [facility] Laboratory - Hematology and Cell countsOrdered By: Chase Cohen on 07-05-2023 Erythrocyte distribution width (RBC) [Entitic vol] 42.9 fL 35.1-43.9 [facility] Erythrocyte distribution width (RBC) [Ratio] 13.0 % 11.6-14.6 [facility] Immature granulocytes/100 WBC (Bld) 0.400 % 0.0-0.9 [facility] Comment on above: IG% - Immature Granu locytes (promyelocytes, myelocytes and metamyelocytes) > 1% indicates that a LEFT SHIFT is Present. MCH (RBC) [Entitic mass] 28.6 pg 27.0-32.0 [facility] Nucleated RBC/100 WBC (Bld) [Ratio] 0 % 0-5 [facility] MCHC Auto (RBC) [Mass/Vol]Or dered By: Chase Cohen on 07-05-2023 MCHC (RBC) [Mass/Vol] 31.6 g/dL 32-36 [facility] Mucus LM Ql (Urine sed)Order ed By: Chase Cohen on 07-05-2023 Mucus Ql (Urine sed) 0 SEEN /hpf [facility] Nitrite Test strip Ql (U)Ord ered By: Chase Cohen on 07-05-2023 Nitrite Ql (U) Negative Negative [facility] No Panel InformationOrdered By: Chase Cohen on 07-05-2023 Estimated GFR (MDRD) Amer 66 mL/min >60 [facility] Comment on above: GFR Calc Estimated GFR (MDRD) Non-Af Amer 54 mL/min >60 [facility] Comment on above: Non- GFR Calc Prostate Specific Antigen Screen 4.04 ng/mL 0.00-4.00 [facility] Comment on above: This test was perfor med using the TPSA assay method for the[employer] chemistry system. Values obtained with differentassay methods cannot be used interchangably.When changing PSA assays in the course of monitoring apatient, additional sequential testing should be carriedout to confirm baseline values. Thyroid Stimulating Hormone (TSH) 1.59 uIU/mL 0.358-3.74 [facility] Platelets bldOrdered By: Misael birmingham Ramakrishnaagustinap on 07-05-2023 Platelets (Bld) [#/Vol] 287 10*3/uL 150-450 [facility] Protein Test strip Ql (U)Ord ered By: Royeralivia Ramakrishnaagustinap on 07-05-2023 Protein Ql (U) Negative Negative [facility] Serum or plasma albumin joya urement (mass/volume)Ordered By: Chase Cohen on 07-05-2023 Albumin [Mass/Vol] 4.2 g/dL 3.2-5.0 [facility] Serum or plasma albumin/glob ulin mass ratioOrdered By: Chase Cohen on 07-05-2023 Albumin/Globulin [Mass ratio] 1.2 {ratio} 0.9-2.4 [facility] Serum or plasma calcium joya urement (mass/volume)Ordered By: Chase Durbinagustinap on 07-05-2023 Calcium [Mass/Vol] 9.4 mg/dL 8.5-10.1 [facility] Serum or plasma cholesterol in HDL measurement (mass/volume)Ordered By: Royeraudidaphnelaverne Durbinagustinap on 07-05-2023 Cholesterol in HDL [Mass/Vol] 31 mg/dL >40 [facility] Comment on above: The drugs N-Acetylcy steine and Metamizole may falsely depress this assay. Reference Range HDL <40 mg/dL Low HDL Cholesterol HDL >or= 60 mg/dL High HDL Cholesterol Serum or plasma cholesterol in VLDL measurement (mass/volume)Ordered By: Chase Cohen on 07-05-2023 Cholesterol in VLDL [Mass/Vol] 40 mg/dL 5-40 [facility] Serum or plasma creatinine m easurement (mass/volume)Ordered By: Chase Cohen on 07-05-2023 Creatinine [Mass/Vol] 1.35 mg/dL 0.70-1.30 [facility] Comment on above: The validity of the calculated GFR & GFRAA in patients over 70 years has not been determined. Clinical correlation is essential. Serum or plasma low density lipoprotein (LDL) cholesterol measurement (mass/volume)Ordered By: Chase Cohen on 07-05-2023 Cholesterol in LDL [Mass/Vol] 69 mg/dL 0-130 [facility] Serum or plasma urea nitroge n measurement (mass/volume)Ordered By: Chase Cohen on 07-05-2023 Urea nitrogen [Mass/Vol] 22 mg/dL 7-18 [facility] Squamous epithelial cells de tection in urine sediment by light microscopyOrdered By: Chase Coehn on 07-05-2023 Epithelial cells.squamous LM Ql (Urine sed) 0 SEEN /hpf 0-5 [facility] Thin prep Papanicolaou smear with manual screeningOrdered By: Chase Cohen on 07-05-2023 Thin prep Papanicolaou smear with manual screening 17 U/L 15-37 [facility] Thin prep Papanicolaou smear with manual screening 6 5-15 [facility] Urine blood detectionOrdered By: Chase Cohen on 07-05-2023 RBC Ql (U) 10 /ul Negative [facility] RBC Ql (U) 0 SEEN /hpf 0-5 [facility] Urine clarityOrdered By: Misael Cohen on 07-05-2023 Clarity (U) Clear Clear [facility] Urine color determinationOrd ered By: Chase Cohen on 07-05-2023 Color (U) Yellow Yellow [facility] Urine glucose detectionOrder ed By: Chase Cohen on 07-05-2023 Glucose Ql (U) 1000 mg/dl Normal [facility] Urine leukocyte esterase det ection by dipstickOrdered By: Chase Cohen on 07-05-2023 Leukocyte esterase Test strip Ql (U) Negative Negative [facility] Urine pHOrdered By: Janis Cohen on 07-05-2023 pH (U) 6.5 [pH] 5.0 - 8.0 [facility] Urine sediment bacteria coun t by microscopy (number/high power field)Ordered By: Chase Cohen on 07-05-2023 Bacteria LM.HPF (Urine sed) [#/Area] 0 /[HPF] None Seen [facility] Urine specific gravity measu rementOrdered By: Chase Cohen on 07-05-2023 Specific gravity (U) [Rel density] 1.010 1.002-1.030 [facility] Urobilinogen Auto test strip Ql (U)Ordered By: Chase Cohen on 07-05-2023 Urobilinogen Ql (U) Normal mg/dl Normal [facility] Absolute lymphocyte countOrd ered By: Onesimo Morris on 04-09-2023 Lymphocytes Auto (Unsp spec) [#/Vol] 1.98 10*3/uL 0.83-4.51 [facility] Basophil percentageOrdered B y: Onesimo Morris on 04-09-2023 Basophil percentage 0 SEEN /hpf 0-5 [facility] Basophils/100 WBC (Bld) 0.7 % 0-1 [facility] Chloride [Moles/Vol] 108 mmol/L 98-107 [facility] Eosinophils/100 WBC (Bld) 1.9 % 0-5 [facility] Glucose [Mass/Vol] 125 mg/dL 74-106 [facility] Comment on above: Fasting Glucose resu lt from 100 to 125 mg/dL suggests IMPAIRED HOMEOSTASIS per A.D.A. criteria. Neutrophils (Bld) [#/Vol] 4.4 10*3/uL 2.0-7.7 [facility] Neutrophils/100 WBC (Bld) 58.9 % 47-70 [facility] Potassium [Moles/Vol] 4.2 mmol/L 3.5-5.1 [facility] Sodium [Moles/Vol] 137 mmol/L 136-145 [facility] WBC (Bld) [#/Vol] 7.5 10*3/uL 4.4-11.0 [facility] Bilirubin Test strip Ql (U)O rdered By: Onesimo Morris on 04-09-2023 Bilirubin Ql (U) Negative Negative [facility] Blood erythrocytes count (nu mber/volume)Ordered By: Onesimo Morris on 04-09-2023 RBC (Bld) [#/Vol] 4.76 10*6/uL 4.6-6.2 [facility] Blood hemoglobin measurement (mass/volume)Ordered By: Onesimo Morris on 04-09-2023 Hemoglobin (Bld) [Mass/Vol] 13.7 g/dL 13.0-16.5 [facility] Blood lymphocytes/100 leukoc ytesOrdered By: Onesimo Morris on 04-09-2023 Lymphocytes/100 WBC (Bld) 26.3 % 19-41 [facility] Blood monocytes/100 leukocyt esOrdered By: Onesimo Morris on 04-09-2023 Monocytes/100 WBC (Bld) 12.1 % 0-10 [facility] Blood platelet mean volumeOr dered By: Onesimo Morris on 04-09-2023 Platelet mean volume (Bld) [Entitic vol] 10.3 fL 6.2-12.0 [facility] Determination of erythrocyte mean corpuscular volume (MCV)Ordered By: Onesimo Morris on 04-09-2023 MCV (RBC) [Entitic vol] 88.7 fL 80-94 [facility] Hematocrit Auto (Bld) [Volum e fraction]Ordered By: Onesimo Morris on 04-09-2023 Hematocrit (Bld) [Volume fraction] 42.2 % 40-54 [facility] INR in Blood by Coagulation assayOrdered By: Onesimo Morris on 04-09-2023 INR Coag (Bld) [Relative time] 1.0 {INR} [facility] Ketones Test strip Ql (U)Ord ered By: Onesimo Morris on 04-09-2023 Ketones Ql (U) Negative Negative [facility] Laboratory - Chemistry and C hemistry - challengeOrdered By: Onesimo Morris on 04-09-2023 CO2 [Moles/Vol] 26.0 mmol/L 21.0-32.0 [facility] Urea nitrogen/Creatinine [Mass ratio] 17.1 mg/mg 10-20 [facility] Laboratory - CoagulationOrde red By: Onesimo Morris on 04-09-2023 PT Coag (PPP) [Time] 13.7 s 11.7-14.9 [facility] Laboratory - Hematology and Cell countsOrdered By: Onesimo Morris on 04-09-2023 Erythrocyte distribution width (RBC) [Entitic vol] 41.7 fL 35.1-43.9 [facility] Erythrocyte distribution width (RBC) [Ratio] 12.8 % 11.6-14.6 [facility] Immature granulocytes/100 WBC (Bld) 0.100 % 0.0-0.9 [facility] Comment on above: IG% - Immature Granu locytes (promyelocytes, myelocytes and metamyelocytes) > 1% indicates that a LEFT SHIFT is Present. MCH (RBC) [Entitic mass] 28.8 pg 27.0-32.0 [facility] Nucleated RBC/100 WBC (Bld) [Ratio] 0 % 0-5 [facility] MCHC Auto (RBC) [Mass/Vol]Or dered By: Onesimo Morris on 04-09-2023 MCHC (RBC) [Mass/Vol] 32.5 g/dL 32-36 [facility] Mucus LM Ql (Urine sed)Order ed By: Onesimo Morris on 04-09-2023 Mucus Ql (Urine sed) 0 SEEN /hpf [facility] Nitrite Test strip Ql (U)Ord ered By: Onesimo Morris on 04-09-2023 Nitrite Ql (U) Negative Negative [facility] No Panel InformationOrdered By: Onesimo Morris on 04-09-2023 Estimated Creatinine Clearance Calc 64.89 ml/min [facility] Estimated GFR (MDRD) Amer 94 mL/min >60 [facility] Comment on above: GFR Calc Estimated GFR (MDRD) Non-Af Amer 77 mL/min >60 [facility] Comment on above: Non- GFR Calc Platelets bldOrdered By: Kayley Morris on 04-09-2023 Platelets (Bld) [#/Vol] 247 10*3/uL 150-450 [facility] Protein Test strip Ql (U)Ord ered By: Onesimo Morris on 04-09-2023 Protein Ql (U) 100 mg/dl Negative [facility] Serum or plasma calcium joya urement (mass/volume)Ordered By: Onesimo Morris on 04-09-2023 Calcium [Mass/Vol] 9.1 mg/dL 8.5-10.1 [facility] Serum or plasma creatinine m easurement (mass/volume)Ordered By: Onesimo Morris on 04-09-2023 Creatinine [Mass/Vol] 1.00 mg/dL 0.70-1.30 [facility] Comment on above: The validity of the calculated GFR & GFRAA in patients over 70 years has not been determined. Clinical correlation is essential. Serum or plasma urea nitroge n measurement (mass/volume)Ordered By: Onesimo Morris on 04-09-2023 Urea nitrogen [Mass/Vol] 17 mg/dL 7-18 [facility] Squamous epithelial cells de tection in urine sediment by light microscopyOrdered By: Onesimo Morris on 04-09-2023 Epithelial cells.squamous LM Ql (Urine sed) 0 SEEN /hpf 0-5 [facility] Thin prep Papanicolaou smear with manual screeningOrdered By: Onesimo Morris on 04-09-2023 Thin prep Papanicolaou smear with manual screening 3 5-15 [facility] Urine blood detectionOrdered By: Onesimo Morris on 04-09-2023 RBC Ql (U) 250 /ul Negative [facility] RBC Ql (U) > 100 SEEN /hpf 0-5 [facility] Urine clarityOrdered By: Kayley Morris on 04-09-2023 Clarity (U) Sl. Cloudy Clear [facility] Urine color determinationOrd ered By: Onesimo Morris on 04-09-2023 Color (U) Red Yellow [facility] Urine glucose detectionOrder ed By: Onesimo Morris on 04-09-2023 Glucose Ql (U) 1000 mg/dl Normal [facility] Urine leukocyte esterase det ection by dipstickOrdered By: Onesimo Morris on 04-09-2023 Leukocyte esterase Test strip Ql (U) 25 /ul Negative [facility] Urine pHOrdered By: Onesimo ellison on 04-09-2023 pH (U) 8.0 [pH] 5.0 - 8.0 [facility] Urine sediment bacteria coun t by microscopy (number/high power field)Ordered By: Onesimo Morris on 04-09-2023 Bacteria LM.HPF (Urine sed) [#/Area] 0 /[HPF] None Seen [facility] Urine specific gravity measu rementOrdered By: Onesimo Morris on 04-09-2023 Specific gravity (U) [Rel density] 1.010 1.002-1.030 [facility] Urobilinogen Auto test strip Ql (U)Ordered By: Onesimo Morris on 04-09-2023 Urobilinogen Ql (U) Normal mg/dl Normal [facility] Absolute lymphocyte counton 03-04-2022 Lymphocytes Auto (Unsp spec) [#/Vol] 2.28 10*3/uL 0.83-4.51 [facility] Work Phone: Basophil percentageon 2021 Basophils/100 WBC (Bld) 0.8 % 0-1 [facility] Work Phone: Bilirubin [Mass/Vol] 0.50 mg/dL 0.20-1.00 [facility] Work Phone: Comment on above: For patients on eltr ombopag therapy, use of Dimension [place] TBIL is not recommended. Chloride [Moles/Vol] 104 mmol/L 98-107 [facility] Work Phone: Cholesterol [Mass/Vol] 147 mg/dL <200 [facility] Work Phone: Comment on above: <200 mg/dL Desirable 200-240 mg/dL Borderline >240 mg/dL High Risk Eosinophils/100 WBC (Bld) 2.0 % 0-5 [facility] Work Phone: Glucose [Mass/Vol] 276 mg/dL 74-106 [facility] Work Phone: Comment on above: Glucose result great er than or equal to 200 mg/dLsuggests DIABETES MELLITUS per A.D.A. criteria. Neutrophils (Bld) [#/Vol] 4.2 10*3/uL 2.0-7.7 [facility] Work Phone: Neutrophils/100 WBC (Bld) 55.8 % 47-70 [facility] Work Phone: Potassium [Moles/Vol] 3.9 mmol/L 3.5-5.1 [facility] Work Phone: Protein [Mass/Vol] 7.2 g/dL 6.4-8.2 [facility] Work Phone: Sodium [Moles/Vol] 137 mmol/L 136-145 [facility] Work Phone: Triglyceride [Mass/Vol] 272 mg/dL <199 [facility] Work Phone: Comment on above: The drugs [...] 03-04-2022 RBC (Bld) [#/Vol] 4.34 10*6/uL 4.6-6.2 [facility] Work Phone: Blood hemoglobin measurement (mass/volume)on 03-04-2022 Hemoglobin (Bld) [Mass/Vol] 12.3 g/dL 13.0-16.5 [facility] Work Phone: Blood lymphocytes/100 leukoc yteson 03-04-2022 Lymphocytes/100 WBC (Bld) 30.6 % 19-41 [facility] Work Phone: Blood monocytes/100 leukocyt eson 03-04-2022 Monocytes/100 WBC (Bld) 10.1 % 0-10 [facility] Work Phone: Blood platelet mean volumeon 03-04-2022 Platelet mean volume (Bld) [Entitic vol] 10.7 fL 6.2-12.0 [facility] Work Phone: Determination of erythrocyte mean corpuscular volume (MCV)on 03-04-2022 MCV (RBC) [Entitic vol] 87.8 fL 80-94 [facility] Work Phone: Hematocrit Auto (Bld) [Volum e fraction]on 03-04-2022 Hematocrit (Bld) [Volume fraction] 38.1 % 40-54 [facility] Work Phone: Laboratory - Chemistry and C hemistry - challengeon 03-04-2022 ALP [Catalytic activity/Vol] 47 U/L 45-117 [facility] Work Phone: ALT [Catalytic activity/Vol] 26 U/L 16-61 [facility] Work Phone: CO2 [Moles/Vol] 26.0 mmol/L 21.0-32.0 [facility] Work Phone: Globulin (S) [Mass/Vol] 3.3 g/dL 2.2-4.2 [facility] Work Phone: Urea nitrogen/Creatinine [Mass ratio] 12.6 mg/mg 10-20 [facility] Work Phone: Laboratory - Hematology and Cell countson 03-04-2022 Erythrocyte distribution width (RBC) [Entitic vol] 39.9 fL 35.1-43.9 [facility] Work Phone: Erythrocyte distribution width (RBC) [Ratio] 12.5 % 11.6-14.6 [facility] Work Phone: Immature granulocytes/100 WBC (Bld) 0.700 % 0.0-0.9 [facility] Work Phone: Comment on above: IG% - Immature Granu locytes (promyelocytes, myelocytes and metamyelocytes) > 1% indicates that a LEFT SHIFT is Present. MCH (RBC) [Entitic mass] 28.3 pg 27.0-32.0 [facility] Work Phone: Nucleated RBC/100 WBC (Bld) [Ratio] 0 % 0-5 [facility] Work Phone: MCHC Auto (RBC) [Mass/Vol]on 03-04-2022 MCHC (RBC) [Mass/Vol] 32.3 g/dL 32-36 [facility] Work Phone: No Panel Informationon 03-04 Estimated GFR (MDRD) Amer 71 mL/min >60 [facility] Work Phone: Comment on above: GFR Calc Estimated GFR (MDRD) Non-Af Amer 59 mL/min >60 [facility] Work Phone: Comment on above: Non- GFR Calc Thyroid Stimulating Hormone (TSH) 1.59 uIU/mL 0.358-3.74 [facility] Work Phone: Platelets bldon 03-04-2022 Platelets (Bld) [#/Vol] 323 10*3/uL 150-450 [facility] Work Phone: Serum or plasma albumin joya urement (mass/volume)on 03-04-2022 Albumin [Mass/Vol] 3.9 g/dL 3.2-5.0 [facility] Work Phone: Serum or plasma albumin/glob ulin mass ratioon 03-04-2022 Albumin/Globulin [Mass ratio] 1.2 {ratio} 0.9-2.4 [facility] Work Phone: Serum or plasma calcium joya urement (mass/volume)on 03-04-2022 Calcium [Mass/Vol] 8.7 mg/dL 8.5-10.1 [facility] Work Phone: Serum or plasma cholesterol in HDL measurement (mass/volume)on 03-04-2022 Cholesterol in HDL [Mass/Vol] 26 mg/dL >40 [facility] Work Phone: Comment on above: The drugs N-Acetylcy steine and Metamizole may falsely depress this assay. Reference Range HDL <40 mg/dL Low HDL Cholesterol HDL >or= 60 mg/dL High HDL Cholesterol Serum or plasma cholesterol in VLDL measurement (mass/volume)on 03-04-2022 Cholesterol in VLDL [Mass/Vol] 54 mg/dL 5-40 [facility] Work Phone: Serum or plasma creatinine m easurement (mass/volume)on 03-04-2022 Creatinine [Mass/Vol] 1.27 mg/dL 0.70-1.30 [facility] Work Phone: Comment on above: The validity of the calculated GFR & GFRAA in patients over 70 years has not been determined. Clinical correlation is essential. Serum or plasma low density lipoprotein (LDL) cholesterol measurement (mass/volume)on 03-04-2022 Cholesterol in LDL [Mass/Vol] 67 mg/dL 0-130 [facility] Work Phone: Serum or plasma urea nitroge n measurement (mass/volume)on 03-04-2022 Urea nitrogen [Mass/Vol] 16 mg/dL 7-18 [facility] Work Phone: Thin prep Papanicolaou smear with manual screeningon 03-04-2022 Thin prep Papanicolaou smear with manual screening 20 U/L 15-37 [facility] Work Phone: Thin prep Papanicolaou smear with manual screening 7 5-15 [facility] Work Phone: Whole blood hemoglobin A1c/t otal hemoglobin ratio (mass fraction)on 03-04-2022 HbA1c (Bld) [Mass fraction] 9.0 % 3.8-5.6 [facility] Work Phone: Comment on above: Normal < [...] Auto (Unsp spec) [#/Vol] 2.23 10*3/uL 0.83-4.51 [facility] Work Phone: Basophil percentageon 2021 Basophil percentage 0 SEEN /hpf 0-5 [facility] Work Phone: Basophils/100 WBC (Bld) 0.7 % 0-1 [facility] Work Phone: Chloride [Moles/Vol] 102 mmol/L 98-107 [facility] Work Phone: Eosinophils/100 WBC (Bld) 2.9 % 0-5 [facility] Work Phone: Glucose [Mass/Vol] 309 mg/dL 74-106 [facility] Work Phone: Comment on above: Glucose result great er than or equal to 200 mg/dLsuggests DIABETES MELLITUS per A.D.A. criteria. Neutrophils (Bld) [#/Vol] 4.9 10*3/uL 2.0-7.7 [facility] Work Phone: Neutrophils/100 WBC (Bld) 59.8 % 47-70 [facility] Work Phone: Potassium [Moles/Vol] 3.8 mmol/L 3.5-5.1 [facility] Work Phone: Sodium [Moles/Vol] 137 mmol/L 136-145 [facility] Work Phone: WBC (Bld) [#/Vol] 8.2 10*3/uL 4.4-11.0 [facility] Work Phone: Bilirubin Test strip Ql (U)o n 11-25-2021 Bilirubin Ql (U) 1 mg/dL Negative [facility] Work Phone: Comment on above: COLOR OF URINE MAY A FFECT DIPSTICK RESULTS. Blood erythrocytes count (nu mber/volume)on 11-25-2021 RBC (Bld) [#/Vol] 4.38 10*6/uL 4.6-6.2 [facility] Work Phone: Blood hemoglobin measurement (mass/volume)on 11-25-2021 Hemoglobin (Bld) [Mass/Vol] 12.8 g/dL 13.0-16.5 [facility] Work Phone: Blood lymphocytes/100 leukoc yteson 11-25-2021 Lymphocytes/100 WBC (Bld) 27.1 % 19-41 [facility] Work Phone: Blood monocytes/100 leukocyt eson 11-25-2021 Monocytes/100 WBC (Bld) 9.3 % 0-10 [facility] Work Phone: Blood platelet mean volumeon 11-25-2021 Platelet mean volume (Bld) [Entitic vol] 10.6 fL 6.2-12.0 [facility] Work Phone: Determination of erythrocyte mean corpuscular volume (MCV)on 11-25-2021 MCV (RBC) [Entitic vol] 87.0 fL 80-94 [facility] Work Phone: Hematocrit Auto (Bld) [Volum e fraction]on 11-25-2021 Hematocrit (Bld) [Volume fraction] 38.1 % 40-54 [facility] Work Phone: INR in Blood by Coagulation assayon 11-25-2021 INR Coag (Bld) [Relative time] 1.1 {INR} [facility] Work Phone: Ketones Test strip Ql (U)on 11-25-2021 Ketones Ql (U) 15 mg/dl Negative [facility] Work Phone: Laboratory - Chemistry and C hemistry - challengeon 11-25-2021 CO2 [Moles/Vol] 27.0 mmol/L 21.0-32.0 [facility] Work Phone: Urea nitrogen/Creatinine [Mass ratio] 16.9 mg/mg 10-20 [facility] Work Phone: Laboratory - Coagulationon 0 11-25-2021 aPTT Coag (Bld) [Time] 23.4 s 24.1-36.2 [facility] [facility] Work Phone: PT Coag (PPP) [Time] 13.9 s 11.7-14.9 [facility] Work Phone: Laboratory - Hematology and Cell countson 11-25-2021 Erythrocyte distribution width (RBC) [Entitic vol] 38.5 fL 35.1-43.9 [facility] Work Phone: Erythrocyte distribution width (RBC) [Ratio] 12.0 % 11.6-14.6 [facility] Work Phone: Immature granulocytes/100 WBC (Bld) 0.200 % 0.0-0.9 [facility] Work Phone: Comment on above: IG% - Immature Granu locytes (promyelocytes, myelocytes and metamyelocytes) > 1% indicates that a LEFT SHIFT is Present. MCH (RBC) [Entitic mass] 29.2 pg 27.0-32.0 [facility] Work Phone: Nucleated RBC/100 WBC (Bld) [Ratio] 0 % 0-5 [facility] Work Phone: MCHC Auto (RBC) [Mass/Vol]on 11-25-2021 MCHC (RBC) [Mass/Vol] 33.6 g/dL 32-36 [facility] Work Phone: Mucus LM Ql (Urine sed)on Mucus Ql (Urine sed) 0 SEEN /hpf [facility] Work Phone: Nitrite Test strip Ql (U)on 11-25-2021 Nitrite Ql (U) Negative Negative [facility] Work Phone: No Panel Informationon 11-25 Estimated Creatinine Clearance Calc 53.15 ml/min [facility] Work Phone: Estimated GFR (MDRD) Amer 73 mL/min >60 [facility] Work Phone: Comment on above: GFR Calc Estimated GFR (MDRD) Non-Af Amer 60 mL/min >60 [facility] Work Phone: Comment on above: Non- GFR Calc Platelets bldon 11-25-2021 Platelets (Bld) [#/Vol] 297 10*3/uL 150-450 [facility] Work Phone: Protein Test strip Ql (U)on 11-25-2021 Protein Ql (U) 500 mg/dl Negative [facility] Work Phone: Serum or plasma calcium joya urement (mass/volume)on 11-25-2021 Calcium [Mass/Vol] 9.1 mg/dL 8.5-10.1 [facility] Work Phone: Serum or plasma creatinine m easurement (mass/volume)on 11-25-2021 Creatinine [Mass/Vol] 1.24 mg/dL 0.70-1.30 [facility] Work Phone: Comment on above: The validity of the calculated GFR & GFRAA in patients over 70 years has not been determined. Clinical correlation is essential. Serum or plasma urea nitroge n measurement (mass/volume)on 11-25-2021 Urea nitrogen [Mass/Vol] 21 mg/dL 7-18 [facility] Work Phone: Squamous epithelial cells de tection in urine sediment by light microscopyon 11-25-2021 Epithelial cells.squamous LM Ql (Urine sed) 0 SEEN /hpf 0-5 [facility] Work Phone: Thin prep Papanicolaou smear with manual screeningon 11-25-2021 Thin prep Papanicolaou smear with manual screening 8 5-15 [facility] Work Phone: Urine blood detectionon 11-14 RBC Ql (U) 150 /ul Negative [facility] Work Phone: RBC Ql (U) > 100 SEEN /hpf 0-5 [facility] Work Phone: Urine clarityon 11-25-2021 Clarity (U) Turbid Clear [facility] Work Phone: Urine color determinationon 11-25-2021 Color (U) Red Yellow [facility] Work Phone: Urine glucose detectionon Glucose Ql (U) 250 mg/dl Normal [facility] Work Phone: Urine leukocyte esterase det ection by dipstickon 11-25-2021 Leukocyte esterase Test strip Ql (U) Negative Negative [facility] Work Phone: Urine pHon 11-25-2021 pH (U) 7.0 [pH] 5.0 - 8.0 [facility] Work Phone: Urine sediment bacteria coun t by microscopy (number/high power field)on 11-25-2021 Bacteria LM.HPF (Urine sed) [#/Area] 0 /[HPF] None Seen [facility] Work Phone: Urine specific gravity measu rementon 11-25-2021 Specific gravity (U) [Rel density] 1.015 1.002-1.030 [facility] Work Phone: Urobilinogen Auto test strip Ql (U)on 11-25-2021 Urobilinogen Ql (U) Normal mg/dl Normal [facility] Work Phone: Vital Signs Date Time Vital Sign Value Performing Clinician Kendall acuna 03-05-2025 10:11-0400 Body height 177.[address] Chase Cohen MD Work Phone: [facility] 03-05-2025 10:11-0400 Body mass index (BMI) [Ratio] 23.9 kg/m2 Dr. Chase Cohen MD Work Phone: [facility] 03-05-2025 10:11-0400 Body temperature 97.8 [degF] Dr. Chase Cohen MD Work Phone: [facility] 03-05-2025 10:11-0400 Body weight 75.[address] Chase Cohen MD Work Phone: [facility] 03-05-2025 10:11-0400 Diastolic blood pressure 60 mm[Hg] Dr. Chase Cohen MD Work Phone: [facility] 03-05-2025 10:11-0400 Heart rate 63 /min Dr. Chase Cohen MD Work Phone: [facility] 03-05-2025 10:11-0400 Respiratory rate 18 /min Dr. Chase Cohen MD Work Phone: [facility] 03-05-2025 10:11-0400 SaO2% (BldA) [Mass fraction] 97 % Dr. Chase Cohen MD Work Phone: [facility] 03-05-2025 10:11-0400 Systolic blood pressure 122 mm[Hg] Dr. Chase Cohen MD Work Phone: [facility] 11-28-2024 08:17-0400 Body height 177.[address] Chase Cohen MD Work Phone: [facility] 11-28-2024 08:17-0400 Body mass index (BMI) [Ratio] 25.2 kg/m2 Dr. Chase Cohen MD Work Phone: [facility] 11-28-2024 08:17-0400 Body weight 79.[address] Chase Cohen MD Work Phone: [facility] 11-28-2024 08:17-0400 Diastolic blood pressure 67 mm[Hg] Dr. Chase Cohen MD Work Phone: [facility] 11-28-2024 08:17-0400 Heart rate 69 /min Dr. Chase Cohen MD Work Phone: [facility] 11-28-2024 08:17-0400 Respiratory rate 18 /min Dr. Chase Cohen MD Work Phone: [facility] 11-28-2024 08:17-0400 Systolic blood pressure 114 mm[Hg] Dr. Chase Cohen MD Work Phone: [facility] 11-09-2024 10:21-0400 Body height 177.[address] Chase Cohen MD Work Phone: [facility] 11-09-2024 10:21-0400 Body mass index (BMI) [Ratio] 25.1 kg/m2 Dr. Chase Cohen MD Work Phone: [facility] 11-09-2024 10:21-0400 Body temperature 98.1 [degF] Dr. Chase Cohen MD Work Phone: [facility] 11-09-2024 10:21-0400 Body weight 79.[address] Chase Cohen MD Work Phone: [facility] 11-09-2024 10:21-0400 Diastolic blood pressure 70 mm[Hg] Dr. Chase Cohen MD Work Phone: [facility] 11-09-2024 10:21-0400 Heart rate 67 /min Dr. Chase Cohen MD Work Phone: [facility] 11-09-2024 10:21-0400 Respiratory rate 14 /min Dr. Chase Cohen MD Work Phone: [facility] 11-09-2024 10:21-0400 SaO2% (BldA) [Mass fraction] 99 % Dr. Chase Cohen MD Work Phone: [facility] 11-09-2024 10:21-0400 Systolic blood pressure 130 mm[Hg] Dr. Chase Cohen MD Work Phone: [facility] 07-05-2023 08:09-0500 Body height 177.[address] Chase Cohen Work Phone: [facility] 07-05-2023 08:09-0500 Body mass index (BMI) [Ratio] 24 kg/m2 Dr. Chase Cohen Work Phone: [facility] 07-05-2023 08:09-0500 Body temperature 98 [degF] Dr. Chase Cohen Work Phone: [facility] 07-05-2023 08:09-0500 Body weight 76.[address] Chase Cohen Work Phone: [facility] 07-05-2023 08:09-0500 Diastolic blood pressure 82 mm[Hg] Dr. Chase Cohen Work Phone: [facility] 07-05-2023 08:09-0500 Heart rate 64 /min Dr. Chase Cohen Work Phone: [facility] 07-05-2023 08:09-0500 Respiratory rate 16 /min Dr. Chase Cohen Work Phone: [facility] 07-05-2023 08:09-0500 SaO2% (BldA) [Mass fraction] 98 % Dr. Chase Cohen Work Phone: [facility] 07-05-2023 08:09-0500 Systolic blood pressure 138 mm[Hg] Dr. Chase Cohen Work Phone: [facility] 04-09-2023 12:28-0400 Body temperature 99 [degF] [facility] 04-09-2023 12:28-0400 Diastolic blood pressure 62 mm[Hg] [facility] 04-09-2023 12:28-0400 Heart rate 60 /min [facility] 04-09-2023 12:28-0400 Respiratory rate 18 /min [facility] 04-09-2023 12:28-0400 SaO2% (BldA) [Mass fraction] 97 % [facility] 04-09-2023 12:28-0400 Systolic blood pressure 139 mm[Hg] [facility] 04-09-2023 10:06-0400 Body height 177.8 cm [facility] 04-09-2023 10:06-0400 Body mass index (BMI) [Ratio] 24.1 kg/m2 [facility] 04-09-2023 10:06-0400 Body weight 76.3 kg [facility] 03-04-2022 08:33-0400 Body height 177.[address] Chase Cohen Work Phone: [facility] Work Phone: 03-04-2022 08:33-0400 Body mass index (BMI) [Ratio] 25 kg/m2 Dr. Chase Cohen Work Phone: [facility] Work Phone: 03-04-2022 08:33-0400 Body weight 78.[address] Chase Cohen Work Phone: [facility] Work Phone: 03-04-2022 08:33-0400 Diastolic blood pressure 70 mm[Hg] Dr. Chase Cohen Work Phone: [facility] Work Phone: 03-04-2022 08:33-0400 Heart rate 60 /min Dr. Chase Cohen Work Phone: [facility] Work Phone: 03-04-2022 08:33-0400 Systolic blood pressure 148 mm[Hg] Dr. Chase Cohen Work Phone: [facility] Work Phone: 11-25-2021 08:20-0400 Diastolic blood pressure 69 mm[Hg] Dr. Chase Cohen Work Phone: [facility] Work Phone: 11-25-2021 08:20-0400 Heart rate 74 /min Dr. Chase Cohen Work Phone: [facility] Work Phone: 11-25-2021 08:20-0400 Respiratory rate 16 /min Dr. Chase Cohen Work Phone: [facility] Work Phone: 11-25-2021 08:20-0400 SaO2% (BldA) [Mass fraction] 98 % Dr. Chase Cohen Work Phone: [facility] Work Phone: 11-25-2021 08:20-0400 Systolic blood pressure 142 mm[Hg] Dr. Chase Cohen Work Phone: [facility] Work Phone: 11-25-2021 05:58-0400 Body height 177.[address] Chase Cohen Work Phone: [facility] Work Phone: 11-25-2021 05:58-0400 Body mass index (BMI) [Ratio] 25.8 kg/m2 Dr. Chase Cohen Work Phone: [facility] Work Phone: 11-25-2021 05:58-0400 Body temperature 97.3 [degF] Dr. Chase Cohen Work Phone: [facility] Work Phone: 11-25-2021 05:58-0400 Body weight 81.[address] Chase Cohen Work Phone: [facility] Work Phone: 09-02-2021 06:07-0500 Body weight 82.[address] Chase Cohen Work Phone: [facility] Work Phone: 09-02-2021 06:07-0500 Diastolic blood pressure 71 mm[Hg] Dr. Chase Cohen Work Phone: [facility] Work Phone: 09-02-2021 06:07-0500 Heart rate 80 /min Dr. Chase Cohen Work Phone: [facility] Work Phone: 09-02-2021 06:07-0500 Respiratory rate 16 /min Dr. Chase Cohen Work Phone: [facility] Work Phone: 09-02-2021 06:07-0500 SaO2% (BldA) [Mass fraction] 96 % Dr. Chase Cohen Work Phone: [facility] Work Phone: 09-02-2021 06:07-0500 Systolic blood pressure 126 mm[Hg] Dr. Chase Cohen Work Phone: [facility] Work Phone: 08-29-2020 07:25-0500 Body mass index (BMI) [Ratio] 24.4 kg/m2 Dr. Chase Cohen Work Phone: [facility] Work Phone: Encounters Encounter Date Encounter Type Care Provider Facility Start: 04-04-2025 End: 04-04-[address] Eligio Navarro MD -Laboratory Work Phone: Start: 04-04-2025 End: 04-04-[address] [facility] Facility:[facility] Start: 03-05-2025 End: 03-05-[address] Chase Cohen MD Work Phone: -Laboratory [facility] Start: 03-05-2025 End: 03-05-[address] Chase Cohen MD -Laboratory [facility] Start: 03-05-2025 End: 03-05-[address] Chase Cohen MD -[facility] Work Phone: Start: 03-05-2025 End: 03-05-[address] Chase Cohen MD Work Phone: -[facility] Start: 03-05-2025 End: 03-05-2025 ambulatory Chase Cohen Facility:[facility] Start: 02-23-2025 End: 02-23-[address] Chase Cohen MD Work Phone: -Laboratory Start: 02-23-2025 End: 02-23-2025 Patient encounter procedure Corry WE[facility]BR[facility] -Laboratory Work Phone: Start: 02-23-2025 End: 02-23-2025 ambulatory Corry WE[facility]BROOK Facility:[facility] Start: 11-28-2024 End: 11-28-[address] Chase Cohen MD Work Phone: [facility] Work Phone: Start: 11-28-2024 End: 11-28-2024 Patient encounter procedure Corry [facility]BR[facility] -Laboratory Work Phone: Start: 11-28-2024 End: 11-28-2024 Patient encounter procedure Corry [facility] -[facility] Work Phone: Start: 11-28-2024 End: 11-28-2024 ambulatory Corry WE[facility]BROOK Facility:[facility] Start: 11-28-2024 End: 11-28-2024 ambulatory Corry WE[facility]BROOK Facility:[facility] Start: 11-09-2024 End: 11-09-[address] Chase Cohen MD Work Phone: [facility] Work Phone: Start: 11-09-2024 End: 11-09-[address] Chase Cohen MD -Radiology, [facility] Work Phone: Start: 11-09-2024 End: 11-09-2024 Patient encounter procedure Asa WE[facility] -[facility] Work Phone: Start: 11-09-2024 End: 11-09-2024 ambulatory Chase Cohen Facility:[facility] Start: 11-09-2024 End: 11-09-2024 [facility] Start: 05-02-2024 End: 05-02-[address] [facility] Facility:[facility] Start: 05-02-2024 End: 05-02-[address] [facility] Facility:[facility] Start: 07-05-2023 End: 07-05-[address] Chase Cohen Work Phone: [facility] Work Phone: Start: 07-05-2023 End: 07-05-2023 Encounter for general adult medical examination without abnormal findings Dr. Chase Cohen Work Phone: [facility] Start: 07-05-2023 End: 07-05-[address] Chase Cohen Work Phone: [facility] Work Phone: Start: 04-09-2023 End: 04-09-2023 Emergency department patient visit [facility]-Emergency Department Work Phone: Start: 04-30-2022 Non-patient / Non-visit Dr. Royer Cohen Work Phone: [facility] Start: 04-30-2022 End: 04-30-[address] Chase Cohen Work Phone: [facility] Work Phone: Start: 04-30-2022 End: 04-30-[address] Chase Cohen Work Phone: [facility] Services Start: 03-04-2022 End: 03-04-[address] Chase Cohen Work Phone: [facility]-Laboratory Start: 03-04-2022 End: 03-04-[address] Chase Cohen Work Phone: [facility] Start: 12-04-2021 End: 12-04-[address] Chase Cohen Work Phone: [facility]-Laboratory, Specimen Start: 11-25-2021 End: 11-25-2021 Emergency department patient visit Dr. Chase Cohen Work Phone: [facility]-Emergency Department Start: 09-02-[address] Ap Cohen Work Phone: [facility] Start: 09-02-[address] Suzy Cohen MD Work Phone: [facility] Start: 09-02-2021 End: 09-02-2021 Admission to same day surgery center Dr. Chase Cohen Work Phone: [facility] Start: 09-02-2021 End: 09-02-[address] Chase Cohen Work Phone: [facility] Start: 01-31-[address] Ap Cohen Work Phone: [facility] Procedures Date Procedure Procedure Detail Performing Clinician Start: 04-04-2025 Free prostate specif ic antigen level Dr. Chase Cohen MD Work Phone: Comment on above: [employer]. Start: 04-04-2025 Prostate specific an tigen measurement Dr. Chase Cohen MD Work Phone: Comment on above: [employer].According to the [place] [employer], Serum PSAshould decrease and remain at undetectable levels afterradical prostatectomy. The AUA defines biochemicalrecurrence as an initial PSA value 0.200 ng/mL or greaterfollowed by a subsequent confirmatory PSA value 0.200 ng/mLor greater. Values obtained with different assay methods orkits cannot be used interchangeably. Results cannot beinterpreted as absolute evidence of the presence or absenceof malignant disease. Start: 03-05-2025 Prostate specific an tigen measurement Dr. Chase Cohen MD Work Phone: Comment on above: This test was perfor med using the [employer] tPSA method. Measured values of a patient sample can vary depending on the testing procedure used. PSA values determined on patient samples by different testing procedures cannot be used interchangeably. If there is a change in PSA assays while monitoring therapy, sequential testing should be performed to confirm baseline values. Start: 11-09-2024 X-ray of cervical spine Dr. Chase Cohen MD Work Phone: Start: 04-09-2023 CT of abdomen and pe lvis without contrast Start: 11-25-2021 CT of abdomen and pe lvis without contrast Dr. Chase Cohen Work Phone: Start: 05-02-2021 History of placement of stent for coronary artery disease History of coronary artery stent placement Dr. Chase Cohen Work Phone: Comment on above: PCI-JOMAR-Mid LAD w/ C ypher Stent POBA-D1 05/2003; [id number] RCA w/ 3 x 22 mm Orsiro Stent 05/02/21 H/O: surgery S/P trigger fing er release Dr. Chase Cohen Work Phone: Plan of Treatment Date Care Activity Detail Author Start: 03-05-2025 Basic metabolic 2008 panel with ionized calcium - Serum or Plasma [facility] Start: 03-05-2025 CBC W Auto Different ial panel - Blood [facility] Start: 03-05-2025 Hemoglobin A1c/Hemog lobin.total in Blood [facility] Start: 03-05-2025 Prostate specific an tigen measurement [facility] Anion gap in Serum or Plasma [facility] Ankle brachial pressure index [facility] Work Phone: BUN/Creatinine ratio [facility] Calcium [Mass/volume ] in Serum or Plasma [facility] Carbon dioxide, tota l [Moles/volume] in Central venous blood [facility] Creatinine [Mass/vol ume] in Serum or Plasma [facility] Erythrocyte mean cor puscular volume determination [facility] Glucose [Mass/volume ] in Serum or Plasma [facility] Hematocrit [Volume F raction] of Blood [facility] Hemoglobin [Mass/vol ume] in Blood [facility] Hemoglobin A1c/Hemog lobin.total in Blood [facility] Leukocytes [#/volume] in Blood [facility] Mean corpuscular hem oglobin concentration determination [facility] Mean corpuscular hem oglobin determination [facility] Measurement of renal function [facility] Neutrophil count [facility] Neutrophil percent d ifferential count [facility] Patient Education [facility] Work Phone: Patient referral [facility] Work Phone: Platelets [#/volume] in Blood [facility] Potassium measurement [facility] Red blood cell count [facility] Red cell distributio n width determination [facility] Serum chloride measurement [facility] Sodium measurement [facility] Urea nitrogen [Mass/ volume] in Serum or Plasma [facility] Immunizations Immunization Date Immunization Notes [facility] Covid (Mohan & Mohan) Dr. Chase Cohen MD Work Phone: [facility] 09-14-2024 Seasonal trivalent influenza vaccine, adjuvanted, preservative free Dr. Chase Cohen MD Work Phone: [facility] 06-07-2023 RSV Adult Recombinan t (Arexvy) Dr. Chase Cohen MD Work Phone: [facility] 05-24-2023 influenza, injectabl e, quadrivalent, preservative free Dr. Chase Cohen MD Work Phone: [facility] 05-24-2023 Pfizer Covid-19 (Comirnaty) Dr. Chase Cohen MD Work Phone: [facility] 05-19-2022 Covid Pfizer Bivalen t Booster Dr. Chase Cohen MD Work Phone: [facility] 05-19-2022 influenza, injectabl e, quadrivalent, preservative free Dr. Chase Cohen MD Work Phone: [facility] 07-28-2021 Covid (Pfizer) Dr. Chase Cohen MD Work Phone: [facility] 05-02-[address] Chase Cohen Work Phone: [facility] 11-14-2020 Covid (Pfizer) Dr. Chase Cohen Work Phone: [facility] 10-24-2020 Covid (Pfizer) Dr. Chase Cohen Work Phone: [facility] 06-05-2020 influenza, injectabl e, quadrivalent, preservative free Dr. Chase Cohen MD Work Phone: [facility] 06-13-2019 influenza, injectabl e, quadrivalent, preservative free Dr. Chase Cohen Work Phone: [facility] 06-13-2019 influenza, seasonal, injectable Dr. Chase Cohen Work Phone: [facility] 06-13-2019 Fluad 2019-20 65yr up(PF)45 mcg(15 mcgx3)/0.5 mL intramuscular syringe (flu vac Dr. Chase Cohen Work Phone: [facility] Work Phone: 06-15-2016 influenza, high dose seasonal, preservative-free Dr. Chase Cohen MD Work Phone: [facility] 09-17-2015 pneumococcal conjuga te vaccine, [address] Chase Cohen MD Work Phone: [facility] Payers Date Payer Category Payer Self-pay [id number] 2023 Private Health Insurance [facility] [id number] Medicare [id number] Private Health Insurance [id number] Unknown [id number] 2.16.8 [id number] Unknown [id number] 2.16.8 [id number] Unknown [id number] 2.16.8 [id number] Unknown [id number] 2.16.8 [id number] Unknown [id number] 2.16.8 [id number] Unknown [id number] 2.16.8 [id number] Unknown [id number] 2.16.8 [id number] Unknown [id number] 2.16.8 [id number] Unknown [id number] 2.16.8 [id number] Unknown [id number] 2.16.8 [id number] Social History Date Type Detail Facility Start: 11-25-2021 End: 07-05-2023 Tobacco smoking status UTIS Unknown if ever smoked [facility] Start: 1945 Sex Assigned At Male [facility] Start: 04-19-2024 End: 11-28-2024 Tobacco smoking status NHIS Ex-smoker (finding) [facility] Start: 11-14-2024 End: 12-04-2024 Sex Male (finding) [facility] Medical Equipment Procedure Code Equipment Code Equipment Origin al Text Equipment Identifier Dates ([id number]) Drug-eluting coronary artery stent, bioabsorbable-polyme r-coated [id number] FDA Start: 05-02-2021 ([id number]) Drug-eluting coronary artery stent, bioabsorbable-polyme r-coated [id number] FDA Start: 05-02-2021 Blood Sugar Diagnostic (Blood [...] 03-28-2019 End: 07-06-2023 Clinical Notes 02-07-2021 to 03-05-2025 Note Date & Type Note Facility 03-05-2025 Evaluation note Diagnosis Onset Date Resolution BPH (benign prostatic hyperplasia) chronic March 05, 2025 9:54am Essential (primary) hypertension chronic March 05, 2025 9:54am GERD (gastroesophageal reflux disease) chronic March 05, 2025 9:54am Hematuria chronic March 05 9:54am Type 2 diabetes mellitus chronic March 05, 2025 9:54am [facility] Work Phone: 1(425) 149-209003-27-2025 Radiology Diagnostic study note [facility] Imaging Services [address] [place] [address] Cerv Spine 2 or 3 Views MR#: [id number] Acct: [id number] Name: EGNI LINDSAY Rep #: [id number] : 1945 M 79 From: Umair Reeder MD PCP: Dr. Chase Cohen MD Status: R EG CLI Study:Cerv Spine 2 or 3 Views Date of Exam: 11/09/24 Exam# [id number] Ordering Dr: Oswaldo Lopez PROCEDURE: CERV SPINE 2 OR 3 [...] lateral view. Otherwise no acute fracture or malalignmentidentified. No prevertebral soft tissue swelling. C5-6 spondylosis/discogenic change with thtx-mn-jenwkgpp disc space narrowing. Fuknb-beapkml-bjfy-left appearing multilevel facet degenerative changes. Suggestion of possible carotidcalcification. The visualized apices appear clear. RAD/Cerv Spine 2 or 3 Views IMPRESSION: The cervical spine is visualized on the lateral view from the skull base to the bottom of C6. C7 and the C7-T1 alignment is not visualized due to shoulder overlap on the lateral view. Otherwise no acute fracture or malalignmentidentified. C5-6 spondylosis/discogenic change with pjmr-xq-nzlahcbv disc space narrowing. Qhosv-fveswki-yqmy-left appearing multilevel facet degenerative changes. Reading Location: [id number] CC: Dr. 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 November 28, 2024 7:53am Essential (primary) hypertension chr onic November 28, 2024 7:53am Hyperlipidemia chronic November 7:53am [facility] Work Phone: 1(261) 796-635003-27-2025 Evaluation note* Diagnosis Onset Date Resolution Status Admit Date Generalized pruritus acute Donny h 2024 9:55am Neck pain acute November 09 9:55am 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 November 28, 2024 7:53am Essential (primary) hypertension chr onic November 28, 2024 7:53am Hyperlipidemia chronic November 7:53am BPH (benign prostatic hyperplasia) chronic March 05, 2025 9:54am Essential (primary) hypertension [facility] March 05, 2025 9:54am GERD (gastroesophageal reflu x disease) chronic March 05, 2025 9:54am Hematuria chronic March 05 9:54am Type 2 diabetes mellitus chronic March 05, 2025 9:54am [facility] Work Phone: 1(362) 231-598808-25-2023 Discharge summary Author Isaac Hawley [facility] April 09, 2023 3:04pm Note Date/Time April 09, 2023 10 :25am [facility] Medical Records Department [address] [place] [address] Emergency Department Summary 04/09/23 MR#: [id number] Acct: [id number] Name: GENI LINDSAY Rep #:[id number] : 1945 77 From: [...] Denies any fever chills nausea or vomiting. [facility] <ZABRINA Rodriguze - Last Filed: 04/09/23 14:25> [facility] Medical History Arthritis 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 pectoris Back problem BPH [...] Reaction Status Date / Time [facility]aglut[facility] Allergy Intermediate Nausea Verified 04/09/23 10:05 niacin [...] % (Auto) 58.9 Lymph % (Auto) 26.3 [place] % (Auto) 12.1 H Eos % (Auto) [...] Sl. Cloudy Urine pH 8.0 Ur Specific [place] 1.010 Urine Protein 100 H Urine Glucose [...] Hawley MD - Last Filed: 04/09/23 14:32> [facility] Lab Data Labs: Laboratory Results - last 24 hr 04/09/23 04/09/23 10:20 11:30 WBC 7.5 RBC 4.76 Hgb 13.7 Hct 42.2 MCV 88.7 MCH 28.8 MCHC 32.5 RDW Std Deviation 41.7 RDW Coeff of [place] 12.8 Plt Count 247 MPV 10.3 Immature Gran % (Auto) 0.100 Neut % (Auto) 58.9 Lymph % (Auto) 26.3 [place] % (Auto) 12.1 H Eos % (Auto) [...] Sl. Cloudy Urine pH 8.0 Ur Specific [place] 1.010 Urine Protein 100 H Urine Glucose [...] your Primary Care Provider. Call [facility] ([phone]) or report to the closest Emergency Room. Call 911 if necessary. 04/09/23 1432 <Electronically signed by Isaac Hawley MD> Cosigner Signature (if applicable): 04/09/23 1425 <Electronically signed by Onesimo GERBER> CC: Dr. Chase Cohen MD ~ Signed [facility] Work Phone: 1(830) 793-228509-17-2021 Evaluation note* Diagnosis Onset Date Resolution Status Encounter for pre-operative cardiovascular clearance acute Essential (primary) hypertension chronic Hyperlipidemia chronic History of coronary artery stent placement April 162020 resolved [facility] Work Phone: 1(176) 380-547106-25-2021 NoteHNO ID: [id number] Author: Nick Núñez RN Service: ? Author Type: Registered Nurse Type: Progress Notes Filed: 02/07/2021 1:59 PM Note Text: [facility] Enrollment Provider Action/FYI: Chart Reviewed: Pt does not have a [facility] PCP Patient referred by: C Kim Contact made with patient: Patient not outreached at this time. Closing: Patient does not meet criteria. PCC to reassess patient in a month. END OUTREACH Tan Romero RN February 07, 2021 1:35 [facility]06-25-2021 NotePatient Outreach ([facility]) RUSTYGENI ([id number]) 1945 M Date Time Provider Department 02/07/21 NICK GALLEGO During your visit today, we recorded the following information about you: Tan Romero RN 02/07/2021 1:59 PM Signed [facility] Enrollment Provider Action/FYI: Chart Reviewed: Pt does not have a [facility] PCP Patient referred by: C Kim Contact made with patient: Patient not outreached at this time. Closing: Patient does not meet criteria. PCC to reassess patient in a month. 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/15/2016 Encounter Status:Closed by TAN ROMERO on 02/07/21[facility] note* Diagnosis Onset Date Resolution Status Diminished pulses in lower extremity acute Fatigue acute 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 Essential (primary) hypertension chronic Hyperlipidemia chronic [facility] Work Phone: Evaluation noteNo assessment information available [facility] Work Phone: Evaluation note* Diagnosis Onset Date Resolution Status Health care maintenance acut e BPH (benign prostatic hyperplasia) chronic Essential (primary) hypertension chronic Hyperlipidemia chronic Type 2 diabetes mellitus chr onic [facility] Work Phone[facility]: [facility] Discharge instructions Additional Instructions Please follow-up with urology. Call to make an appointment today or Wednesday. [facility] Work Phone: Reason for referral (narrative)No reason for referral information availableWBl[facility] Work Phone: Summary Purpose Family History Relationship Condition Age at Onset Recorded Date/T fani mother Diabetes mellitus Unknown Myocardial infarction Unknown father Aortic aneurysm Unknown Advance Directives Advance Directive Response Recorded Date/ Time Advance Directives Yes January 19 2:22pm Living Will Yes November 25, 2021 5:57am Power of Emergency Preparedness Manager Yes November 25 5:57am Advance Directive Response Recorded Date/ Time Name of Medical Power of Emergency Preparedness Manager tari lindsay November 25, 2021 5:57am Advance Directives Yes January 19 2:22pm Living Will Yes November 25, 2021 5:57am Power of Emergency Preparedness Manager Yes November 25 5:57am Advance Directive Response Recorded Date/ Time Advance Directives Yes January 19 2:22pm Living Will Yes May 04, 2022 12:08pm Power of Emergency Preparedness Manager Yes April 12:08pm Advance Directive Response Recorded Date/ Time Advance Directives Yes January 19 4 2:22pm Living Will Yes April 09 11:07am Power of Emergency Preparedness Manager Yes April 09, 2 023 11:07am Name of Medical Power of Emergency Preparedness Manager present April 09, 2023 11:07am Advance Directive Response Recorded Date/ Time Name of Medical Power of Emergency Preparedness Manager present April 09, 2023 10:07am Advance Directives Yes January 19 4 1:22pm Living Will Yes April 09 10:07am Power of Emergency Preparedness Manager Yes April 09, 2 023 10:07am Advance Directive Response Recorded Date/ Time Advance Directives Yes April 2:00pm Advance Directive Response Recorded Date/ Time Living Will Yes April 09 11:07am Do you have a Healthcare Power of Emergency Preparedness Manager? Yes April 09, 2023 11:07am Advance Directives Yes April 2:00pm Chief Complaint and Reason for Visit Chief Complaint 1 y fu hematuria Reason for Visit Encounter for pre-op erative cardiovascular clearance Essential (primary) hypertension Hyperlipidemia History of coronary artery stent placement Chief Complaint hematuria 6 M FU Reason for Visit Diminished pulses in lower extremity Fatigue 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 pectoris Essential (primary) hypertension Hyperlipidemia Chief Complaint 6 M FU DECREASED PEDAL PULSES Reason for Visit Diminished pulses in lower extremity Fatigue 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 pectoris Essential (primary) hypertension Hyperlipidemia Chief Complaint URINARY Chief Complaint URINARY MED FOLLOW UP Reason for Visit Health care [facility] BPH (benign prostatic hyperplasia) Essential (primary) [...] 9:5 5am 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 pectoris November 28, 2024 7:53am Essential (primary) hypertension November 142024 7:53am Hyperlipidemia November 28, 2024 7:5 3am Chief Complaint Admit Date STIFF / PAIN NECK / ITCHY November 09 9:55am JUST LEFT OFFICE NEEDS ORDER November 09, 2024 11:35am 1 Y FU November 28, 2024 7:5 3am INT LABS November 28, 2024 9:1 0am eorders February 23, 2025 6:25 am Chief Complaint Admit Date STIFF / PAIN NECK / ITCHY November 09 9:55am JUST LEFT OFFICE NEEDS ORDER November 09, 2024 11:35am 1 Y FU November 28, 2024 7:5 3am INT LABS November 28, 2024 9:1 0am eorders February 23, 2025 6:25 am med fu March 05, 2025 9:54 am Reason for Visit Admit Date Generalized pruritus November 09, 2024 9: 55am Neck pain November 09, 2024 9:5 5am 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 pectoris November 28, 2024 7:53am Essential (primary) hypertension November 142024 7:53am Hyperlipidemia November 28, 2024 7:5 3am BPH (benign prostatic hyperplasia) March 05, 2025 9:54am Essential (primary) hypertension March 052024 9:54am GERD (gastroesophageal reflux disease) [facility] 2024 9:54am Hematuria March 05, 2025 9:54 am Type 2 diabetes mellitus March 05, 2025 9:54am Chief Complaint Admit Date eorders February 23, 2025 6:25 am med fu March 05, 2025 9:54 am NEED ORDER April 04, 2025 8: 04am Reason for Visit Admit Date BPH (benign prostatic hyperplasia) March 05, 2025 9:54am Essential (primary) hypertension March 052024 9:54am GERD (gastroesophageal reflux disease) J [facility] 2024 9:54am Hematuria March 05, 2025 9:54 am Type 2 diabetes mellitus March 05, 2025 9:54am Additional Source Comments (unrecognized sect ion and content) No Status Records FoundNo Status Records Found INFORMATION SOURCE (unrecogn ized section and content) DATE CREATED AUTHOR 09/29/2021 [facility] DATE CREATED AUTHOR AUTHOR'S RADHA WHEATLEY 04/05/2025 [facility] Goals (unrecognized section and content) Goals may [...] 09, 2024 End: November 09, 2024 Asa WESTBROOK PA Attending Provider Active St art: November [...] November 28, 2024 End: November 28, 2024 Corry WESTBROOK PA Attending Provider Active Start: November 28, 2024 End: November 28, 2024 Team Status: Inactive Member Role Status Dates Dr. Chase Cohen MD Primary Care Provider Active Start: November 28, 2024 End: November 28, 2024 Corry WESTBROOK PA Attending Provider Active Start: November 28, 2024 End: November 28, 2024 Corry WESTBROOK PA Referring Provider Active Start: November 28, 2024 End: November 28, 2024 Team Status: Active Member Role/Relationship Status Dates Dr. Chase Cohen MD Primary Care Provider Active Team Status: Inactive Member Role/Relationship Status Dates Dr. Chase Cohen MD Primary Care Provider Active Start: November 09, 2024 End: November 09, 2024 Dr. Chase Cohen MD Referring Provider Active Start: November 09, 2024 End: November 09, 2024 Asa WESTBROOK PA Attending Provider Active St art: November 09, 2024 End: November 09, 2024 Team Status: Inactive Member Role/Relationship Status Dates Dr. Chase Cohen MD Primary Care Provider Active Start: November 09, 2024 End: November 09, 2024 Dr. Chase Cohen MD Attending Provider Active Start: November 09, 2024 End: November 09, 2024 Dr. Chase Cohen MD Referring Provider Active Start: November 09, 2024 End: November 09, 2024 Team Status: Inactive Member Role/Relationship Status Dates Dr. Chase Cohen MD Primary Care Provider Active Start: November 28, 2024 End: November 28, 2024 Dr. Chase Cohen MD Referring Provider Active Start: November 28, 2024 End: November 28, 2024 Corry Moura PA, PA Attending Provider Active Start: November 28, 2024 End: November 28, 2024 Team Status: Inactive Member Role/Relationship Status Dates Dr. Chase Cohen MD Primary Care Provider Active Start: November 28, 2024 End: November 28, 2024 Corry Moura PA, PA Attending Provider Active Start: November 28, 2024 End: November 28, 2024 Corry Moura PA, PA Referring Provider Active Start: November 28, 2024 End: November 28, 2024 Team Status: Inactive Member Role/Relationship Status Dates Dr. Chase Cohen MD Primary Care Provider Active Start: February 23, 2025 End: February 23, 2025 Corry Moura PA, PA Attending Provider Active Start: February 23, 2025 End: February 23, 2025 Corry Moura PA, PA Referring Provider Active Start: February 23, 2025 End: February 23, 2025 Team Status: Inactive Member Role/Relationship Status Dates Dr. Chase Cohen MD Primary Care Provider Active Start: March 05, 2025 End: March 05, 2025 Dr. hCase Cohen MD Attending Provider Active Start: March 05, 2025 End: March 05, 2025 Dr. Chase Cohen MD Referring Provider Active Start: March 05, 2025 End: March 05, 2025 Team Status: Active Member Role/Relationship Status Dates Dr. Chase Cohen MD Primary Care Provider Active Start: March 05, 2025 Dr. Chase Cohen MD Attending Provider Active Start: March 05, 2025 Dr. Chase Cohen MD Referring Provider Active Start: March 05, 2025 Team Status: Inactive Member Role/Relationship Status Dates Dr. Chase Cohen MD Primary Care Provider Active Start: March 05, 2025 End: March 05, 2025 Dr. Chase Cohen MD Attending Provider Active Start: March 05, 2025 End: March 05, 2025 Dr. Chase Cohen MD Referring Provider Active Start: March 05, 2025 End: March 05, 2025 Team Status: Inactive Member Role/Relationship Status Dates Dr. Chase Cohen MD Primary Care Provider Active Start: February 23, 2025 End: February 23, 2025 DARIANA Rosales Attending Provider Active Start: February 23, 2025 End: February 23, 2025 DARIANA Rosales Referring Provider Active Start: February 23, 2025 End: February 23, 2025 Team Status: Inactive Member Role/Relationship Status Dates Dr. Chase Cohen MD Primary Care Provider Active Start: March 05, 2025 End: March 05, 2025 Dr. Chase Cohen MD Attending Provider Active Start: March 05, 2025 End: March 05, 2025 Dr. Chase Cohen MD Referring Provider Active Start: March 05, 2025 End: March 05, 2025 Team Status: Inactive Member Role/Relationship Status Dates Dr. Chase Cohen MD Primary Care Provider Active Start: March 05, 2025 End: March 05, 2025 Dr. Chase Cohen MD Attending Provider Active Start: March 05, 2025 End: March 05, 2025 Dr. Chase Cohen MD Referring Provider Active Start: March 05, 2025 End: March 05, 2025 Team Status: Inactive Member Role/Relationship Status Dates Dr. Chase Cohen MD Primary Care Provider Active Start: April 04, 2025 End: April 04, 2025 Dr. Eligio Navarro MD Attending Provider Active Start: April 04, 2025 End: April 04, 2025 Dr. Eligio Navarro MD Referring Provider Active Start: April 04, 2025 End: April 04, 2025 FOR RECORDS PERTAINING TO PATIENTS WHO ARE [...] BE BASED ON THE PRIMARY CLINICAL RECORDS. [facility], [facility]. provides no warranty or guarantee of the accuracy or completeness of information in this document.
[2025-04-12 07:52] LABS: CREATININE FINGERSTICK 1.2 mg/dL (0.70-1.30); EGFR FINGERSTICK > 60.0000 mL/min (>60)
== END | disposition home or self-care (01) ==
LOC: CT 07:18
PROVIDERS: PCP Internal Medicine; Referring Provider Urology; Visit Provider Urology
DX: R31.0 Gross hematuria (principal); N40.1 Benign prostatic hyperplasia with lower urinary tract symptoms
CPT/HCPCS: 74178; Q9967; A4216

== ENCOUNTER 2025-04-15 16:47 | Emergency (ER) | payer MEDICARE, SELFPAY ==
[2025-04-15] VITALS (13 sets, daily range): BP systolic 141–175; BP diastolic 70–88; PULSE 68–91; RESP 9–19; TEMP 36.4–36.6; O2SAT 87–100; BMI 24.0
--- NOTE | 2025-04-15 16:58 | EKG12_ITS ---
Test Reason : REPEAT Blood Pressure : */* mmHG Vent. Rate : 77 BPM Atrial Rate : 77 BPM P-R Int : 174 ms QRS Dur : 78 ms QT Int : 372 ms P-R-T Axes : 58 -23 53 degrees QTcB Int : 420 ms Normal sinus rhythm Normal ECG Confirmed by Juan Alberto Morataya ([id number]), newspaper photo editor RONNY BUTCHER ([id number]) on 04/17/2025 10:42:04 AM Referred By: Confirmed By: Juan Alberto Morataya
--- NOTE | 2025-04-15 17:04 | ED.VIS.CHEST ---
HPI History of Present Illness Chief Complaint: Chest Pain Informant: patient and spouse/S.O. Onset/Context/Timing Onset: Today and Hours Activity at onset: gradual Timing: Continuous Quality: Positive for Aching Location: Substernal Current Severity: Mild Maximum Severity: Mild Worsened By: Nothing Relieved By: Nothing Associated Symptoms: Negative for Nausea, Vomiting, Diaphoresis, Dyspnea, Cough, Fever, Lightheadedness, Acid Reflux or Palpitations Narrative Narrative: 79-year-old male history of MO with 2 cardiac stents., Diabetes prior stroke on Plavix. States that today [place] on his computer about 8 AM he just got midsternal chest discomfort. No radiation to his neck back or jaw. No radiation to his arm. Nothing particular makes it better or worse. He was basely sitting in a chair. He has had no recent exertional dyspnea exertional chest pain. He denies any shortness of breath. He denies any hemoptysis. He has never had a DVT or PE. He denies any recent travel, surgery or immobilization. He denies any leg pain or swelling. He denies any hemoptysis. Prior Similar Symptoms: No Recent Illness/Hospitalization: No CVD Risk Factors: Positive for Hypertension and Diabetes PE Risk Factors: Negative for Recent Travel/Surgery, Recent Immobilization, Prior DVT or PE or OCP + Smoking + >/=35 TAD Risk Factors: Positive for Marfan's Syndrome [facility] Medical History Dermatitis Screening for thyroid disorder Wears glasses Arthritis Excessive bleeding Stroke/cerebrovascular accident Former smoker Leg cramps History of heart attack History of stress test History of echocardiogram Cardiology follow-up encounter Left knee pain Burning with urination History of ST elevation myocardial infarction (STEMI) (05/02/21) ST elevation (STEMI) myocardial infarction Health care maintenance Obstructive sleep apnea Hyperlipidemia Essential (primary) hypertension History of CVA (cerebrovascular accident) (2001) Atherosclerosis of coronary artery of [place] heart without angina pectoris BPH (benign prostatic hyperplasia) GERD (gastroesophageal reflux disease) Type 2 diabetes mellitus Enlarged prostate Neuropathy Hearing problem Gastrointestinal complaints, unspecific Back problem Home Medications ?Medication ?Instructions ?Recorded ?Last Taken ?Type multivitamin 1 tab PO DAILY supplement 08/29/20 Unknown History blood-glucose meter (OneTouch #1 ea 06/07/23 Unknown Rx Ultra2 Meter) blood sugar diagnostic (Blood #100 ea 07/06/23 Unknown Rx Glucose Test strips) atorvastatin 40 mg tablet 40 mg PO QHS cholesterol #90 tabs 05/02/24 Unknown Rx fenofibrate nanocrystallized 145 See Rx Instructions .Route 05/02/24 Unknown Rx mg tablet .COMPLEX #90 tabs losartan 100 mg tablet See Rx Instructions .Route 05/02/24 Unknown Rx .COMPLEX #90 tabs clopidogrel 75 mg tablet (Plavix) 75 mg PO DAILY #90 tabs 07/24/24 Unknown Rx metoprolol succinate 50 mg 50 mg PO DAILY HTN #90 tabs 11/09/24 Unknown Rx tablet,extended release 24 hr pantoprazole 40 mg tablet,delayed See Rx Instructions .Route 12/11/24 Unknown Rx release .COMPLEX #90 tabs amlodipine 10 mg tablet 10 mg PO DAILY #90 TABLETS 03/06/25 Unknown Rx sitagliptin phosphate 100 mg 100 mg PO DAILY for diabetes 03/06/25 Unknown Rx tablet (Januvia) mellitus #90 TABLETS Allergy/AdvReac Type Severity Reaction Status Date / Time dulaglutide (From [facility]) Allergy Intermediate Nausea Verified 03/05/25 10:14 niacin Allergy GI Upset, Verified 03/05/25 10:14 PUD w/blood, Hot Flashes amoxicillin trihydrate (From AdvReac Abd Verified 03/05/25 10:14 Augmentin) cramps/diarrhea potassium clavulanate (From AdvReac Abd Verified 03/05/25 10:14 Augmentin) cramps/diarrhea Family History Mother Diabetes Myocardial infarction Father AA (aortic aneurysm) Surgical History History of cardiac catheterization History of foot surgery History of colonoscopy S/P trigger finger release History of repair of rotator cuff History of coronary artery stent placement (05/02/21) Social History housing: house Smoking Status: Former smoker quit date: 08/16/93 Tobacco: How many years used: 30 alcohol intake: never substance use type: does not use caffeine: Yes Type: coffee Number of servings: 2 what type of physical activity do you participate in: walking ROS ROS ED ROS Narrative Denies recent illness. Constitutional Constitutional ED: Denies chills or fever(s) ENT ENT ED: Denies ear pain Cardiovascular Cardiovascular: Reports as per HPI and chest pain; Denies orthopnea or paroxysmal nocturnal dyspnea Respiratory/Chest Respiratory/Chest: Denies cough, dyspnea, dyspnea on exertion, orthopnea, paroxysmal nocturnal dyspnea or sputum Gastrointestinal Gastrointestinal: Denies abdominal pain, diarrhea, nausea or vomiting Genitourinary Genitourinary ED: Denies dysuria or hematuria Integumentary Denies abscess Neurologic Neurologic: Denies headache(s) Psychiatric Psychiatric: Denies anxiety Hematologic/Lymphatic Hematologic/Lymphatic: Denies easy bleeding, easy bruising or lymphadenopathy Allergic/Immunologic Allergic/Immunologic ED: Denies mouth swelling, tongue swelling or urticaria EXAM Physical Exam Narrative Exam Narrative: 79-year-old male sitting upright in bed vital signs stable afebrile. Pulse ox 90% on room air no signs hypoxia. He is in no distress. at bedside. H EENT exam pupils round reactive light. Extra motions are intact. Moist mucous membranes. Neck nontender. No JVD. No lymphadenopathy. Lungs clear to auscultation bilaterally. Heart regular rhythm rate about 80 no murmur. Chest wall and ribs are nontender. There is no reproducible pain. There is no redness or warmth. No discoloration. No crepitance. Abdomen soft nontender normal bowel sounds without peritoneal signs. Patient moving all 4 extremities. 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 Normal dorsi plantarflexion. Calves are nontender without edema or cords. Equal and symmetrical radial pulses. Back nontender. Neurologically is awake and alert answering questions following commands. Very benign exam. Const Vital Signs: 04/15/25 16:47 04/15/25 17:02 04/15/25 17:03 Temperature 97.6 F L Temperature Source Temporal Pulse Rate 81 Respiratory Rate 16 Respiratory Effort Normal Non-Labored Blood Pressure 141/71 H Blood Pressure Mean 94 Pulse Ox 98 Oxygen Delivery Method Room Air Room Air 04/15/25 17:32 04/15/25 17:45 04/15/25 17:47 Temperature Temperature Source Pulse Rate 69 71 71 Respiratory Rate 13 17 18 Respiratory Effort Blood Pressure 154/71 H Blood Pressure Mean 98 Pulse Ox 98 98 98 Oxygen Delivery Method Room Air 04/15/25 18:00 04/15/25 18:15 04/15/25 18:30 Temperature Temperature Source Pulse Rate 71 70 73 Respiratory Rate 18 12 15 Respiratory Effort Blood Pressure 175/70 H Blood Pressure Mean 100 Pulse Ox 87 97 100 Oxygen Delivery Method 04/15/25 18:45 04/15/25 19:00 04/15/25 19:15 Temperature Temperature Source Pulse Rate 68 75 Respiratory Rate 9 L 19 H Respiratory Effort Blood Pressure 144/72 H Blood Pressure Mean 93 Pulse Ox 99 98 Oxygen Delivery Method 04/15/25 19:30 04/15/25 20:00 Temperature Temperature Source Pulse Rate 73 91 Respiratory Rate 17 18 Respiratory Effort Blood Pressure 161/76 H Blood Pressure Mean 103 Pulse Ox 100 98 Oxygen Delivery Method Positive well nourished and well developed; Negative for obese, cachectic, contractures or unkempt General Appearance ED: well developed and NAD; Negative for unkempt, cachectic or contractures Nutritional Appearance: Negative for cachectic or obese HEENT Reports moist mucous membranes normocephalic and atraumatic Eyes PERRL and EOMs intact bilaterally Neck no lymphadenopathy, supple and no JVD Chest Wall inspection of chest normal and palpation of chest normal Resp normal respiratory effort and clear to auscultation bilaterally Cardio regular rate, regular rhythm, S1 normal heart sound, S2 normal heart sound and no murmurs Peripheral Pulses: pulses 2+ throughout GI normal to inspection, nondistended, normoactive bowel sounds, soft to palpation, non-tender, non-distended and no masses Back/Spine no CVA tenderness and no thoracic nor lumbar tenderness Extremity normal to inspection General Extremety ED: Negative for edema, pulses abnormal or tenderness General Extremity: Negative for edema or pulses abnormal Neuro oriented x3 and CN's II-XII intact bilaterally Sensorium / Orientation: awake, alert, oriented to person, oriented to place and oriented to time Motor Exam: strength 5/5 throughout Psych mental status grossly normal Appearance: Negative for unkempt Skin no rashes or lesions noted and no wounds Heart Score History: Slightly/Non-Suspicious ECG: Normal Age: >/= 65 years Risk Factors: >/= 3 Risk Factors or History of CAD Troponin: </= Normal Limit Score: 4 MDM MDM MDM Narrative Medical decision making narrative: 79-year-old male history of prior MO with 2 stents with nonexertional, nonreproducible midsternal chest pain today at rest. Been ongoing now about 9 hours. He has never had a DVT or PE risk factors. Patient undergoing cardiac workup. I will give him a GI cocktail is not reproducible he really does not have a significant history of reflux. Repeat exam at 7:26 PM. Patient states he is having worsening chest pain. His initial cardiac workup is negative awaiting for the second troponin. Given his worsening pain I am going to obtain a CTA of his chest my clinical suspicion for dissection is low and for PE is low. He was treated with GI cocktail without any significant relief. Repeat exam patient is doing well at 8:48 PM. Exam benign and unchanged. He clinically feels well. We went over all his test results including his CT of his chest he is currently discharged home with chest pain uncertain etiology. History & Record Review Discussion w/independent historian: Patient Additional record(s) reviewed:: Prior inpatient record, Prior outpatient record, Prior ED visit and Prior labs Lab Data Attestation: I reviewed the patient's lab results. Lab results narrative: CBC shows a white count of 12. H&H 13 and 38. Platelets 305. Electrolytes show gap 13. Normal BUN of 16 and creatinine 1.1. Glucose 155. Initial troponin 14. 2-hour troponin is 19 and normal. Chest x-ray unremarkable. CTA chest no PE no dissection. Labs: Laboratory Results - last 24 hr 04/15/25 04/15/25 17:01 19:20 WBC 12.2 H RBC 4.30 L Hgb 13.2 Hct 38.0 L MCV 88.4 MCH 30.7 MCHC 34.7 RDW Std Deviation 41.7 RDW Coeff of [place] 13.0 Plt Count 305 MPV 10.2 Immature Gran % (Auto) 0.200 Neut % (Auto) 74.3 H Lymph % (Auto) 16.1 L [place] % (Auto) 7.3 Eos % (Auto) 1.6 Baso % (Auto) 0.5 Absolute Neuts (auto) 9.1 H Absolute Lymphs (auto) 1.96 Nucleated RBC % 0 Sodium 136 Potassium 3.9 Chloride 102 Carbon Dioxide 21.1 Anion Gap 13 BUN 16 Creatinine 1.19 Estim Creat Clear Calc 52.82 Est GFR (MDRD) Non-Af 63 BUN/Creatinine Ratio 13.4 Glucose 155 H Calcium 9.7 Troponin T High Sens 14 Troponin T Hi Sens 2 Hr 19 Radiography Chest X-Ray - ED: 2 View, Read by ED Physician, Normal, Heart, Lungs, Mediastinum, Bony Structures, No Acute Disease and Chronic Changes Diagnostic Testing: Clinical Impression(s) from Imaging Studies Chest X-Ray 04/15/25 17:11 IMPRESSION: No acute cardiopulmonary process. Reading Location: [facility] Chest CTA 04/15/25 19:25 IMPRESSION: Negative for pulmonary embolus. Normal thoracic aorta. Noncalcified nodule 7 mm left upper lobe. Consider three-month follow-up CT Reading Location: [facility] Chest x-ray, 2 views, AP and lateral, interpreted by myself and radiologist shows no acute abnormality. Normal cardiac silhouette. Normal mediastinum. Normal lung torres. Rhythm Strip Rhythm Strip: Sinus Rhythm Rate: 78 Ectopy: None EKG Initial EKG: Attestation: I personally reviewed and interpreted this EKG as follows: Interpretation: Sinus Rhythm and No Acute Injury Pattern Comments: Normal sinus rhythm rate of 78 no acute signs of MO or ischemia. No [id number]. Follow-up EKG: Attestation: I personally reviewed and interpreted this EKG as follows: Interpretation: Sinus Rhythm and No Acute Injury Pattern Comments: Repeat EKG when the patient was having additional pain at 1920 7 PM. Sinus rhythm rate of 77. No acute signs of MO or ischemia or any significant change from a prior. Discharge Plan Triage Chief Complaint: Chest Pain ED Provider: Catrachito Nguyen Dx/Rx/DC Orders Clinical Impression: Chest pain, History of MO (myocardial infarction), Hx of heart artery stent, History of diabetes mellitus Instructions: ED Chest Pain, Uncertain Cause Prescriptions: No Action multivitamin Tablet 1 tab PO DAILY atorvastatin 40 mg tablet 40 mg PO QHS Qty: 90 3RF losartan 100 mg tablet See Rx Instructions .ROUTE .COMPLEX Qty: 90 1RF Dose Instruction: TAKE 1 TABLET BY MOUTH DAILY FOR HYPERTENSION Rx Instructions: TAKE 1 TABLET BY MOUTH DAILY FOR HYPERTENSION fenofibrate nanocrystallized 145 mg tablet See Rx Instructions .ROUTE .COMPLEX Qty: 90 3RF Dose Instruction: TAKE 1 TABLET BY MOUTH EVERY DAY Rx Instructions: TAKE 1 TABLET BY MOUTH EVERY DAY metoprolol succinate 50 mg tablet extended release 24 hr 50 mg PO DAILY Qty: 90 3RF (DME) blood-glucose meter [OneTouch Ultra2 Meter] [facility] [place] See Rx Instructions .Route Qty: 1 0RF Rx Instructions: As directed (DME) Blood Glucose Test Strip See Rx Instructions .ROUTE .MEDSUPPLY Qty: 100 3RF Rx Instructions: One Touch Ultra - As directed Daily clopidogrel [Plavix] 75 mg tablet 75 mg PO DAILY Qty: 90 3RF pantoprazole 40 mg tablet,delayed release (DR/EC) See Rx Instructions .ROUTE .COMPLEX Qty: 90 3RF Dose Instruction: TAKE 1 TABLET BY MOUTH DAILY Rx Instructions: TAKE 1 TABLET BY MOUTH DAILY Januvia 100 mg tablet 100 mg PO DAILY Qty: 90 1RF amlodipine 10 mg tablet 10 mg PO DAILY Qty: 90 1RF Primary Care Provider: Chase Cohen Referrals: Chase Cohen MD [Primary Care Provider] - 3-5 Days if not improving Activity Restrictions/Additional Instructions: Follow-up with your doctor if not improving. Your tests today were normal including both heart enzymes, both EKGs, your chest x-ray and CAT scan along with your lab work. Print Language: [place]i Disposition Disposition: Home, Self Care
[2025-04-15 17:10] LABS: Hematocrit 38.0 % (40-54); Hemoglobin 13.2 g/dL (13.0-16.5); Immature Granulocytes Count 0.020 X10^3/uL (0.0-0.0); Mean Corp Hgb Conc 34.7 g/dL (32-36); Mean Corpuscular Volume 88.4 fL (80-94); Mean Platelet Vol. 10.2 fl (6.2-12.0); NRBC Flagged by Analyzer 0 % (0-5); Platelet Count 305 K/mm3 (150-450); RBC Distribution Width CV 13.0 % (11.6-14.6); RBC Distribution Width SD 41.7 fl (35.1-43.9); Red Blood Count 4.30 M/mm3 (4.6-6.2); White Blood Count 12.2 K/mm3 (4.4-11.0)
--- NOTE | 2025-04-15 17:11 | RAD_ITS ---
PROCEDURE: CHEST PA AND LATERAL 04/15/2025 REASON FOR EXAM: CHEST PAIN TECHNIQUE: Procedure Code: RADCXR Modality: DX Procedure: CHEST PA AND LATERAL COMPARISON: May 02, 2021 FINDINGS: Hardware: EKG leads. Heart: Normal Mediastinum: The mediastinal contour is unremarkable. Lungs: Clear Bones: Degenerative changes are identified within the thoracic spine. RAD/Chest PA and Lateral IMPRESSION: No acute cardiopulmonary process. Reading Location: [id number]
--- OUTSIDE RECORDS SUMMARY | 2025-04-15 17:11 | XMS RPT_ITS | CCD ---
Author Organization [facility] Care Team Providers Care Human Service Specialist Name Role Phone Dr. Chase Cohen Primary Care Provider [phone]) Dr. Chase Cohen Referring Provider [phone] Dr. Prieto Farris Attending Provider [phone] Dr. Chase Cohen Primary Care Provider 1(33 0) Dr. Chase Cohen Referring Provider [phone] DARIANA Laureano Attending Provider Dr. Fahad Cooper Attending Provider 1(330)- Dr. Chase Cohen Primary Care Provider 1(33 0) Dr. Chase Cohen Attending Provider [phone])2 Dr. Chase Cohen Referring Provider [phone])2 Dr. Chase Cohen MD Primary Care Provider Dr. Chase Cohen MD Referring Provider 1(33 0) Asa Burgess Attending Provider [phone] Dr. Chase Cohen MD Attending Provider 1(33 0) Corry Laureano Attending Provider 1(33 0) Corry Laureano Referring Provider 1(33 0) Dr. Chase Cohen MD Primary Care Provider Corry Laureano Attending Provider 1(33 0) Corry Laureano Referring Provider 1(33 0) Dr. Chase Cohen MD Attending Provider Noel ANDINO, Dr. Stone Referring Provider Melanie ANDINO, Dr. Eligio Greer Attending Provider Melanie ANDINO, Dr. Eligio Greer Referring Provider Oleghe, Efewongbe Primary Care Unavailable Eligio Navarro Attending Unavailable Eligio Navarro Referring Unavailable Oleghe, Efewongbe Primary Care Unavailable Fatou Diamond Attending Unavailable Oleghe, Efewongbe Primary Care Unavailable Oleghe, Efewongbe Attending Unavailable Oleghe, Efewongbe Referring Unavailable Zeny WESTBROOK, Corry Nicholas Attending Unavail able Zeny WESTBROOK, Corry Nicholas Referring Unavail able Oleghe, Efewongbe Primary Care Unavailable Corry Laureano Attending Unavail able Zeny WESTBROOK, Corry Nicholas Referring Unavail able Oleghe, Efewongbe Primary Care Unavailable Oleghe, Efewongbe Primary Care Unavailable Oleghe, Efewongbe Attending Unavailable Oleghe, Efewongbe Referring Unavailable Oleghe, Efewongbe Primary Care Unavailable Eligio Navarro Attending Unavailable MelanieEligio Referring Unavailable Oleghe, Efewongbe Referring Unavailable Oleghe, Efewongbe Primary Care Unavailable Fatou Diamond Attending Unavailable Oleghe, Efewongbe Referring Unavailable Oleghe, Efewongbe Primary Care Unavailable Asa Burgess Attending Unavailable Corry Laureano Attending Unavail able Oleghe, Efewongbe Primary Care Unavailable Oleghe, Efewongbe Referring Unavailable Oleghe, Efewongbe Primary Care Unavailable Oleghe, Efewongbe Attending Unavailable Oleghe, Efewongbe Referring Unavailable Allergies Allergy Classification Reported Allergen(s) Allergy Type Date of Onset Reaction(s) Facility (12 sources) Amoxicillin; Translations: [amoxicillin trihydrate] Drug Allergy 2 Abd cramps/diarrhea [facility] (11 sources) dulaglutide Drug Allergy [address] [facility] (11 sources) Niacin Drug Allergy 2 GI Upset, PUD w/blood, Hot Flashes [facility] (12 sources) potassium clavulanate; Translations: [potassium clavulanate] Propensity to adverse reactions 2 Abd cramps/diarrhea [facility] (1 source) dulaglutide Drug Allergy [address] [facility] (1 source) Niacin Drug Allergy [address] [facility] Medications Current Medications Medication Drug [...] tablet Discontinued 75 mg PO DAILY 90 June 14, 2023 2:31pm July 24, 2024 12:06pm Start: 05-09-2021 End: 03-16-2022 Clopidogrel (Plavix) 75 mg t ablet Discontinued 75 mg PO DAILY 90 May 09, 2021 12:00am March 16, 2022 10:19am When you complete the course of Brilinta, the next day take 4 Plavix at once then once a day after. Coenzyme Q03-Fvecsvj E 1 EACH capsule (6 sources) Start: 01-19-2014 End: 05-02-2021 take 1 capsule by mouth once daily Coenzyme Q08-Pvqarif E 1 EACH capsule Discontinued 1 {tbl} PO DAILY January 19, 2014 12:00am May 02, 2021 8:32am cyclobenzaprine hydrochloride 5 mg oral tablet (6 sources) Muscle Relaxant Start: 11-09-2024 End: 03-05-2025 take 1 tablet by mouth three times daily as needed for muscle spasms Cyclobenzaprine 5 mg tablet Discontinued 5 mg PO THREE TIMES A DAY as needed for muscle spasm 30 November 09, 2024 12:00am March 05, 2025 [...] mg tablet Discontinued 0 .ROUTE .COMPLEX 30 1 March 21, 2024 9:08am May 02, 2024 [...] Discontinued 100 mg PO DAILY 90 90 3 November 01, 2020 8:18am November 04, 2020 [...] tablet Discontinued 50 mg PO DAILY 90 March 03, 2019 10:30am April 07, 2019 [...] 19, 2014 12:00am January 26, 2019 6:16pm [facility]-3 Fatty Acids-Fish Oil (5 sources) Start: 01-19-2014 End: 05-02-2021 [facility] [place] [facility]-3 Fatty Acids-Fish Oil Discontinued 1 EACH PO DAILY January 19, 2014 2:39pm May 02, 2021 8:32am Start: 01-19-2014 End: 05-02-2021 [facility] [place] [facility]-3 Fatty Acids-Fish Oil Discontinued 1 EACH PO DAILY January 18, 2014 11:00pm May 02, 2021 7:32am Start: 01-19-2014 End: 05-02-2021 [facility]-3 Fatty Acids-Fish Oil Discontinued 1 EACH PO DAILY January 19, 2014 12:00am May 02, 2021 8:32am [facility]-3 Fatty Acids-Fish Oil 1 EACH capsule,delayed release(DR/EC) (6 sources) Start: 01-19-2014 End: 05-02-2021 [facility]-3 Fatty Acids-Fish Oil 1 EACH capsule,delayed release(DR/EC) Discontinued 1 NMA PO DAILY January 19, 2014 12:00am May 02, 2021 8:32am omeprazole 40 mg delayed release oral capsule (20 sources) Proton Pump Inhibitor Start: 01-19-2014 End: 07-01-2022 take 1 capsule by mouth once daily Omeprazole 40 mg capsule,delayed release(DR/EC) Discontinued 40 mg PO DAILY August 29, 2021 12:22pm May 04, 2022 12:07pm pantoprazole 40 mg delayed release oral tablet (20 sources) Proton Pump Inhibitor Start: 07-01-2022 End: 12-11-2024 take 1 tablet by mouth once daily Pantoprazole 40 mg tablet,delayed release (DR/EC) Discontinued 0 .ROUTE .COMPLEX 90 3 October 12, 2023 5:21pm December 11, 2024 [...] 1 tablet by mouth once daily Coenzyme W98-Tgkzosg E Discontinued 1 TABLET PO DAILY January [...] sources) Blood in urine; Translations: [Hematuria, unspecified] Onset: 5 04-09-2023 Episodic Hyperplasia of prostate (20 sources) Benign prostatic hyperplasia; Translations: [Benign prostatic hyperplasia without lower urinary tract symptoms] Onset: 5 08-01-2021 Chronic Immunizations and screening for infectious [...] conditions (not mental disorders or infectious disease) (19 sources) Echocardiogram abnormal; Translations: [Abnormal findings on diagnostic imaging of heart and coronary circulation] Onset: 05-06-2021 Episodic Peripheral and visceral atherosclerosis (8 sources) Peripheral vascular disease, unspecified; Translations: [Peripheral arterial disease] 05-29-2022 Chronic Past or Other Problems Problem Classification Problem Date Documented Da te Episodic/Chronic Coronary atherosclerosis and other heart disease (1 source) Presence of coronary angioplasty implant and graft; Translations: [Percutaneous transluminal coronary angioplasty status] Onset: 05-02-2021 Episodic Other nutritional; endocrine; and metabolic disorders (1 source) Abnormal weight loss; Translations: [Abnormal weight loss] Onset: 05-02-2024 Episodic Spondylosis; intervertebral disc disorders; other back problems (12 sources) Neck pain; Translations: [Cervicalgia] Onset: 11-14-2024 11-09-2024 Episodic Results Test Name Value Interpretation Reference Range Facility [facility] Creatinine [Mass/Vol] 1.2 mg/dL Normal 0.70-1.30 [facility] Comment on above: Performed By: #### L 9100.0200 #### [facility] [address] [place], [address] EGFR WB > 60.0000 Normal >[address] [facility] Comment on above: Performed By: #### L 9100.0200 #### [facility] [address] [place], [place], [address] CT Abd/Pelvis W/WO Contrasto n 04-12-2025 CT Abd/Pelvis W/WO Contrast [facility] Imaging Services [address] [place] [address] CT Abd/Pelvis W/WO Contrast MR#: [id number] Acct: [id number] Name: GENI LINDSAY Rep #: [id number] : 1945 M 79 From: Vincenzo Sherman MD PCP: Dr. Chase Cohen MD Status: REG CLI Study: CT Abd/Pelvis W/WO Contrast Date of Exam: 03/17 04/09 Exam# [id number] Ordering Dr: Eligio Navarro MD PROCEDURE: CT ABD/PELVIS W/WO CONTRAST 04/12/2025 REASON FOR EXAM: GROSS HEMATURIA TECHNIQUE: CT ABD/PELVIS W/WO CONTRAST Coronal and Sagittal reconstruction series were provided. CONTRAST: Isovue-300 VOLUME: 100 mL One or more dose reduction techniques were used (e.g., Automated exposure control, adjustment of the mA and/or kV according to patient size, use of iterative reconstruction technique. RADIATION DOSE SUMMARY: CTDlvol: 49.0 mGy DLP: 1890.94 mGycm COMPARISON: CT abdomen and pelvis without contrast, 04/09/2023. FINDINGS: Lung bases: The lung bases are clear. There are no pleural effusions. The heart size is normal. There is no pericardial effusion. There is calcific vascular disease of the coronary arteries in the visualized thoracic aorta. Liver: Normal size. No mass. Gallbladder: Normal. Spleen: Normal size. Pancreas: Normal size without evidence of mass surrounding inflammation or ductal dilation. Adrenals: Normal. Kidneys: Normal renal sizes. No hydronephrosis. There are small cortical cysts in both kidneys. Bladder: There is bladder wall thickening consistent with bladder outlet obstruction and/or cystitis. Reproductive Organs: The prostate gland measures 7.3 cm in transverse dimension and 7.2 cm in vertical dimension bulging into the floor of the urinary bladder. The seminal vesicles are unremarkable. There is no free fluid in the pelvis. There are few reactive inguinal lymph nodes bilaterally. Bowel: There is a small hiatal hernia. There are scattered colonic diverticuli without evidence of acute inflammation. There is stool throughout the colon. Appendix: The appendix is not identified. There is no inflammatory process identified in the right lower quadrant to suggest appendicitis. Lymph nodes: No suspicious lymph node enlargement. Vasculature: There is diffuse calcific vascular disease of the abdominal aorta. There is ectasia of the infrarenal abdominal aorta without aneurysm. Peritoneum / Retroperitoneum: There are no abnormal intra or retroperitoneal masses or fluid collections. There are no abdominal wall defects. Bones: There are no significant bony abnormalities. CT/CT Abd/Pelvis W/WO Contrast IMPRESSION: 1. Marked prostatomegaly. 2. There is thickening of the bladder wall consistent with bladder outlet obstruction. 3. There is no evidence of nephrolithiasis, ureterolithiasis or hydronephrosis. 4. Mild constipation. 5. Other findings as noted. No significant change from prior noncontrast CT abdomen and pelvis. Reading Location: [facility] CC: Dr. Chase Cohen MD; Dr. Eligio Navarro MD Cafeteria Aide: Signed Normal [facility] PSA Total+%Freeon 04-05-2025 PSA, FREE 2.49 ng/mL Normal N/A [facility] Comment on above: Result Comment: Josse QUINTANA methodology. Performed By: #### L 3110.0500 #### [facility] [address] [place], [place], [id number] PSA, FREE % 49.[address] [facility] Comment on above: Result Comment: The table [...] any other population of men. Performed at: [facility] [id number] [employer] Actor: Jaden Blanco PhD, Phone: [phone] Performed By: #### L 3110.0500 #### [facility] [address] [place], [address] PSA, TOTAL ULTR 5.060 ng/mL Abnormal 0.000-4.[address] [facility] Comment on above: Result Comment: Josse cobos ECLIA methodology. According to the [employer], Serum PSA should decrease and [...] disease. Performed By: #### L 3110.0500 #### [facility] [address] [place], [address] Serum or plasma free prostat e specific antigen (PSA)/total PSA mass ratioOrdered By: Eligio Navarro on 04-04-2025 Free PSA/Total PSA [Mass fraction] 49.2 % . [facility] Comment on above: The table below list [...] for any other population of men.Performed at: [facility] [id number] Director: Jaden Blanco PhD, Phone: [phone] Absolute lymphocyte countOrd ered By: Chase Cohen on 03-05-2025 Lymphocytes Auto (Unsp spec) [#/Vol] 2.18 10*3/uL 0.83-4.[address] [facility] Absolute neutrophil countOrd ered By: Royeraudidaphnelaverne Cohen on 03-05-2025 Neutrophils (Bld) [#/Vol] 3.6 10*3/uL 2.0-7.[address] [facility] Anion gap in Serum or Plasma Ordered By: audiknob nosterlaverne Cohen on 03-05-2025 Anion gap [Moles/Vol] 9 mmol/L 12-28 [facility] Automated lymphocyte count a s percentage of total leukocytesOrdered By: Chase Cohen on 03-05-2025 Lymphocytes/100 WBC Auto (Unsp spec) 32.1 % [facility] BUN/creatinine ratioOrdered By: alivia Cohen on 03-05-2025 Urea nitrogen/Creatinine [Mass ratio] 16.6 mg/mg 06-[address] [facility] Basic Metabolic Profile (BMP )on 03-05-2025 BUN/CRE 16.6 RATIO Normal 06-[address] [facility] Comment on above: Performed By: #### L 501.9985, L500.2500, L100.0100, L501.9910 #### [facility] [address] [place], [address] Calcium [Mass/Vol] 9.8 mg/dL Normal 7.6-11.0 [facility] Comment on above: Performed By: #### L 501.9985, L500.2500, L100.0100, L501.9910 #### [facility] [address] [place], [address] Chloride [Moles/Vol] 105 mmol/L Normal 98-108 [facility] Comment on above: Performed By: #### L 501.9985, L500.2500, L100.0100, L501.9910 #### [facility] [address] [place], [address] CO2 [Moles/Vol] 24.0 mmol/L Normal 21.0-32.[address] [facility] Comment on above: Performed By: #### L 501.9985, L500.2500, L100.0100, L501.9910 #### [facility] [address] [place], [address] Creatinine [Mass/Vol] 1.54 mg/dL High 0.70-1.20 [facility] Comment on above: Performed By: #### L 501.9985, L500.2500, L100.0100, L501.9910 #### [facility] [address] [place], [address] GAP 9 Normal 5-[address] [facility] Comment on above: Performed By: #### L 501.9985, L500.2500, L100.0100, L501.9910 #### [facility] [address] [place], [address] GFR/1.73 sq M.predicted among non-blacks MDRD (S/P/Bld) [Vol rate/Area] 46 mL/min/{1.73_m2} Low >[address] [facility] Comment on above: Result Comment: mL/m in/1.73m2 CKD-EPI Creatinine Equation (2020) Performed By: #### L 501.9985, L500.2500, L100.0100, L501.9910 #### [facility] [address] [place], [address] Glucose [Mass/Vol] 140 mg/dL High 70-99 [facility] Comment on above: Performed By: #### L 501.9985, L500.2500, L100.0100, L501.9910 #### [facility] [address] [place], [address] Potassium [Moles/Vol] 4.9 mmol/L Normal 3.3-5.1 [facility] Comment on above: Performed By: #### L 501.9985, L500.2500, L100.0100, L501.9910 #### [facility] [address] [place], [address] Sodium [Moles/Vol] 139 mmol/L Normal 133-145 [facility] Comment on above: Performed By: #### L 501.9985, L500.2500, L100.0100, L501.9910 #### [facility] [address] [place], [address] Urea nitrogen [Mass/Vol] 26 mg/dL High 4-[address] [facility] Comment on above: Performed By: #### L 501.9985, L500.2500, L100.0100, L501.9910 #### [facility] [address] [place], [address] Basophil percentageOrdered B y: Chase Cohen on 03-05-2025 Basophils/100 WBC (Bld) 0.7 % 0-1 [facility] CBC W/Diff, Automatedon 02-14 Absolute Lymph 2.18 X10 3/uL Normal 0.83-4.[address] [facility] Comment on above: Performed By: #### L 501.9985, L500.2500, L100.0100, L501.9910 #### [facility] [address] [place], [address] Absolute Neut 3.6 X10 3/uL Normal 2.0-7.[address] [facility] Comment on above: Performed By: #### L 501.9985, L500.2500, L100.0100, L501.9910 #### [facility] [address] [place], [address] Basophils/100 WBC (Bld) 0.7 % Normal 0-1 [facility] Comment on above: Performed By: #### L 501.9985, L500.2500, L100.0100, L501.9910 #### [facility] [address] [place], [address] Eosinophils/100 WBC (Bld) 2.8 % Normal 0-[address] [facility] Comment on above: Performed By: #### L 501.9985, L500.2500, L100.0100, L501.9910 #### [facility] [address] [place], [address] Erythrocyte distribution width (RBC) [Ratio] 13.4 % Normal 11.6-14.[address] [facility] Comment on above: Performed By: #### L 501.9985, L500.2500, L100.0100, L501.9910 #### [facility] [address] [place], [address] Hematocrit (Bld) [Volume fraction] 39.0 % Low 40-[address] [facility] Comment on above: Performed By: #### L 501.9985, L500.2500, L100.0100, L501.9910 #### [facility] [address] [place], [address] Hemoglobin (Bld) [Mass/Vol] 13.0 g/dL Normal 13.0-16.[address] [facility] Comment on above: Performed By: #### L 501.9985, L500.2500, L100.0100, L501.9910 #### [facility] [address] [place], [address] IG% 0.300 Normal 0.0-0.[address] [facility] Comment on above: Result Comment: IG% - Immature Granulocytes (promyelocytes, myelocytes and metamyelocytes) > 1% indicates that a LEFT SHIFT is Present. Performed By: #### L 501.9985, L500.2500, L100.0100, L501.9910 #### [facility] [address] [place], [address] Lymphocytes/100 WBC (Bld) 32.1 % Normal 19-[address] [facility] Comment on above: Performed By: #### L 501.9985, L500.2500, L100.0100, L501.9910 #### [facility] [address] [place], [address] MCH (RBC) [Entitic mass] 30.1 pg Normal 27.0-32.[address] [facility] Comment on above: Performed By: #### L 501.9985, L500.2500, L100.0100, L501.9910 #### [facility] [address] [place], [address] MCHC (RBC) [Mass/Vol] 33.3 g/dL Normal 32-36 [facility] Comment on above: Performed By: #### L 501.9985, L500.2500, L100.0100, L501.9910 #### [facility] [address] [place], [address] MCV (RBC) [Entitic vol] 90.3 fL Normal 80-94 [facility] Comment on above: Performed By: #### L 501.9985, L500.2500, L100.0100, L501.9910 #### [facility] [address] [place], [address] Monocytes/100 WBC (Bld) 10.6 % High 0-10 [facility] Comment on above: Performed By: #### L 501.9985, L500.2500, L100.0100, L501.9910 #### [facility] [address] [place], [address] Neutrophils/100 WBC (Bld) 53.5 % Normal 47-[address] [facility] Comment on above: Performed By: #### L 501.9985, L500.2500, L100.0100, L501.9910 #### [facility] [address] [place], [address] Nucleated RBC (Bld) [#/Vol] 0 10*3/uL Normal 0-[address] [facility] Comment on above: Performed By: #### L 501.9985, L500.2500, L100.0100, L501.9910 #### [facility] [address] [place], [address] Platelet mean volume (Bld) [Entitic vol] 10.8 fL Normal 6.2-12.[address] [facility] Comment on above: Performed By: #### L 501.9985, L500.2500, L100.0100, L501.9910 #### [facility] [address] [place], [address] Platelets (Bld) [#/Vol] 296 10*3/uL Normal 150-[address] [facility] Comment on above: Performed By: #### L 501.9985, L500.2500, L100.0100, L501.9910 #### [facility] [address] [place], [address] RBC (Bld) [#/Vol] 4.32 10*6/uL Low 4.6-6.2 [facility] Comment on above: Performed By: #### L 501.9985, L500.2500, L100.0100, L501.9910 #### [facility] [address] [place], [address] RDW SD 44.0 fl High 35.1-43.[address] [facility] Comment on above: Performed By: #### L 501.9985, L500.2500, L100.0100, L501.9910 #### [facility] [address] [place], [address] WBC (Bld) [#/Vol] 6.8 10*3/uL Normal 4.4-11.0 [facility] Comment on above: Performed By: #### L 501.9985, L500.2500, L100.0100, L501.9910 #### [facility] [address] [place], [address] Carbon dioxide, total [Moles /volume] in Central venous bloodOrdered By: Chase Cohen on 03-05-2025 CO2 [Moles/Vol] 24.0 mmol/L 21.0-32.[address] [facility] Chloride assayOrdered By: Royer audistefan Cohen on 03-05-2025 Chloride [Moles/Vol] 105 mmol/L 98-108 [facility] Eosinophil percentageOrdered By: audiknob nosterlaverne Durbinagustinap on 03-05-2025 Eosinophils/100 WBC (Bld) 2.8 % 0-[address] [facility] Erythrocyte distribution wid th ratioOrdered By: [facility]ne Durbinap on 03-05-2025 Erythrocyte distribution width (RBC) [Ratio] 13.4 % 11.6-14.[address] [facility] Erythrocyte distribution wid th standard deviationOrdered By: [facility] Durbinap on 03-05-2025 Erythrocyte distribution width (RBC) [Ratio] 44.0 fl High 35.1-43.[address] [facility] Glomerular filtration rate ( GFR) estimation/1.73 sq m using serum, plasma, or whole bOrdered By: [facility]all[facility]ne Cohen on 03-05-2025 GFR/1.73 sq M.predicted among non-blacks MDRD (S/P/Bld) [Vol rate/Area] 46 mL/min/{1.73_m2} Low >[address] [facility] Comment on above: mL/min/1.73m2 CKD-EP I Creatinine Equation (2020) Hematocrit Auto (Bld) [Volum e fraction]Ordered By: Chase Cohen on 03-05-2025 Hematocrit (Bld) [Volume fraction] 39.0 % Low 40-[address] [facility] Hemoglobin A1con 03-05-2025 HbA1c (Bld) [Mass fraction] 6.7 % High <=5.[address] [facility] Comment on above: Result Comment: Norm al < 5.7 % Prediabetic 5.7 - 6.4 % Diabetic >or= 6.5 % Please note range changes. Performed By: #### L 501.9996, L500.2500, L100.0100, L501.9910 #### [facility] [address] [place], [address] Hemoglobin A1c percentageOrd ered By: Chase Cohen on 03-05-2025 HbA1c (Bld) [Mass fraction] 6.7 % High <5.[address] [facility] Comment on above: Normal < 5.7 % Predi abetic 5.7 - 6.4 % Diabetic >or= 6.5 % Please note range changes. Hemoglobin measurementOrdere d By: Chase Cohen on 03-05-2025 Hemoglobin (Bld) [Mass/Vol] 13.0 g/dL 13.0-16.[address] [facility] Immature granulocytes/100 WB C Auto (Bld)Ordered By: Royeralivia Cohen on 03-05-2025 Immature granulocytes/100 WBC (Bld) 0.300 % 0.0-0.[address] [facility] Comment on above: IG% - Immature Granu locytes (promyelocytes, myelocytes and metamyelocytes) > 1% indicates that a LEFT SHIFT is Present. Internal Medicine Office Vis itocolin 03-05-2025 Internal Medicine Office Visit [facility] [address] [place] [address] [place] [address] OFFICE VISIT Date of Service: 03/05/25 MR#: [id number] Acct: [id number] Name: GENI LINDSAY Rep #: [id number] : 1945 Provider: Dr. 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 PENDING SALE TO [facility] Medical History Dermatitis Screening for thyroid disorder [...] accident) (2001) Atherosclerosis of coronary artery of [place] heart without angina pectoris BPH (benign prostatic [...] The p (more content not included)... Normal [facility] MCV (mean corpuscular volume ) determinationOrdered By: Chase Cohne on 03-05-2025 MCV (RBC) [Entitic vol] 90.3 fL 80-94 [facility] Mean corpuscular hemoglobin (MCH) determinationOrdered By: Chase Cohen on 03-05-2025 MCH (RBC) [Entitic mass] 30.1 pg 27.0-32.[address] [facility] Mean corpuscular hemoglobin concentration (MCHC) determinationOrdered By: Chase Cohen on 03-05-2025 MCHC (RBC) [Mass/Vol] 33.3 g/dL 32-36 [facility] Mean platelet volume determi nationOrdered By: Royeralivia Durbinafshin on 03-05-2025 Platelet mean volume (Bld) [Entitic vol] 10.8 fL 6.2-12.[address] [facility] Monocyte percentageOrdered B y: Chase Cohen on 03-05-2025 Monocytes/100 WBC (Bld) 10.6 % High 0-10 [facility] Neutrophil percentageOrdered By: [facility] Durbinap on 03-05-2025 Neutrophils/100 WBC (Bld) 53.5 % 47-[address] [facility] Nucleated red blood cell per centageOrdered By: [facility] Ramakrishnaap on 03-05-2025 Nucleated RBC/100 WBC (Bld) [Ratio] 0 % 0-[address] [facility] PSA,Total - Annual Screenon 03-05-2025 PSA,TOT SCREEN 5.06 ng/mL High 0.02-4.[address] [facility] Comment on above: Result Comment: This test [...] confirm baseline values. Performed By: #### L 501.9985, L500.2500, L100.0100, L501.9910 #### [facility] [address] [place], [address] Platelet countOrdered By: Royer lucinalaverne Cohen on 03-05-2025 Platelets (Bld) [#/Vol] 296 10*3/uL 150-[address] [facility] Potassium measurement (mass/ volume)Ordered By: Chase Cohen on 03-05-2025 Potassium (Unsp spec) [Mass/Vol] 4.9 mmol/L 3.3-5.[address] [facility] RBC Auto (Bld) [#/Vol]Ordere d By: Suzylaverne Cosmeap on 03-05-2025 RBC (Bld) [#/Vol] 4.32 10*6/uL Low 4.6-6.2 [facility] Serum creatinine measurement (mass/volume)Ordered By: Chase Cohen on 03-05-2025 Creatinine [Mass/Vol] 1.54 mg/dL High 0.70-1.20 [facility] Serum glucose measurement (m ass/volume)Ordered By: Chase Cohen on 03-05-2025 Glucose [Mass/Vol] 140 mg/dL High 70-99 [facility] Serum or plasma calcium joya urement (mass/volume)Ordered By: Chase Cohen on 03-05-2025 Calcium [Mass/Vol] 9.8 mg/dL 7.6-11.0 [facility] Serum or plasma urea nitroge n measurement (mass/volume)Ordered By: Chase Cohen on 03-05-2025 Urea nitrogen [Mass/Vol] 26 mg/dL High 4-[address] [facility] Sodium levelOrdered By: Hodan stefan Noel on 03-05-2025 Sodium [Moles/Vol] 139 mmol/L 133-145 [facility] White blood cell (WBC) count Ordered By: Chase Cohen on 03-05-2025 WBC (Bld) [#/Vol] 6.8 10*3/uL 4.4-11.0 [facility] Bilirubin directOrdered By: Corry Moura on 02-23-2025 Bilirubin.direct [Mass/Vol] 0.17 mg/dL 0.00-0.[address] [facility] Bilirubin, totalOrdered By: Corry Moura on 02-23-2025 Bilirubin [Mass/Vol] 0.38 mg/dL 0.00-1.30 [facility] Calculated very low density lipoprotein (VLDL) cholesterol measurementOrdered By: Corry Moura on 02-23-2025 Calculated very low density lipoprotein (VLDL) cholesterol measurement 28 mg/dL 5-40 [facility] LDL calc ser/plasOrdered By: Corry Moura on 02-23-2025 Cholesterol in LDL [Mass/Vol] 108 mg/dL [facility] Comment on above: Rnxbkujoru=100-315 m g/dL & Higher Lotz=137 mg/dL or greater Laboratory - Chemistry and C hemistry - challengeOrdered By: Corry Moura on 02-23-2025 AST [Catalytic activity/Vol] 20 U/L <[address] [facility] Lipid Profileon 02-23-2025 CHOL:HDL 5.[address] [facility] Comment on above: Performed By: #### L 500.3400, L500.4100 ####[facility] [address] [place], [address] Cholesterol [Mass/Vol] 165 mg/dL Normal <=200 [facility] Comment on above: Result Comment: Chol esterol level, Desirable <200 mg/dL Borderline high cholesterol 200-239 mg/dL High cholesterol >=240 mg/dL Recommendations of the NCEP Adult Treatment Panel for the following risk-cutoff thresholds for the [place] population. Performed By: #### L 500.3400, L500.4100 ####[facility] [address] [place], [address] Cholesterol in HDL [Mass/Vol] 29 mg/dL Low [facility] Comment on above: Result Comment: Maddi onal Cholesterol Education Program (NCEP) guidelines: <40 mg/dL: Low HDL-cholesterol (major risk factor for CHD) >= 60 mg/dL: High HDL-cholesterol (negative risk factor for CHD) HDL-cholesterol is affected by a number of factors, e.g. smoking, exercise, hormones, sex and age. Performed By: #### L 500.3400, L500.4100 ####[facility] [address] [place], [address] Cholesterol in LDL [Mass/Vol] 108 mg/dL Normal [facility] Comment on above: Result Comment: Bord lvqwlj=861-573 mg/dL Higher Cklj=096 mg/dL or greater Performed By: #### L 500.3400, L500.4100 ####[facility] [address] [place], [address] Cholesterol in VLDL [Mass/Vol] 28 mg/dL Normal 5-[address] [facility] Comment on above: Performed By: #### L 500.3400, L500.4100 ####[facility] [address] [place], [address] Triglyceride [Mass/Vol] 142 mg/dL Normal [facility] Comment on above: Result Comment: The drugs N-Acetylcysteine and Metamizole may falsely depress this assay. Normal range: <150 mg/dL Borderline High: 150-199 mg/dL High: 200-499 mg/dL Very High: >500 mg/dL Performed By: #### L 500.3400, L500.4100 ####[facility] [address] [place], [address] Liver Profileon 02-23-2025 Albumin [Mass/Vol] 4.5 g/dL Normal 3.4-4.8 [facility] Comment on above: Performed By: #### L 500.3400, L500.4100 ####[facility] [address] [place], [address] ALK PHOS 39 U/L Low 40-[address] [facility] Comment on above: Performed By: #### L 500.3400, L500.4100 ####[facility] [address] [place], [address] ALT [Catalytic activity/Vol] 16 U/L Normal <=[address] [facility] Comment on above: Performed By: #### L 500.3400, L500.4100 ####[facility] [address] [place], [address] AST [Catalytic activity/Vol] 20 U/L Normal <=[address] [facility] Comment on above: Performed By: #### L 500.3400, L500.4100 ####[facility] [address] [place], [address] Bilirubin [Mass/Vol] 0.38 mg/dL Normal 0.00-1.30 [facility] Comment on above: Performed By: #### L 500.3400, L500.4100 ####[facility] [address] [place], [address] Bilirubin.direct [Mass/Vol] 0.17 mg/dL Normal 0.00-0.[address] [facility] Comment on above: Performed By: #### L 500.3400, L500.4100 ####[facility] [address] [place], [address] Globulin (S) [Mass/Vol] 2.6 g/dL Normal 2.2-4.2 [facility] Comment on above: Performed By: #### L 500.3400, L500.4100 ####[facility] [address] [place], [address] T PROT 7.0 g/dL Normal 5.9-8.[address] [facility] Comment on above: Performed By: #### L 500.3400, L500.4100 ####[facility] [address] [place], [address] Screening total cholesterol/ high density lipoprotein (HDL) cholesterol ratioOrdered By: Corry Moura on 02-23-2025 Cholesterol.total/Choles terol in HDL [Mass ratio] 5.77 {ratio} [facility] Serum globulin measurementOr dered By: Corry Moura on 02-23-2025 Globulin (S) [Mass/Vol] 2.6 g/dL 2.2-4.2 [facility] Serum or plasma alanine navarro otransferase (ALT) measurementOrdered By: Corry Moura on 02-23-2025 ALT [Catalytic activity/Vol] 16 U/L <[address] [facility] Serum or plasma albumin joya urement (mass/volume)Ordered By: Corry Moura on 02-23-2025 Albumin [Mass/Vol] 4.5 g/dL 3.4-4.8 [facility] Serum or plasma alkaline yannick sphatase measurementOrdered By: Corry Moura on 02-23-2025 ALP [Catalytic activity/Vol] 39 U/L Low 40-[address] [facility] Serum or plasma cholesterol in HDL measurement (mass/volume)Ordered By: Corry Moura on 02-23-2025 Cholesterol in HDL [Mass/Vol] 29 mg/dL Low >[address] [facility] Comment on above: National Cholesterol Education Program (NCEP) guidelines:<40 mg/dL: Low HDL-cholesterol (major risk factor for CHD)>= 60 mg/dL: High HDL-cholesterol (negative risk factor for CHD)HDL-cholesterol is affected by a number of factors, e.g. smoking, exercise, hormones, sex and age. Serum or plasma cholesterol measurement (mass/volume)Ordered By: Corry Moura on 02-23-2025 Cholesterol [Mass/Vol] 165 mg/dL <201 [facility] Comment on above: Cholesterol level, D esirable <200 mg/dLBorderline high cholesterol 200-239 mg/dLHigh cholesterol >=240 mg/dLRecommendations of the NCEP Adult Treatment Panel for the following risk-cutoff thresholds for the [place] population. Total proteinOrdered By: Merlin Moura on 02-23-2025 Protein [Mass/Vol] 7.0 g/dL 5.9-8.4 [facility] Triglycerides measurementOrd ered By: Corry Moura on 02-23-2025 Triglyceride [Mass/Vol] 142 mg/dL <199 [facility] Comment on above: The drugs N-Acetylcy steine and Metamizole may falsely depress this assay. Normal range: <150 mg/dLBorderline High: 150-199 mg/dLHigh: 200-499 mg/dLVery High: >500 mg/dL Bilirubin directOrdered By: Corry Moura on 11-28-2024 Bilirubin.direct [Mass/Vol] 0.22 mg/dL 0.00-0.[address] [facility] Bilirubin, totalOrdered By: Corry Moura on 11-28-2024 Bilirubin [Mass/Vol] 0.50 mg/dL 0.00-1.30 [facility] Calculated very low density lipoprotein (VLDL) cholesterol measurementOrdered By: Corry Moura on 11-28-2024 Calculated very low density lipoprotein (VLDL) cholesterol measurement 66 mg/dL High 5-[address] [facility] VLDL Cholesterol 66 mg/dL High 5-[address] [facility] Cardiology Visit Reporton Cardiology Visit Report [facility] [address] [place] [address] OFFICE VISIT Date of Service: 11/28/24 MR#: [id number] Acct: [id number] Name: GENI LINDSAY Rep #: [id number] [...] myocardial infarction was taken urgently to the minilab operator and underwent angioplasty and stenting of his [...] NIBP Intake Visit Reasons: 1 Y FU Neurodiagnostic Technologist Required: No Is patient in pain?: No [...] 25 mg tablet See Rx Instructions .Route 11/28/24 Rx (Jardiance) .COMPLEX #90 tabs pantoprazole [...] accident) (2001) Atherosclerosis of coronary artery of [place] heart without angina pectoris BPH (benign prostatic hyperplasia) GERD (gastroesophageal reflux disease) Type 2 diabetes mellitus Enlarged prostate Neuropathy Hearing problem Gastrointestinal complaints, unspecific Back problem Surgical History History of cardiac catheterization History of foot surgery History of colonoscopy S/P trigger finger release (more content not included)... Normal [facility] LDL calc ser/plasOrdered By: Corry Moura on 11-28-2024 Cholesterol in LDL [Mass/Vol] 74 mg/dL [facility] Comment on above: Lffpeezrpp=824-980 m g/dL & Higher Pict=371 mg/dL or greater LDL Cholesterol, Calculated 74 mg/dL [facility] Comment on above: Xvldshnjne=965-942 m g/dL & Higher Hzfs=982 mg/dL or greater Laboratory - Chemistry and C hemistry - challengeOrdered By: Corry Moura on 11-28-2024 AST [Catalytic activity/Vol] 19 U/L <[address] [facility] Lipid Profileon 11-28-2024 CHOL:HDL 6.[address] [facility] Comment on above: Order Comment: Comme nts: okay to do non fasting Performed By: #### L 500.3400, L500.4100 ####[facility] [address] [place], [address] Cholesterol [Mass/Vol] 164 mg/dL Normal <=200 [facility] Comment on above: Order Comment: Comme nts: okay to do non fasting Result Comment: Chol esterol level, Desirable <200 mg/dL Borderline high cholesterol 200-239 mg/dL High cholesterol >=240 mg/dL Recommendations of the NCEP Adult Treatment Panel for the following risk-cutoff thresholds for the [place] population. Performed By: #### L 500.3400, L500.4100 ####[facility] [address] [place], [address] Cholesterol in HDL [Mass/Vol] 24 mg/dL Low [facility] Comment on above: Order Comment: Comme nts: okay to do non fasting Result Comment: Maddi onal Cholesterol Education Program (NCEP) guidelines: <40 mg/dL: Low HDL-cholesterol (major risk factor for CHD) >= 60 mg/dL: High HDL-cholesterol (negative risk factor for CHD) HDL-cholesterol is affected by a number of factors, e.g. smoking, exercise, hormones, sex and age. Performed By: #### L 500.3400, L500.4100 ####[facility] [address] [place], [address] Cholesterol in LDL [Mass/Vol] 74 mg/dL Normal [facility] Comment on above: Order Comment: Comme nts: okay to do non fasting Result Comment: Bord eabozv=329-415 mg/dL Higher Hclj=897 mg/dL or greater Performed By: #### L 500.3400, L500.4100 ####[facility] [address] [place], [address] Cholesterol in VLDL [Mass/Vol] 66 mg/dL High 5-[address] [facility] Comment on above: Order Comment: Comme nts: okay to do non fasting Performed By: #### L 500.3400, L500.4100 ####[facility] [address] [place], [address] Triglyceride [Mass/Vol] 329 mg/dL High [facility] Comment on above: Order Comment: Comme nts: okay to do non fasting Result Comment: The drugs N-Acetylcysteine and Metamizole may falsely depress this assay. Normal range: <150 mg/dL Borderline High: 150-199 mg/dL High: 200-499 mg/dL Very High: >500 mg/dL Performed By: #### L 500.3400, L500.4100 ####[facility] [address] [place], [address] Liver Profileon 11-28-2024 Albumin [Mass/Vol] 4.4 g/dL Normal 3.4-4.8 [facility] Comment on above: Order Comment: Comme nts: okay to do non fastingokay to do non fasting Performed By: #### L 500.3400, L500.4100 ####[facility] [address] [place], [address] ALK PHOS 47 U/L Normal 40-[address] [facility] Comment on above: Order Comment: Comme nts: okay to do non fastingokay to do non fasting Performed By: #### L 500.3400, L500.4100 ####[facility] [address] [place], [address] ALT [Catalytic activity/Vol] 15 U/L Normal <=[address] [facility] Comment on above: Order Comment: Comme nts: okay to do non fastingokay to do non fasting Performed By: #### L 500.3400, L500.4100 ####[facility] [address] [place], [address] AST [Catalytic activity/Vol] 19 U/L Normal <=[address] [facility] Comment on above: Order Comment: Comme nts: okay to do non fastingokay to do non fasting Performed By: #### L 500.3400, L500.4100 ####[facility] [address] [place], [address] Bilirubin [Mass/Vol] 0.50 mg/dL Normal 0.00-1.30 [facility] Comment on above: Order Comment: Comme nts: okay to do non fastingokay to do non fasting Performed By: #### L 500.3400, L500.4100 ####[facility] [address] [place], [address] Bilirubin.direct [Mass/Vol] 0.22 mg/dL Normal 0.00-0.[address] [facility] Comment on above: Order Comment: Comme nts: okay to do non fastingokay to do non fasting Performed By: #### L 500.3400, L500.4100 ####[facility] [address] [place], [address] Globulin (S) [Mass/Vol] 2.6 g/dL Normal 2.2-4.2 [facility] Comment on above: Order Comment: Comme nts: okay to do non fastingokay to do non fasting Performed By: #### L 500.3400, L500.4100 ####[facility] [address] [place], [address] T PROT 7.0 g/dL Normal 5.9-8.[address] [facility] Comment on above: Order Comment: Comme nts: okay to do non fastingokay to do non fasting Performed By: #### L 500.3400, L500.4100 ####[facility] [address] [place], [address] Screening total cholesterol/ high density lipoprotein (HDL) cholesterol ratioOrdered By: Corry Moura on 11-28-2024 Cholesterol.total/Choles terol in HDL [Mass ratio] 6.80 {ratio} [facility] Serum globulin measurementOr dered By: Corry Moura on 11-28-2024 Globulin (S) [Mass/Vol] 2.6 g/dL 2.2-4.2 [facility] Serum or plasma alanine navarro otransferase (ALT) measurementOrdered By: Corry Moura on 11-28-2024 ALT [Catalytic activity/Vol] 15 U/L <[address] [facility] Serum or plasma albumin joya urement (mass/volume)Ordered By: Corry Moura on 11-28-2024 Albumin [Mass/Vol] 4.4 g/dL 3.4-4.8 [facility] Serum or plasma alkaline yannick sphatase measurementOrdered By: Corry Moura on 11-28-2024 ALP [Catalytic activity/Vol] 47 U/L 40-[address] [facility] Serum or plasma cholesterol in HDL measurement (mass/volume)Ordered By: Corry Moura on 11-28-2024 Cholesterol in HDL [Mass/Vol] 24 mg/dL Low >[address] [facility] Comment on above: National Cholesterol Education Program (NCEP) guidelines:<40 mg/dL: Low HDL-cholesterol (major risk factor for CHD)>= 60 mg/dL: High HDL-cholesterol (negative risk factor for CHD)HDL-cholesterol is affected by a number of factors, e.g. smoking, exercise, hormones, sex and age. Serum or plasma cholesterol measurement (mass/volume)Ordered By: Corry Moura on 11-28-2024 Cholesterol [Mass/Vol] 164 mg/dL <201 [facility] Comment on above: Cholesterol level, D esirable <200 mg/dLBorderline high cholesterol 200-239 mg/dLHigh cholesterol >=240 mg/dLRecommendations of the NCEP Adult Treatment Panel for the following risk-cutoff thresholds for the [place] population. Total proteinOrdered By: Merlin Moura on 11-28-2024 Protein [Mass/Vol] 7.0 g/dL 5.9-8.4 [facility] Triglycerides measurementOrd ered By: Corry Moura on 11-28-2024 Triglyceride [Mass/Vol] 329 mg/dL High <199 [facility] Comment on above: The drugs N-Acetylcy steine and Metamizole may falsely depress this assay. Normal range: <150 mg/dLBorderline High: 150-199 mg/dLHigh: 200-499 mg/dLVery High: >500 mg/dL Cerv Spine 2 or 3 Viewson Cerv Spine 2 or 3 Views [facility] Imaging Services [address] [place] [address] Cerv Spine 2 or 3 Views MR#: [id number] Acct: [id number] Name: GENI LINDSAY Rep #: [id number] : 1945 M 79 From: Sourav Reeder MD PCP: Dr. Chase Cohen MD Status: REG CLI Study: Cerv Spine 2 or 3 Views Date of Exam: 11/09/24 Exam# [id number] Ordering Dr: Asa Lopez PROCEDURE: CERV SPINE [...] tissue swelling. 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 Titln-zdvxltj-mvbi-l eft appearing multilevel facet degenerative changes. Suggestion [...] malalignment identified. C5-6 spondylosis/discogen ic change with qiot-dq-cwolcmcp disc space narrowing. Wwrld-skqhyvu-zxhy-l eft appearing multilevel facet degenerative changes. Reading Location: [id number] CC: Dr. Chase Cohen MD; DARIANA Joshua Cafeteria Aide: Signed Normal [facility] Internal Medicine Office Vis hina 11-09-2024 Internal Medicine Office Visit [facility] [address] [place] [address] [place] [address] OFFICE VISIT Date of Service: 11/09/24 MR#: [id number] Acct: [id number] Name: GENI LINDSAY Rep #: [id number] : 1945 Provider: DARIANA Joshua Age/Sex: 79/M Location: [facility] Status: Signed Intake Vital Signs 05/02/24 07:25 [...] Reasons: STIFF / PAIN NECK / ITCHY Neurodiagnostic Technologist Required: No Is patient in pain?: Yes [...] See Rx Instructions .Route 4 11/09/24 Rx (Jardiance) .COMPLEX #90 tabs [...] and did not have any known injury. PENDING SALE TO [facility] Medical History Dermatitis Screening for thyroid disorder [...] accident) (2001) Atherosclerosis of coronary artery of [place] heart without angina pectoris BPH (benign prostatic hyperplasia) GERD (gastroesophageal reflux disease) Type 2 diabetes mellitus Enlarged prostate Neuropathy Hearing problem Gastrointestinal complaints, unspecific Back problem Surgical History History of cardiac catheterization Histo (more content not included)... Normal [facility] PSA Serial Monitoron 024 PSA, TOTAL 5.0 ng/mL Abnormal 0.0-4.[address] [facility] Comment on above: Result Comment: Josse cobos ECLIA methodology. According to the [place] [employer], Serum PSA should decrease and [...] or absence of malignant disease. Performed at: [address] [id number] [employer] Actor: Jaden Blanco PhD, Phone: [phone] Performed By: #### L 5019985, L100.0100, L500.4050, L3110.0525 ####[facility] [address] [place], [address] CBC W/Diff, Automatedon 04-16 Absolute Lymph 1.92 X10 3/uL Normal 0.83-4.[address] [facility] Comment on above: Performed By: #### L 501.9985, L100.0100, L500.4050, L3110.0525 ####[facility] [address] [place], [address] Absolute Neut 3.7 X10 3/uL Normal 2.0-7.[address] [facility] Comment on above: Performed By: #### L 501.9985, L100.0100, L500.4050, L3110.0525 ####[facility] [address] [place], [address] Basophils/100 WBC (Bld) 0.9 % Normal 0-1 [facility] Comment on above: Performed By: #### L 501.9985, L100.0100, L500.4050, L3110.0525 ####[facility] [address] [place], [address] Eosinophils/100 WBC (Bld) 3.2 % Normal 0-[address] [facility] Comment on above: Performed By: #### L 501.9985, L100.0100, L500.4050, L3110.0525 ####[facility] [address] [place], [address] Erythrocyte distribution width (RBC) [Ratio] 13.1 % Normal 11.6-14.[address] [facility] Comment on above: Performed By: #### L 501.9985, L100.0100, L500.4050, L3110.0525 ####[facility] [address] [place], [address] Hematocrit (Bld) [Volume fraction] 43.3 % Normal 40-[address] [facility] Comment on above: Performed By: #### L 501.9985, L100.0100, L500.4050, L3110.0525 ####[facility] [address] [place], [address] Hemoglobin (Bld) [Mass/Vol] 13.8 g/dL Normal 13.0-16.[address] [facility] Comment on above: Performed By: #### L 501.9985, L100.0100, L500.4050, L3110.0525 ####[facility] [address] [place], [address] IG% 0.300 Normal 0.0-0.[address] [facility] Comment on above: Result Comment: IG% - Immature Granulocytes (promyelocytes, myelocytes and metamyelocytes) > 1% indicates that a LEFT SHIFT is Present. Performed By: #### L 501.9985, L100.0100, L500.4050, L3110.0525 ####[facility] [address] [place], [address] Lymphocytes/100 WBC (Bld) 28.4 % Normal 19-[address] [facility] Comment on above: Performed By: #### L 501.9985, L100.0100, L500.4050, L3110.0525 ####[facility] [address] [place], [address] MCH (RBC) [Entitic mass] 29.1 pg Normal 27.0-32.[address] [facility] Comment on above: Performed By: #### L 501.9985, L100.0100, L500.4050, L3110.0525 ####[facility] [address] [place], [address] MCHC (RBC) [Mass/Vol] 31.9 g/dL Low 32-36 [facility] Comment on above: Performed By: #### L 501.9985, L100.0100, L500.4050, L3110.0525 ####[facility] [address] [place], [address] MCV (RBC) [Entitic vol] 91.4 fL Normal 80-94 [facility] Comment on above: Performed By: #### L 501.9985, L100.0100, L500.4050, L3110.0525 ####[facility] [address] [place], [address] Monocytes/100 WBC (Bld) 12.0 % High 0-10 [facility] Comment on above: Performed By: #### L 501.9985, L100.0100, L500.4050, L3110.0525 ####[facility] [address] [place], [address] Neutrophils/100 WBC (Bld) 55.2 % Normal 47-[address] [facility] Comment on above: Performed By: #### L 501.9985, L100.0100, L500.4050, L3110.0525 ####[facility] [facility] [address] [place], [address] Nucleated RBC (Bld) [#/Vol] 0 10*3/uL Normal 0-[address] [facility] Comment on above: Performed By: #### L 501.9985, L100.0100, L500.4050, L3110.0525 ####[facility] [address] [place], [address] Platelet mean volume (Bld) [Entitic vol] 11.0 fL Normal 6.2-12.[address] [facility] Comment on above: Performed By: #### L 501.9985, L100.0100, L500.4050, L3110.0525 ####[facility] [address] [place], [address] Platelets (Bld) [#/Vol] 276 10*3/uL Normal 150-[address] [facility] Comment on above: Performed By: #### L 501.9985, L100.0100, L500.4050, L3110.0525 ####[facility] [address] [place], [address] RBC (Bld) [#/Vol] 4.74 10*6/uL Normal 4.6-6.2 [facility] Comment on above: Performed By: #### L 501.9985, L100.0100, L500.4050, L3110.0525 ####[facility] [address] [place], [address] RDW SD 44.2 fl High 35.1-43.[address] [facility] Comment on above: Performed By: #### L 501.9985, L100.0100, L500.4050, L3110.0525 ####[facility] [address] [place], [address] WBC (Bld) [#/Vol] 6.8 10*3/uL Normal 4.4-11.0 [facility] Comment on above: Performed By: #### L 501.9985, L100.0100, L500.4050, L3110.0525 ####[facility] [address] [place], [address] Comprehensive Metabolic [facility] 05-02-2024 Albumin [Mass/Vol] 4.2 g/dL Normal 3.2-5.0 [facility] Comment on above: Performed By: #### L 501.9985, L100.0100, L500.4050, L3110.0525 ####[facility] [address] [place], [address] Albumin/Globulin [Mass ratio] 1.2 {ratio} Normal 0.9-2.[address] [facility] Comment on above: Performed By: #### L 501.9985, L100.0100, L500.4050, L3110.0525 ####[facility] [address] [place], [address] ALK P 42 U/L Low 45-[address] [facility] Comment on above: Performed By: #### L 501.9985, L100.0100, L500.4050, L3110.0525 ####[facility] [address] [place], [address] ALT [Catalytic activity/Vol] 26 U/L Normal 16-[address] [facility] Comment on above: Performed By: #### L 501.9985, L100.0100, L500.4050, L3110.0525 ####[facility] [address] [place], [address] AST [Catalytic activity/Vol] 20 U/L Normal 15-[address] [facility] Comment on above: Performed By: #### L 501.9985, L100.0100, L500.4050, L3110.0525 ####[facility] [address] [place], [address] Bilirubin [Mass/Vol] 0.70 mg/dL Normal 0.20-1.00 [facility] Comment on above: Result Comment: For patients on eltrombopag therapy, use of Dimension [place] TBIL is not recommended. Performed By: #### L 501.9985, L100.0100, L500.4050, L3110.0525 ####[facility] [address] [place], [address] BUN/CRE 15.7 RATIO Normal 10-[address] [facility] Comment on above: Performed By: #### L 501.9985, L100.0100, L500.4050, L3110.0525 ####[facility] [address] [place], [address] CA,Total 10.1 mg/dL Normal 8.5-10.[address] [facility] Comment on above: Performed By: #### L 501.9985, L100.0100, L500.4050, L3110.0525 ####[facility] [address] [place], [address] Chloride [Moles/Vol] 105 mmol/L Normal 98-107 [facility] Comment on above: Performed By: #### L 501.9985, L100.0100, L500.4050, L3110.0525 ####[facility] [address] [place], [address] CO2 [Moles/Vol] 25.0 mmol/L Normal 21.0-32.[address] [facility] Comment on above: Performed By: #### L 501.9985, L100.0100, L500.4050, L3110.0525 ####[facility] [address] [place], [address] Creatinine [Mass/Vol] 1.59 mg/dL High 0.70-1.30 [facility] Comment on above: Result Comment: The validity of the calculated GFR GFRAA in patients over 70 years has not been determined. Clinical correlation is essential. Performed By: #### L 501.9985, L100.0100, L500.4050, L3110.0525 ####[facility] [address] [place], [address] EST GFR - AA 54 mL/min Low >[address] [facility] Comment on above: Result Comment: Afri can Martiniquais GFR Calc Performed By: #### L 501.9985, L100.0100, L500.4050, L3110.0525 ####[facility] [address] [place], [address] GAP 8 Normal 5-[address] [facility] Comment on above: Performed By: #### L 501.9985, L100.0100, L500.4050, L3110.0525 ####[facility] [address] [place], [address] GFR/1.73 sq M.predicted among non-blacks MDRD (S/P/Bld) [Vol rate/Area] 45 mL/min/{1.73_m2} Low >[address] [facility] Comment on above: Result Comment: Non- GFR Calc Performed By: #### L 501.9985, L100.0100, L500.4050, L3110.0525 ####[facility] [address] [place], [address] Globulin (S) [Mass/Vol] 3.4 g/dL Normal 2.2-4.2 [facility] Comment on above: Performed By: #### L 501.9985, L100.0100, L500.4050, L3110.0525 ####[facility] [address] [place], [address] Glucose [Mass/Vol] 116 mg/dL High 74-106 [facility] Comment on above: Result Comment: Fast ing Glucose result from 100 to 125 mg/dL suggests IMPAIRED HOMEOSTASIS per A.D.A. criteria. Performed By: #### L 501.9985, L100.0100, L500.4050, L3110.0525 ####[facility] [address] [place], [address] Potassium [Moles/Vol] 3.9 mmol/L Normal 3.5-5.1 [facility] Comment on above: Performed By: #### L 501.9985, L100.0100, L500.4050, L3110.0525 ####[facility] [address] [place], [address] Sodium [Moles/Vol] 138 mmol/L Normal 136-145 [facility] Comment on above: Performed By: #### L 501.9985, L100.0100, L500.4050, L3110.0525 ####[facility] [address] [place], [address] T PROT 7.6 g/dL Normal 6.4-8.[address] [facility] Comment on above: Performed By: #### L 501.9985, L100.0100, L500.4050, L3110.0525 ####[facility] [address] [place], [address] Urea nitrogen [Mass/Vol] 25 mg/dL High 7-[address] [facility] Comment on above: Performed By: #### L 501.9985, L100.0100, L500.4050, L3110.0525 ####[facility] [address] [place], [address] Hemoglobin A1con 05-02-2024 HbA1c (Bld) [Mass fraction] 6.0 % High 3.8-5.[address] [facility] Comment on above: Result Comment: Norm al < 5.7 % Prediabetic 5.7 - 6.4 % Diabetic >or= 6.5 % Please note range changes. Performed By: #### L 501.9985, L100.0100, L500.4050, L3110.0525 ####[facility] [address] [place], [place], [address] Internal Medicine Office Vis iton 05-01-2024 Internal Medicine Office Visit [facility] [place], [place] [address] OFFICE VISIT Date of Service: 05/02/24 MR#: [id number] Acct: [id number] Name: GENI LINDSAY Rep #: [id number] : 1945 Provider: ZABRINA henley Age/Sex: 79/M Location: [facility] Status: Signed Intake Vital Signs 11/29/23 08:47 [...] MED FU Chief Complaint: Follow-up chronic conditions Neurodiagnostic Technologist Required: No Is patient in pain?: No [...] Note: Needs losartan, atorvastatin, and fenofibrate refilled. PENDING SALE TO [facility] Medical History Dermatitis Screening for thyroid disorder [...] accident) (2001) Atherosclerosis of coronary artery of [place] heart without angina pectoris BPH (benign prostatic [...] conditions. He is a patient of Dr. Cohen'celeste and was last seen in office on 10/06/2023. History of T2DM: Currently managed with Jardiance and sitagliptin which he states he is taking as prescribed. He does monitor his blood glucose (more content not included)... Normal [facility] Absolute lymphocyte countOrd ered By: Chase Cohen on 07-05-2023 Lymphocytes Auto (Unsp spec) [#/Vol] 2.34 10*3/uL 0.83-4.[address] [facility] Basophil percentageOrdered B y: Chase Cohen on 07-05-2023 Basophil percentage 0 SEEN /hpf 0-5 [facility] Basophils/100 WBC (Bld) 0.9 % 0-1 [facility] Bilirubin [Mass/Vol] 0.50 mg/dL 0.20-1.00 [facility] Comment on above: For patients on eltr ombopag therapy, use of Dimension [place] TBIL is not recommended. Chloride [Moles/Vol] 105 mmol/L 98-107 [facility] Cholesterol [Mass/Vol] 140 mg/dL <200 [facility] Comment on above: <200 mg/dL Desirable 200-240 mg/dL Borderline >240 mg/dL High Risk Eosinophils/100 WBC (Bld) 2.2 % 0-[address] [facility] Glucose [Mass/Vol] 189 mg/dL 74-106 [facility] Comment on above: Fasting Glucose resu lt greater than or equal to 126 mg/dL suggests DIABETES MELLITUS per A.D.A. criteria. Neutrophils (Bld) [#/Vol] 4.7 10*3/uL 2.0-7.[address] [facility] Neutrophils/100 WBC (Bld) 57.7 % 47-[address] [facility] Potassium [Moles/Vol] 4.9 mmol/L 3.5-5.1 [facility] Protein [Mass/Vol] 7.6 g/dL 6.4-8.2 [facility] Sodium [Moles/Vol] 138 mmol/L 136-145 [facility] Triglyceride [Mass/Vol] 198 mg/dL <199 [facility] Comment on above: The drugs N-Acetylcy steine and Metamizole may falsely depress this assay.Serum Triglycerides Reference Interval Normal <150 mg/dL Borderline high 150 - 199 mg/dL High 200 - 499 mg/dL Very High > or = 500 mg/dL WBC (Bld) [#/Vol] 8.1 10*3/uL 4.4-11.0 [facility] Bilirubin Test strip Ql (U)O rdered By: Chase Cohen on 07-05-2023 Bilirubin Ql (U) Negative Negative [facility] Blood erythrocytes count (nu mber/volume)Ordered By: Chase Cohen on 07-05-2023 RBC (Bld) [#/Vol] 5.18 10*6/uL 4.6-6.2 [facility] Blood hemoglobin measurement (mass/volume)Ordered By: Chase Cohen on 07-05-2023 Hemoglobin (Bld) [Mass/Vol] 14.8 g/dL 13.0-16.[address] [facility] Blood lymphocytes/100 leukoc ytesOrdered By: alivia Cohen on 07-05-2023 Lymphocytes/100 WBC (Bld) 28.9 % 19-[address] [facility] Blood monocytes/100 leukocyt esOrdered By: alivia Cohen on 07-05-2023 Monocytes/100 WBC (Bld) 9.9 % 0-10 [facility] Blood platelet mean volumeOr dered By: alivia Cohen on 07-05-2023 Platelet mean volume (Bld) [Entitic vol] 10.9 fL 6.2-12.[address] [facility] Determination of erythrocyte mean corpuscular volume (MCV)Ordered By: audiknob nosterlaverne Cohen on 07-05-2023 MCV (RBC) [Entitic vol] 90.3 fL 80-94 [facility] Hematocrit Auto (Bld) [Volum e fraction]Ordered By: [facility] Durb[facility] on 07-05-2023 Hematocrit (Bld) [Volume fraction] 46.8 % 40-[address] [facility] Ketones Test strip Ql (U)Ord ered By: Hodanknob nosterlaverne Cohen on 07-05-2023 Ketones Ql (U) Negative Negative [facility] Laboratory - Chemistry and C hemistry - challengeOrdered By: Chase Cohen on 07-05-2023 ALP [Catalytic activity/Vol] 50 U/L 45-[address] [facility] ALT [Catalytic activity/Vol] 36 U/L 16-[address] [facility] CO2 [Moles/Vol] 27.0 mmol/L 21.0-32.[address] [facility] Free T4 [Mass/Vol] 1.09 ng/dL 0.76-1.46 [facility] Globulin (S) [Mass/Vol] 3.4 g/dL 2.2-4.2 [facility] Urea nitrogen/Creatinine [Mass ratio] 16.3 mg/mg 10-[address] [facility] Laboratory - Hematology and Cell countsOrdered By: Chase Cohen on 07-05-2023 Erythrocyte distribution width (RBC) [Entitic vol] 42.9 fL 35.1-43.[address] [facility] Erythrocyte distribution width (RBC) [Ratio] 13.0 % 11.6-14.[address] [facility] Immature granulocytes/100 WBC (Bld) 0.400 % 0.0-0.[address] [facility] Comment on above: IG% - Immature Granu locytes (promyelocytes, myelocytes and metamyelocytes) > 1% indicates that a LEFT SHIFT is Present. MCH (RBC) [Entitic mass] 28.6 pg 27.0-32.[address] [facility] Nucleated RBC/100 WBC (Bld) [Ratio] 0 % 0-[address] [facility] MCHC Auto (RBC) [Mass/Vol]Or dered By: Chase Cohen on 07-05-2023 MCHC (RBC) [Mass/Vol] 31.6 g/dL 32-36 [facility] Mucus LM Ql (Urine sed)Order ed By: Chase Cohen on 07-05-2023 Mucus Ql (Urine sed) 0 SEEN /hpf [facility] Nitrite Test strip Ql (U)Ord ered By: Chase Cohen on 07-05-2023 Nitrite Ql (U) Negative Negative [facility] No Panel InformationOrdered By: Chase Cohen on 07-05-2023 Estimated GFR (MDRD) Amer 66 mL/min >[address] [facility] Comment on above: GFR Calc Estimated GFR (MDRD) Non-Af Amer 54 mL/min >[address] [facility] Comment on above: Non- GFR Calc Prostate Specific Antigen Screen 4.04 ng/mL 0.00-4.[address] [facility] Comment on above: This test was perfor med using the TPSA assay method for theAppydrink chemistry system. Values obtained with differentassay methods cannot be used interchangably.When changing PSA assays in the course of monitoring apatient, additional sequential testing should be carriedout to confirm baseline values. Thyroid Stimulating Hormone (TSH) 1.59 uIU/mL 0.358-3.[address] [facility] Platelets bldOrdered By: Misael Cohen on 07-05-2023 Platelets (Bld) [#/Vol] 287 10*3/uL 150-[address] [facility] Protein Test strip Ql (U)Ord ered By: Chase Cohen on 07-05-2023 Protein Ql (U) Negative Negative [facility] Serum or plasma albumin joya urement (mass/volume)Ordered By: Royeraudidaphnelaverne Durbinagustinap on 07-05-2023 Albumin [Mass/Vol] 4.2 g/dL 3.2-5.0 [facility] Serum or plasma albumin/glob ulin mass ratioOrdered By: Chase Ramakrishnaafshin on 07-05-2023 Albumin/Globulin [Mass ratio] 1.2 {ratio} 0.9-2.[address] [facility] Serum or plasma calcium joya urement (mass/volume)Ordered By: Chase Ramakrishnaafshin on 07-05-2023 Calcium [Mass/Vol] 9.4 mg/dL 8.5-10.1 [facility] Serum or plasma cholesterol in HDL measurement (mass/volume)Ordered By: Chase Cohen on 07-05-2023 Cholesterol in HDL [Mass/Vol] 31 mg/dL >[address] [facility] Comment on above: The drugs N-Acetylcy steine and Metamizole may falsely depress this assay. Reference Range HDL <40 mg/dL Low HDL Cholesterol HDL >or= 60 mg/dL High HDL Cholesterol Serum or plasma cholesterol in VLDL measurement (mass/volume)Ordered By: Royeraudidaphnelaverne Durbinagustinap on 07-05-2023 Cholesterol in VLDL [Mass/Vol] 40 mg/dL 5-[address] [facility] Serum or plasma creatinine m easurement (mass/volume)Ordered By: Chase Ramakrishnaagustinap on 07-05-2023 Creatinine [Mass/Vol] 1.35 mg/dL 0.70-1.30 [facility] Comment on above: The validity of the calculated GFR & GFRAA in patients over 70 years has not been determined. Clinical correlation is essential. Serum or plasma low density lipoprotein (LDL) cholesterol measurement (mass/volume)Ordered By: Royeraudidaphnelaverne Durbinagustinap on 07-05-2023 Cholesterol in LDL [Mass/Vol] 69 mg/dL 0-[address] [facility] Serum or plasma urea nitroge n measurement (mass/volume)Ordered By: Chase Cohen on 07-05-2023 Urea nitrogen [Mass/Vol] 22 mg/dL 7-[address] [facility] Squamous epithelial cells de tection in urine sediment by light microscopyOrdered By: Chase Cohen on 07-05-2023 Epithelial cells.squamous LM Ql (Urine sed) 0 SEEN /hpf 0-[address] [facility] Thin prep Papanicolaou smear with manual screeningOrdered By: Chase Cohen on 07-05-2023 Thin prep Papanicolaou smear with manual screening 17 U/L 15-[address] [facility] Thin prep Papanicolaou smear with manual screening 6 5-[address] [facility] Urine blood detectionOrdered By: Chase Cohen on 07-05-2023 RBC Ql (U) 10 /ul Negative [facility] RBC Ql (U) 0 SEEN /hpf 0-[address] [facility] Urine clarityOrdered By: Misael Cohen on 07-05-2023 Clarity (U) Clear Clear [facility] Urine color determinationOrd ered By: Chase Cohen on 07-05-2023 Color (U) Yellow Yellow [facility] Urine glucose detectionOrder ed By: Chase Cohen on 07-05-2023 Glucose Ql (U) 1000 mg/dl Normal [facility] Urine leukocyte esterase det ection by dipstickOrdered By: Chase Cohen on 07-05-2023 Leukocyte esterase Test strip Ql (U) Negative Negative [facility] Urine pHOrdered By: Janis Cohen on 07-05-2023 pH (U) 6.5 [pH] 5.0 - 8.[address] [facility] Urine sediment bacteria coun t by microscopy (number/high power field)Ordered By: Chase Cohen on 07-05-2023 Bacteria LM.HPF (Urine sed) [#/Area] 0 /[HPF] None Seen [facility] Urine specific gravity measu rementOrdered By: Chase Cohen on 07-05-2023 Specific gravity (U) [Rel density] 1.010 1.002-1.[address] [facility] Urobilinogen Auto test strip Ql (U)Ordered By: Chase Cohen on 07-05-2023 Urobilinogen Ql (U) Normal mg/dl Normal [facility] Absolute lymphocyte countOrd ered By: Onesimo Morris on 04-09-2023 Lymphocytes Auto (Unsp spec) [#/Vol] 1.98 10*3/uL 0.83-4.[address] [facility] Basophil percentageOrdered B y: Onesimo Morris on 04-09-2023 Basophil percentage 0 SEEN /hpf 0-5 [facility] Basophils/100 WBC (Bld) 0.7 % 0-1 [facility] Chloride [Moles/Vol] 108 mmol/L 98-107 [facility] Eosinophils/100 WBC (Bld) 1.9 % 0-[address] [facility] Glucose [Mass/Vol] 125 mg/dL 74-106 [facility] Comment on above: Fasting Glucose resu lt from 100 to 125 mg/dL suggests IMPAIRED HOMEOSTASIS per A.D.A. criteria. Neutrophils (Bld) [#/Vol] 4.4 10*3/uL 2.0-7.[address] [facility] Neutrophils/100 WBC (Bld) 58.9 % 47-[address] [facility] Potassium [Moles/Vol] 4.2 mmol/L 3.5-5.1 [facility] Sodium [Moles/Vol] 137 mmol/L 136-145 [facility] WBC (Bld) [#/Vol] 7.5 10*3/uL 4.4-11.0 [facility] Bilirubin Test strip Ql (U)O rdered By: Onesimo Morris on 04-09-2023 Bilirubin Ql (U) Negative Negative [facility] Blood erythrocytes count (nu mber/volume)Ordered By: Onesimo Morris on 04-09-2023 RBC (Bld) [#/Vol] 4.76 10*6/uL 4.6-6.2 [facility] Blood hemoglobin measurement (mass/volume)Ordered By: Onesimo Morris on 04-09-2023 Hemoglobin (Bld) [Mass/Vol] 13.7 g/dL 13.0-16.[address] [facility] Blood lymphocytes/100 leukoc ytesOrdered By: Onesimo Morris on 04-09-2023 Lymphocytes/100 WBC (Bld) 26.3 % 19-[address] [facility] Blood monocytes/100 leukocyt esOrdered By: Onesimo Morris on 04-09-2023 Monocytes/100 WBC (Bld) 12.1 % 0-10 [facility] Blood platelet mean volumeOr dered By: Onesimo Morris on 04-09-2023 Platelet mean volume (Bld) [Entitic vol] 10.3 fL 6.2-12.[address] [facility] Determination of erythrocyte mean corpuscular volume (MCV)Ordered By: Onesimo Morris on 04-09-2023 MCV (RBC) [Entitic vol] 88.7 fL 80-94 [facility] Hematocrit Auto (Bld) [Volum e fraction]Ordered By: Onesimo Morris on 04-09-2023 Hematocrit (Bld) [Volume fraction] 42.2 % 40-[address] [facility] INR in Blood by Coagulation assayOrdered By: Onesimo Morris on 04-09-2023 INR Coag (Bld) [Relative time] 1.0 {INR} [facility] Ketones Test strip Ql (U)Ord ered By: Onesimo Morris on 04-09-2023 Ketones Ql (U) Negative Negative [facility] Laboratory - Chemistry and C hemistry - challengeOrdered By: Onesimo Morris on 04-09-2023 CO2 [Moles/Vol] 26.0 mmol/L 21.0-32.[address] [facility] Urea nitrogen/Creatinine [Mass ratio] 17.1 mg/mg 10-[address] [facility] Laboratory - CoagulationOrde red By: Onesimo Morris on 04-09-2023 PT Coag (PPP) [Time] 13.7 s 11.7-14.9 [facility] - Hematology and Cell countsOrdered By: Onesimo Morris on 04-09-2023 Erythrocyte distribution width (RBC) [Entitic vol] 41.7 fL 35.1-43.[address] [facility] Erythrocyte distribution width (RBC) [Ratio] 12.8 % 11.6-14.[address] [facility] Immature granulocytes/100 WBC (Bld) 0.100 % 0.0-0.[address] [facility] Comment on above: IG% - Immature Granu locytes (promyelocytes, myelocytes and metamyelocytes) > 1% indicates that a LEFT SHIFT is Present. MCH (RBC) [Entitic mass] 28.8 pg 27.0-32.[address] [facility] Nucleated RBC/100 WBC (Bld) [Ratio] 0 % 0-[address] [facility] MCHC Auto (RBC) [Mass/Vol]Or dered By: Onesimo Morris on 04-09-2023 MCHC (RBC) [Mass/Vol] 32.5 g/dL 32-36 [facility] Mucus LM Ql (Urine sed)Order ed By: Onesimo Morris on 04-09-2023 Mucus Ql (Urine sed) 0 SEEN /hpf [facility] Nitrite Test strip Ql (U)Ord ered By: Onesimo Morris on 04-09-2023 Nitrite Ql (U) Negative Negative [facility] No Panel InformationOrdered By: Onesimo Morris on 04-09-2023 Estimated Creatinine Clearance Calc 64.89 ml/min [facility] Estimated GFR (MDRD) Amer 94 mL/min >[address] [facility] Comment on above: GFR Calc Estimated GFR (MDRD) Non-Af Amer 77 mL/min >[address] [facility] Comment on above: Non- GFR Calc Platelets bldOrdered By: Kayley Morris on 04-09-2023 Platelets (Bld) [#/Vol] 247 10*3/uL 150-[address] [facility] Protein Test strip Ql (U)Ord ered By: Onesimo Morris on 04-09-2023 Protein Ql (U) 100 mg/dl Negative [facility] Serum or plasma calcium joya urement (mass/volume)Ordered By: Onesimo Morris on 04-09-2023 Calcium [Mass/Vol] 9.1 mg/dL 8.5-10.1 [facility] Serum or plasma creatinine m easurement (mass/volume)Ordered By: Onesimo Morris on 04-09-2023 Creatinine [Mass/Vol] 1.00 mg/dL 0.70-1.30 [facility] Comment on above: The validity of the calculated GFR & GFRAA in patients over 70 years has not been determined. Clinical correlation is essential. Serum or plasma urea nitroge n measurement (mass/volume)Ordered By: Onesimo Morris on 04-09-2023 Urea nitrogen [Mass/Vol] 17 mg/dL 7-[address] [facility] Squamous epithelial cells de tection in urine sediment by light microscopyOrdered By: Onesimo Morris on 04-09-2023 Epithelial cells.squamous LM Ql (Urine sed) 0 SEEN /hpf 0-[address] [facility] Thin prep Papanicolaou smear with manual screeningOrdered By: Onesimo Morris on 04-09-2023 Thin prep Papanicolaou smear with manual screening 3 5-[address] [facility] Urine blood detectionOrdered By: Onesimo Morris on 04-09-2023 RBC Ql (U) 250 /ul Negative [facility] RBC Ql (U) > 100 SEEN /hpf 0-[address] [facility] Urine clarityOrdered By: Kayley Morris on 04-09-2023 Clarity (U) Sl. Cloudy Clear [facility] Urine color determinationOrd ered By: Onesimo Morris on 04-09-2023 Color (U) Red Yellow [facility] Urine glucose detectionOrder ed By: Onesimo Morris on 04-09-2023 Glucose Ql (U) 1000 mg/dl Normal [facility] Urine leukocyte esterase det ection by dipstickOrdered By: Onesimo Morris on 04-09-2023 Leukocyte esterase Test strip Ql (U) 25 /ul Negative [facility] Urine pHOrdered By: Onesimo ellison on 04-09-2023 pH (U) 8.0 [pH] 5.0 - 8.[address] [facility] Urine sediment bacteria coun t by microscopy (number/high power field)Ordered By: Onesimo Morris on 04-09-2023 Bacteria LM.HPF (Urine sed) [#/Area] 0 /[HPF] None Seen [facility] Urine specific gravity measu rementOrdered By: Onesimo Morris on 04-09-2023 Specific gravity (U) [Rel density] 1.010 1.002-1.[address] [facility] Urobilinogen Auto test strip Ql (U)Ordered By: Onesimo Morris on 04-09-2023 Urobilinogen Ql (U) Normal mg/dl Normal [facility] Absolute lymphocyte counton 03-04-2022 Lymphocytes Auto (Unsp spec) [#/Vol] 2.28 10*3/uL 0.83-4.[address] [facility] Work Phone: Basophil percentageon 2021 Basophils/100 WBC (Bld) 0.8 % 0-1 [facility] Work Phone: Bilirubin [Mass/Vol] 0.50 mg/dL 0.20-1.00 [facility] Work Phone: Comment on above: For patients on eltr ombopag therapy, use of Dimension [place] TBIL is not recommended. Chloride [Moles/Vol] 104 mmol/L 98-107 [facility] Work Phone: Cholesterol [Mass/Vol] 147 mg/dL <200 [facility] Work Phone: Comment on above: <200 mg/dL Desirable 200-240 mg/dL Borderline >240 mg/dL High Risk Eosinophils/100 WBC (Bld) 2.0 % 0-[address] [facility] Work Phone: Glucose [Mass/Vol] 276 mg/dL 74-106 [facility] Work Phone: Comment on above: Glucose result great er than or equal to 200 mg/dLsuggests DIABETES MELLITUS per A.D.A. criteria. Neutrophils (Bld) [#/Vol] 4.2 10*3/uL 2.0-7.[address] [facility] Work Phone: Neutrophils/100 WBC (Bld) 55.8 % 47-[address] [facility] Work Phone: Potassium [Moles/Vol] 3.9 mmol/L 3.5-5.1 [facility] Work Phone: Protein [Mass/Vol] 7.2 g/dL 6.4-8.2 [facility] Work Phone: Sodium [Moles/Vol] 137 mmol/L 136-145 [facility] Work Phone: Triglyceride [Mass/Vol] 272 mg/dL <199 [facility] Work Phone: Comment on above: The drugs N-Acetylcy steine and Metamizole may falsely depress this assay.Serum Triglycerides Reference Interval Normal <150 mg/dL Borderline high 150 - 199 mg/dL High 200 - 499 mg/dL Very High > or = 500 mg/dL WBC (Bld) [#/Vol] 7.5 10*3/uL 4.4-11.0 [facility] Work Phone: Blood erythrocytes count (nu mber/volume)on 03-04-2022 RBC (Bld) [#/Vol] 4.34 10*6/uL 4.6-6.2 [facility] Work Phone: Blood hemoglobin measurement (mass/volume)on 03-04-2022 Hemoglobin (Bld) [Mass/Vol] 12.3 g/dL 13.0-16.[address] [facility] Work Phone: Blood lymphocytes/100 leukoc yteson 03-04-2022 Lymphocytes/100 WBC (Bld) 30.6 % 19-[address] [facility] Work Phone: Blood monocytes/100 leukocyt eson 03-04-2022 Monocytes/100 WBC (Bld) 10.1 % 0-10 [facility] Work Phone: Blood platelet mean volumeon 03-04-2022 Platelet mean volume (Bld) [Entitic vol] 10.7 fL 6.2-12.[address] [facility] Work Phone: Determination of erythrocyte mean corpuscular volume (MCV)on 03-04-2022 MCV (RBC) [Entitic vol] 87.8 fL 80-94 [facility] Work Phone: Hematocrit Auto (Bld) [Volum e fraction]on 03-04-2022 Hematocrit (Bld) [Volume fraction] 38.1 % 40-[address] [facility] Work Phone: Laboratory - Chemistry and C hemistry - challengeon 03-04-2022 ALP [Catalytic activity/Vol] 47 U/L 45-[address] [facility] Work Phone: ALT [Catalytic activity/Vol] 26 U/L 16-[address] [facility] Work Phone: [phone] CO2 [Moles/Vol] 26.0 mmol/L 21.0-32.[address] [facility] Work Phone: Globulin (S) [Mass/Vol] 3.3 g/dL 2.2-4.2 [facility] Work Phone: Urea nitrogen/Creatinine [Mass ratio] 12.6 mg/mg 10-[address] [facility] Work Phone: Laboratory - Hematology and Cell countson 03-04-2022 Erythrocyte distribution width (RBC) [Entitic vol] 39.9 fL 35.1-43.[address] [facility] Work Phone: Erythrocyte distribution width (RBC) [Ratio] 12.5 % 11.6-14.[address] [facility] Work Phone: Immature granulocytes/100 WBC (Bld) 0.700 % 0.0-0.[address] [facility] Work Phone: Comment on above: IG% - Immature Granu locytes (promyelocytes, myelocytes and metamyelocytes) > 1% indicates that a LEFT SHIFT is Present. MCH (RBC) [Entitic mass] 28.3 pg 27.0-32.[address] [facility] Work Phone: Nucleated RBC/100 WBC (Bld) [Ratio] 0 % 0-[address] [facility] Work Phone: MCHC Auto (RBC) [Mass/Vol]on 03-04-2022 MCHC (RBC) [Mass/Vol] 32.3 g/dL 32-36 [facility] Work Phone: No Panel Informationon 03-04 Estimated GFR (MDRD) Amer 71 mL/min >[address] [facility] Work Phone: Comment on above: GFR Calc Estimated GFR (MDRD) Non-Af Amer 59 mL/min >[address] [facility] Work Phone: Comment on above: Non- GFR Calc Thyroid Stimulating Hormone (TSH) 1.59 uIU/mL 0.358-3.[address] [facility] Work Phone: Platelets bldon 03-04-2022 Platelets (Bld) [#/Vol] 323 10*3/uL 150-[address] [facility] Work Phone: Serum or plasma albumin joya urement (mass/volume)on 03-04-2022 Albumin [Mass/Vol] 3.9 g/dL 3.2-5.0 [facility] Work Phone: Serum or plasma albumin/glob ulin mass ratioon 03-04-2022 Albumin/Globulin [Mass ratio] 1.2 {ratio} 0.9-2.[address] [facility] Work Phone: Serum or plasma calcium joya urement (mass/volume)on 03-04-2022 Calcium [Mass/Vol] 8.7 mg/dL 8.5-10.1 [facility] Work Phone: Serum or plasma cholesterol in HDL measurement (mass/volume)on 03-04-2022 Cholesterol in HDL [Mass/Vol] 26 mg/dL >[address] [facility] Work Phone: Comment on above: The drugs N-Acetylcy steine and Metamizole may falsely depress this assay. Reference Range HDL <40 mg/dL Low HDL Cholesterol HDL >or= 60 mg/dL High HDL Cholesterol Serum or plasma cholesterol in VLDL measurement (mass/volume)on 03-04-2022 Cholesterol in VLDL [Mass/Vol] 54 mg/dL 5-[address] [facility] Work Phone: Serum or plasma creatinine m easurement (mass/volume)on 03-04-2022 Creatinine [Mass/Vol] 1.27 mg/dL 0.70-1.30 [facility] Work Phone: Comment on above: The validity of the calculated GFR & GFRAA in patients over 70 years has not been determined. Clinical correlation is essential. Serum or plasma low density lipoprotein (LDL) cholesterol measurement (mass/volume)on 03-04-2022 Cholesterol in LDL [Mass/Vol] 67 mg/dL 0-[address] [facility] Work Phone: Serum or plasma urea nitroge n measurement (mass/volume)on 03-04-2022 Urea nitrogen [Mass/Vol] 16 mg/dL 7-[address] [facility] Work Phone: Thin prep Papanicolaou smear with manual screeningon 03-04-2022 Thin prep Papanicolaou smear with manual screening 20 U/L 15-[address] [facility] Work Phone: Thin prep Papanicolaou smear with manual screening 7 5-[address] [facility] Work Phone: Whole blood hemoglobin A1c/t otal hemoglobin ratio (mass fraction)on 03-04-2022 HbA1c (Bld) [Mass fraction] 9.0 % 3.8-5.[address] [facility] Work Phone: Comment on above: Normal < 5.7 % Predi abetic 5.7 - 6.4 % Diabetic >or= 6.5 % Please note range changes. Cytology report of Body flui d Cyto stainon 12-04-2021 Cytology report Cyto stain Doc (Body fld) SEE PATHOLOGY REPORT [facility] Work Phone: Comment on above: Specimen submitted t o Anatomical Pathology Department for testing. Absolute lymphocyte counton 11-25-2021 Lymphocytes Auto (Unsp spec) [#/Vol] 2.23 10*3/uL 0.83-4.[address] [facility] Work Phone: Basophil percentageon 2021 Basophil percentage 0 SEEN /hpf 0-5 [facility] Work Phone: Basophils/100 WBC (Bld) 0.7 % 0-1 [facility] Work Phone: Chloride [Moles/Vol] 102 mmol/L 98-107 [facility] Work Phone: Eosinophils/100 WBC (Bld) 2.9 % 0-[address] [facility] Work Phone: Glucose [Mass/Vol] 309 mg/dL 74-106 [facility] Work Phone: Comment on above: Glucose result great er than or equal to 200 mg/dLsuggests DIABETES MELLITUS per A.D.A. criteria. Neutrophils (Bld) [#/Vol] 4.9 10*3/uL 2.0-7.[address] [facility] Work Phone: Neutrophils/100 WBC (Bld) 59.8 % 47-[address] [facility] Work Phone: Potassium [Moles/Vol] 3.8 mmol/L 3.5-5.1 [facility] Work Phone: Sodium [Moles/Vol] 137 mmol/L 136-145 [facility] Work Phone: WBC (Bld) [#/Vol] 8.2 10*3/uL 4.4-11.0 [facility] Work Phone: Bilirubin Test strip Ql (U)o n 11-25-2021 Bilirubin Ql (U) 1 mg/dL Negative [facility] Work Phone: Comment on above: COLOR OF URINE MAY A FFECT DIPSTICK RESULTS. Blood erythrocytes count (nu mber/volume)on 11-25-2021 RBC (Bld) [#/Vol] 4.38 10*6/uL 4.6-6.2 [facility] Work Phone: Blood hemoglobin measurement (mass/volume)on 11-25-2021 Hemoglobin (Bld) [Mass/Vol] 12.8 g/dL 13.0-16.[address] [facility] Work Phone: Blood lymphocytes/100 leukoc yteson 11-25-2021 Lymphocytes/100 WBC (Bld) 27.1 % 19-[address] [facility] Work Phone: Blood monocytes/100 leukocyt eson 11-25-2021 Monocytes/100 WBC (Bld) 9.3 % 0-10 [facility] Work Phone: Blood platelet mean volumeon 11-25-2021 Platelet mean volume (Bld) [Entitic vol] 10.6 fL 6.2-12.[address] [facility] Work Phone: Determination of erythrocyte mean corpuscular volume (MCV)on 11-25-2021 MCV (RBC) [Entitic vol] 87.0 fL 80-94 [facility] Work Phone: Hematocrit Auto (Bld) [Volum e fraction]on 11-25-2021 Hematocrit (Bld) [Volume fraction] 38.1 % 40-[address] [facility] Work Phone: INR in Blood by Coagulation assayon 11-25-2021 INR Coag (Bld) [Relative time] 1.1 {INR} [facility] Work Phone: Ketones Test strip Ql (U)on 11-25-2021 Ketones Ql (U) 15 mg/dl Negative [facility] Work Phone: Laboratory - Chemistry and C hemistry - challengeon 11-25-2021 CO2 [Moles/Vol] 27.0 mmol/L 21.0-32.[address] [facility] Work Phone: Urea nitrogen/Creatinine [Mass ratio] 16.9 mg/mg 10-[address] [facility] Work Phone: Laboratory - Coagulationon 0 11-25-2021 aPTT Coag (Bld) [Time] 23.4 s 24.1-36.2 [facility] Work Phone: PT Coag (PPP) [Time] 13.9 s 11.7-14.9 [facility] Work Phone: Laboratory - Hematology and Cell countson 11-25-2021 Erythrocyte distribution width (RBC) [Entitic vol] 38.5 fL 35.1-43.[address] [facility] Work Phone: Erythrocyte distribution width (RBC) [Ratio] 12.0 % 11.6-14.[address] [facility] Work Phone: Immature granulocytes/100 WBC (Bld) 0.200 % 0.0-0.[address] [facility] Work Phone: Comment on above: IG% - Immature Granu locytes (promyelocytes, myelocytes and metamyelocytes) > 1% indicates that a LEFT SHIFT is Present. MCH (RBC) [Entitic mass] 29.2 pg 27.0-32.[address] [facility] Work Phone: Nucleated RBC/100 WBC (Bld) [Ratio] 0 % 0-[address] [facility] Work Phone: MCHC Auto (RBC) [Mass/Vol]on 11-25-2021 MCHC (RBC) [Mass/Vol] 33.6 g/dL 32-36 [facility] Work Phone: Mucus LM Ql (Urine sed)on Mucus Ql (Urine sed) 0 SEEN /hpf [facility] Work Phone: Nitrite Test strip Ql (U)on 11-25-2021 Nitrite Ql (U) Negative Negative [facility] Work Phone: No Panel Informationon 11-25 Estimated Creatinine Clearance Calc 53.15 ml/min [facility] Work Phone: Estimated GFR (MDRD) Amer 73 mL/min >[address] [facility] Work Phone: Comment on above: GFR Calc Estimated GFR (MDRD) Non-Af Amer 60 mL/min >[address] [facility] Work Phone: Comment on above: Non- GFR Calc Platelets bldon 11-25-2021 Platelets (Bld) [#/Vol] 297 10*3/uL 150-[address] [facility] Work Phone: Protein Test strip Ql (U)on 11-25-2021 Protein Ql (U) 500 mg/dl Negative [facility] Work Phone: Serum or plasma calcium joya urement (mass/volume)on 11-25-2021 Calcium [Mass/Vol] 9.1 mg/dL 8.5-10.1 [facility] Work Phone: Serum or plasma creatinine m easurement (mass/volume)on 11-25-2021 Creatinine [Mass/Vol] 1.24 mg/dL 0.70-1.30 [facility] Work Phone: Comment on above: The validity of the calculated GFR & GFRAA in patients over 70 years has not been determined. Clinical correlation is essential. Serum or plasma urea nitroge n measurement (mass/volume)on 11-25-2021 Urea nitrogen [Mass/Vol] 21 mg/dL 7-[address] [facility] Work Phone: Squamous epithelial cells de tection in urine sediment by light microscopyon 11-25-2021 Epithelial cells.squamous LM Ql (Urine sed) 0 SEEN /hpf 0-[address] [facility] Work Phone: Thin prep Papanicolaou smear with manual screeningon 11-25-2021 Thin prep Papanicolaou smear with manual screening 8 5-[address] [facility] Work Phone: Urine blood detectionon 11-14 RBC Ql (U) 150 /ul Negative [facility] Work Phone: RBC Ql (U) > 100 SEEN /hpf 0-[address] [facility] Work Phone: Urine clarityon 11-25-2021 Clarity (U) Turbid Clear [facility] Work Phone: Urine color determinationon 11-25-2021 Color (U) Red Yellow [facility] Work Phone: Urine glucose detectionon Glucose Ql (U) 250 mg/dl Normal [facility] Work Phone: Urine leukocyte esterase det ection by dipstickon 11-25-2021 Leukocyte esterase Test strip Ql (U) Negative Negative [facility] Work Phone: Urine pHon 11-25-2021 pH (U) 7.0 [pH] 5.0 - 8.[address] [facility] Work Phone: Urine sediment bacteria coun t by microscopy (number/high power field)on 11-25-2021 Bacteria LM.HPF (Urine sed) [#/Area] 0 /[HPF] None Seen [facility] Work Phone: Urine specific gravity measu rementon 11-25-2021 Specific gravity (U) [Rel density] 1.015 1.002-1.[address] [facility] Work Phone: Urobilinogen Auto test strip Ql (U)on 11-25-2021 Urobilinogen Ql (U) Normal mg/dl Normal [facility] Work Phone: Vital Signs Date Time Vital Sign Value Performing Clinician Faci lity 03-05-2025 10:11-0400 Body height 177.[address] Chase Cohen MD Work Phone: [facility] 03-05-2025 10:11-0400 Body mass index (BMI) [Ratio] 23.9 kg/m2 Dr. Chase Cohen MD Work Phone: [facility] 03-05-2025 10:11-0400 Body temperature 97.8 [degF] Dr. Chase Cohen MD Work Phone: [facility] 03-05-2025 10:11-0400 Body weight 75.[address] Chase Cohen MD Work Phone: [facility] 03-05-2025 10:11-0400 Diastolic blood pressure 60 mm[Hg] Dr. Chase Cohen MD Work Phone: [facility] 03-05-2025 10:11-0400 Heart rate 63 /min Dr. Chase Cohen MD Work Phone: [facility] 03-05-2025 10:11-0400 Respiratory rate 18 /min Dr. Chase Cohen MD Work Phone: [facility] 03-05-2025 10:11-0400 SaO2% (BldA) [Mass fraction] 97 % Dr. Chase Cohen MD Work Phone: [facility] 03-05-2025 10:11-0400 Systolic blood pressure 122 mm[Hg] Dr. Chase Cohen MD Work Phone: [facility] 11-28-2024 08:17-0400 Body height 177.[address] Chase Cohen MD Work Phone: [facility] 11-28-2024 08:17-0400 Body mass index (BMI) [Ratio] 25.2 kg/m2 Dr. Chase Cohen MD Work Phone: [facility] 11-28-2024 08:17-0400 Body weight 79.[address] Chase Cohen MD Work Phone: [facility] 11-28-2024 08:17-0400 Diastolic blood pressure 67 mm[Hg] Dr. Chase Cohen MD Work Phone: [facility] 11-28-2024 08:17-0400 Heart rate 69 /min Dr. Chase Cohen MD Work Phone: [facility] 11-28-2024 08:17-0400 Respiratory rate 18 /min Dr. Chase Cohen MD Work Phone: [facility] 11-28-2024 08:17-0400 Systolic blood pressure 114 mm[Hg] Dr. Chase Cohen MD Work Phone: [facility] 11-09-2024 10:21-0400 Body height 177.[address] Chase Cohen MD Work Phone: [facility] 11-09-2024 10:21-0400 Body mass index (BMI) [Ratio] 25.1 kg/m2 Dr. Chase Cohen MD Work Phone: [facility] 11-09-2024 10:21-0400 Body temperature 98.1 [degF] Dr. Chase Cohen MD Work Phone: [facility] 11-09-2024 10:21-0400 Body weight 79.[address] Chase Cohen MD Work Phone: [facility] 11-09-2024 10:21-0400 Diastolic blood pressure 70 mm[Hg] Dr. Chase Cohen MD Work Phone: [facility] 11-09-2024 10:21-0400 Heart rate 67 /min Dr. Chase Cohen MD Work Phone: [facility] 11-09-2024 10:21-0400 Respiratory rate 14 /min Dr. Chase Cohen MD Work Phone: [facility] 11-09-2024 10:21-0400 SaO2% (BldA) [Mass fraction] 99 % Dr. Chase Cohen MD Work Phone: [facility] 11-09-2024 10:21-0400 Systolic blood pressure 130 mm[Hg] Dr. Chase Cohen MD Work Phone: [facility] 07-05-2023 08:09-0500 Body height 177.[address] Chase Cohen Work Phone: [facility] 07-05-2023 08:09-0500 Body mass index (BMI) [Ratio] 24 kg/m2 Dr. Chase Cohen Work Phone: [facility] 07-05-2023 08:09-0500 Body temperature 98 [degF] Dr. Chase Cohen Work Phone: [facility] 07-05-2023 08:09-0500 Body weight 76.[address] Chase Cohen Work Phone: [facility] 07-05-2023 08:09-0500 Diastolic blood pressure 82 mm[Hg] Dr. Chase Cohen Work Phone: [facility] 07-05-2023 08:09-0500 Heart rate 64 /min Dr. Chase Cohen Work Phone: [facility] 07-05-2023 08:09-0500 Respiratory rate 16 /min Dr. Chase Cohen Work Phone: [facility] 07-05-2023 08:09-0500 SaO2% (BldA) [Mass fraction] 98 % Dr. Chase Cohen Work Phone: [facility] 07-05-2023 08:09-0500 Systolic blood pressure 138 mm[Hg] Dr. Chase Cohen Work Phone: [facility] 04-09-2023 12:28-0400 Body temperature 99 [degF] [facility] 04-09-2023 12:28-0400 Diastolic blood pressure 62 mm[Hg] [facility] 04-09-2023 12:28-0400 Heart rate 60 /min [place] 04-09-2023 12:28-0400 Respiratory rate 18 /min [facility] 04-09-2023 12:28-0400 SaO2% (BldA) [Mass fraction] 97 % [facility] 04-09-2023 12:28-0400 Systolic blood pressure 139 mm[Hg] [facility] 04-09-2023 10:06-0400 Body height 177.8 cm [place] 04-09-2023 10:06-0400 Body mass index (BMI) [Ratio] 24.1 kg/m2 [facility] 04-09-2023 10:06-0400 Body weight 76.3 kg [place] 03-04-2022 08:33-0400 Body height 177.[address] Chase Cohen Work Phone: [facility] Work Phone: 03-04-2022 08:33-0400 Body mass index (BMI) [Ratio] 25 kg/m2 Dr. Chase Cohen Work Phone: [facility] Work Phone: 03-04-2022 08:33-0400 Body weight 78.[address] Chase Cohen Work Phone: [facility] Work Phone: 03-04-2022 08:33-0400 Diastolic blood pressure 70 mm[Hg] Dr. Chase Cohen Work Phone: [facility] Work Phone: 03-04-2022 08:33-0400 Heart rate 60 /min Dr. Chase Cohen Work Phone: [facility] Work Phone: 03-04-2022 08:33-0400 Systolic blood pressure 148 mm[Hg] Dr. Chase Cohen Work Phone: [facility] Work Phone: 11-25-2021 08:20-0400 Diastolic blood pressure 69 mm[Hg] Dr. Chase Cohen Work Phone: [facility] Work Phone: 11-25-2021 08:20-0400 Heart rate 74 /min Dr. Chase Cohen Work Phone: [facility] Work Phone: 11-25-2021 08:20-0400 Respiratory rate 16 /min Dr. Chase Cohen Work Phone: [facility] Work Phone: 11-25-2021 08:20-0400 SaO2% (BldA) [Mass fraction] 98 % Dr. Chase Cohen Work Phone: [facility] Work Phone: 11-25-2021 08:20-0400 Systolic blood pressure 142 mm[Hg] Dr. Chase Cohen Work Phone: [facility] Work Phone: 11-25-2021 05:58-0400 Body height 177.[address] Chase Cohen Work Phone: [facility] Work Phone: 11-25-2021 05:58-0400 Body mass index (BMI) [Ratio] 25.8 kg/m2 Dr. Chase Cohen Work Phone: [facility] Work Phone: 11-25-2021 05:58-0400 Body temperature 97.3 [degF] Dr. Chase Cohen Work Phone: [facility] Work Phone: 11-25-2021 05:58-0400 Body weight 81.[address] Chase Cohen Work Phone: [facility] Work Phone: 09-02-2021 06:07-0500 Body weight 82.[address] Chase Cohen Work Phone: [facility] Work Phone: 09-02-2021 06:07-0500 Diastolic blood pressure 71 mm[Hg] Dr. Chase Cohen Work Phone: [facility] Work Phone: 09-02-2021 06:07-0500 Heart rate 80 /min Dr. Chase Cohen Work Phone: [facility] Work Phone: 09-02-2021 06:07-0500 Respiratory rate 16 /min Dr. Chase Cohen Work Phone: [facility] Work Phone: 09-02-2021 06:07-0500 SaO2% (BldA) [Mass fraction] 96 % Dr. Chase Cohen Work Phone: [facility] Work Phone: 09-02-2021 06:07-0500 Systolic blood pressure 126 mm[Hg] Dr. Chase Cohen Work Phone: [facility] Work Phone: 08-29-2020 07:25-0500 Body mass index (BMI) [Ratio] 24.4 kg/m2 Dr. Chase Cohen Work Phone: [facility] Work Phone: Encounters Encounter Date Encounter Type Care Provider Facility Start: 04-12-2025 ambulatory Chase Cohen [facility] ty:[facility] Start: 04-04-2025 End: 04-04-[address] Chase Cohen MD Work Phone: -Laboratory Start: 04-04-2025 End: 04-04-[address] Eligio Navarro MD -Laboratory Work Phone: Start: 04-04-2025 End: 04-04-2025 ambulatory Chase Cohen Facility:[facility] Start: 03-05-2025 End: 03-05-[address] Chase Cohen MD Work Phone: -Laboratory [facility] Start: 03-05-2025 End: 03-05-[address] Chase Cohen MD -Laboratory [facility] Start: 03-05-2025 End: 03-05-[address] Chase Cohen MD -[facility] Work Phone: Start: 03-05-2025 End: 03-05-[address] Chase Cohen MD Work Phone: -[facility] Start: 03-05-2025 End: 03-05-2025 ambulatory Chase Cohen Facility:[facility] Start: 02-23-2025 End: 02-23-[address] Chase Cohen MD Work Phone: -Laboratory Start: 02-23-2025 End: 02-23-2025 Patient encounter procedure Corry [facility] -Laboratory Work Phone: Start: 02-23-2025 End: 02-23-2025 ambulatory Corry [facility] Facility:[facility] Start: 11-28-2024 End: 11-28-[address] Chase Cohen MD Work Phone: [facility] Work Phone: Start: 11-28-2024 End: 11-28-2024 Patient encounter procedure Corry [facility] -Laboratory Work Phone: Start: 11-28-2024 End: 11-28-2024 Patient encounter procedure Corry [facility] -[facility] Work Phone: Start: 11-28-2024 End: 11-28-2024 ambulatory Corry [facility] Facility:[facility] Start: 11-28-2024 End: 11-28-2024 ambulatory Corry [facility] Facility:[facility] Start: 11-09-2024 End: 11-09-[address] Chase Cohen MD Work Phone: [facility] Work Phone: Start: 11-09-2024 End: 11-09-[address] Chase Cohen MD -Radiology, [facility] Work Phone: Start: 11-09-2024 End: 11-09-2024 Patient encounter procedure Asa [facility] -[facility] Work Phone: Start: 11-09-2024 End: 11-09-2024 ambulatory Chase Cohen Facility:[facility] Start: 11-09-2024 End: 11-09-2024 ambulatory Chase Cosmeap Facility:[facility] Start: 05-02-2024 End: 05-02-2024 ambulatory [facility] Facility:[facility] Start: 05-02-2024 End: 05-02-2024 ambulatory [facility] Facility:[facility] Start: 07-05-2023 End: 07-05-[address] Chase Cohen Work Phone: [facility] Work Phone: Start: 07-05-2023 End: 07-05-2023 Encounter for general adult medical examination without abnormal findings Dr. Chase Cohen Work Phone: [facility] Start: 07-05-2023 End: 07-05-[address] Chase Cohen Work Phone: [facility] Work Phone: Start: 04-09-2023 End: 04-09-2023 Emergency department patient visit [facility]-Emergency Department Work Phone: Start: 04-30-2022 Non-patient / Non-visit Dr. Royer Cohen Work Phone: [facility] Start: 04-30-2022 End: 04-30-[address] Chase Cohen Work Phone: [facility] Work Phone: Start: 04-30-2022 End: 04-30-[address] Chase Cohen Work Phone: [facility]Cardiov[facility] r [facility] Start: 03-04-2022 End: 03-04-[address] Chase Cohen Work Phone: [facility]-Laboratory Start: 03-04-2022 End: 03-04-[address] Chase Cohen Work Phone: [facility] Start: 12-04-2021 End: 12-04-[address] Chase Cohen Work Phone: [facility]-Laboratory, Specimen Start: 11-25-2021 End: 11-25-2021 Emergency department patient visit Dr. Chase Cohen Work Phone: [facility]-Emergency Department Start: 09-02-[address] Ap Cohen Work Phone: [facility] Start: 09-02-[address] Suzy Cohen MD Work Phone: [facility] Start: 09-02-2021 End: 09-02-2021 Admission to same day surgery center Dr. Chase Cohen Work Phone: [facility] Start: 09-02-2021 End: 09-02-[address] Chase Cohen Work Phone: [facility] Start: 01-31-[address] Ap Cohen Work Phone: [facility] Procedures Date Procedure Procedure Detail Performing Clinician Start: 04-04-2025 Free prostate specif ic antigen level Dr. Chase Cohen MD Work Phone: Comment on above: [facility]. Start: 04-04-2025 Prostate specific an tigen measurement Dr. Chase Cohen MD Work Phone: Comment on above: [facility].According to the [employer], Serum PSAshould decrease and remain [...] LAD w/ C ypher Stent POBA-D1 05/2003; TLW-QPQ-Csbc RCA w/ 3 x 22 mm Orsiro Stent 05/02/21 H/O: surgery S/P trigger fing er release Dr. Chase Cohen Work Phone: Plan of Treatment Date Care Activity Detail Author Start: 03-05-2025 Basic metabolic 2008 panel with ionized calcium - Serum or Plasma [facility] Start: 03-05-2025 CBC W Auto Different ial panel - Blood [facility] Start: 03-05-2025 Hemoglobin A1c/Hemog lobin.total in Blood [facility] Start: 03-05-2025 Prostate specific an tigen measurement [facility] Anion gap in Serum or Plasma [facility] Ankle brachial pressure index [facility] Work Phone: BUN/Creatinine ratio [facility] Calcium [Mass/volume ] in Serum or Plasma [facility] Carbon dioxide, tota l [Moles/volume] in Central venous blood [facility] Creatinine [Mass/vol ume] in Serum or Plasma [facility] Erythrocyte mean cor puscular volume determination [facility] Glucose [Mass/volume ] in Serum or Plasma [facility] Hematocrit [Volume F raction] of Blood [facility] Hemoglobin [Mass/vol ume] in Blood [facility] Hemoglobin A1c/Hemog lobin.total in Blood [facility] Leukocytes [#/volume] in Blood [facility] Mean corpuscular hem oglobin concentration determination [facility] Mean corpuscular hem oglobin determination [facility] Measurement of renal function [facility] Neutrophil count [facility] Neutrophil percent d ifferential count [facility] Patient Education [facility] Work Phone: Patient referral [facility] Work Phone: Platelets [#/volume] in Blood [facility] Potassium measurement [facility] Red blood cell count [facility] Red cell distributio n width determination [facility] Serum chloride measurement [facility] Sodium measurement [facility] Urea nitrogen [Mass/ volume] in Serum or Plasma [facility] Immunizations Immunization Date Immunization Notes Care Provider [facility] 09-14-2024 Covid (Mohan & Mohan) Dr. Chase Cohen MD Work Phone: [facility] 09-14-2024 Seasonal trivalent influenza vaccine, adjuvanted, preservative free Dr. Chase Cohen MD Work Phone: [facility] 06-07-2023 RSV Adult Recombinan t (Arexvy) Dr. Chase Cohen MD Work Phone: [facility] 05-24-2023 influenza, injectabl e, quadrivalent, preservative free Dr. Chase Cohen MD Work Phone: [facility] 05-24-2023 Pfizer Covid-19 (Comirnaty) Dr. Chase Cohen MD Work Phone: [facility] 05-19-2022 Covid Pfizer Bivalen t Booster Dr. hCase Cohen MD Work Phone: [facility] 05-19-2022 influenza, injectabl e, quadrivalent, preservative free Dr. Chase Cohen MD Work Phone: [facility] 07-28-2021 Covid (Pfizer) Dr. Chase Cohen MD Work Phone: [facility] 05-02-[address] Chase Cohen Work Phone: [facility] 11-14-2020 Covid (Pfizer) Dr. Chase Cohen Work Phone: [facility] 10-24-2020 Covid (Pfizer) Dr. Chase Cohen Work Phone: [facility] 06-05-2020 influenza, injectabl e, quadrivalent, preservative free Dr. Chase Cohen MD Work Phone: [facility] 06-13-2019 influenza, injectabl e, quadrivalent, preservative free Dr. Chase Cohen Work Phone: [facility] 06-13-2019 influenza, seasonal, injectable Dr. Chase Cohen Work Phone: [facility] 06-13-2019 Fluad 2018- 65yr up(PF)45 mcg(15 mcgx3)/0.5 mL intramuscular syringe (flu vac Dr. Chase Cohen Work Phone: [facility] Work Phone: 06-15-2016 influenza, high dose seasonal, preservative-free Dr. Chase Cohen MD Work Phone: [facility] 09-17-2015 pneumococcal conjuga te vaccine, [address] Chase Cohen MD Work Phone: [facility] Payers Date Payer Category Payer Self-pay [id number] 2023 Private Health Insurance 101 [id number] Medicare [id number] Private Health Insurance 00 [id number] Unknown [id number] 2.16.8 [id number] Unknown [id number] 2.16.8 [id number] Unknown [id number] 2.16.8 [id number] Unknown [id number] 2.16.8 [id number] Unknown [id number] 2.16.8 [id number] Unknown [id number] 2.16.8 [id number] Unknown [id number] 2.16.8 [id number] Unknown [id number] 2.16.8 [id number] Unknown [id number] 2.16.8 [id number] Unknown [id number] 2.16.8 [id number] Unknown [id number] 2.16.8 [id number] Social History Date Type Detail Facility Start: 11-25-2021 End: 07-05-2023 Tobacco smoking status WAIS Unknown if ever smoked [facility] Start: 1945 Sex Assigned At Male W [facility] Start: 04-19-2024 End: 11-28-2024 Tobacco smoking status NHIS Ex-smoker (finding) [facility] Start: 11-14-2024 End: 12-04-2024 [facility] Procedure Code Equipment Code Equipment Origin al Text Equipment Identifier Dates ([id number]) Drug-eluting coronary artery stent, bioabsorbable-polyme r-coated ()[id number] FDA Start: 05-02-2021 ([id number]) Drug-eluting coronary artery stent, bioabsorbable-polyme r-coated ()[id number] FDA Start: 05-02-2021 Blood Sugar Diagnostic (Blood [...] diabetes mellitus chronic March 05, 2025 9:54am [facility] Work Phone: 1(242) 850-354003-27-2025 Radiology Diagnostic study note [facility] Imaging Services [address] [place] [address] Cerv Spine 2 or 3 Views MR#: [id number] Acct: [id number] Name: GENI LINDSAY Rep #: [id number] : 1945 M 79 From: Umair Reeder MD PCP: Dr. Chase Cohen MD Status: R EG CLI Study:Cerv Spine 2 or 3 Views Date of Exam: 11/09/24 Exam# [id number] Ordering Dr: Oswaldo Lopez PA PROCEDURE: CERV [...] soft tissue swelling. C5-6 spondylosis/discogenic change with rrvm-sp-atravjpt disc space narrowing. Mzojy-hbgivon-phxm-left appearing multilevel facet degenerative changes. Suggestion of [...] fracture or malalignmentidentified. C5-6 spondylosis/discogenic change with ddvj-eu-tbpnpyaw disc space narrowing. Gqxzy-fggiuln-ygjt-left appearing multilevel facet degenerative changes. Reading Location: [facility] CC: Dr. Chase Cohen MD; DARIANA Joshua ~ Cafeteria Aide: Signed [facility]03-27-2025 Evaluation note* Diagnosis Onset Date Resolution Status Admit Date Generalized pruritus acute Donny h 2024 9:55am Neck pain acute November 09 9:55am [facility] Work Phone: 1(263) 321-242503-27-2025 Evaluation note* Diagnosis Onset Date Resolution Status Admit Date Generalized pruritus acute Donny h 2024 9:55am Neck pain acute November 09 9:55am Atherosclerosis of coronary artery of [place] heart without angina pectoris chronic November 28, 2024 7:53am Essential (primary) hypertension chr onic November 28, 2024 7:53am Hyperlipidemia chronic November 7:53am [facility] Work Phone: 1(940) 793-774703-27-2025 Evaluation note* Diagnosis Onset Date Resolution Status Admit Date Generalized pruritus acute Donny h 2024 9:55am Neck pain acute November 09 9:55am Atherosclerosis of coronary artery of [place] heart without angina pectoris chronic November 28, 2024 7:53am Essential (primary) hypertension chr onic November 28, 2024 7:53am Hyperlipidemia chronic November 7:53am BPH (benign prostatic hyperplasia) chronic March 05, 2025 9:54am Essential (primary) hypertension chr onic March 05, 2025 9:54am GERD (gastroesophageal reflu x disease) chronic March 05, 2025 9:54am Hematuria chronic March 05 9:54am Type 2 diabetes mellitus chronic March 05, 2025 9:54am [facility] Work Phone: 1(797) 472-710908-25-2023 Discharge summary Author Isaac Hawley [facility] April 09, 2023 3:04pm Note Date/Time April 09, 2023 10 :25am [facility] Medical Records Department [address] [place] [address] Emergency Department Summary 04/09/23 MR#: [id number] Acct: [id number] Name: RUSTYGENI ENMA Rep #:[id number] : [...] Denies any fever chills nausea or vomiting. PFSH <ZABRINA Rodriguez - Last Filed: 04/09/23 14:25> PENDING SALE TO [facility] Medical History Arthritis Atherosclerosis of coronary artery of [place] heart without angina pectoris Back problem BPH [...] Reaction Status Date / Time dulaglutide [[facility] Allergy Intermediate Nausea Verified 04/09/23 10:05 niacin [...] % (Auto) 58.9 Lymph % (Auto) 26.3 Stearns % (Auto) 12.1 H Eos % (Auto) [...] Sl. Cloudy Urine pH 8.0 Ur Specific [place] 1.010 Urine Protein 100 H Urine Glucose [...] Hawley MD - Last Filed: 04/09/23 14:32> [facility] Lab Data Labs: Laboratory Results - last 24 hr 04/09/23 04/09/23 10:20 11:30 WBC 7.5 RBC 4.76 Hgb 13.7 Hct 42.2 MCV 88.7 MCH 28.8 MCHC 32.5 RDW Std Deviation 41.7 RDW Coeff of [place] 12.8 Plt Count 247 MPV 10.3 Immature Gran % (Auto) 0.100 Neut % (Auto) 58.9 Lymph % (Auto) 26.3 Ste[place]s % (Auto) 12.1 H Eos % (Auto) [...] Sl. Cloudy Urine pH 8.0 Ur Specific [place] 1.010 Urine Protein 100 H Urine Glucose [...] your Primary Care Provider. Call [facility] ([phone]) or report to the closest Emergency Room. Call 911 if necessary. 04/09/23 1432 <Electronically signed by Isaac Hawley MD> Cosigner Signature (if applicable): 04/09/23 1425 <Electronically signed by Onesimo GERBER> CC: Dr. Chase Cohen MD ~ Signed [facility] Work Phone: 1(211) 532-603709-17-2021 Evaluation note* Diagnosis Onset Date Resolution Status Encounter for pre-operative cardiovascular clearance acute Essential (primary) hypertension chronic Hyperlipidemia chronic History of coronary artery stent placement April 162020 resolved [facility] Work Phone: 1(936) 720-383106-25-2021 NoteHNO ID: [id number] Author: Nick Núñez RN Service: ? Author [...] Tan Romero RN February 07, 2021 1:35 [facility]06-25-2021 NotePatient Outreach ([facility]) GENI LINDSAY ([id number]) 1945 M Date Time Provider Department 02/07/21 NICK NÚÑEZ [facility] During your visit today, we recorded the following information about you: Tan Romero RN 02/07/2021 1:59 PM Signed [facility] Enrollment Provider Action/FYI: Chart Reviewed: Pt does not have a [facility] PCP Patient referred by: VBC Kim Contact made with patient: Patient not [...] [J44.9] Order(s):CONSULT TO PRIMARY CARE COORDINATION CD [[id number]] Order #: [id number]: 1 Prescriptions as of 02/07/2021 Sig: ATORVASTATIN [...] ESOPHAGEAL REFLUX [K21.9] Myalgia and myositis, unspecified [VCG6017] 06/15/2016 Hyperlipidemia [E78.5] 09/17/2015 BENIGN NEOPLASM LG [...] neuropat*12/15/2016 Encounter Status:Closed by TAN ROMERO [facility]21[facility] Diagnosis Onset Date Resolution Status Diminished pulses in lower extremity acute Fatigue acute Atherosclerosis of coronary artery of [place] heart without angina pectoris chronic Essential (primary) hypertension chronic Hyperlipidemia chronic [facility] Work Phone: Evaluation noteNo assessment information available [facility] Work Phone: Evaluation note* Diagnosis Onset Date Resolution Status Health care maintenance acut e BPH (benign prostatic hyperplasia) chronic Essential (primary) hypertension chronic Hyperlipidemia chronic Type 2 diabetes mellitus chr onic [facility] Work Phone[facility] Work Phone: Hospital Discharge instructions Additional Instructions Please follow-up with urology. Call to make an appointment today or Wednesday. [facility] Work Phone: Reason for referral (narrative)No reason for referral information availableW[facility] Work Phone: Summary Purpose Family History No Family History Records Found Relationship Condition Age at Onset Recorded Date/T fani mother Diabetes mellitus Unknown Myocardial infarction Unknown father Aortic aneurysm Unknown Advance Directives No Advanced Directives Records Found Advance Directive Response Recorded Date/ Time Advance Directives Yes January 19 4 2:22pm Living Will Yes November 25, 2021 5:57am Power of Ice Skating Coach Yes November 25 5:57am Advance Directive Response Recorded Date/ Time Name of Medical Power of Ice Skating Coach tari lindsay November 25, 2021 5:57am Advance Directives Yes January 19 4 2:22pm Living Will Yes November 25, 2021 5:57am Power of Ice Skating Coach Yes November 25 5:57am Advance Directive Response Recorded Date/ Time Advance Directives Yes January 19 4 2:22pm Living Will Yes May 04, 2022 12:08pm Power of Ice Skating Coach Yes April 12:08pm Advance Directive Response Recorded Date/ Time Advance Directives Yes January 19 4 2:22pm Living Will Yes April 09 11:07am Power of Ice Skating Coach Yes April 09, 023 11:07am Name of Medical Power of Ice Skating Coach present April 09, 2023 11:07am Advance Directive Response Recorded Date/ Time Name of Medical Power of Ice Skating Coach present April 09, 2023 10:07am Advance Directives Yes January 19 1:22pm Living Will Yes April 09 10:07am Power of Ice Skating Coach Yes April 09, 023 10:07am Advance Directive Response Recorded Date/ Time Advance Directives Yes April 2:00pm Advance Directive Response Recorded Date/ Time Living Will Yes April 09 11:07am Do you have a Healthcare Power of Ice Skating Coach? Yes April 09, 2023 11:07am Advance Directives Yes April 2:00pm Chief Complaint and Reason for Visit Chief Complaint 1 y fu hematuria Reason for Visit Encounter for pre-op erative cardiovascular clearance Essential (primary) hypertension Hyperlipidemia History of coronary artery stent placement Chief Complaint hematuria 6 M FU Reason for Visit Diminished pulses in lower extremity Fatigue Atherosclerosis of coronary artery of [place] heart without angina pectoris Essential (primary) hypertension Hyperlipidemia Chief Complaint 6 M FU DECREASED PEDAL PULSES Reason for Visit Diminished pulses in lower extremity Fatigue Atherosclerosis of coronary artery of [place] heart without angina pectoris Essential (primary) hypertension Hyperlipidemia Chief Complaint URINARY Chief Complaint URINARY MED FOLLOW UP Reason for Visit Health care [facility] BPH (benign prostatic hyperplasia) Essential (primary) hypertension [...] 9:5 5am Atherosclerosis of coronary artery of [place] heart without angina pectoris November 28, 2024 [...] 9:5 5am Atherosclerosis of coronary artery of [place] heart without angina pectoris November 28, 2024 7:53am Essential (primary) hypertension November 142024 7:53am Hyperlipidemia November 28, 2024 7:5 3am BPH (benign prostatic hyperplasia) March 05, 2025 9:54am Essential (primary) hypertension March 052024 9:54am GERD (gastroesophageal reflux disease) J [facility] 2024 9:54am Hematuria March 05, 2025 [...] 052024 9:54am GERD (gastroesophageal reflux disease) J [facility]rick 2024 9:54am Hematuria March 05, 2025 9:54 am Type 2 diabetes mellitus March 05, 2025 9:54am Additional Source Comments (unrecognized sect ion and content) No Status Records FoundNo Status Records Found INFORMATION SOURCE (unrecogn ized section and content) DATE CREATED AUTHOR 09/29/2021 [facility] DATE CREATED AUTHOR AUTHOR'S ORGANIZ ATION 04/14/2025 [place] Goals (unrecognized section and content) Goals may [...] Dates Dr. Chase Cohen MD Primary Care kristen, Attending Provider, Referring Provider Active Team Status: [...] 28, 2024 End: November 28, 2024 Corry [place], [place] Referring Provider Active Start: November 28, [...] 23, 2025 End: February 23, 2025 Corry oMura PA, PA Attending Provider Active Start: February [...] BE BASED ON THE PRIMARY CLINICAL RECORDS. [facility] [employer] [facility]. provides no warranty or guarantee of the accuracy or completeness of information in this document.
[2025-04-15] MEDS: Lidocaine 2% Viscous15 ML UDC 15 ML PO (17:17)
[2025-04-15 17:34] LABS: Anion Gap 13 (5-15); BUN 16 mg/dL (4-19); BUN/Creat Ratio 13.4 RATIO (10-20); Calcium,Total 9.7 mg/dL (7.6-11.0); Carbon Dioxide 21.1 mmol/L (21.0-32.0); Chloride 102 mmol/L (98-108); Estimated Creatinine Clearance 52.82 ml/min (50-250); Glucose 155 mg/dL (70-99); Potassium 3.9 mmol/L (3.3-5.1); Troponin T High Sensitivity 14 ng/L (<=22)
--- NOTE | 2025-04-15 18:18 | CM.ED ---
Social Work Date of referral: 04/15/25 Reason for Referral: Advanced Care Directives (ACD's) not on file Referred by: Social Work Identification Patient provided consent to social work visit. Patient and his both reported that the ADC's have been brought in before and should be on file but agreed to bring in again. Comfort Goodwin, PUBLICATION SPECIALIST, ANALYST GEOCHEMICAL PROSPECTING
--- NOTE | 2025-04-15 19:25 | CT_ITS ---
PROCEDURE: CTA CHEST W/WO CONTRAST 04/15/2025 REASON FOR EXAM: CP TECHNIQUE: Procedure Code: CTCTACHWW Modality: CT Procedure: CTA CHEST W/WO CONTRAST Multiplanar Sagittal and Coronal images were obtained. 3D reconstructions CONTRAST: Isovue 370 VOLUME: 100 mL One or more dose reduction techniques were used (e.g., Automated exposure control, adjustment of the mA and/or kV according to patient size, use of iterative reconstruction technique). RADIATION DOSE SUMMARY: CTDlvol: 22 mGy DLP: 439 mGycm FINDINGS: The pulmonary arterial contrast bolus is adequate. No evidence of pulmonary emboli. No mediastinal mass. No thoracic aneurysm. Mild coronary artery calcification. Moderate centrilobular emphysema. No consolidation. No edema. Small noncalcified nodule in the base of the left upper lobe on image 122 which measures [address]/CTA Chest W/WO Contrast IMPRESSION: Negative for pulmonary embolus. Normal thoracic aorta. Noncalcified nodule 7 mm left upper lobe. Consider three-month follow-up CT Reading [facility]
--- NOTE | 2025-04-15 19:25 | EKG12_ITS ---
Test Reason : CP Blood Pressure : */* mmHG Vent. Rate : 78 BPM Atrial Rate : 78 BPM P-R Int : 200 ms QRS Dur : 68 ms QT Int : 350 ms P-R-T Axes : 76 -34 73 degrees QTcB Int : 399 ms Normal sinus rhythm normal Confirmed by Juan Alberto Morataya ([id number]), greeting card editor RONNY BUTCHER ([id number]) on 04/17/2025 10:41:47 AM Referred By: LAUREN/USHA Confirmed By: Juan Alberto Morataya
[2025-04-15 19:48] LABS: Troponin T High Sens 2 HR 19 ng/L (<=22)
== END 2025-04-15 21:23 | disposition home or self-care (01) ==
PROVIDERS: Emergency Provider Emergency Medicine; PCP Internal Medicine; Visit Provider Emergency Medicine
DX: R07.9 Chest pain, unspecified (principal); E11.9 Type 2 diabetes mellitus without complications; I10 Essential (primary) hypertension; I25.10 Atherosclerotic heart disease of native coronary artery without angina pectoris; I25.2 Old myocardial infarction; Z87.891 Personal history of nicotine dependence; Z95.5 Presence of coronary angioplasty implant and graft; Z86.73 Personal history of transient ischemic attack (TIA), and cerebral infarction without residual deficits; Z79.02 Long term (current) use of antithrombotics/antiplatelets; Z79.899 Other long term (current) drug therapy; K21.9 Gastro-esophageal reflux disease without esophagitis
CPT/HCPCS: 71046; 71275; 80048; 84484; 85025; 93005; 96374; 96375; 99284; Q9967; A4216; J2405

== ENCOUNTER 2025-05-11 07:24 | Observation (INO) | payer MEDICARE, SELFPAY ==
--- NOTE | 2025-04-27 10:40 | PAT.ANESEVAL ---
Pre-Assessment Diagnosis/Proposed Procedure Planned Operative Procedure(s): LAP ROBOTIC SIMPLE PROSTATECTOMY Anesthesia History Anesthesia History - cold rolling coordinator: Anesthesia History - cold rolling coordinator Hx Hospitalization No 04/27/25 10:14 Any Problems With Anesthesia No 04/27/25 10:14 Cholinesterase deficiency No 04/27/25 10:14 You/Your Family Experience No 04/27/25 10:14 fever (hyperthermia) with Relationship Recent Exposure to Contagious No 04/19/24 14:00 Disease Does patient have nerve No 04/27/25 10:14 stimulator Patient instructed to have device shut off --Does patient have Pacemaker or ICD? When Was Last Pacemaker Check QUESTION #4 FULL TEXT: You/Your Family Experience fever (hyperthermia) with Anesthesia Last Oral Intake Last Oral intake: Last Oral Intake NPO since Meds taken in AM with sips of water? Meds patient instructed to take am of surgery PONV PONV - cold rolling coordinator: PONV - cold rolling coordinator Female No 04/27/25 10:14 HX of Motion Sickness No 04/27/25 10:14 HX of N/V After Surgery No 04/27/25 10:14 Non-Smoker Yes 04/27/25 10:14 Duration of Surgery greater Yes 04/27/25 10:14 than 60 minutes Number of Risk Factors 2 04/27/25 10:14 PONV Score Moderate Risk 04/27/25 10:14 Height & Weight Height & Weight: Anesthesia: Height & Weight Height 5 ft 10 in 04/15/25 16:47 Respiratory Assessment Respiratory Assessment - cold rolling coordinator: Respiratory Tract Infection Hx - cold rolling coordinator Hx Respiratory Tract Infection No 04/27/25 10:14 STOP Sleep Apnea STOP Sleep Apnea - cold rolling coordinator: STOP Sleep Apnea - cold rolling coordinator Hx Hypertension Yes: CONTROLLED WITH MEDS 04/27/25 10:14 Hx Sleep Apnea No 04/27/25 10:14 CPAP No 04/19/24 14:00 BIPAP No 04/19/24 14:00 Do you snore loudly (louder No 04/27/25 10:14 than talking or can be heard Do you often feel tired/ No 04/27/25 10:14 fatigued/ sleepy during daytime? Has anyone observed you stop No 04/27/25 10:14 breathing during sleep? STOP Results Negative 04/27/25 10:14 QUESTION #5 FULL TEXT : Do you snore loudly (louder than talking or can be heard through closed doors)? Tobacco Use History Tobacco Use History - cold rolling coordinator: Tobacco Use History - cold rolling coordinator Tobacco Use Smoking Status Former smoker 04/27/25 10:14 Hx Tobacco Use No 04/27/25 10:14 Years Smoking Packs Smoked per Day Smoking Cessation Date was No - quit smoking greater 04/27/25 10:14 within the last 15 years than 15 years ago Hx Smoking Cessation Date 04/16/95 04/27/25 10:14 Hx Smoking Cessation Counseling Hematologic Medial History Hematologic Hx - cold rolling coordinator: Hematologic Medical Hx - corporate development associate Hx of Blood Transfusion No 04/27/25 10:14 Hx of Transfusion in last 3 No 04/27/25 10:14 Months Date of Last Transfusion (if within last 3 months) Ever experience any problems No 04/27/25 10:14 with transfusion(s)? Specify any problems Hx of Preganancy in last 3 N/A 04/27/25 10:14 Months Nurse Filling Out Transfusion DSCHRIBER 04/27/25 10:14 & Questions: Date: 04/27/25 04/27/25 10:14 Time: 10:16 04/27/25 10:14 Patient unable to answer at this time (ie. confused, unrespo /Reproduction History /Reproductive History - cold rolling coordinator: /Reproductive Hx- cold rolling coordinator Hx Now No 04/27/25 10:14 Gestational Age (in weeks): EDC: Hx Hx Para Hx Section SAB No 04/27/25 10:14 PFSH Medical History (Updated 04/27/25 @ 10:27 by Marla Tirado) Loss of hearing Diabetes Bladder disease High cholesterol Back pain Injury of head and neck Dietary restriction History of ulceration Gastric reflux Leg cramps Hypertension Wears glasses Arthritis Stroke/cerebrovascular accident Former smoker History of heart attack History of stress test History of echocardiogram Cardiology follow-up encounter History of ST elevation myocardial infarction (STEMI) (05/02/21) Atherosclerosis of coronary artery of [place] heart without angina pectoris BPH (benign prostatic hyperplasia) Enlarged prostate Home Medications ?Medication ?Instructions ?Recorded ?Last Taken ?Type multivitamin 1 tab PO DAILY supplement 08/29/20 Unknown History blood-glucose meter (OneTouch #1 ea 06/07/23 Unknown Rx Ultra2 Meter) blood sugar diagnostic (Blood #100 ea 07/06/23 Unknown Rx Glucose Test strips) atorvastatin 40 mg tablet 40 mg PO QHS cholesterol #90 tabs 05/02/24 Unknown Rx clopidogrel 75 mg tablet (Plavix) 75 mg PO DAILY BLOOD THINNER #90 07/24/24 Unknown Rx tabs amlodipine 10 mg tablet 10 mg PO DAILY BP #90 TABLETS 03/06/25 Unknown Rx sitagliptin phosphate 100 mg 100 mg PO DAILY for diabetes 03/06/25 Unknown Rx tablet (Januvia) mellitus #90 TABLETS fenofibrate nanocrystallized 145 145 mg PO DAILY CHOLESTEROL 04/27/25 Unknown History mg tablet losartan 100 mg tablet 100 mg PO DAILY BP 04/27/25 Unknown History pantoprazole 40 mg tablet,delayed 40 mg PO DAILY GERD 04/27/25 Unknown History release Allergy/AdvReac Type Severity Reaction Status Date / Time dulaglutide (From [facility]) Allergy Intermediate Nausea Verified 03/05/25 10:14 niacin Allergy GI Upset, Verified 03/05/25 10:14 PUD w/blood, Hot Flashes amoxicillin trihydrate (From [facility] Abd Verified 03/05/25 10:14 Augmentin) cramps/diarrhea potassium clavulanate (From [facility] Abd Verified 03/05/25 10:14 Augmentin) cramps/diarrhea Family History Mother Diabetes Myocardial infarction Father AA (aortic aneurysm) Surgical History (Updated 04/27/25 @ 10:27 by Marla Tirado) History of cystoscopy History of cardiac catheterization History of foot surgery History of colonoscopy S/P trigger finger release History of repair of rotator cuff History of coronary artery stent placement (05/02/21) Social History housing: house Smoking Status: Former smoker quit date: 08/16/93 Tobacco: How many years used: 30 alcohol intake: never substance use type: does not use caffeine: Yes Type: coffee Number of servings: 2 what type of physical activity do you participate in: walking Recommendation Anesthesia Recommendation Anesthesia recommendation: OPTIMIZED for anesthesia
[2025-05-11] VITALS (14 sets, daily range): BP systolic 113–138; BP diastolic 59–85; PULSE 72–86; RESP 16–18; TEMP 36.5–37; O2SAT 93–98; BMI 23.1
--- OUTSIDE RECORDS SUMMARY | 2025-05-11 05:22 | XMS RPT_ITS | CCD ---
Author Organization [facility] Care Team Providers Care Professor Of Law Name Role Phone Dr. Chase Cohen Primary Care Provider [phone] Dr. Chase Cohen Referring Provider [phone] Dr. Pireto Farris Attending Provider [phone] Dr. Chase [...] Provider Noel ANDINO, Dr. Stone Referring Provider [phone] Melanie ANDINO, Dr. Eligio Greer Attending Provider Melanie ANDINO, Dr. Eligio Greer Referring Provider Patrick ANDINO, Dr. Winston Emergency Provider [phone] Oleghe, Efewongbe Primary Care Unavailable Oleghe, Efewongbe Attending Unavailable Oleghe, Efewongbe Referring Unavailable Oleghe, Efewongbe Primary Care Unavailable Catrachito Nguyen Attending Unavailable Corry Laureano Attending Unavail able Zeny WESTBROOK, Corry Nicholas Referring Unavail able Oleghe, Efewongbe Primary Care Unavailable Corry Laureano Attending Unavail able Zeny WESTBROOK, Corry Nicholas Referring Unavail able Oleghe, Efewongbe Primary Care Unavailable Oleghe, Efewongbe Referring Unavailable Oleghe, Efewongbe Primary Care Unavailable Oleghe, Efewongbe Attending Unavailable Oleghe, Efewongbe Primary Care Unavailable MelanieEligio Attending Unavailable MelanieEligio Referring Unavailable Oleghe, Efewongbe Primary Care Unavailable MelanieEligio Admitting Unavailable MelanieEligio Attending Unavailable MelanieEligio Referring Unavailable Oleghe, Efewongbe Primary Care Unavailable MelanieEligio Attending Unavailable MelanieEligio Referring Unavailable Oleghe, Efewongbe Primary Care Unavailable Oleghe, Efewongbe Attending Unavailable Oleghe, Efewongbe Referring Unavailable Corry Laureano Attending Unavail able Oleghe, Efewongbe Primary Care Unavailable Oleghe, Efewongbe Referring Unavailable Oleghe, Efewongbe Referring Unavailable Oleghe, Efewongbe Primary Care Unavailable Asa Burgess Attending Unavailable Allergies Allergy Classification Reported Allergen(s) Allergy Type Date of Onset Reaction(s) Facility (14 sources) Amoxicillin; Translations: [amoxicillin trihydrate] Drug Allergy 2 Abd cramps/diarrhea [facility] (13 sources) dulaglutide Drug Allergy 2 Nausea [facility] (13 sources) Niacin Drug Allergy 2 GI Upset, PUD w/blood, Hot Flashes [facility] (14 sources) potassium clavulanate; Translations: [potassium clavulanate] Propensity to adverse reactions 2 Abd cramps/diarrhea [facility] (1 source) dulaglutide Drug Allergy 5 [facility] Repository (1 source) Niacin Drug Allergy 5 [facility] Repository Medications Current Medications Medication Drug Class(es) Dates Sig (Normalized) Sig (Original) Blood-Glucose Meter (Onetouch Ultra2 Meter) misc (9 sources) Start: 06-07-2023 Blood-Glucose Meter (Onetouch Ultra2 [...] hr Active 50 mg PO DAILY 90 November 09, 2024 10:53am HTN Start: 05-03-2021 End: 11-29-2023 take 1 tablet by mouth once daily Metoprolol Succinate 50 mg tablet extended release 24 hr Discontinued 50 mg PO DAILY 90 2023 10:14am November 29, 2023 8:49am HTN [...] DAILY August 29, 2020 1:00am Multivitamin tablet (8 sources) Start: 08-29-2020 Multivitamin t ablet Active [...] Inhibitor, Nonsteroidal Anti-inflammatory Drug Start: 05-03-2021 End: 07-20-2022 take 1 tablet by mouth once daily [...] 2019 6:15pm ciprofloxacin 500 mg oral tablet (13 sources) Quinolone Antimicrobial Start: 01-26-2014 End: 01-26-2019 [...] once then once a day after. Coenzyme Z97-Jyxacda E 1 EACH capsule (8 sources) Start: 01-19-2014 End: 05-02-2021 take 1 capsule by mouth once daily Coenzyme K13-Tgnzpcp E 1 EACH capsule Discontinued 1 {tbl} PO DAILY January 19, 2014 12:00am May 02, 2021 8:32am cyclobenzaprine hydrochloride 5 mg oral tablet (8 sources) Muscle Relaxant Start: 11-09-2024 End: 03-05-2025 take 1 tablet by mouth three times daily as needed for muscle spasms Cyclobenzaprine 5 mg tablet Discontinued 5 mg PO THREE TIMES A DAY as needed for muscle spasm 30 November 09, 2024 12:00am March 05, 2025 10:16am 0.5 ml dulaglutide 3 mg/ml auto-injector (13 sources) GLP-1 Receptor Agonist Start: 03-03-2019 End: [...] 2021 9:27am glimepiride 1 mg oral tablet (13 sources) Sulfonylurea Start: 01-19-2014 End: 01-26-2019 take 1 tablet by mouth twice daily Glimepiride 1 MG tablet Discontinued 1 mg PO TWICE A DAY January 19, 2014 12:00am January 26, 2019 6:21pm hydrocortisone 0.025 mg/mg topical ointment (8 sources) Corticosteroid Start: 10-06-2023 End: 11-09-2024 Hydrocortisone 2.5 % ointment Discontinued 1 NMA TOPICAL TWICE A DAY as needed for rash 454 1 October 06, 2023 1:00am November 09, 2024 10:22am hydrOXYzine hydrochloride 25 mg oral tablet (8 sources) Antihistamine Start: 11-09-2024 End: 03-05-2025 take [...] 19, 2014 12:00am January 26, 2019 6:16pm [place]-3 Fatty Acids-Fish Oil (5 sources) Start: 01-19-2014 End: 05-02-2021 [place]-3 Fatty Acids-Fish Oil Discontinued 1 EACH PO DAILY January 19, 2014 2:39pm May 02, 2021 8:32am Start: 01-19-2014 End: 05-02-2021 [place]-3 Fatty Acids-Fish Oil Discontinued 1 EACH PO DAILY January 18, 2014 11:00pm May 02, 2021 7:32am Start: 01-19-2014 End: 05-02-2021 [place]-3 Fatty Acids-Fish Oil Discontinued 1 EACH PO DAILY January 19, 2014 12:00am May 02, 2021 8:32am [place]-3 Fatty Acids-Fish Oil 1 EACH capsule,delayed release(DR/EC) (8 sources) Start: 01-19-2014 End: 05-02-2021 [place]-3 Fatty Acids-Fish Oil 1 EACH capsule,delayed release(DR/EC) [...] DAILY phenazopyridine hydrochloride 100 mg oral tablet (13 sources) Start: 01-26-2014 End: 01-26-2019 take 1 [...] 2019 8:39am Selenium Sulfide-Menthol 118 ML suspension (8 sources) Start: 01-19-2014 End: 01-26-2019 Selenium Sulfide-Menthol [...] 2019 9:21am sucralfate 1000 mg oral tablet (13 sources) Aluminum Complex Start: 01-19-2014 End: 01-26-2019 take 1 tablet by mouth once daily Sucralfate 1 GM tablet Discontinued 1 g PO DAILY January 19, 2014 12:00am January 26, 2019 6:18pm tadalafil 20 mg oral tablet (13 sources) Phosphodiesterase 5 Inhibitor Start: 01-19-2014 End: 01-26-2019 take 1 tablet by mouth once daily Tadalafil 20 MG tablet Discontinued 20 mg PO DAILY January 19, 2014 12:00am January 26, 2019 6:20pm ticagrelor 90 mg oral tablet (13 sources) Start: 05-03-2021 End: 05-09-2021 take 1 tablet by mouth twice daily Ticagrelor (Brilinta) 90 mg Tablet Discontinued 90 mg PO TWICE A DAY 60 0 May 03, 2021 12:00am May 09, 2021 1:41pm ubidecarenone 50 mg / vitamin e 5 unt oral capsule (5 sources) Start: 01-19-2014 End: 05-02-2021 take 1 tablet by mouth once daily Coenzyme E11-Ttrhrqi E Discontinued 1 TABLET PO DAILY January 18, 2014 11:00pm May 02, 2021 7:32am valsartan 160 mg oral tablet (13 sources) Angiotensin 2 Receptor Maribell Start: 01-19-2014 End: 01-26-2019 take 1 tablet by mouth once daily Valsartan 160 MG tablet Discontinued 160 mg PO DAILY January 19, 2014 12:00am January 26, 2019 6:19pm Problems Active Problems Problem Classification Problem Date Documented Da te Episodic/Chronic Acute myocardial infarction (13 sources) Myocardial infarction; Translations: [ST elevation (STEMI) myocardial infarction of unspecified site] 05-06-2021 Chronic Allergic reactions (8 sources) Inflammatory dermatosis; Translations: [Dermatitis, unspecified] 10-06-2023 Episodic Chronic kidney disease (8 sources) Chronic kidney disease; Translations: [Chronic kidney disease, unspecified] 05-01-2024 Chronic Coronary atherosclerosis and other heart disease (20 sources) History of acute ST segment elevation myocardial infarction; Translations: [Old myocardial infarction] Onset: 1 Chronic Diabetes mellitus without complication (19 sources) Type 2 diabetes mellitus; Translations: [Type 2 diabetes mellitus without complications] Onset: 5 08-01-2021 Chronic Disorders of lipid metabolism (20 sources) Hyperlipidemia; Translations: [Hyperlipidemia, unspecified] Onset: 5 Chronic Esophageal disorders (17 sources) Gastroesophageal reflux disease; Translations: [Gastro-esophageal reflux disease without esophagitis] 08-28-2019 Chronic Essential hypertension (20 sources) Essential hypertension; Translations: [Essential (primary) hypertension] Onset: 5 Chronic Gastrointestinal hemorrhage (13 sources) Feces color: tarry; Translations: [Melena] 08-25-2021 Episodic Genitourinary symptoms and ill-defined conditions (20 sources) Blood in urine; Translations: [Hematuria, unspecified] Onset: 5 04-09-2023 Episodic Hyperplasia of prostate (20 sources) Benign prostatic hyperplasia; Translations: [Benign prostatic hyperplasia without lower urinary tract symptoms] Onset: 5 08-01-2021 Chronic Immunizations and screening for infectious disease (13 sources) Needs influenza immunization; Translations: [Encounter for immunization] 08-25-2021 Episodic Malaise and fatigue (14 sources) Fatigue; Translations: [Other fatigue] Episodic Nonspecific chest pain (3 sources) Chest pain; Translations: [Chest pain, unspecified] Onset: 5 04-15-2025 Episodic Other circulatory disease (12 sources) Abnormal peripheral pulse; Translations: [Other specified symptoms and signs involving the circulatory and respiratory systems] 03-04-2022 Episodic Other circulatory disease (2 sources) Other specified symptoms and signs involving the circulatory and respiratory systems; Translations: [Other symptoms involving cardiovascular system] Episodic Other inflammatory condition of skin (13 sources) Generalized pruritus ; Translations: [Pruritus, unspecified] 11-09-2024 Episodic Other non-traumatic joint disorders (13 sources) Pain in left knee; Translations: [Left knee pain] 08-25-2021 Episodic Other nutritional; endocrine; and metabolic disorders (8 sources) Weight decreased; Translations: [Abnormal weight loss] 05-02-2024 Episodic Other nutritional; endocrine; and metabolic disorders (2 sources) H/O: diabetes mellitus; Translations: [Personal history of other endocrine, nutritional and metabolic disease] 04-15-2025 Episodic Other screening for suspected conditions (not mental disorders or infectious disease) (20 sources) Echocardiogram abnormal; Translations: [Abnormal findings on diagnostic imaging of heart and coronary circulation] 05-06-2021 Episodic Peripheral and visceral atherosclerosis (10 sources) Peripheral vascular disease, unspecified; Translations: [Peripheral arterial disease] 05-29-2022 Chronic Past or Other Problems Problem Classification Problem Date Documented Da te Episodic/Chronic Coronary atherosclerosis and other heart disease (1 source) Presence of coronary angioplasty implant and graft; Translations: [Percutaneous transluminal coronary angioplasty status] Onset: 05-02-2021 Episodic Spondylosis; intervertebral disc disorders; other back problems (14 sources) Neck pain; Translations: [Cervicalgia] Onset: 11-14-2024 11-09-2024 Episodic Results Test Name Value Interpretation Reference Range Facility MR/PATKainJUANloyd 04-27-2025 [facility] [address] [place] [address] PAT - Anesthesia 04/27/25 1040 MR#: [id number] Acct: [id number] Name: GENI LINDSAY Rep #: [id number] : 1945 80 From: Fahad Izquierdo MD PCP: Dr. 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 When Was Last Pacemaker Check QUESTION #4 FULL TEXT: You/Your Family Experience fever (hyperthermia) with Anesthesia Last Oral Intake Last Oral intake: Last Oral Intake NPO since Meds taken in AM with sips of water? Meds patient instructed to take am of surgery PONV PONV - entry level business analyst: PONV - entry level business analyst Female No 04/27/25 10:14 HX of Motion Sickness No 04/27/25 10:14 HX of N/V After Surgery No 04/27/25 10:14 Non-Smoker Yes 04/27/25 10:14 Duration of Surgery greater Yes 04/27/25 10:14 than 60 minutes Number of Risk Factors 2 04/27/25 10:14 PONV Score Moderate Risk 04/27/25 10:14 Height Weight Height Weight: Anesthesia: Height Weight Height 5 ft 10 in 04/15/25 16:47 Respiratory Assessment Respiratory Assessment - entry level business analyst: Respiratory Tract Infection Hx - entry level business analyst Hx Respiratory Tract Infection No 04/27/25 10:14 STOP Sleep Apnea STOP Sleep Apnea - entry level business analyst: STOP Sleep Apnea - entry level business analyst Hx Hypertension Yes: CONTROLLED WITH MEDS 04/27/25 10:14 Hx Sleep Apnea No 04/27/25 10:14 CPAP No 04/19/24 14:00 BIPAP No 04/19/24 14:00 Do you snore loudly (louder No 04/27/25 10:14 than talking or can be heard Do you often feel tired/ No 04/27/25 10:14 fatigued/ sleepy during daytime? Has anyone observed you stop No 04/27/25 10:14 breathing during sleep? STOP Results Negative 04/27/25 10:14 QUESTION #5 FULL TEXT : Do you snore loudly (louder than talking or can be heard through closed doors)? 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 Specify any problems Hx of Preganancy in last 3 N/A 04/27/25 10:14 Months Nurse Filling Out Transfusion DSCHRIBER 04/27/25 10:14 Questions: Date: 04/27/25 04/27/25 10:14 Time: 10:16 04/27/25 10:14 Patient unable to answer at this time (ie. confused, unrespo /Reproducti on History /Reproducti ve History - entry level business analyst: /Reproducti ve Hx- entry level business analyst Hx Now No 04/27/25 10:14 Gestational Age (in weeks): EDC: Hx Hx Para Hx Section SAB No 04/27/25 10:14 PFSH Medical History (Updated 04/27/25 @ 10:27 by Marla Tirado) Loss of hearing Diabetes Bladder disease High cholesterol Back pain Injury of head and neck Dietary restriction History of ulceration Gastric reflux Leg cramps Hypertension Wears glasses Arthritis Stroke/cerebrovascul ar accident Former smoker History of heart attack History of stress test History of echocardiogram Cardiology follow-up encounter History of ST elevation myocardial infarction (STEMI) (05/02/21) 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 pectoris BPH (benign prostatic hyperplasia) Enlarged prostate Home Medications ???Medication ???Instructions ???Recorded ???Last Taken ???Type multivitamin 1 tab PO DAILY supplement 08/29/20 Unknown History blood-glucose meter ([employer] (more content not included)... Normal [facility] 12 Lead EKGon 04-15-2025 12 Lead EKG [facility] Cardiovascular Services [address] [place] [address] 12 Lead EKG 04/15/25 1653 MR#: [id number] Acct: [id number] Name: GENI LINDSAY Rep #: [id number] : 1945 79 From: Geni Morataya MD Attending Dr: Status: DEP ER Ordering Dr: Catrachito Nguyen MD Date: 04/15/25 Location: ED Sex: M C Admitted: Test Reason : CP Blood Pressure : */* mmHG Vent. Rate : 78 BPM Atrial Rate : 78 BPM P-R Int : 200 ms QRS Dur : 68 ms QT Int : 350 ms P-R-T Axes : 76 -34 73 degrees QTcB Int : 399 ms Normal sinus rhythm normal Confirmed by Geni Morataya ([id number]), makeup editor RONNY BUTCHER ([id number]) on 04/17/2025 10:41:47 AM Referred By: LAUREN/PATRICK Confirmed By: Geni Morataya 04/17/25 1041 Date Geni Morataya MD CC: Dr. Chase Cohen MD; Dr. Catrachito Nguyen MD Signed Normal [facility] 12 Lead EKG [facility] Cardiovascular Services [address] [place] [address] 12 Lead EKG 04/15/251926 MR#: [id number] Acct: [id number] Name: GENI LINDSAY Rep #: [id number] : 1945 79 From: Geni Morataya MD Attending Dr: Status: DEP ER Ordering Dr: Catrachito Nguyen MD Date: 04/15/25 Location: ED Sex: M C Admitted: Test Reason : REPEAT Blood Pressure : */* mmHG Vent. Rate : 77 BPM Atrial Rate : 77 BPM P-R Int : 174 ms QRS Dur : 78 ms QT Int : 372 ms P-R-T Axes : 58 -23 53 degrees QTcB Int : 420 ms Normal sinus rhythm Normal ECG Confirmed by Geni Morataya ([id number]), makeup editor RONNY BUTCHER ([id number]) on 04/17/2025 10:42:04 AM Referred By: Confirmed By: Geni Morataya 04/17/25 1042 Date Geni Morataya MD CC: Dr. Chase Cohen MD; Dr. Catrachito Nguyen MD Signed Normal [facility] Absolute lymphocyte countOrd ered By: Catrachito Nguyen on 04-15-2025 Lymphocytes Auto (Unsp spec) [#/Vol] 1.96 10*3/uL 0.83-4.51 [facility] Absolute neutrophil countOrd ered By: Catrachito Nguyen on 04-15-2025 Neutrophils (Bld) [#/Vol] 9.1 10*3/uL High 2.0-7.7 [facility] Anion gap in Serum or Plasma Ordered By: Catrachito Nguyen on 04-15-2025 Anion gap [Moles/Vol] 13 mmol/L 5-15 [facility] Automated lymphocyte count a s percentage of total leukocytesOrdered By: Catrachito Nguyen on 04-15-2025 Lymphocytes/100 WBC Auto (Unsp spec) 16.1 % Low 19-41 [facility] BUN/creatinine ratioOrdered By: Catrachito Nguyen on 04-15-2025 Urea nitrogen/Creatinine [Mass ratio] 13.4 mg/mg 10- [facility] Basic Metabolic Profile (BMP )on 04-15-2025 BUN/CRE 13.4 RATIO Normal 10-20 [facility] Comment on above: Performed By: #### L 100.0100, L501.4021, L500.2500 #### [facility] [address] [place], [address] Calcium [Mass/Vol] 9.7 mg/dL Normal 7.6-11.0 [facility] Comment on above: Performed By: #### L 100.0100, L501.4021, L500.2500 #### [facility] [address] [place], [address] Chloride [Moles/Vol] 102 mmol/L Normal 98-108 [facility] Comment on above: Performed By: #### L 100.0100, L501.4021, L500.2500 #### [facility] [address] [place], [address] CO2 [Moles/Vol] 21.1 mmol/L Normal 21.0-32.0 [facility] Comment on above: Performed By: #### L 100.0100, L501.4021, L500.2500 #### [facility] [address] [place], [address] Creatinine [Mass/Vol] 1.19 mg/dL Normal 0.70-1.20 [facility] Comment on above: Performed By: #### L 100.0100, L501.4021, L500.2500 #### [facility] [address] [place], [address] ECRCL 52.82 ml/min Normal 50-250 [facility] Comment on above: Performed By: #### L 100.0100, L501.4021, L500.2500 #### [facility] [address] [place], [address] GAP 13 Normal 5-15 [facility] Comment on above: Performed By: #### L 100.0100, L501.4021, L500.2500 #### [facility] [address] [place], [address] GFR/1.73 sq M.predicted among non-blacks MDRD (S/P/Bld) [Vol rate/Area] 63 mL/min/{1.73_m2} Normal >60 [facility] Comment on above: Result Comment: mL/m in/1.73m2 CKD-EPI Creatinine Equation (2020) Performed By: #### L 100.0100, L501.4021, L500.2500 #### [facility] [address] [place], [address] Glucose [Mass/Vol] 155 mg/dL High 70-99 [facility] Comment on above: Performed By: #### L 100.0100, L501.4021, L500.2500 #### [facility] [address] [place], [address] Potassium [Moles/Vol] 3.9 mmol/L Normal 3.3-5.1 [facility] Comment on above: Performed By: #### L 100.0100, L501.4021, L500.2500 #### [facility] [address] [place], [address] Sodium [Moles/Vol] 136 mmol/L Normal 133-145 [facility] Comment on above: Performed By: #### L 100.0100, L501.4021, L500.2500 #### [facility] [address] [place], [address] Urea nitrogen [Mass/Vol] 16 mg/dL Normal 4-19 [facility] Comment on above: Performed By: #### L 100.0100, L501.4021, L500.2500 #### [facility] [address] [place], [address] Basophil percentageOrdered B y: Catrachito Nguyen on 04-15-2025 Basophils/100 WBC (Bld) 0.5 % 0-1 [facility] CBC W/Diff, Automatedon 03-18 Absolute Lymph 1.96 X10 3/uL Normal 0.83-4.51 [facility] Comment on above: Performed By: #### L 100.0100, L501.4021, L500.2500 #### [facility] [address] [place], [address] Absolute Neut 9.1 X10 3/uL High 2.0-7.7 [facility] Comment on above: Performed By: #### L 100.0100, L501.4021, L500.2500 #### [facility] [address] [place], [address] Basophils/100 WBC (Bld) 0.5 % Normal 0-1 [facility] Comment on above: Performed By: #### L 100.0100, L501.4021, L500.2500 #### [facility] [address] [place], [address] Eosinophils/100 WBC (Bld) 1.6 % Normal 0-5 [facility] Comment on above: Performed By: #### L 100.0100, L501.4021, L500.2500 #### [facility] [address] [place], [address] Erythrocyte distribution width (RBC) [Ratio] 13.0 % Normal 11.6-14.6 [facility] Comment on above: Performed By: #### L 100.0100, L501.4021, L500.2500 #### [facility] [address] [place], [address] Hematocrit (Bld) [Volume fraction] 38.0 % Low 40-54 [facility] Comment on above: Performed By: #### L 100.0100, L501.4021, L500.2500 #### [facility] [address] [place], [address] Hemoglobin (Bld) [Mass/Vol] 13.2 g/dL Normal 13.0-16.5 [facility] Comment on above: Performed By: #### L 100.0100, L501.4021, L500.2500 #### [facility] [address] [place], [address] IG% 0.200 Normal 0.0-0.9 [facility] Comment on above: Result Comment: IG% - Immature Granulocytes (promyelocytes, myelocytes and metamyelocytes) > 1% indicates that a LEFT SHIFT is Present. Performed By: #### L 100.0100, L501.4021, L500.2500 #### [facility] [address] [place], [address] Lymphocytes/100 WBC (Bld) 16.1 % Low 19-41 [facility] Comment on above: Performed By: #### L 100.0100, L501.4021, L500.2500 #### [facility] [address] [place], [address] MCH (RBC) [Entitic mass] 30.7 pg Normal 27.0-32.0 [facility] Comment on above: Performed By: #### L 100.0100, L501.4021, L500.2500 #### [facility] [address] [place], [address] MCHC (RBC) [Mass/Vol] 34.7 g/dL Normal 32-36 [facility] Comment on above: Performed By: #### L 100.0100, L501.4021, L500.2500 #### [facility] [address] [place], [address] MCV (RBC) [Entitic vol] 88.4 fL Normal 80-94 [facility] Comment on above: Performed By: #### L 100.0100, L501.4021, L500.2500 #### [facility] [address] [place], [address] Monocytes/100 WBC (Bld) 7.3 % Normal 0-10 [facility] Comment on above: Performed By: #### L 100.0100, L501.4021, L500.2500 #### [facility] [address] [place], [address] Neutrophils/100 WBC (Bld) 74.3 % High 47-70 [facility] Comment on above: Performed By: #### L 100.0100, L501.4021, L500.2500 #### [facility] [address] [place], [address] Nucleated RBC (Bld) [#/Vol] 0 10*3/uL Normal 0-5 [facility] Comment on above: Performed By: #### L 100.0100, L501.4021, L500.2500 #### [facility] [address] [place], [address] Platelet mean volume (Bld) [Entitic vol] 10.2 fL Normal 6.2-12.0 [facility] Comment on above: Performed By: #### L 100.0100, L501.4021, L500.2500 #### [facility] [address] [place], [address] Platelets (Bld) [#/Vol] 305 10*3/uL Normal 150-450 [facility] Comment on above: Performed By: #### L 100.0100, L501.4021, L500.2500 #### [facility] [address] [place], [address] RBC (Bld) [#/Vol] 4.30 10*6/uL Low 4.6-6.2 [facility] Comment on above: Performed By: #### L 100.0100, L501.4021, L500.2500 #### [facility] [address] [place], [address] RDW SD 41.7 fl Normal 35.1-43.9 [facility] Comment on above: Performed By: #### L 100.0100, L501.4021, L500.2500 #### [facility] [address] [place], [address] WBC (Bld) [#/Vol] 12.2 10*3/uL High 4.4-11.0 [facility] Comment on above: Performed By: #### L 100.0100, L501.4021, L500.2500 #### [facility] [address] [place], [address] CTA Chest W/WO Contraston CTA Chest W/WO Contrast [facility] Imaging Services [address] [place] [address] CTA Chest W/WO Contrast MR#: [id number] Acct: [id number] Name: GENI LINDSAY Rep #: [id number] : 1945 M 79 From: Dayron Funes MD PCP: Dr. Chase Cohen MD Status: REG ER Study: CTA Chest W/WO Contrast Date of Exam: 04/15/25 Exam# [id number] Ordering Dr: Catrachito Nguyen MD PROCEDURE: CTA CHEST W/WO CONTRAST 04/15/2025 REASON FOR EXAM: CP TECHNIQUE: Procedure Code: CTCTACHWW Modality: CT Procedure: CTA CHEST W/WO CONTRAST Multiplanar Sagittal and Coronal images were obtained. 3D reconstructions CONTRAST: Isovue 370 VOLUME: 100 mL One or more dose reduction techniques were used (e.g., Automated exposure control, adjustment of the mA and/or kV according to patient size, use of iterative reconstruction technique). RADIATION DOSE SUMMARY: CTDlvol: 22 mGy DLP: 439 mGycm FINDINGS: The pulmonary arterial contrast bolus is adequate. No evidence of pulmonary emboli. No mediastinal mass. No thoracic aneurysm. Mild coronary artery calcification. Moderate centrilobular emphysema. No consolidation. No edema. Small noncalcified nodule in the base of the left upper lobe on image 122 which measures [address]/CTA Chest W/WO Contrast IMPRESSION: Negative for pulmonary embolus. Normal thoracic aorta. Noncalcified nodule 7 mm left upper lobe. Consider three-month follow-up CT Reading Location: [facility] CC: Dr. Chase Cohen MD; Dr. Catrachito Nguyen MD Floor Installation Mechanic: Signed Normal [facility] Carbon dioxide, total [Moles /volume] in Central venous bloodOrdered By: Catrachito Nguyen on 04-15-2025 CO2 [Moles/Vol] 21.1 mmol/L 21.0-32.0 [facility] Chest PA and Lateralon 04-15 Chest PA and Lateral [facility] Imaging Services [address] [place] [address] Chest PA and Lateral MR#: [id number] Acct: [id number] Name: GENI LINDSAY Rep #: [id number] : 1945 M 79 From: Abe Diane MD PCP: Dr. Chase Cohen MD Status: REG ER Study: Chest PA and Lateral Date of Exam: 04/15/25 Exam# [id number] Ordering Dr: Catrachito Nguyen MD PROCEDURE: CHEST PA AND LATERAL 04/15/2025 REASON FOR EXAM: CHEST PAIN TECHNIQUE: Procedure Code: RADCXR Modality: DX Procedure: CHEST PA AND LATERAL COMPARISON: May 02, 2021 FINDINGS: Hardware: EKG leads. Heart: Normal Mediastinum: The mediastinal contour is unremarkable. Lungs: Clear Bones: Degenerative changes are identified within the thoracic spine. RAD/Chest PA and Lateral IMPRESSION: No acute cardiopulmonary process. Reading Location: [facility] CC: Dr. Chase Cohen MD; Dr. Catrachito Nguyen MD Floor Installation Mechanic: Signed Normal [facility] Chloride assayOrdered By: Jv Nguyen on 04-15-2025 Chloride [Moles/Vol] 102 mmol/L 98-108 [facility] Emergency Department Summary on 04-15-2025 Emergency Department Summary [facility] Medical Records Department [address] [place] [address] Emergency Department Summary 04/15/25 MR#: [id number] Acct: [id number] Name: GENI LINDSAY Rep #: [id number] : 1945 79 From: Catrachito Nguyen MD PCP: Dr. Chase Cohen MD Status:DEP ER Location: ED HPI History of Present Illness Chief Complaint: Chest Pain Informant: patient and spouse/S.O. Onset/Context/Timing Onset: Today and Hours Activity at onset: gradual Timing: Continuous Quality: Positive for Aching Location: Substernal Current Severity: Mild Maximum Severity: Mild Worsened By: Nothing Relieved By: Nothing Associated Symptoms: Negative for Nausea, Vomiting, Diaphoresis, Dyspnea, Cough, Fever, Lightheadedness, Acid Reflux or Palpitations Narrative Narrative: 79-year-old male history of LA with 2 cardiac stents., Diabetes prior stroke on Plavix. States that today Sinno on his computer about 8 AM he just got midsternal chest discomfort. No radiation to his neck back or jaw. No radiation to his arm. Nothing particular makes it better or worse. He was basely sitting in a chair. He has had no recent exertional dyspnea exertional chest pain. He denies any shortness of breath. He denies any hemoptysis. He has never had a DVT or PE. He denies any recent travel, surgery or immobilization. He denies any leg pain or swelling. He denies any hemoptysis. Prior Similar Symptoms: No Recent Illness/Hospitalizat ion: No CVD Risk Factors: Positive for Hypertension and Diabetes PE Risk Factors: Negative for Recent Travel/Surgery, Recent Immobilization, Prior DVT or PE or OCP + Smoking + >/=35 TAD Risk Factors: Positive for Marfan's Syndrome [facility] Medical History Dermatitis Screening for [...] accident) (2001) 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 pectoris BPH (benign prostatic hyperplasia) GERD (gastroesophageal reflux disease) Type 2 diabetes mellitus Enlarged prostate Neuropathy Hearing problem Gastrointestinal complaints, unspecific Back problem Home Medications ???Medication ???Instructions ???Recorded ???Last Taken ???Type multivitamin 1 tab PO DAILY supplement 08/29/20 Unknown History blood-glucose meter (OneTouch #1 ea 06/07/23 Unknown Rx Ultra2 Meter) blood sugar diagnostic (Blood #100 ea 07/06/23 Unknown Rx Glucose Test strips) atorvastatin 40 mg tablet 40 mg PO QHS cholesterol #90 tabs 05/02/24 Unknown Rx fenofibrate nanocrystallized 145 See Rx Instructions .Route 4 Unknown Rx mg tablet .COMPLEX #90 tabs losartan 100 mg tablet See Rx Instructions .Route 4 Unknown Rx .COMPLEX #90 tabs clopidogrel 75 mg tablet (Plavix) 75 mg PO DAILY #90 tabs 07/24/24 Unknown Rx metoprolol succinate 50 mg 50 mg PO DAILY HTN #90 tabs Unknown Rx tablet,extended release 24 hr pantoprazole 40 mg tablet,delayed See Rx Instructions .Route Unknown Rx release .COMPLEX #90 tabs amlodipine 10 mg tablet 10 mg PO DAILY #90 TABLETS 5 Unknown Rx sitagliptin phosphate 100 mg 100 mg PO DAILY for diabetes 03/06 Unknown Rx tablet (Januvia) mellitus #90 TABLETS Allergy/AdvReac Type Severity Reaction Status Date / Time dulaglutide (From [facility]) Allergy Intermediate Nausea Verified 03/05/25 10:14 niacin Allergy GI Upset, Verified 03/05/25 10:14 PUD w/blood, Hot Flashes amoxicillin trihydrate (From AdvReac Abd Verified 03/05/25 10:14 Augmentin) cramps/diarrhea potassium clavulanate (From AdvReac Abd Verified 03/05/25 10:14 Augmentin) cramps/diarrhea Family History Mother Diabetes Myocardial infarction Father AA (aortic aneurysm) Surgical History History of cardiac catheterization History of foot surgery History of colonoscopy S/P trigger finger release History of repair of rotator cuff History of coronary artery stent placement (05/02/21) Social History housing: house Smoking Status: Former smoker quit date: 08/16/93 Tobacco: How many years used: 30 alcohol intake: never substance use type: does not use caffein (more content not included)... Normal [facility] Eosinophil percentageOrdered By: Catrachito Nguyen on 04-15-2025 Eosinophils/100 WBC (Bld) 1.6 % 0-5 [facility] Erythrocyte distribution wid th ratioOrdered By: Catrachito Nguyen on 04-15-2025 Erythrocyte distribution width (RBC) [Ratio] 13.0 % 11.6-14.6 [facility] Erythrocyte distribution wid th standard deviationOrdered By: Catrachito Nguyen on 04-15-2025 Erythrocyte distribution width (RBC) [Ratio] 41.7 fl 35.1-43.9 [facility] Glomerular filtration rate ( GFR) estimation/1.73 sq m using serum, plasma, or whole bOrdered By: Catrachito Nguyen on 04-15-2025 GFR/1.73 sq M.predicted among non-blacks MDRD (S/P/Bld) [Vol rate/Area] 63 mL/min/{1.73_m2} >60 [facility] Comment on above: mL/min/1.73m2 CKD-EP I Creatinine Equation (2020) Hematocrit Auto (Bld) [Volum e fraction]Ordered By: Catrachito Nguyen on 04-15-2025 Hematocrit (Bld) [Volume fraction] 38.0 % Low 40-54 [facility] Hemoglobin measurementOrdere d By: Catrachito Nguyen on 04-15-2025 Hemoglobin (Bld) [Mass/Vol] 13.2 g/dL 13.0-16.5 [facility] Immature granulocytes/100 WB C Auto (Bld)Ordered By: Catracihto Nguyen on 04-15-2025 Immature granulocytes/100 WBC (Bld) 0.200 % 0.0-0.9 [facility] Comment on above: IG% - Immature Granu locytes (promyelocytes, myelocytes and metamyelocytes) > 1% indicates that a LEFT SHIFT is Present. L501.4021on 04-15-2025 Trop T High Sen 14 ng/L Normal <=22 [facility] Comment on above: Performed By: #### L 100.0100, L501.4021, L500.2500 ####[facility] [address] [place], [address] MCV (mean corpuscular volume ) determinationOrdered By: Catrachito Nguyen on 04-15-2025 MCV (RBC) [Entitic vol] 88.4 fL 80-94 [facility] Mean corpuscular hemoglobin (MCH) determinationOrdered By: Catrachito Nguyen on 04-15-2025 MCH (RBC) [Entitic mass] 30.7 pg 27.0-32.0 [facility] Mean corpuscular hemoglobin concentration (MCHC) determinationOrdered By: Catrachito Nguyen on 04-15-2025 MCHC (RBC) [Mass/Vol] 34.7 g/dL 32-36 [facility] Mean platelet volume determi nationOrdered By: Catrachito Nguyen on 04-15-2025 Platelet mean volume (Bld) [Entitic vol] 10.2 fL 6.2-12.0 [facility] Monocyte percentageOrdered B y: Catrachito Nguyen on 04-15-2025 Monocytes/100 WBC (Bld) 7.3 % 0-10 [facility] Neutrophil percentageOrdered By: Catrachito Nguyen on 04-15-2025 Neutrophils/100 WBC (Bld) 74.3 % High 47-70 [facility] Nucleated red blood cell per centageOrdered By: Catrachito Nguyen on 04-15-2025 Nucleated RBC/100 WBC (Bld) [Ratio] 0 % 0-5 [facility] Platelet countOrdered By: Jv Nguyen on 04-15-2025 Platelets (Bld) [#/Vol] 305 10*3/uL 150-450 [facility] Potassium measurement (mass/ volume)Ordered By: Catrachito Nguyen on 04-15-2025 Potassium (Unsp spec) [Mass/Vol] 3.9 mmol/L 3.3-5.1 [facility] RBC Auto (Bld) [#/Vol]Ordere d By: Catrachito Nguyen on 04-15-2025 RBC (Bld) [#/Vol] 4.30 10*6/uL Low 4.6-6.2 [facility] Serum creatinine measurement (mass/volume)Ordered By: Catrachito Nguyen on 04-15-2025 Creatinine [Mass/Vol] 1.19 mg/dL 0.70-1.20 [facility] Serum glucose measurement (m ass/volume)Ordered By: Catrachito Nguyen on 04-15-2025 Glucose [Mass/Vol] 155 mg/dL High 70-99 [facility] Serum or plasma calcium joya urement (mass/volume)Ordered By: Catrachito Nguyen on 04-15-2025 Calcium [Mass/Vol] 9.7 mg/dL 7.6-11.0 [facility] Serum or plasma urea nitroge n measurement (mass/volume)Ordered By: Catrachito Nguyen on 04-15-2025 Urea nitrogen [Mass/Vol] 16 mg/dL 4-19 [facility] Sodium levelOrdered By: Catrachito Nguyen on 04-15-2025 Sodium [Moles/Vol] 136 mmol/L 133-145 [facility] Troponin T HS 2 HRon 025 Trop T High Sen 19 ng/L Normal <=22 [facility] Comment on above: Performed By: #### L 499.0042 #### [facility] Laboratory [address] [place], [address] Troponin T HS 4 HRon 025 Trop T High Sen Normal <=22 [facility] Comment on above: Result Comment: AMALIA ENT DISCHARGED Performed By: #### L 499.0043 #### [facility] [address] [place], [address] Troponin T.cardiac [Mass/vol ume] in Serum or Plasma by High sensitivity methodOrdered By: Catrachito Nguyen on 04-15-2025 Troponin T.cardiac High sensitivity method [Mass/Vol] 19 ng/L <22 [facility] Troponin T.cardiac High sensitivity method [Mass/Vol] 14 ng/L <22 [facility] White blood cell (WBC) count Ordered By: Catrachito Nguyen on 04-15-2025 WBC (Bld) [#/Vol] 12.2 10*3/uL High 4.4-11.0 [facility] CREATININE FINGERSTICKon Creatinine [Mass/Vol] 1.2 mg/dL Normal 0.70-1.30 [facility] Comment on above: Performed By: #### L 9100.0200 ####[facility] [address] [place], [address] EGFR WB > 60.0000 Normal >60 [facility] Comment on above: Performed By: #### L 9100.0200 ####[facility] [address] [place], [address] CT Abd/Pelvis W/WO Contrasto n 04-12-2025 CT Abd/Pelvis W/WO Contrast [facility] Imaging Services [address] [place] [address] CT Abd/Pelvis W/WO Contrast MR#: [id number] Acct: [id number] Name: GENI LINDSAY Rep #: [id number] : 1945 M 79 From: Vincenzo Sherman MD PCP: Dr. Chase Cohen MD Status: REG CLI Study: CT Abd/Pelvis W/WO Contrast Date of Exam: 03/17 04/09 Exam# [id number] Ordering Dr: Eligio Navarro MD PROCEDURE: CT [...] noncontrast CT abdomen and pelvis. Reading Location: [id number] CC: Dr. Chase Cohen MD; Dr. Eligio Navarro MD Floor Installation Mechanic: Signed Normal [facility] Creatinine measurement at dsideOrdered By: Eligio Navarro on 04-12-2025 Creatinine [Mass/Vol] 1.2 mg/dL 0.70-1.30 [facility] EGFROrdered By: Eligio Navarro on 04-12-2025 GFR/1.73 sq M.predicted among non-blacks MDRD (S/P/Bld) [Vol rate/Area] mL/min/{1.73_m2} >60 [facility] PSA Total+%Freeon 04-05-2025 PSA, FREE 2.49 ng/mL Normal N/A [facility] Comment on above: Result Comment: Josse QUINTANA methodology. Performed By: #### L 3110.0500 ####[facility] [address] [place], [place], [id number] PSA, FREE % 49.2 Normal . [facility] Comment on above: Result Comment: The [...] any other population of men. Performed at: [employer] [id number] [employer] Superintendent: Jaden Blanco PhD, Phone: [phone] Performed By: #### L 3110.0500 ####[facility] [address] [place], [address] PSA, TOTAL ULTR 5.060 ng/mL Abnormal 0.000-4.000 [facility] Comment on above: Result Comment: Josse cobos ECLIA methodology. According to the [place] [employer], Serum PSA should decrease and [...] malignant disease. Performed By: #### L 3110.0500 ####[facility] [address] [facility] [place], [address] Serum or plasma free prostat e specific antigen (PSA)/total PSA mass ratioOrdered By: Eligio Navarro on 04-04-2025 Free PSA/Total PSA [Mass fraction] 49.2 % . [facility] Comment on above: The table below [...] for any other population of men.Performed at: [facility] [id number] [place], [place] [id number] Director: Jaden Blanco PhD, Phone: [phone] Absolute lymphocyte countOrd ered By: Chase Cohen on 03-05-2025 Lymphocytes Auto (Unsp spec) [#/Vol] 2.18 10*3/uL 0.83-4.51 [facility] Absolute neutrophil countOrd ered By: Chase Cohen on 03-05-2025 Neutrophils (Bld) [#/Vol] 3.6 10*3/uL 2.0-7.7 [facility] Anion gap in Serum or Plasma Ordered By: alivia Cohen on 03-05-2025 Anion gap [Moles/Vol] 9 mmol/L 12-28 [facility] Automated lymphocyte count a s percentage of total leukocytesOrdered By: Chase Cohen on 03-05-2025 Lymphocytes/100 WBC Auto (Unsp spec) 32.1 % [facility] BUN/creatinine ratioOrdered By: alivia Cohen on 03-05-2025 Urea nitrogen/Creatinine [Mass ratio] 16.6 mg/mg - [facility] Basic Metabolic Profile (BMP )on 03-05-2025 BUN/CRE 16.6 RATIO Normal - [facility] Comment on above: Performed By: #### L 501.9910, L501.9985, L500.2500, L100.0100 ####[facility] [address] [place], [address] Calcium [Mass/Vol] 9.8 mg/dL Normal 7.6-11.0 [facility] Comment on above: Performed By: #### L 501.9910, L501.9985, L500.2500, L100.0100 ####[facility] [address] [place], [address] Chloride [Moles/Vol] 105 mmol/L Normal 98-108 [facility] Comment on above: Performed By: #### L 501.9910, L501.9985, L500.2500, L100.0100 ####[facility] [address] [place], [address] CO2 [Moles/Vol] 24.0 mmol/L Normal 21.0-32.0 [facility] Comment on above: Performed By: #### L 501.9910, L501.9985, L500.2500, L100.0100 ####[facility] [address] [place], [address] Creatinine [Mass/Vol] 1.54 mg/dL High 0.70-1.20 [facility] Comment on above: Performed By: #### L 501.9910, L501.9985, L500.2500, L100.0100 ####[facility] [address] [place], [address] GAP 9 Normal 5-15 [facility] Comment on above: Performed By: #### L 501.9910, L501.9985, L500.2500, L100.0100 ####[facility] [address] [place], [address] GFR/1.73 sq M.predicted among non-blacks MDRD (S/P/Bld) [Vol rate/Area] 46 mL/min/{1.73_m2} Low >60 [facility] Comment on above: Result Comment: mL/m in/1.73m2 CKD-EPI Creatinine Equation (2020) Performed By: #### L 501.9910, L501.9985, L500.2500, L100.0100 ####[facility] [address] [place], [address] Glucose [Mass/Vol] 140 mg/dL High 70-99 [facility] Comment on above: Performed By: #### L 501.9910, L501.9985, L500.2500, L100.0100 ####[facility] [address] [place], [address] Potassium [Moles/Vol] 4.9 mmol/L Normal 3.3-5.1 [facility] Comment on above: Performed By: #### L 501.9910, L501.9985, L500.2500, L100.0100 ####[facility] [address] [place], [address] Sodium [Moles/Vol] 139 mmol/L Normal 133-145 [facility] Comment on above: Performed By: #### L 501.9910, L501.9985, L500.2500, L100.0100 ####[facility] [address] [place], [address] Urea nitrogen [Mass/Vol] 26 mg/dL High 4-19 [facility] Comment on above: Performed By: #### L 501.9910, L501.9985, L500.2500, L100.0100 ####[facility] [address] [place], [address] Basophil percentageOrdered B y: Chase Cohen on 03-05-2025 Basophils/100 WBC (Bld) 0.7 % 0-1 [facility] CBC W/Diff, Automatedon 02-14 Absolute Lymph 2.18 X10 3/uL Normal 0.83-4.51 [facility] Comment on above: Performed By: #### L 501.9910, L501.9985, L500.2500, L100.0100 ####[facility] [address] [place], [address] Absolute Neut 3.6 X10 3/uL Normal 2.0-7.7 [facility] Comment on above: Performed By: #### L 501.9910, L501.9985, L500.2500, L100.0100 ####[facility] [address] [place], [address] Basophils/100 WBC (Bld) 0.7 % Normal 0-1 [facility] Comment on above: Performed By: #### L 501.9910, L501.9985, L500.2500, L100.0100 ####[facility] [address] [place], [address] Eosinophils/100 WBC (Bld) 2.8 % Normal 0-5 [facility] Comment on above: Performed By: #### L 501.9910, L501.9985, L500.2500, L100.0100 ####[facility] [address] [place], [address] Erythrocyte distribution width (RBC) [Ratio] 13.4 % Normal 11.6-14.6 [facility] Comment on above: Performed By: #### L 501.9910, L501.9985, L500.2500, L100.0100 ####[facility] [address] [place], [address] Hematocrit (Bld) [Volume fraction] 39.0 % Low 40-54 [facility] Comment on above: Performed By: #### L 501.9910, L501.9985, L500.2500, L100.0100 ####[facility] [address] [place], [address] Hemoglobin (Bld) [Mass/Vol] 13.0 g/dL Normal 13.0-16.5 [facility] Comment on above: Performed By: #### L 501.9910, L501.9985, L500.2500, L100.0100 ####[facility] [address] [place], [address] IG% 0.300 Normal 0.0-0.9 [facility] [facility] Comment on above: Result Comment: IG% - Immature Granulocytes (promyelocytes, myelocytes and metamyelocytes) > 1% indicates that a LEFT SHIFT is Present. Performed By: #### L 501.9910, L501.9985, L500.2500, L100.0100 ####[facility] [address] [place], [address] Lymphocytes/100 WBC (Bld) 32.1 % Normal 19-41 [facility] Comment on above: Performed By: #### L 501.9910, L501.9985, L500.2500, L100.0100 ####[facility] [address] [place], [address] MCH (RBC) [Entitic mass] 30.1 pg Normal 27.0-32.0 [facility] Comment on above: Performed By: #### L 501.9910, L501.9985, L500.2500, L100.0100 ####[facility] [address] [place], [address] MCHC (RBC) [Mass/Vol] 33.3 g/dL Normal 32-36 [facility] Comment on above: Performed By: #### L 501.9910, L501.9985, L500.2500, L100.0100 ####[facility] [address] [place], [address] MCV (RBC) [Entitic vol] 90.3 fL Normal 80-94 [facility] Comment on above: Performed By: #### L 501.9910, L501.9985, L500.2500, L100.0100 ####[facility] [address] [place], [address] Monocytes/100 WBC (Bld) 10.6 % High 0-10 [facility] Comment on above: Performed By: #### L 501.9910, L501.9985, L500.2500, L100.0100 ####[facility] [address] [place], [address] Neutrophils/100 WBC (Bld) 53.5 % Normal 47-70 [facility] Comment on above: Performed By: #### L 501.9910, L501.9985, L500.2500, L100.0100 ####[facility] [address] [place], [address] Nucleated RBC (Bld) [#/Vol] 0 10*3/uL Normal 0-5 [facility] Comment on above: Performed By: #### L 501.9910, L501.9985, L500.2500, L100.0100 ####[facility] [address] [place], [address] Platelet mean volume (Bld) [Entitic vol] 10.8 fL Normal 6.2-12.0 [facility] Comment on above: Performed By: #### L 501.9910, L501.9985, L500.2500, L100.0100 ####[facility] [address] [place], [address] Platelets (Bld) [#/Vol] 296 10*3/uL Normal 150-450 [facility] Comment on above: Performed By: #### L 501.9910, L501.9985, L500.2500, L100.0100 ####[facility] [address] [place], [address] RBC (Bld) [#/Vol] 4.32 10*6/uL Low 4.6-6.2 [facility] Comment on above: Performed By: #### L 501.9910, L501.9985, L500.2500, L100.0100 ####[facility] [address] [place], [address] RDW SD 44.0 fl High 35.1-43.9 [facility] Comment on above: Performed By: #### L 501.9910, L501.9985, L500.2500, L100.0100 ####[facility] [address] [place], [address] WBC (Bld) [#/Vol] 6.8 10*3/uL Normal 4.4-11.0 [facility] Comment on above: Performed By: #### L 501.9910, L501.9905, L500.2500, L100.0100 ####[facility] [address] [place], [address] Carbon dioxide, total [Moles /volume] in Central venous bloodOrdered By: Chase Cohen on 03-05-2025 CO2 [Moles/Vol] 24.0 mmol/L 21.0-32.0 [facility] Chloride assayOrdered By: Royer Cohen on 03-05-2025 Chloride [Moles/Vol] 105 mmol/L 98-108 [facility] Eosinophil percentageOrdered By: [facility] Centerla[facility]ne Cohen on 03-05-2025 Eosinophils/100 WBC (Bld) 2.8 % 0-5 [facility] Erythrocyte distribution wid th ratioOrdered By: [facility] Centerla[facility]ne Cohen on 03-05-2025 Erythrocyte distribution width (RBC) [Ratio] 13.4 % 11.6-14.6 [facility] Erythrocyte distribution wid th standard deviationOrdered By: [facility] Centerla[facility]ne Cohen on 03-05-2025 Erythrocyte distribution width (RBC) [Ratio] 44.0 fl High 35.1-43.9 [facility] Glomerular filtration rate ( GFR) estimation/1.73 sq m using serum, plasma, or whole bOrdered By: Chase Cohen on 03-05-2025 GFR/1.73 sq M.predicted among non-blacks MDRD (S/P/Bld) [Vol rate/Area] 46 mL/min/{1.73_m2} Low >60 [facility] Comment on above: mL/min/1.73m2 CKD-EP I Creatinine Equation (2020) Hematocrit Auto (Bld) [Volum e fraction]Ordered By: Chase Cohen on 03-05-2025 Hematocrit (Bld) [Volume fraction] 39.0 % Low 40-54 [facility] Hemoglobin A1con 03-05-2025 HbA1c (Bld) [Mass fraction] 6.7 % High <=5.6 [facility] Comment on above: Result Comment: Norm al < 5.7 % Prediabetic 5.7 - 6.4 % Diabetic >or= 6.5 % Please note range changes. Performed By: #### L 501.9910, L501.9985, L500.2500, L100.0100 ####[facility] [address] [place], [address] Hemoglobin A1c percentageOrd ered By: Chase Cohen on 03-05-2025 HbA1c (Bld) [Mass fraction] 6.7 % High <5.7 [facility] Comment on above: Normal < 5.7 % Predi abetic 5.7 - 6.4 % Diabetic >or= 6.5 % Please note range changes. Hemoglobin measurementOrdere d By: Chase Cohen on 03-05-2025 Hemoglobin (Bld) [Mass/Vol] 13.0 g/dL 13.0-16.5 [facility] Immature granulocytes/100 WB C Auto (Bld)Ordered By: Chase Cohen on 03-05-2025 Immature granulocytes/100 WBC (Bld) 0.300 % 0.0-0.9 [facility] Comment on above: IG% - Immature Granu locytes (promyelocytes, myelocytes and metamyelocytes) > 1% indicates that a LEFT SHIFT is Present. Internal Medicine Office Vis iton 03-05-2025 Internal Medicine Office Visit [facility] [place] [address] [place] [address] OFFICE VISIT Date of Service: 03/05/25 MR#: [id number] Acct: [id number] Name: GENI LINDSAY Rep #: [id number] : 1945 Provider: Dr. Chase traylor MD Age/Sex: 79/M [place] [facility] Status: Signed Intake Vital Signs 11/28/24 08:17 [...] happens after he mows across bumpy land. [facility] Medical History Dermatitis Screening for [...] accident) (2001) 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 pectoris BPH (benign prostatic [...] The p (more content not included)... Normal [facility] MCV (mean corpuscular volume ) determinationOrdered By: Suzylaverne Durbinagustinap on 03-05-2025 MCV (RBC) [Entitic vol] 90.3 fL 80-94 [facility] Mean corpuscular hemoglobin (MCH) determinationOrdered By: Hodanabilenelaverne Cohen on 03-05-2025 MCH (RBC) [Entitic mass] 30.1 pg 27.0-32.0 [facility] Mean corpuscular hemoglobin concentration (MCHC) determinationOrdered By: Royeraudiabilenelaverne Durbinagustinap on 03-05-2025 MCHC (RBC) [Mass/Vol] 33.3 g/dL 32-36 [facility] Mean platelet volume determi nationOrdered By: Hodanabilenelaverne Cosmeap on 03-05-2025 Platelet mean volume (Bld) [Entitic vol] 10.8 fL 6.2-12.0 [facility] Monocyte percentageOrdered B y: Hodanabilenelaverne Durbinap on 03-05-2025 Monocytes/100 WBC (Bld) 10.6 % High 0-10 [facility] Neutrophil percentageOrdered By: [facility] Ramakrishnaap on 03-05-2025 Neutrophils/100 WBC (Bld) 53.5 % 47-70 [facility] Nucleated red blood cell per centageOrdered By: [facility] Centerlaverne Durbinap on 03-05-2025 Nucleated RBC/100 WBC (Bld) [Ratio] 0 % 0-5 [facility] PSA,Total - Annual Screenon 03-05-2025 PSA,TOT SCREEN 5.06 ng/mL High 0.02-4.00 [facility] Comment on above: Result Comment: This [...] confirm baseline values. Performed By: #### L 501.9910, L501.9985, L500.2500, L100.0100 ####[facility] [address] [place], [address] Platelet countOrdered By: Royer Cohen on 03-05-2025 Platelets (Bld) [#/Vol] 296 10*3/uL 150-450 [facility] Potassium measurement (mass/ volume)Ordered By: Chase Cohen on 03-05-2025 Potassium (Unsp spec) [Mass/Vol] 4.9 mmol/L 3.3-5.1 [facility] RBC Auto (Bld) [#/Vol]Ordere d By: Chase Cohen on 03-05-2025 RBC (Bld) [#/Vol] 4.32 10*6/uL Low 4.6-6.2 [facility] Serum creatinine measurement (mass/volume)Ordered By: Chase Cohen on 03-05-2025 Creatinine [Mass/Vol] 1.54 mg/dL High 0.70-1.20 [facility] Serum glucose measurement (m ass/volume)Ordered By: Chase Cohen on 03-05-2025 Glucose [Mass/Vol] 140 mg/dL High 70-99 [facility] Serum or plasma calcium joya urement (mass/volume)Ordered By: Chase Cohen on 03-05-2025 Calcium [Mass/Vol] 9.8 mg/dL 7.6-11.0 [facility] Serum or plasma urea nitroge n measurement (mass/volume)Ordered By: Chase Cohen on 03-05-2025 Urea nitrogen [Mass/Vol] 26 mg/dL High 4-19 [facility] Sodium levelOrdered By: Hodan Cohen on 03-05-2025 Sodium [Moles/Vol] 139 mmol/L 133-145 [facility] White blood cell (WBC) count Ordered By: Chase Cohen on 03-05-2025 WBC (Bld) [#/Vol] 6.8 10*3/uL 4.4-11.0 [facility] Bilirubin directOrdered By: Corry Moura on 02-23-2025 Bilirubin.direct [Mass/Vol] 0.17 mg/dL 0.00-0.30 [facility] Bilirubin, totalOrdered By: Corry Moura on 02-23-2025 Bilirubin [Mass/Vol] 0.38 mg/dL 0.00-1.30 [facility] Calculated very low density lipoprotein (VLDL) cholesterol measurementOrdered By: Corry Moura on 02-23-2025 Calculated very low density lipoprotein (VLDL) cholesterol measurement 28 mg/dL 5-40 [facility] LDL calc ser/plasOrdered By: Corry Moura on 02-23-2025 Cholesterol in LDL [Mass/Vol] 108 mg/dL [facility] Comment on above: Ljhduqmufc=181-796 m g/dL & Higher Twmk=892 mg/dL or greater Laboratory - Chemistry and C hemistry - challengeOrdered By: Corry Moura on 02-23-2025 AST [Catalytic activity/Vol] 20 U/L <38 [facility] Lipid Profileon 02-23-2025 CHOL:HDL 5.77 Normal [facility] Comment on above: Performed By: #### L 500.3400, L500.4100 ####[facility] [address] [facility] [place], [place], [id number] Cholesterol [Mass/Vol] 165 mg/dL Normal <=200 [facility] Comment on above: Result Comment: Chol esterol level, Desirable <200 mg/dL Borderline high cholesterol 200-239 mg/dL High cholesterol >=240 mg/dL Recommendations of the NCEP Adult Treatment Panel for the following risk-cutoff thresholds for the [place] population. Performed By: #### L 500.3400, L500.4100 ####[facility] [address] [facility]. [place], [place], [address] Cholesterol in HDL [Mass/Vol] 29 mg/dL Low [facility] Comment on above: Result Comment: Maddi onal Cholesterol Education Program (NCEP) guidelines: <40 mg/dL: Low HDL-cholesterol (major risk factor for CHD) >= 60 mg/dL: High HDL-cholesterol (negative risk factor for CHD) HDL-cholesterol is affected by a number of factors, e.g. smoking, exercise, hormones, sex and age. Performed By: #### L 500.3400, L500.4100 ####[facility] [address] [place], [address] Cholesterol in LDL [Mass/Vol] 108 mg/dL Normal [facility] Comment on above: Result Comment: Bord cvhwia=190-982 mg/dL Higher Hmua=219 mg/dL or greater Performed By: #### L 500.3400, L500.4100 ####[facility] [address] [place], [address] Cholesterol in VLDL [Mass/Vol] 28 mg/dL Normal 5-40 [facility] Comment on above: Performed By: #### L 500.3400, L500.4100 ####[facility] [address] [place], [address] Triglyceride [Mass/Vol] 142 mg/dL Normal [facility] Comment on above: Result Comment: The drugs N-Acetylcysteine and Metamizole may falsely depress this assay. Normal range: <150 mg/dL Borderline High: 150-199 mg/dL High: 200-499 mg/dL Very High: >500 mg/dL Performed By: #### L 500.3400, L500.4100 ####[facility] [address] [place], [address] Liver Profileon 02-23-2025 Albumin [Mass/Vol] 4.5 g/dL Normal 3.4-4.8 [facility] Comment on above: Performed By: #### L 500.3400, L500.4100 ####[facility] [address] [place], [address] ALK PHOS 39 U/L Low 40-129 [facility] Comment on above: Performed By: #### L 500.3400, L500.4100 ####[facility] [address] [place], [address] ALT [Catalytic activity/Vol] 16 U/L Normal <=46 [facility] Comment on above: Performed By: #### L 500.3400, L500.4100 ####[facility] [address] [place], [address] AST [Catalytic activity/Vol] 20 U/L Normal <=37 [facility] Comment on above: Performed By: #### L 500.3400, L500.4100 ####[facility] [address] [place], [address] Bilirubin [Mass/Vol] 0.38 mg/dL Normal 0.00-1.30 [facility] Comment on above: Performed By: #### L 500.3400, L500.4100 ####[facility] [address] [place], [address] Bilirubin.direct [Mass/Vol] 0.17 mg/dL Normal 0.00-0.30 [facility] Comment on above: Performed By: #### L 500.3400, L500.4100 ####[facility] [address] [place], [address] Globulin (S) [Mass/Vol] 2.6 g/dL Normal 2.2-4.2 [facility] Comment on above: Performed By: #### L 500.3400, L500.4100 ####[facility] [address] [place], [address] T PROT 7.0 g/dL Normal 5.9-8.4 [facility] Comment on above: Performed By: #### L 500.3400, L500.4100 ####[facility] [address] [place], [address] Screening total cholesterol/ high density lipoprotein (HDL) cholesterol ratioOrdered By: Corry Moura on 02-23-2025 Cholesterol.total/Choles terol in HDL [Mass ratio] 5.77 {ratio} [facility] Serum globulin measurementOr dered By: Corry Moura on 02-23-2025 Globulin (S) [Mass/Vol] 2.6 g/dL 2.2-4.2 [facility] Serum or plasma alanine navarro otransferase (ALT) measurementOrdered By: Corry Mouar on 02-23-2025 ALT [Catalytic activity/Vol] 16 U/L <47 [facility] Serum or plasma albumin joya urement (mass/volume)Ordered By: Corry Moura on 02-23-2025 Albumin [Mass/Vol] 4.5 g/dL 3.4-4.8 [facility] Serum or plasma alkaline yannick sphatase measurementOrdered By: Corry Moura on 02-23-2025 ALP [Catalytic activity/Vol] 39 U/L Low 40-129 [facility] Serum or plasma cholesterol in HDL measurement (mass/volume)Ordered By: Corry Moura on 02-23-2025 Cholesterol in HDL [Mass/Vol] 29 mg/dL Low >40 [facility] Comment on above: National Cholesterol Education Program (NCEP) guidelines:<40 mg/dL: Low HDL-cholesterol (major risk factor for CHD)>= 60 mg/dL: High HDL-cholesterol (negative risk factor for CHD)HDL-cholesterol is affected by a number of factors, e.g. smoking, exercise, hormones, sex and age. Serum or plasma cholesterol measurement (mass/volume)Ordered By: Corry Moura on 02-23-2025 Cholesterol [Mass/Vol] 165 mg/dL <201 [facility] Comment on above: Cholesterol level, D esirable <200 mg/dLBorderline high cholesterol 200-239 mg/dLHigh cholesterol >=240 mg/dLRecommendations of the NCEP Adult Treatment Panel for the following risk-cutoff thresholds for the [place] population. Total proteinOrdered By: Merlin Moura on 02-23-2025 Protein [Mass/Vol] 7.0 g/dL 5.9-8.4 [facility] Triglycerides measurementOrd ered By: Corry Moura on 02-23-2025 Triglyceride [Mass/Vol] 142 mg/dL <199 [facility] Comment on above: The drugs N-Acetylcy steine and Metamizole may falsely depress this assay. Normal range: <150 mg/dLBorderline High: 150-199 mg/dLHigh: 200-499 mg/dLVery High: >500 mg/dL Bilirubin directOrdered By: Corry Moura on 11-28-2024 Bilirubin.direct [Mass/Vol] 0.22 mg/dL 0.00-0.30 [facility] Bilirubin, totalOrdered By: Corry Moura on 11-28-2024 Bilirubin [Mass/Vol] 0.50 mg/dL 0.00-1.30 [facility] Calculated very low density lipoprotein (VLDL) cholesterol measurementOrdered By: Corry Moura on 11-28-2024 Calculated very low density lipoprotein (VLDL) cholesterol measurement 66 mg/dL High 5-40 [facility] VLDL Cholesterol 66 mg/dL High 5-40 [facility] Cardiology Visit Reporton Cardiology Visit Report [facility] [address] [place] [address] OFFICE VISIT Date of Service: 11/28/24 MR#: [id number] Acct: [id number] Name: GENI LINDSAY Rep #: [id number] : 1945 Provider: DARIANA Hutchins Age/Sex: 79/M Location: [facility] Status: Signed HPI HPI History of Present [...] myocardial infarction was taken urgently to the film laboratory technician and underwent angioplasty and stenting of [...] NIBP Intake Visit Reasons: 1 Y FU Organizational Psychologist Required: No Is patient in pain?: No [...] accident) (2001) 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 pectoris BPH (benign prostatic hyperplasia) GERD (gastroesophageal reflux disease) Type 2 diabetes mellitus Enlarged prostate Neuropathy Hearing problem Gastrointestinal complaints, unspecific Back problem Surgical History History of cardiac catheterization History of foot surgery History of colonoscopy S/P trigger finger release (more content not included)... Normal [facility] LDL calc ser/plasOrdered By: Corry Moura on 11-28-2024 Cholesterol in LDL [Mass/Vol] 74 mg/dL [facility] Comment on above: Qeneljhmkc=462-621 m g/dL & Higher Copa=926 mg/dL or greater LDL Cholesterol, Calculated 74 mg/dL [facility] Comment on above: Doixgedgko=160-475 m g/dL & Higher Tigf=562 mg/dL or greater Laboratory - Chemistry and C hemistry - challengeOrdered By: Corry Moura on 11-28-2024 AST [Catalytic activity/Vol] 19 U/L <38 [facility] Lipid Profileon 11-28-2024 CHOL:HDL 6.80 Normal [facility] Comment on above: Order Comment: Comme nts: okay to do non fasting Performed By: #### L 500.3400, L500.4100 #### [facility] [address] [place], [address] Cholesterol [Mass/Vol] 164 mg/dL Normal <=200 [facility] Comment on above: Order Comment: Comme nts: okay to do non fasting Result Comment: Chol esterol level, Desirable <200 mg/dL Borderline high cholesterol 200-239 mg/dL High cholesterol >=240 mg/dL Recommendations of the NCEP Adult Treatment Panel for the following risk-cutoff thresholds for the [place] population. Performed By: #### L 500.3400, L500.4100 #### [facility] [address] [place], [address] Cholesterol in HDL [Mass/Vol] 24 mg/dL Low [facility] Comment on above: Order Comment: Comme nts: okay to do non fasting Result Comment: Maddi onal Cholesterol Education Program (NCEP) guidelines: <40 mg/dL: Low HDL-cholesterol (major risk factor for CHD) >= 60 mg/dL: High HDL-cholesterol (negative risk factor for CHD) HDL-cholesterol is affected by a number of factors, e.g. smoking, exercise, hormones, sex and age. Performed By: #### L 500.3400, L500.4100 #### [facility] [address] [place], [address] Cholesterol in LDL [Mass/Vol] 74 mg/dL Normal [facility] Comment on above: Order Comment: Comme nts: okay to do non fasting Result Comment: Bord lucduj=771-719 mg/dL Higher Wqbj=057 mg/dL or greater Performed By: #### L 500.3400, L500.4100 #### [facility] [address] [place], [address] Cholesterol in VLDL [Mass/Vol] 66 mg/dL High 5-40 [facility] Comment on above: Order Comment: Comme nts: okay to do non fasting Performed By: #### L 500.3400, L500.4100 #### [facility] [address] [place], [address] Triglyceride [Mass/Vol] 329 mg/dL High [facility] Comment on above: Order Comment: Comme nts: okay to do non fasting Result Comment: The drugs N-Acetylcysteine and Metamizole may falsely depress this assay. Normal range: <150 mg/dL Borderline High: 150-199 mg/dL High: 200-499 mg/dL Very High: >500 mg/dL Performed By: #### L 500.3400, L500.4100 #### [facility] [address] [place], [address] Liver Profileon 11-28-2024 Albumin [Mass/Vol] 4.4 g/dL Normal 3.4-4.8 [facility] Comment on above: Order Comment: Comme nts: okay to do non fasting okay to do non fasting Performed By: #### L 500.3400, L500.4100 #### [facility] [address] [place], [address] ALK PHOS 47 U/L Normal 40-129 [facility] Comment on above: Order Comment: Comme nts: okay to do non fasting okay to do non fasting Performed By: #### L 500.3400, L500.4100 #### [facility] [address] [place], [address] ALT [Catalytic activity/Vol] 15 U/L Normal <=46 [facility] Comment on above: Order Comment: Comme nts: okay to do non fasting okay to do non fasting Performed By: #### L 500.3400, L500.4100 #### [facility] [address] [place], [address] AST [Catalytic activity/Vol] 19 U/L Normal <=37 [facility] Comment on above: Order Comment: Comme nts: okay to do non fasting okay to do non fasting Performed By: #### L 500.3400, L500.4100 #### [facility] [address] [place], [address] Bilirubin [Mass/Vol] 0.50 mg/dL Normal 0.00-1.30 [facility] Comment on above: Order Comment: Comme nts: okay to do non fasting okay to do non fasting Performed By: #### L 500.3400, L500.4100 #### [facility] [address] [place], [address] Bilirubin.direct [Mass/Vol] 0.22 mg/dL Normal 0.00-0.30 [facility] Comment on above: Order Comment: Comme nts: okay to do non fasting okay to do non fasting Performed By: #### L 500.3400, L500.4100 #### [facility] [address] [place], [address] Globulin (S) [Mass/Vol] 2.6 g/dL Normal 2.2-4.2 [facility] Comment on above: Order Comment: Comme nts: okay to do non fasting okay to do non fasting Performed By: #### L 500.3400, L500.4100 #### [facility] [address] [place], [address] T PROT 7.0 g/dL Normal 5.9-8.4 [facility] Comment on above: Order Comment: Comme nts: okay to do non fasting okay to do non fasting Performed By: #### L 500.3400, L500.4100 #### [facility] [address] [place], [address] Screening total cholesterol/ high density lipoprotein (HDL) cholesterol ratioOrdered By: Corry Moura on 11-28-2024 Cholesterol.total/Choles terol in HDL [Mass ratio] 6.80 {ratio} [facility] Serum globulin measurementOr dered By: Corry Moura on 11-28-2024 Globulin (S) [Mass/Vol] 2.6 g/dL 2.2-4.2 [facility] Serum or plasma alanine navarro otransferase (ALT) measurementOrdered By: Corry Moura on 11-28-2024 ALT [Catalytic activity/Vol] 15 U/L <47 [facility] Serum or plasma albumin joya urement (mass/volume)Ordered By: Corry Moura on 11-28-2024 Albumin [Mass/Vol] 4.4 g/dL 3.4-4.8 [facility] Serum or plasma alkaline yannick sphatase measurementOrdered By: Corry Moura on 11-28-2024 ALP [Catalytic activity/Vol] 47 U/L 40-129 [facility] Serum or plasma cholesterol in HDL measurement (mass/volume)Ordered By: Corry Moura on 11-28-2024 Cholesterol in HDL [Mass/Vol] 24 mg/dL Low >40 [facility] Comment on above: National Cholesterol Education Program (NCEP) guidelines:<40 mg/dL: Low HDL-cholesterol (major risk factor for CHD)>= 60 mg/dL: High HDL-cholesterol (negative risk factor for CHD)HDL-cholesterol is affected by a number of factors, e.g. smoking, exercise, hormones, sex and age. Serum or plasma cholesterol measurement (mass/volume)Ordered By: Corry Moura on 11-28-2024 Cholesterol [Mass/Vol] 164 mg/dL <201 [facility] Comment on above: Cholesterol level, D esirable <200 mg/dLBorderline high cholesterol 200-239 mg/dLHigh cholesterol >=240 mg/dLRecommendations of the NCEP Adult Treatment Panel for the following risk-cutoff thresholds for the [place] population. Total proteinOrdered By: Merlin Moura on 11-28-2024 Protein [Mass/Vol] 7.0 g/dL 5.9-8.4 [facility] Triglycerides measurementOrd ered By: Corry Moura on 11-28-2024 Triglyceride [Mass/Vol] 329 mg/dL High <199 [facility] Comment on above: The drugs N-Acetylcy steine and Metamizole may falsely depress this assay. Normal range: <150 mg/dLBorderline High: 150-199 mg/dLHigh: 200-499 mg/dLVery High: >500 mg/dL Cerv Spine 2 or 3 Viewson Cerv Spine 2 or 3 Views [facility] Imaging Services [address] [place] [address] Cerv Spine 2 or 3 Views MR#: [id number] Acct: [id number] Name: GENI LINDSAY Rep #: [id number] : 1945 M 79 From: Sourav Reeder MD PCP: Dr. Chase Cohen MD Status: REG CLI Study: Cerv Spine 2 or 3 Views Date of Exam: 11/09/24 Exam# [id number] Ordering Dr: Asa Lopez PROCEDURE: CERV SPINE [...] tissue swelling. C5-6 spondylosis/discogen ic change with cxiq-be-wkkntaxv disc space narrowing. Ftmzg-uciqjyc-hvdd-l eft appearing multilevel facet degenerative changes. Suggestion [...] malalignment identified. C5-6 spondylosis/discogen ic change with nlbz-mr-zlrixndy disc space narrowing. Vwhld-mtchafj-vdfb-l eft appearing multilevel facet degenerative changes. Reading Location: [id number] CC: Dr. Chase Cohen MD; DARIANA Joshua Floor Installation Mechanic: Signed Normal [facility] Internal Medicine Office Vis hina 11-09-2024 Internal Medicine Office Visit [facility] [address] [place] [address] OFFICE VISIT Date of Service: 11/09/24 MR#: [id number] Acct: [id number] Name: GENI LINDSAY Rep #: [id number] : 1945 Provider: DARIANA Joshua Age/Sex: 79/M Location[place] [facility] Status: Signed Intake Vital Signs 05/02/24 07:25 [...] Reasons: STIFF / PAIN NECK / ITCHY Organizational Psychologist Required: No Is patient in pain?: Yes [...] and did not have any known injury. [facility] Medical History Dermatitis Screening for [...] accident) (2001) 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 pectoris BPH (benign prostatic hyperplasia) GERD (gastroesophageal reflux disease) Type 2 diabetes mellitus Enlarged prostate Neuropathy Hearing problem Gastrointestinal complaints, unspecific Back problem Surgical History History of cardiac catheterization Histo (more content not included)... Normal [facility] Absolute lymphocyte countOrd ered By: Chase Cohen on 07-05-2023 Lymphocytes Auto (Unsp spec) [#/Vol] 2.34 10*3/uL 0.83-4.51 [facility] Basophil percentageOrdered B y: Chase Cohen on 07-05-2023 Basophil percentage 0 SEEN /hpf 0-5 [facility] Basophils/100 WBC (Bld) 0.9 % 0-1 [facility] Bilirubin [Mass/Vol] 0.50 mg/dL 0.20-1.00 [facility] Comment on above: For patients on eltr ombopag therapy, use of Dimension [place] TBIL is not recommended. Chloride [Moles/Vol] 105 mmol/L 98-107 [facility] Cholesterol [Mass/Vol] 140 mg/dL <200 [facility] Comment on above: <200 mg/dL Desirable 200-240 mg/dL Borderline >240 mg/dL High Risk Eosinophils/100 WBC (Bld) 2.2 % 0-5 [facility] Glucose [Mass/Vol] 189 mg/dL 74-106 [facility] Comment on above: Fasting Glucose resu lt greater than or equal to 126 mg/dL suggests DIABETES MELLITUS per A.D.A. criteria. Neutrophils (Bld) [#/Vol] 4.7 10*3/uL 2.0-7.7 [facility] Neutrophils/100 WBC (Bld) 57.7 % 47-70 [facility] Potassium [Moles/Vol] 4.9 mmol/L 3.5-5.1 [facility] Protein [Mass/Vol] 7.6 g/dL 6.4-8.2 [facility] Sodium [Moles/Vol] 138 mmol/L 136-145 [facility] Triglyceride [Mass/Vol] 198 mg/dL <199 [facility] Comment on above: The drugs N-Acetylcy steine and Metamizole may falsely depress this assay.Serum Triglycerides Reference Interval Normal <150 mg/dL Borderline high 150 - 199 mg/dL High 200 - 499 mg/dL Very High > or = 500 mg/dL WBC (Bld) [#/Vol] 8.1 10*3/uL 4.4-11.0 [facility] Bilirubin Test strip Ql (U)O rdered By: Chase Cohen on 07-05-2023 Bilirubin Ql (U) Negative Negative [facility] Blood erythrocytes count (nu mber/volume)Ordered By: Chase Cohen on 07-05-2023 RBC (Bld) [#/Vol] 5.18 10*6/uL 4.6-6.2 [facility] Blood hemoglobin measurement (mass/volume)Ordered By: Chase Cohen on 07-05-2023 Hemoglobin (Bld) [Mass/Vol] 14.8 g/dL 13.0-16.5 [facility] Blood lymphocytes/100 leukoc ytesOrdered By: Chase Cohen on 07-05-2023 Lymphocytes/100 WBC (Bld) 28.9 % 19-41 [facility] Blood monocytes/100 leukocyt esOrdered By: Chase Cohen on 07-05-2023 Monocytes/100 WBC (Bld) 9.9 % 0-10 [facility] Blood platelet mean volumeOr dered By: Chase Cohen on 07-05-2023 Platelet mean volume (Bld) [Entitic vol] 10.9 fL 6.2-12.0 [facility] Determination of erythrocyte mean corpuscular volume (MCV)Ordered By: Chase Cohen on 07-05-2023 MCV (RBC) [Entitic vol] 90.3 fL 80-94 [facility] Hematocrit Auto (Bld) [Volum e fraction]Ordered By: [facility] on 07-05-2023 Hematocrit (Bld) [Volume fraction] 46.8 % 40-54 [facility] Ketones Test strip Ql (U)Ord ered By: [facility] Cohen on 07-05-2023 Ketones Ql (U) Negative Negative [facility] - Chemistry and C hemistry - challengeOrdered By: [facility] Ramakrishnaap on 07-05-2023 ALP [Catalytic activity/Vol] 50 U/L 45-117 [facility] ALT [Catalytic activity/Vol] 36 U/L 16-61 [facility] CO2 [Moles/Vol] 27.0 mmol/L 21.0-32.0 [facility] Free T4 [Mass/Vol] 1.09 ng/dL 0.76-1.46 [facility] Globulin (S) [Mass/Vol] 3.4 g/dL 2.2-4.2 [facility] Urea nitrogen/Creatinine [Mass ratio] 16.3 mg/mg 10-20 [facility] - Hematology and Cell countsOrdered By: audiabilenelaverne Durbinap on 07-05-2023 Erythrocyte distribution width (RBC) [Entitic vol] 42.9 fL 35.1-43.9 [facility] Erythrocyte distribution width (RBC) [Ratio] 13.0 % 11.6-14.6 [facility] Immature granulocytes/100 WBC (Bld) 0.400 % 0.0-0.9 [facility] Comment on above: IG% - Immature Granu locytes (promyelocytes, myelocytes and metamyelocytes) > 1% indicates that a LEFT SHIFT is Present. MCH (RBC) [Entitic mass] 28.6 pg 27.0-32.0 [facility] Nucleated RBC/100 WBC (Bld) [Ratio] 0 % 0-5 [facility] MCHC Auto (RBC) [Mass/Vol]Or dered By: Chase Cohen on 07-05-2023 MCHC (RBC) [Mass/Vol] 31.6 g/dL 32-36 [facility] Mucus LM Ql (Urine sed)Order ed By: Chase Cohen on 07-05-2023 Mucus Ql (Urine sed) 0 SEEN /hpf [facility] Nitrite Test strip Ql (U)Ord ered By: Chase Cohen on 07-05-2023 Nitrite Ql (U) Negative Negative [facility] No Panel InformationOrdered By: Chase Cohen on 07-05-2023 Estimated GFR (MDRD) Amer 66 mL/min >60 [facility] Comment on above: GFR Calc Estimated GFR (MDRD) Non-Af Amer 54 mL/min >60 [facility] Comment on above: Non- GFR Calc Prostate Specific Antigen Screen 4.04 ng/mL 0.00-4.00 [facility] Comment on above: This test was perfor med using the TPSA assay method for [employer] chemistry system. Values obtained with differentassay methods cannot be used interchangably.When changing PSA assays in the course of monitoring apatient, additional sequential testing should be carriedout to confirm baseline values. Thyroid Stimulating Hormone (TSH) 1.59 uIU/mL 0.358-3.74 [facility] Platelets bldOrdered By: Misael Cohen on 07-05-2023 Platelets (Bld) [#/Vol] 287 10*3/uL 150-450 [facility] Protein Test strip Ql (U)Ord ered By: Chase Cohen on 07-05-2023 Protein Ql (U) Negative Negative [facility] Serum or plasma albumin joya urement (mass/volume)Ordered By: Chase Cohen on 07-05-2023 Albumin [Mass/Vol] 4.2 g/dL 3.2-5.0 [facility] Serum or plasma albumin/glob ulin mass ratioOrdered By: Chase Cohen on 07-05-2023 Albumin/Globulin [Mass ratio] 1.2 {ratio} 0.9-2.4 [facility] Serum or plasma calcium joya urement (mass/volume)Ordered By: Chase Cohen on 07-05-2023 Calcium [Mass/Vol] 9.4 mg/dL 8.5-10.1 [facility] Serum or plasma cholesterol in HDL measurement (mass/volume)Ordered By: Chase Cohen on 07-05-2023 Cholesterol in HDL [Mass/Vol] 31 mg/dL >40 [facility] Comment on above: The drugs N-Acetylcy steine and Metamizole may falsely depress this assay. Reference Range HDL <40 mg/dL Low HDL Cholesterol HDL >or= 60 mg/dL High HDL Cholesterol Serum or plasma cholesterol in VLDL measurement (mass/volume)Ordered By: Chase Cohen on 07-05-2023 Cholesterol in VLDL [Mass/Vol] 40 mg/dL 5-40 [facility] Serum or plasma creatinine m easurement (mass/volume)Ordered By: Chsae Cohen on 07-05-2023 Creatinine [Mass/Vol] 1.35 mg/dL 0.70-1.30 [facility] Comment on above: The validity of the calculated GFR & GFRAA in patients over 70 years has not been determined. Clinical correlation is essential. Serum or plasma low density lipoprotein (LDL) cholesterol measurement (mass/volume)Ordered By: Chase Cohen on 07-05-2023 Cholesterol in LDL [Mass/Vol] 69 mg/dL 0-130 [facility] Serum or plasma urea nitroge n measurement (mass/volume)Ordered By: Chase Cohen on 07-05-2023 Urea nitrogen [Mass/Vol] 22 mg/dL 7-18 [facility] Squamous epithelial cells de tection in urine sediment by light microscopyOrdered By: Chase Cohen on 07-05-2023 Epithelial cells.squamous LM Ql (Urine sed) 0 SEEN /hpf 0-5 [facility] Thin prep Papanicolaou smear with manual screeningOrdered By: Chase Cohen on 07-05-2023 Thin prep Papanicolaou smear with manual screening 17 U/L 15-37 [facility] Thin prep Papanicolaou smear with manual screening 6 5-15 [facility] Urine blood detectionOrdered By: Chase Cohen on 07-05-2023 RBC Ql (U) 10 /ul Negative [facility] RBC Ql (U) 0 SEEN /hpf 0-5 [facility] Urine clarityOrdered By: Misael Cohen on 07-05-2023 Clarity (U) Clear Clear [facility] Urine color determinationOrd ered By: Chase Cohen on 07-05-2023 Color (U) Yellow Yellow [facility] Urine glucose detectionOrder ed By: Chase Cohen on 07-05-2023 Glucose Ql (U) 1000 mg/dl Normal [facility] Urine leukocyte esterase det ection by dipstickOrdered By: Chase Cohen on 07-05-2023 Leukocyte esterase Test strip Ql (U) Negative Negative [facility] Urine pHOrdered By: Janis Cohen on 07-05-2023 pH (U) 6.5 [pH] 5.0 - 8.0 [facility] Urine sediment bacteria coun t by microscopy (number/high power field)Ordered By: Chase Cohen on 07-05-2023 Bacteria LM.HPF (Urine sed) [#/Area] 0 /[HPF] None Seen [facility] Urine specific gravity measu rementOrdered By: Chase Cohen on 07-05-2023 Specific gravity (U) [Rel density] 1.010 1.002-1.030 [facility] Urobilinogen Auto test strip Ql (U)Ordered By: Chase Cohen on 07-05-2023 Urobilinogen Ql (U) Normal mg/dl Normal [facility] Absolute lymphocyte countOrd ered By: Onesimo Morris on 04-09-2023 Lymphocytes Auto (Unsp spec) [#/Vol] 1.98 10*3/uL 0.83-4.51 [facility] Basophil percentageOrdered B y: Onesimo Morris on 04-09-2023 Basophil percentage 0 SEEN /hpf 0-5 [facility] Basophils/100 WBC (Bld) 0.7 % 0-1 [facility] Chloride [Moles/Vol] 108 mmol/L 98-107 [facility] Eosinophils/100 WBC (Bld) 1.9 % 0-5 [facility] Glucose [Mass/Vol] 125 mg/dL 74-106 [facility] Comment on above: Fasting Glucose resu lt from 100 to 125 mg/dL suggests IMPAIRED HOMEOSTASIS per A.D.A. criteria. Neutrophils (Bld) [#/Vol] 4.4 10*3/uL 2.0-7.7 [facility] Neutrophils/100 WBC (Bld) 58.9 % 47-70 [facility] Potassium [Moles/Vol] 4.2 mmol/L 3.5-5.1 [facility] Sodium [Moles/Vol] 137 mmol/L 136-145 [facility] WBC (Bld) [#/Vol] 7.5 10*3/uL 4.4-11.0 [facility] Bilirubin Test strip Ql (U)O rdered By: Onesimo Morris on 04-09-2023 Bilirubin Ql (U) Negative Negative [facility] Blood erythrocytes count (nu mber/volume)Ordered By: Onesimo Morris on 04-09-2023 RBC (Bld) [#/Vol] 4.76 10*6/uL 4.6-6.2 [facility] Blood hemoglobin measurement (mass/volume)Ordered By: Onesimo Morris on 04-09-2023 Hemoglobin (Bld) [Mass/Vol] 13.7 g/dL 13.0-16.5 [facility] Blood lymphocytes/100 leukoc ytesOrdered By: Onesimo Morris on 04-09-2023 Lymphocytes/100 WBC (Bld) 26.3 % 19-41 [facility] Blood monocytes/100 leukocyt esOrdered By: Onesimo Morris on 04-09-2023 Monocytes/100 WBC (Bld) 12.1 % 0-10 [facility] Blood platelet mean volumeOr dered By: Onesimo Morris on 04-09-2023 Platelet mean volume (Bld) [Entitic vol] 10.3 fL 6.2-12.0 [facility] Determination of erythrocyte mean corpuscular volume (MCV)Ordered By: Onesimo Morris on 04-09-2023 MCV (RBC) [Entitic vol] 88.7 fL 80-94 [facility] Hematocrit Auto (Bld) [Volum e fraction]Ordered By: Onesimo Morris on 04-09-2023 Hematocrit (Bld) [Volume fraction] 42.2 % 40-54 [facility] INR in Blood by Coagulation assayOrdered By: Onesimo Morris on 04-09-2023 INR Coag (Bld) [Relative time] 1.0 {INR} [facility] Ketones Test strip Ql (U)Ord ered By: Onesimo Morris on 04-09-2023 Ketones Ql (U) Negative Negative [facility] - Chemistry and C hemistry - challengeOrdered By: Onesimo Morris on 04-09-2023 CO2 [Moles/Vol] 26.0 mmol/L 21.0-32.0 [facility] Urea nitrogen/Creatinine [Mass ratio] 17.1 mg/mg 10-20 [facility] - CoagulationOrde red By: Onesimo Morris on 04-09-2023 PT Coag (PPP) [Time] 13.7 s 11.7-14.9 [facility] - Hematology and Cell countsOrdered By: Onesimo Morris on 04-09-2023 Erythrocyte distribution width (RBC) [Entitic vol] 41.7 fL 35.1-43.9 [facility] Erythrocyte distribution width (RBC) [Ratio] 12.8 % 11.6-14.6 [facility] Immature granulocytes/100 WBC (Bld) 0.100 % 0.0-0.9 [facility] Comment on above: IG% - Immature Granu locytes (promyelocytes, myelocytes and metamyelocytes) > 1% indicates that a LEFT SHIFT is Present. MCH (RBC) [Entitic mass] 28.8 pg 27.0-32.0 [facility] Nucleated RBC/100 WBC (Bld) [Ratio] 0 % 0-5 [facility] MCHC Auto (RBC) [Mass/Vol]Or dered By: Onesimo Morris on 04-09-2023 MCHC (RBC) [Mass/Vol] 32.5 g/dL 32-36 [facility] Mucus LM Ql (Urine sed)Order ed By: Onesimo Morris on 04-09-2023 Mucus Ql (Urine sed) 0 SEEN /hpf [facility] Nitrite Test strip Ql (U)Ord ered By: Onesimo Morris on 04-09-2023 Nitrite Ql (U) Negative Negative [facility] No Panel InformationOrdered By: Onesimo Morris on 04-09-2023 Estimated Creatinine Clearance Calc 64.89 ml/min [facility] Estimated GFR (MDRD) Amer 94 mL/min >60 [facility] Comment on above: GFR Calc Estimated GFR (MDRD) Non-Af Amer 77 mL/min >60 [facility] Comment on above: Non- GFR Calc Platelets bldOrdered By: Kayley Morris on 04-09-2023 Platelets (Bld) [#/Vol] 247 10*3/uL 150-450 [facility] Protein Test strip Ql (U)Ord ered By: Onesimo Morris on 04-09-2023 Protein Ql (U) 100 mg/dl Negative [facility] Serum or plasma calcium joya urement (mass/volume)Ordered By: Onesimo Morris on 04-09-2023 Calcium [Mass/Vol] 9.1 mg/dL 8.5-10.1 [facility] Serum or plasma creatinine m easurement (mass/volume)Ordered By: Onesimo Morris on 04-09-2023 Creatinine [Mass/Vol] 1.00 mg/dL 0.70-1.30 [facility] Comment on above: The validity of the calculated GFR & GFRAA in patients over 70 years has not been determined. Clinical correlation is essential. Serum or plasma urea nitroge n measurement (mass/volume)Ordered By: Onesimo Morris on 04-09-2023 Urea nitrogen [Mass/Vol] 17 mg/dL 7-18 [facility] Squamous epithelial cells de tection in urine sediment by light microscopyOrdered By: Onesimo Morris on 04-09-2023 Epithelial cells.squamous LM Ql (Urine sed) 0 SEEN /hpf 0-5 [facility] Thin prep Papanicolaou smear with manual screeningOrdered By: Onesimo Morris on 04-09-2023 Thin prep Papanicolaou smear with manual screening 3 5-15 [facility] Urine blood detectionOrdered By: Onesimo Morris on 04-09-2023 RBC Ql (U) 250 /ul Negative [facility] RBC Ql (U) > 100 SEEN /hpf 0-5 [facility] Urine clarityOrdered By: Kayley Morris on 04-09-2023 Clarity (U) Sl. Cloudy Clear [facility] Urine color determinationOrd ered By: Onesimo Morris on 04-09-2023 Color (U) Red Yellow [facility] Urine glucose detectionOrder ed By: Onesimo Morris on 04-09-2023 Glucose Ql (U) 1000 mg/dl Normal [facility] Urine leukocyte esterase det ection by dipstickOrdered By: Onesimo Morris on 04-09-2023 Leukocyte esterase Test strip Ql (U) 25 /ul Negative [facility] Urine pHOrdered By: Onesimo ellison on 04-09-2023 pH (U) 8.0 [pH] 5.0 - 8.0 [facility] Urine sediment bacteria coun t by microscopy (number/high power field)Ordered By: Onesimo Morris on 04-09-2023 Bacteria LM.HPF (Urine sed) [#/Area] 0 /[HPF] None Seen [facility] Urine specific gravity measu rementOrdered By: Onesimo Morris on 04-09-2023 Specific gravity (U) [Rel density] 1.010 1.002-1.030 [facility] Urobilinogen Auto test strip Ql (U)Ordered By: Onesimo Morris on 04-09-2023 Urobilinogen Ql (U) Normal mg/dl Normal [facility] Absolute lymphocyte counton 03-04-2022 Lymphocytes Auto (Unsp spec) [#/Vol] 2.28 10*3/uL 0.83-4.51 [facility] Work Phone: Basophil percentageon 2021 Basophils/100 WBC (Bld) 0.8 % 0-1 [facility] Work Phone: Bilirubin [Mass/Vol] 0.50 mg/dL 0.20-1.00 [facility] Work Phone: Comment on above: For patients on eltr ombopag therapy, use of Dimension [place] TBIL is not recommended. Chloride [Moles/Vol] 104 mmol/L 98-107 [facility] Work [facility]: [phone] Cholesterol [Mass/Vol] 147 mg/dL <200 [facility] Work Phone: [phone] Comment on above: <200 mg/dL Desirable 200-240 mg/dL Borderline >240 mg/dL High Risk Eosinophils/100 WBC (Bld) 2.0 % 0-5 [facility] Work Phone: [phone] Glucose [Mass/Vol] 276 mg/dL 74-106 [facility] Work Phone: [phone] Comment on above: Glucose result great er than or equal to 200 mg/dLsuggests DIABETES MELLITUS per A.D.A. criteria. Neutrophils (Bld) [#/Vol] 4.2 10*3/uL 2.0-7.7 [facility] Work Phone: [phone] Neutrophils/100 WBC (Bld) 55.8 % 47-70 [facility] Work Phone: [phone] Potassium [Moles/Vol] 3.9 mmol/L 3.5-5.1 [facility]: [phone] Protein [Mass/Vol] 7.2 g/dL 6.4-8.2 [facility] Work Phone: [phone] Sodium [Moles/Vol] 137 mmol/L 136-145 [facility] Work Phone: [phone] Triglyceride [Mass/Vol] 272 mg/dL <199 [facility] Work Phone: [phone] Comment on above: The drugs N-Acetylcy steine and Metamizole may falsely depress this assay.Serum Triglycerides Reference Interval Normal <150 mg/dL Borderline high 150 - 199 mg/dL High 200 - 499 mg/dL Very High > or = 500 mg/dL WBC (Bld) [#/Vol] 7.5 10*3/uL 4.4-11.0 [facility] Work Phone: Blood erythrocytes count (nu mber/volume)on 03-04-2022 RBC (Bld) [#/Vol] 4.34 10*6/uL 4.6-6.[facility] Blood hemoglobin measurement (mass/volume)on 03-04-2022 Hemoglobin (Bld) [Mass/Vol] 12.3 g/dL 13.0-16.5 [facility] Work Phone: Blood lymphocytes/100 leukoc yteson 03-04-2022 Lymphocytes/100 WBC (Bld) 30.6 % 19-41 [facility] Work Phone: Blood monocytes/100 leukocyt eson 03-04-2022 Monocytes/100 WBC (Bld) 10.1 % 0-10 [facility] Work Phone: Blood platelet mean volumeon 03-04-2022 Platelet mean volume (Bld) [Entitic vol] 10.7 fL 6.2-12.0 [facility] Work Phone: Determination of erythrocyte mean corpuscular volume (MCV)on 03-04-2022 MCV (RBC) [Entitic vol] 87.8 fL 80-94 [facility] Work Phone: Hematocrit Auto (Bld) [Volum e fraction]on 03-04-2022 Hematocrit (Bld) [Volume fraction] 38.1 % 40-54 [facility] Work Phone: Laboratory - Chemistry and C hemistry - challengeon 03-04-2022 ALP [Catalytic activity/Vol] 47 U/L 45-117 [facility] Work Phone: ALT [Catalytic activity/Vol] 26 U/L 16-61 [facility] Work Phone: CO2 [Moles/Vol] 26.0 mmol/L 21.0-32.0 [facility] Work Phone: Globulin (S) [Mass/Vol] 3.3 g/dL 2.2-4.2 [facility] Work Phone: Urea nitrogen/Creatinine [Mass ratio] 12.6 mg/mg - [facility] Work Phone: Laboratory - Hematology and Cell countson 03-04-2022 Erythrocyte distribution width (RBC) [Entitic vol] 39.9 fL 35.1-43.9 [facility] Work Phone: Erythrocyte distribution width (RBC) [Ratio] 12.5 % 11.6-14.6 [facility] Work Phone: Immature granulocytes/100 WBC (Bld) 0.700 % 0.0-0.9 [facility] Work Phone: Comment on above: IG% - Immature Granu locytes (promyelocytes, myelocytes and metamyelocytes) > 1% indicates that a LEFT SHIFT is Present. MCH (RBC) [Entitic mass] 28.3 pg 27.0-32.0 [facility] Work Phone: Nucleated RBC/100 WBC (Bld) [Ratio] 0 % 0-5 [facility] Work Phone: MCHC Auto (RBC) [Mass/Vol]on 03-04-2022 MCHC (RBC) [Mass/Vol] 32.3 g/dL 32-36 [facility] Work Phone: No Panel Informationon 03-04 Estimated GFR (MDRD) Amer 71 mL/min >60 [facility] Work Phone: Comment on above: GFR Calc Estimated GFR (MDRD) Non-Af Amer 59 mL/min >60 [facility] Work Phone: Comment on above: Non- GFR Calc Thyroid Stimulating Hormone (TSH) 1.59 uIU/mL 0.358-3.74 [facility] Work Phone: Platelets bldon 03-04-2022 Platelets (Bld) [#/Vol] 323 10*3/uL 150-450 [facility] Work Phone: Serum or plasma albumin joya urement (mass/volume)on 03-04-2022 Albumin [Mass/Vol] 3.9 g/dL 3.2-5.0 [facility] Work Phone: Serum or plasma albumin/glob ulin mass ratioon 03-04-2022 Albumin/Globulin [Mass ratio] 1.2 {ratio} 0.9-2.4 [facility] Work Phone: Serum or plasma calcium joya urement (mass/volume)on 03-04-2022 Calcium [Mass/Vol] 8.7 mg/dL 8.5-10.1 [facility] Work Phone: Serum or plasma cholesterol in HDL measurement (mass/volume)on 03-04-2022 Cholesterol in HDL [Mass/Vol] 26 mg/dL >40 [facility] Work Phone: Comment on above: The drugs N-Acetylcy steine and Metamizole may falsely depress this assay. Reference Range HDL <40 mg/dL Low HDL Cholesterol HDL >or= 60 mg/dL High HDL Cholesterol Serum or plasma cholesterol in VLDL measurement (mass/volume)on 03-04-2022 Cholesterol in VLDL [Mass/Vol] 54 mg/dL 5-40 [facility] Work Phone: Serum or plasma creatinine m easurement (mass/volume)on 03-04-2022 Creatinine [Mass/Vol] 1.27 mg/dL 0.70-1.30 [facility] Work Phone: Comment on above: The validity of the calculated GFR & GFRAA in patients over 70 years has not been determined. Clinical correlation is essential. Serum or plasma low density lipoprotein (LDL) cholesterol measurement (mass/volume)on 03-04-2022 Cholesterol in LDL [Mass/Vol] 67 mg/dL 0-130 [facility] Work Phone: Serum or plasma urea nitroge n measurement (mass/volume)on 03-04-2022 Urea nitrogen [Mass/Vol] 16 mg/dL 7-18 [facility] Work Phone: Thin prep Papanicolaou smear with manual screeningon 03-04-2022 Thin prep Papanicolaou smear with manual screening 20 U/L 15-37 [facility] Work Phone: Thin prep Papanicolaou smear with manual screening 7 5-15 [facility] Work Phone: Whole blood hemoglobin A1c/t otal hemoglobin ratio (mass fraction)on 03-04-2022 HbA1c (Bld) [Mass fraction] 9.0 % 3.8-5.6 [facility] Work Phone: Comment on above: Normal < 5.7 % Predi abetic 5.7 - 6.4 % Diabetic >or= 6.5 % Please note range changes. Cytology report of Body flui d Cyto stainon 12-04-2021 Cytology report Cyto stain Doc (Body fld) SEE PATHOLOGY REPORT [facility] Work Phone: Comment on above: Specimen submitted t o Anatomical Pathology Department for testing. Absolute lymphocyte counton 11-25-2021 Lymphocytes Auto (Unsp spec) [#/Vol] 2.23 10*3/uL 0.83-4.51 [facility] Work Phone: Basophil percentageon 2021 Basophil percentage 0 SEEN /hpf 0-5 [facility] Work Phone: Basophils/100 WBC (Bld) 0.7 % 0-1 [facility] Work Phone: Chloride [Moles/Vol] 102 mmol/L 98-107 [facility] Work Phone: Eosinophils/100 WBC (Bld) 2.9 % 0-5 [facility] Work Phone: Glucose [Mass/Vol] 309 mg/dL 74-106 [facility] Work Phone: Comment on above: Glucose result great er than or equal to 200 mg/dLsuggests DIABETES MELLITUS per A.D.A. criteria. Neutrophils (Bld) [#/Vol] 4.9 10*3/uL 2.0-7.7 [facility] Work Phone: Neutrophils/100 WBC (Bld) 59.8 % 47-70 [facility] Work Phone: Potassium [Moles/Vol] 3.8 mmol/L 3.5-5.1 [facility] Work Phone: Sodium [Moles/Vol] 137 mmol/L 136-145 [facility] Work Phone: WBC (Bld) [#/Vol] 8.2 10*3/uL 4.4-11.0 [facility] Work Phone: Bilirubin Test strip Ql (U)o n 11-25-2021 Bilirubin Ql (U) 1 mg/dL Negative [facility] Work Phone: Comment on above: COLOR OF URINE MAY A FFECT DIPSTICK RESULTS. Blood erythrocytes count (nu mber/volume)on 11-25-2021 RBC (Bld) [#/Vol] 4.38 10*6/uL 4.6-6.2 [facility] Work Phone: Blood hemoglobin measurement (mass/volume)on 11-25-2021 Hemoglobin (Bld) [Mass/Vol] 12.8 g/dL 13.0-16.5 [facility] Work Phone: Blood lymphocytes/100 leukoc yteson 11-25-2021 Lymphocytes/100 WBC (Bld) 27.1 % 19-41 [facility] Work Phone: Blood monocytes/100 leukocyt eson 11-25-2021 Monocytes/100 WBC (Bld) 9.3 % 0-10 [facility] Work Phone: Blood platelet mean volumeon 11-25-2021 Platelet mean volume (Bld) [Entitic vol] 10.6 fL 6.2-12.0 [facility] Work Phone: Determination of erythrocyte mean corpuscular volume (MCV)on 11-25-2021 MCV (RBC) [Entitic vol] 87.0 fL 80-94 [facility] Work Phone: Hematocrit Auto (Bld) [Volum e fraction]on 11-25-2021 Hematocrit (Bld) [Volume fraction] 38.1 % 40-54 [facility] Work Phone: INR in Blood by Coagulation assayon 11-25-2021 INR Coag (Bld) [Relative time] 1.1 {INR} [facility] Work Phone: Ketones Test strip Ql (U)on 11-25-2021 Ketones Ql (U) 15 mg/dl Negative [facility] Work Phone: Laboratory - Chemistry and C hemistry - challengeon 11-25-2021 CO2 [Moles/Vol] 27.0 mmol/L 21.0-32.0 [facility] Work Phone: Urea nitrogen/Creatinine [Mass ratio] 16.9 mg/mg 10-20 [facility] Work Phone: Laboratory - Coagulationon 0 11-25-2021 aPTT Coag (Bld) [Time] 23.4 s 24.1-36.2 [facility] Work Phone: PT Coag (PPP) [Time] 13.9 s 11.7-14.9 [facility] Work Phone: Laboratory - Hematology and Cell countson 11-25-2021 Erythrocyte distribution width (RBC) [Entitic vol] 38.5 fL 35.1-43.9 [facility] Work Phone: Erythrocyte distribution width (RBC) [Ratio] 12.0 % 11.6-14.6 [facility] Work Phone: Immature granulocytes/100 WBC (Bld) 0.200 % 0.0-0.9 [facility] Work Phone: Comment on above: IG% - Immature Granu locytes (promyelocytes, myelocytes and metamyelocytes) > 1% indicates that a LEFT SHIFT is Present. MCH (RBC) [Entitic mass] 29.2 pg 27.0-32.0 [facility] Work Phone: Nucleated RBC/100 WBC (Bld) [Ratio] 0 % 0-5 [facility] Work Phone: MCHC Auto (RBC) [Mass/Vol]on 11-25-2021 MCHC (RBC) [Mass/Vol] 33.6 g/dL 32-36 [facility] Work Phone: Mucus LM Ql (Urine sed)on Mucus Ql (Urine sed) 0 SEEN /hpf [facility] Work Phone: Nitrite Test strip Ql (U)on 11-25-2021 Nitrite Ql (U) Negative Negative [facility] Work Phone: No Panel Informationon 11-25 Estimated Creatinine Clearance Calc 53.15 ml/min [facility] Work Phone: Estimated GFR (MDRD) Amer 73 mL/min >60 [facility] Work Phone: Comment on above: GFR Calc Estimated GFR (MDRD) Non-Af Amer 60 mL/min >60 [facility] Work Phone: Comment on above: Non- GFR Calc Platelets bldon 11-25-2021 Platelets (Bld) [#/Vol] 297 10*3/uL 150-450 [facility] Work Phone: Protein Test strip Ql (U)on 11-25-2021 Protein Ql (U) 500 mg/dl Negative [facility] Work Phone: Serum or plasma calcium joya urement (mass/volume)on 11-25-2021 Calcium [Mass/Vol] 9.1 mg/dL 8.5-10.1 [facility] Work Phone: Serum or plasma creatinine m easurement (mass/volume)on 11-25-2021 Creatinine [Mass/Vol] 1.24 mg/dL 0.70-1.30 [facility] Work Phone: Comment on above: The validity of the calculated GFR & GFRAA in patients over 70 years has not been determined. Clinical correlation is essential. Serum or plasma urea nitroge n measurement (mass/volume)on 11-25-2021 Urea nitrogen [Mass/Vol] 21 mg/dL 7-18 [facility] Work Phone: Squamous epithelial cells de tection in urine sediment by light microscopyon 11-25-2021 Epithelial cells.squamous LM Ql (Urine sed) 0 SEEN /hpf 0-5 [facility] Work Phone: Thin prep Papanicolaou smear with manual screeningon 11-25-2021 Thin prep Papanicolaou smear with manual screening 8 5-15 [facility] Work Phone: Urine blood detectionon 11-14 RBC Ql (U) 150 /ul Negative [facility] Work Phone: RBC Ql (U) > 100 SEEN /hpf 0-5 [facility] Work Phone: Urine clarityon 11-25-2021 Clarity (U) Turbid Clear [facility] Work Phone: Urine color determinationon 11-25-2021 Color (U) Red Yellow [facility] Work Phone: Urine glucose detectionon Glucose Ql (U) 250 mg/dl Normal [facility] Work Phone: Urine leukocyte esterase det ection by dipstickon 11-25-2021 Leukocyte esterase Test strip Ql (U) Negative Negative [facility] Work Phone: Urine pHon 11-25-2021 pH (U) 7.0 [pH] 5.0 - 8.0 [facility] Work Phone: Urine sediment bacteria coun t by microscopy (number/high power field)on 11-25-2021 Bacteria LM.HPF (Urine sed) [#/Area] 0 /[HPF] None Seen [facility] Work Phone: Urine specific gravity measu rementon 11-25-2021 Specific gravity (U) [Rel density] 1.015 1.002-1.030 [facility] Work Phone: Urobilinogen Auto test strip Ql (U)on 11-25-2021 Urobilinogen Ql (U) Normal mg/dl Normal [facility] Work Phone: Vital Signs Date Time Vital Sign Value Performing Clinician Faci lity 04-15-2025 21:21-0400 Body temperature 97.9 [degF] Dr. Chase Cohen MD Work Phone: [facility] 04-15-2025 21:21-0400 Diastolic blood pressure 88 mm[Hg] Dr. Chase Cohen MD Work Phone: [facility] 04-15-2025 21:21-0400 Heart rate 86 /min Dr. Chase Cohen MD Work Phone: [facility] 04-15-2025 21:21-0400 Respiratory rate 16 /min Dr. Chase Cohen MD Work Phone: [facility] 04-15-2025 21:21-0400 SaO2% (BldA) [Mass fraction] 99 % Dr. Chase Cohen MD Work Phone: [facility] 04-15-2025 21:21-0400 Systolic blood pressure 154 mm[Hg] Dr. Chase Cohen MD Work Phone: [facility] 04-15-2025 16:47-0400 Body height 177.[address] Chase Cohen MD Work Phone: [facility] 04-15-2025 16:47-0400 Body mass index (BMI) [Ratio] 24 kg/m2 Dr. Chase Cohen MD Work Phone: [facility] 04-15-2025 16:47-0400 Body weight 75.[address] hCase Cohen MD Work Phone: [facility] 03-05-2025 10:11-0400 Body height 177.[address] Chase Cohen MD Work Phone: [facility] 03-05-2025 10:11-0400 Body mass index (BMI) [Ratio] 23.9 kg/m2 Dr. Chase Cohen MD Work Phone: [facility] 03-05-2025 10:11-0400 Body temperature 97.8 [degF] Dr. Chase Cohen MD Work Phone: [facility] 03-05-2025 10:11-0400 Body weight 75.[address] Chase Cohen MD Work Phone: [facility] 03-05-2025 10:11-0400 Diastolic blood pressure 60 mm[Hg] Dr. Chase Cohen MD Work Phone: [facility] 03-05-2025 10:11-0400 Heart rate 63 /min Dr. Chase Cohen MD Work Phone: [facility] 03-05-2025 10:11-0400 Respiratory rate 18 /min Dr. Chase Cohen MD Work Phone: [facility] 03-05-2025 10:11-0400 SaO2% (BldA) [Mass fraction] 97 % Dr. Chase Cohen MD Work Phone: [facility] 03-05-2025 10:11-0400 Systolic blood pressure 122 mm[Hg] Dr. Chase Cohen MD Work Phone: [facility] 11-28-2024 08:17-0400 Body height 177.[address] Chase Cohen MD Work Phone: [facility] 11-28-2024 08:17-0400 Body mass index (BMI) [Ratio] 25.2 kg/m2 Dr. Chase Cohen MD Work Phone: [facility] 11-28-2024 08:17-0400 Body weight 79.[address] Chase Cohen MD Work Phone: [facility] 11-28-2024 08:17-0400 Diastolic blood pressure 67 mm[Hg] Dr. Chase Cohen MD Work Phone: [facility] 11-28-2024 08:17-0400 Heart rate 69 /min Dr. Chase Cohen MD Work Phone: [facility] 11-28-2024 08:17-0400 Respiratory rate 18 /min Dr. Chase Cohen MD Work Phone: [facility] 11-28-2024 08:17-0400 Systolic blood pressure 114 mm[Hg] Dr. Chase Cohen MD Work Phone: [facility] 11-09-2024 10:21-0400 Body height 177.[address] Chase Cohen MD Work Phone: [facility] 11-09-2024 10:21-0400 Body mass index (BMI) [Ratio] 25.1 kg/m2 Dr. Chase Cohen MD Work Phone: [facility] 11-09-2024 10:21-0400 Body temperature 98.1 [degF] Dr. Chase Cohen MD Work Phone: [facility] 11-09-2024 10:21-0400 Body weight 79.[address] Chase Cohen MD Work Phone: [facility] 11-09-2024 10:21-0400 Diastolic blood pressure 70 mm[Hg] Dr. Chase Cohen MD Work Phone: [facility] 11-09-2024 10:21-0400 Heart rate 67 /min Dr. Chase Cohen MD Work Phone: [facility] 11-09-2024 10:21-0400 Respiratory rate 14 /min Dr. Chase Cohen MD Work Phone: [facility] 11-09-2024 10:21-0400 SaO2% (BldA) [Mass fraction] 99 % Dr. Chase Cohen MD Work Phone: [facility] 11-09-2024 10:21-0400 Systolic blood pressure 130 mm[Hg] Dr. Chase Cohen MD Work Phone: [facility] 07-05-2023 08:09-0500 Body height 177.[address] Chase Cohen Work Phone: [facility] 07-05-2023 08:09-0500 Body mass index (BMI) [Ratio] 24 kg/m2 Dr. Chase Cohen Work Phone: [facility] 07-05-2023 08:09-0500 Body temperature 98 [degF] Dr. Chase Cohen Work Phone: [facility] 07-05-2023 08:09-0500 Body weight 76.[address] Chase Cohen Work Phone: [facility] 07-05-2023 08:09-0500 Diastolic blood pressure 82 mm[Hg] Dr. Chase Cohen Work Phone: [facility] 07-05-2023 08:09-0500 Heart rate 64 /min Dr. Chase Cohen Work Phone: [facility] 07-05-2023 08:09-0500 Respiratory rate 16 /min Dr. Chase Cohen Work Phone: [facility] 07-05-2023 08:09-0500 SaO2% (BldA) [Mass fraction] 98 % Dr. Chase Cohen Work Phone: [facility] 07-05-2023 08:09-0500 Systolic blood pressure 138 mm[Hg] Dr. Chase Cohen Work Phone: [facility] 04-09-2023 12:28-0400 Body temperature 99 [degF] [facility] 04-09-2023 12:28-0400 Diastolic blood pressure 62 mm[Hg] [facility] 04-09-2023 12:28-0400 Heart rate 60 /min [facility] 04-09-2023 12:28-0400 Respiratory rate 18 /min [facility] 04-09-2023 12:28-0400 SaO2% (BldA) [Mass fraction] 97 % [facility] 04-09-2023 12:28-0400 Systolic blood pressure 139 mm[Hg] [facility] 04-09-2023 10:06-0400 Body height 177.8 cm [facility] 04-09-2023 10:06-0400 Body mass index (BMI) [Ratio] 24.1 kg/m2 [facility] 04-09-2023 10:06-0400 Body weight 76.3 kg [facility] 03-04-2022 08:33-0400 Body height 177.[address] Chase Cohen Work Phone: [facility] Work Phone: 03-04-2022 08:33-0400 Body mass index (BMI) [Ratio] 25 kg/m2 Dr. Chase Cohen Work Phone: [facility] Work Phone: 03-04-2022 08:33-0400 Body weight 78.[address] Chase Cohen Work Phone: [facility] Work Phone: 03-04-2022 08:33-0400 Diastolic blood pressure 70 mm[Hg] Dr. Chase Cohen Work Phone: [facility] Work Phone: 03-04-2022 08:33-0400 Heart rate 60 /min Dr. Chase Cohen Work Phone: [facility] Work Phone: 03-04-2022 08:33-0400 Systolic blood pressure 148 mm[Hg] Dr. Chase Cohen Work Phone: [facility] Work Phone: 11-25-2021 08:20-0400 Diastolic blood pressure 69 mm[Hg] Dr. Chase Cohen Work Phone: [facility] Work Phone: 11-25-2021 08:20-0400 Heart rate 74 /min Dr. Chase Cohen Work Phone: [facility] Work Phone: 11-25-2021 08:20-0400 Respiratory rate 16 /min Dr. Chase Cohen Work Phone: [facility] Work Phone: 11-25-2021 08:20-0400 SaO2% (BldA) [Mass fraction] 98 % Dr. Chase Cohen Work Phone: [facility] Work Phone: 11-25-2021 08:20-0400 Systolic blood pressure 142 mm[Hg] Dr. Chase Cohen Work Phone: [facility] Work Phone: 11-25-2021 05:58-0400 Body height 177.[address] Chase Cohen Work Phone: [facility] Work Phone: 11-25-2021 05:58-0400 Body mass index (BMI) [Ratio] 25.8 kg/m2 Dr. Chase Cohen Work Phone: [facility] Work Phone: 11-25-2021 05:58-0400 Body temperature 97.3 [degF] Dr. Chase Cohen Work Phone: [facility] Work Phone: 11-25-2021 05:58-0400 Body weight 81.[address] Chase Cohen Work Phone: [facility] Work Phone: 09-02-2021 06:07-0500 Body weight 82.[address] Chase Cohen Work Phone: [facility] Work Phone: 09-02-2021 06:07-0500 Diastolic blood pressure 71 mm[Hg] Dr. Chase Cohen Work Phone: [facility] Work Phone: 09-02-2021 06:07-0500 Heart rate 80 /min Dr. Chase Cohen Work Phone: [facility] Work Phone: 09-02-2021 06:07-0500 Respiratory rate 16 /min Dr. Chase Cohen Work Phone: [facility] Work Phone: 09-02-2021 06:07-0500 SaO2% (BldA) [Mass fraction] 96 % Dr. Chase Cohen Work Phone: [facility] Work Phone: 09-02-2021 06:07-0500 Systolic blood pressure 126 mm[Hg] Dr. Chase Cohen Work Phone: [facility] Work Phone: 08-29-2020 07:25-0500 Body mass index (BMI) [Ratio] 24.4 kg/m2 Dr. Chase Cohen Work Phone: [facility] Work Phone: Encounters Encounter Date Encounter Type Care Provider Facility Start: 05-11-2025 ambulatory Chase Cohen Facili ty:[facility] Start: 04-15-2025 End: 04-15-2025 Emergency department patient visit Dr. Chase Cohen MD Work Phone: -Emergency Department Work Phone: Start: 04-12-2025 End: 04-12-[address] Chase Cohen MD Work Phone: -Cat Scan [facility] Start: 04-12-2025 End: 04-12-[address] Eligio Navarro MD -Cat Scan [facility] Work Phone: Start: 04-12-2025 End: 04-12-2025 ambulatory [facility] Facility:[facility] Start: 04-04-2025 End: 04-04-[address] Chase Cohen MD Work Phone: -Laboratory Start: 04-04-2025 End: 04-04-[address] Eligio Navarro MD -Laboratory Work Phone: Start: 04-04-2025 End: 04-04-2025 ambulatory [facility] Facility:[facility] Start: 03-05-2025 End: 03-05-[address] Chase Cohen MD Work Phone: -Laboratory [facility] Start: 03-05-2025 End: 03-05-[address] Chase Cohen MD -Laboratory [facility] Start: 03-05-2025 End: 03-05-[address] Chase Cohen MD -[facility] Work Phone: Start: 03-05-2025 End: 03-05-2025 ambulatory Dr. Chase Cohen MD Work Phone: -[facility] Start: 03-05-2025 End: 03-05-2025 ambulatory [facility] Facility:[facility] Start: 02-23-2025 End: 02-23-[address] Chase Cohen MD Work Phone: -Laboratory Start: 02-23-2025 End: 02-23-2025 Patient encounter procedure Corry Moura PA -Laboratory Work Phone: Start: 02-23-2025 End: 02-23-2025 ambulatory Corry WESTBROOK Facility:[facility] Start: 11-28-2024 End: 11-28-[address] Chase Cohen MD Work Phone: [facility] Work Phone: Start: 11-28-2024 End: 11-28-2024 Patient encounter procedure Corry Moura PA -Laboratory Work Phone: Start: 11-28-2024 End: 11-28-2024 Patient encounter procedure Corry [facility] -[facility] Work Phone: Start: 11-28-2024 End: 11-28-2024 ambulatory Corry [facility] [place] Start: 11-28-2024 End: 11-28-2024 ambulatory Corry [facility]OOK Facility:[facility] Start: 11-09-2024 End: 11-09-[address] Chase Cohen MD Work Phone: [facility] Work Phone: Start: 11-09-2024 End: 11-09-[address] Chase Cohen MD -Radiology, [facility] Work Phone: Start: 11-09-2024 End: 11-09-2024 Patient encounter procedure Asa WE[facility] -[facility] Work Phone: Start: 11-09-2024 End: 11-09-2024 ambulatory Chase Cohen [facility] Start: 11-09-2024 End: 11-09-2024 ambulatory Chase Cohen Facility:[facility] Start: 07-05-2023 End: 07-05-[address] Chase Cohen Work Phone: [facility] Work Phone: Start: 07-05-2023 End: 07-05-2023 Encounter for general adult medical examination without abnormal findings Dr. Chase Cohen Work Phone: [facility] Start: 07-05-2023 End: 07-05-[address] Chase Cohen Work Phone: [facility] Work Phone: Start: 04-09-2023 End: 04-09-2023 [facility] Start: 04-30-2022 Non-patient / Non-visit Dr. Royer Cohen Work Phone: [facility] Start: 04-30-2022 End: 04-30-[address] Chase Cohen Work Phone: [facility] Work Phone: Start: 04-30-2022 End: 04-30-[address] Chase Cohen Work Phone: [facility]-Cardiovascula r Services Start: 03-04-2022 End: 03-04-[address] Chase Cohen Work Phone: [facility]-Laboratory Start: 03-04-2022 End: 03-04-[address] [facility] Start: 12-04-2021 End: 12-04-[address] Chase Cohen Work Phone: [facility]-Laboratory, Specimen Start: 11-25-2021 End: 11-25-2021 Emergency department patient visit Dr. Chase Cohen Work Phone: [facility]-Emergency Department Start: 09-02-[address] Ap Cohen Work Phone: [facility] Start: 09-02-[address] Suzy Cohen MD Work Phone: [facility] Start: 09-02-2021 End: 09-02-2021 Admission to same day surgery center Dr. Chase Cohen Work Phone: [facility] Start: 09-02-2021 End: 09-02-[address] Chase Cohen Work Phone: [facility] Start: 01-31-[address] Ap Cohen Work Phone: [facility] Procedures Date Procedure Procedure Detail Performing Clinician Start: 04-15-2025 CT angiography of ch est with contrast Dr. Chase Cohen MD Work Phone: Start: 04-15-2025 X-ray of chest, PA a nd lateral views Dr. Chase Cohen MD Work Phone: Start: 04-15-[address] Chase Cohen MD Work Phone: Start: 04-12-2025 Computed tomography of abdomen and pelvis with contrast Dr. Chase Cohen MD Work Phone: Start: 04-04-2025 Free prostate specif ic antigen level Dr. Chase Cohen MD Work Phone: Comment on above: Faith ECLIA methodol ogy. Start: 04-04-2025 Prostate specific an tigen measurement Dr. Chase Cohen MD Work Phone: Comment on above: [facility] ECLIA methodol ogy.According to the [place] [employer], Serum PSAshould decrease and remain [...] LAD w/ C ypher Stent POBA-D1 05/2003; [id number] RCA w/ 3 x 22 mm Orsiro Stent 05/02/21 H/O: surgery S/P trigger fing er release Dr. Chase Cohen Work Phone: History of placement of stent for coronary artery disease Hx of heart artery stent Dr. Chase Cohen MD Work Phone: Plan of Treatment Date Care Activity Detail Author Start: 04-15-2025 [facility] Start: 04-15-2025 End: 04-15-2025 [facility] Start: 03-05-2025 Basic metabolic 2008 panel with ionized calcium - Serum or Plasma [facility] Start: 03-05-2025 CBC W Auto Different ial panel - Blood [facility] Start: 03-05-2025 Hemoglobin A1c/Hemog lobin.total in Blood [facility] Start: 03-05-2025 Prostate specific an tigen measurement [facility] Anion gap in Serum or Plasma [facility] Ankle brachial pressure index [facility] Work Phone: BUN/Creatinine ratio [facility] Calcium [Mass/volume ] in Serum or Plasma [facility] Carbon dioxide, tota l [Moles/volume] in Central venous blood [facility] Creatinine [Mass/vol ume] in Serum or Plasma [facility] Erythrocyte mean cor puscular volume determination [facility] Glucose [Mass/volume ] in Serum or Plasma [facility] Hematocrit [Volume F raction] of Blood [facility] Hemoglobin [Mass/vol ume] in Blood [facility] Hemoglobin A1c/Hemog lobin.total in Blood [facility] Leukocytes [#/volume] in Blood [facility] Mean corpuscular hem oglobin concentration determination [facility] Mean corpuscular hem oglobin determination [facility] Measurement of renal function [facility] Neutrophil count [facility] Neutrophil percent d ifferential count [facility] Patient Education [facility] Work Phone: Patient referral [facility] Work Phone: Platelets [#/volume] in Blood [facility] Potassium measurement [facility] Red blood cell count [facility] Red cell distributio n width determination [facility] Serum chloride measurement [facility] Sodium measurement [facility] Troponin T.cardiac [ Mass/volume] in Serum or Plasma by High sensitivity method [facility] Urea nitrogen [Mass/ volume] in Serum or Plasma [facility] Immunizations Immunization Date Immunization Notes Care Provider Fa cility 09-14-2024 Covid (Mohan & Mohan) Dr. Chase Cohen MD Work Phone: [facility] 09-14-2024 Seasonal trivalent influenza vaccine, adjuvanted, preservative free Dr. Chase Cohen MD Work Phone: [facility] 06-07-2023 RSV Adult Recombinan t (Arexvy) Dr. Chase Cohen MD Work Phone: [facility] 05-24-2023 influenza, injectabl e, quadrivalent, preservative free Dr. Chase Cohen MD Work Phone: [facility] 05-24-2023 Pfizer Covid-19 (Comirnaty) Dr. Chase Cohen MD Work Phone: [facility] 05-19-2022 Covid Pfizer Bivalen t Booster Dr. Chase Cohen MD Work Phone: [facility] 05-19-2022 influenza, injectabl e, quadrivalent, preservative free Dr. Chase Cohen MD Work Phone: [facility] 07-28-2021 Covid (Pfizer) Dr. Chase Cohen MD Work Phone: [facility] 05-02-[address] Chase Cohen Work Phone: [facility] 11-14-2020 Covid (Pfizer) Dr. Chase Cohen Work Phone: [facility] 10-24-2020 Covid (Pfizer) Dr. Chase Cohen Work Phone: [facility] 06-05-2020 influenza, injectabl e, quadrivalent, preservative free Dr. Chase Cohen MD Work Phone: [facility] 06-13-2019 influenza, injectabl e, quadrivalent, preservative free Dr. Chase Cohen Work Phone: [facility] 06-13-2019 influenza, seasonal, injectable Dr. Chase Cohen Work Phone: [facility] 06-13-2019 Fluad 2018- 65yr up(PF)45 mcg(15 mcgx3)/0.5 mL intramuscular syringe (flu vac Dr. Chase Cohen Work Phone: [facility] Work Phone: 06-15-2016 influenza, high dose seasonal, preservative-free Dr. Chase Cohen MD Work Phone: [facility] 09-17-2015 pneumococcal conjuga te vaccine, [address] Chase Cohen MD Work Phone: [facility] Payers Date Payer Category Payer Self-pay [id number] 2023 Private Health Insurance 101 [id number] Medicare [id number] Private Health Insurance [id number] Unknown [id number] 2.16.8 [id number] Unknown [id number] 2.16.8 [id number] Unknown [id number] 2.16.8 [id number] Unknown [id number] 2.16.8 [id number] Unknown [id number] 2.16.8 [id number] Unknown [id number] 2.16.8 [id number] Unknown [id number] 2.16.8 [id number] Unknown [id number] 2.16.8 [id number] Unknown [id number] 2.16.8 [id number] Unknown [id number] 2.16.8 [id number] Unknown [id number] 2.16.8 [id number] Social History Date Type Detail Facility Start: 11-25-2021 End: 07-05-2023 Tobacco smoking status PRIS Unknown if ever smoked [facility] Start: 1945 Sex Assigned At Male [facility] Start: 04-19-2024 End: 04-15-2025 Tobacco smoking status NHIS Ex-smoker (finding) [facility] Start: 11-14-2024 End: 12-04-2024 Sex Male (finding) [facility] Medical Equipment Procedure Code Equipment Code Equipment Origin al Text Equipment Identifier Dates ([id number]) Drug-eluting coronary artery stent, bioabsorbable-polyme r-coated ()[id number] FDA Start: 05-02-2021 ([id number]) Drug-eluting coronary artery stent, bioabsorbable-polyme r-coated ()[id number] FDA Start: 05-02-2021 Blood Sugar Diagnostic (Blood [...] Glucose Test) strip Start: 03-28-2019 End: 07-06-2023 Mental Status Date Assessment Result Facility 04-15-2025 Cognitive function Voice/Name [facility] Work Phone: Clinical Notes 02-07-2021 to 04-15-2025 Note Date & Type Note Facility 04-15-2025 Radiology Diagnostic study note [facility] Imaging Services [address] [place] [address] [id number] CTA Chest W/WO Contrast MR#: [id number] Acct: [id number] Name: GENI LINDSAY Rep #: [id number] : 1945 M 79 From: Rama Funes MD PCP: Dr. Chase Cohen MD Status: R EG ER Study:CTA Chest W/WO Contrast Date of Exam: 04/15/25 Exam# [id number] Ordering Dr: Alexis Nguyen MD PROCEDURE: CTA CHEST W/WO CONTRAST 04/15/2025 REASON FOR EXAM: CP TECHNIQUE: Procedure Code: CTCTACHWW Modality: CT Procedure: CTA CHEST W/WO CONTRAST Multiplanar Sagittal and Coronal images were obtained. 3D reconstructions CONTRAST: Isovue 370 VOLUME: 100 mL One or more dose reduction techniques were used (e.g., Automated exposure control, adjustment of the mA and/or kV according to patient size, use of iterative reconstruction technique). RADIATION DOSE SUMMARY: CTDlvol: 22 mGy DLP: 439 mGycm FINDINGS: The pulmonary arterial contrast bolus is adequate. No evidence of pulmonary emboli. No mediastinal mass. No thoracic aneurysm. Mild coronary artery calcification. Moderate centrilobular emphysema. No consolidation. No edema. Small noncalcified nodule in the base of the left upper lobe on image 122 which measures [address]/CTA Chest W/WO Contrast IMPRESSION: Negative for pulmonary embolus. Normal thoracic aorta. Noncalcified nodule 7 mm left upper lobe. Consider three-month follow-up CT Reading Location[facility] CC: Dr. Chase Cohen MD; Dr. Catrachito Nguyen MD ~ Floor Installation Mechanic: Signed [facility] 04-15-2025 Radiology Diagnostic study note [facility] Imaging Services [address] [place] [address] Chest PA and Lateral MR#: [id number] Acct: [id number] Name: GENI LINDSAY Rep #: [id number] : 1945 M 79 From: Eddie Diane MD PCP: Dr. Chase Cohen MD Status: R ER Study:Chest PA and Lateral Date of Exam: 04/15/25 Exam# [id number] Ordering Dr: Alexis Nguyen MD PROCEDURE: CHEST PA AND LATERAL 04/15/2025 REASON FOR EXAM: CHEST PAIN TECHNIQUE: Procedure Code: RADCXR Modality: DX Procedure: CHEST PA AND LATERAL COMPARISON: May 02, 2021 FINDINGS: Hardware: EKG leads. Heart: Normal Mediastinum: The mediastinal contour is unremarkable. Lungs: Clear Bones: Degenerative changes are identified within the thoracic spine. RAD/Chest PA and Lateral IMPRESSION: No acute cardiopulmonary process. Reading Location: [facility] CC: Dr. Chase Cohen MD; Dr. Catrachito Nguyen MD ~ Floor Installation Mechanic: Signed [facility] 04-12-2025 Radiology Diagnostic study note [facility] Imaging Services [address] [place] [address] CT Abd/Pelvis W/WO Contrast MR#: [id number] Acct: [id number] Name: GENI LINDSAY Rep #: [id number] : 1945 M 79 From: Jay Jay Sherman MD PCP: Dr. Chase Cohen MD Status: R EG CLI Study:CT Abd/Pelvis W/WO Contrast Date of Exa m: 04/12/25 Exam# [id number] Ordering Dr: Alexis Navarro MD PROCEDURE: CT ABD/PELVIS W/WO CONTRAST [...] noncontrast CT abdomen and pelvis. Reading Location: [id number] CC: Dr. Chase Cohen MD; Dr. Eligio Navarro MD ~ Floor Installation Mechanic: Signed [facility] Work Phone: 03-05-2025 Evaluation note Diagnosis Onset Date Resolution BPH (benign prostatic hyperplasia) chronic March 05, 2025 9:54am Essential (primary) hypertension chronic March 05, 2025 9:54am GERD (gastroesophageal reflux disease) chronic March 05, 2025 9:54am Hematuria chronic March 05 9:54am Type 2 diabetes mellitus chronic March 05, 2025 9:54am [facility] Work Phone: 1(210) 182-190603-27-2025 Radiology Diagnostic study note [facility] Imaging Services [address] [place] [address] Cerv Spine 2 or 3 Views MR#: [id number] Acct: [id number] Name: GENI LINDSAY Rep #: [id number] : 1945 M 79 From: Umair Reeder MD PCP: Dr. Chase Cohen MD Status: R EG CLI Study:Cerv Spine 2 or 3 Views Date of Exam: 11/09/24 Exam# [id number] Ordering Dr: Oswaldo Lopez PROCEDURE: CERV SPINE [...] soft tissue swelling. 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 Czmgn-goeanyd-emat-left appearing multilevel facet degenerative changes. Suggestion of [...] fracture or malalignmentidentified. C5-6 spondylosis/discogenic change with oiym-si-gtsfwjlx disc space narrowing. Sjrsi-pudphjx-mgvr-left appearing multilevel facet degenerative changes. Reading Location: [id number] CC: Dr. 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 November 28, 2024 7:53am Essential (primary) hypertension chr onic November 28, 2024 7:53am Hyperlipidemia chronic November 7:53am [facility] Work Phone: 1(468) 877-147703-27-2025 Evaluation note* Diagnosis Onset Date Resolution Status Admit Date Generalized pruritus acute Donny 2024 9:55am Neck pain acute November 09 9:55am 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 Chase Cohen MD Status:R ER Location: ED ADDENDUM by Dr. Isaac [...] Denies any fever chills nausea or vomiting. [facility] <ZABRINA Rodriguez - Last Filed: 04/09/23 14:25> [facility] Medical History Arthritis 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 pectoris Back problem BPH [...] % (Auto) 58.9 Lymph % (Auto) 26.3 Preston % (Auto) 12.1 H Eos % (Auto) [...] Sl. Cloudy Urine pH 8.0 Ur Specific Van 1.010 Urine Protein 100 H Urine Glucose [...] Hawley MD - Last Filed: 04/09/23 14:32> [facility] Lab Data Labs: Laboratory Results - last 24 hr 04/09/23 04/09/23 10:20 11:30 WBC 7.5 RBC 4.76 Hgb 13.7 Hct 42.2 MCV 88.7 MCH 28.8 MCHC 32.5 RDW Std Deviation 41.7 RDW Coeff of Julianna 12.8 Plt Count 247 MPV 10.3 Immature Gran % (Auto) 0.100 Neut % (Auto) 58.9 Lymph % (Auto) 26.3 Preston % (Auto) 12.1 H Eos % (Auto) [...] Sl. Cloudy Urine pH 8.0 Ur Specific Van 1.010 Urine Protein 100 H Urine Glucose [...] your Primary Care Provider. Call [facility] ([phone]) or report to the closest Emergency Room. Call 911 if necessary. 04/09/23 1432 <Electronically signed by Isaac Hawley MD> Cosigner Signature (if applicable): 04/09/23 1425 <Electronically signed by Onesimo GERBER> CC: Dr. Chase Cohen MD ~ Signed [facility] Work Phone: 1(552) 284-863409-17-2021 Evaluation note* Diagnosis Onset Date Resolution Status Encounter for pre-operative cardiovascular clearance acute Essential (primary) hypertension chronic Hyperlipidemia chronic History of coronary artery stent placement April 162020 resolved [facility] Work Phone: 1(351) 494-458006-25-2021 NoteHNO ID: [id number] Author: Nick úNñez RN Service: ? Author Type: Registered Nurse Type: Progress Notes Filed: 02/07/2021 1:59 PM Note Text: [facility] Enrollment Provider Action/FYI: Chart Reviewed: Pt does not have a [facility] PCP Patient referred by: [facility] Kim Contact made with patient: Patient not outreached at this time. Closing: Patient does not meet criteria. PCC to reassess patient in a month. END OUTREACH Tan Romero RN February 07, 2021 1:35 [facility]06[facility]25-[facility]21 NotePatient Outreach ([facility]) GENI LINDSAY ([id number]) 1945 M Date Time Provider Department 02/07/21 NICK NÚÑEZ AMBBAYLEE During your visit today, we recorded the following information about you: Tan Romero RN 02/07/2021 1:59 PM Signed [facility] Enrollment Provider Action/FYI: Chart Reviewed: Pt does not have a [facility] PCP Patient referred by: [facility] Kim Contact made with patient: Patient not [...] Diagnosis:Chronic obstructive pulmonary disease, unspecified COPD type ([facility]) [J44.9] Order(s):CONSULT TO PRIMARY CARE COORDINATION CD [[id number]] Order #: [id number]: 1 Prescriptions as of 02/07/2021 Sig: ATORVASTATIN [...] ESOPHAGEAL REFLUX [K21.9] Myalgia and myositis, unspecified [[place]1196] 06/15/2016 Hyperlipidemia [E78.5] 09/17/2015 BENIGN NEOPLASM LG [...] neuropat*12/15/2016 Encounter Status:Closed by TAN ROMERO [facility]21[facility] Diagnosis Onset Date Resolution Status Diminished pulses in lower extremity acute Fatigue acute 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 Essential (primary) hypertension chronic Hyperlipidemia chronic [facility] Work Phone: Evaluation noteNo assessment information available [facility] Work Phone: Evaluation note* Diagnosis Onset Date Resolution Status Health care maintenance acut e BPH (benign prostatic hyperplasia) chronic Essential (primary) hypertension chronic Hyperlipidemia chronic Type 2 diabetes mellitus chr onic [facility] Work Phone[facility] Work Phone: Hospital Discharge instructions Additional Instructions Please follow-up with urology. Call to make an appointment today or Wednesday. [facility] Work Phone: Hospital Discharge instructionsAdditional Instructions Follow-up with your doctor if not improving. Your tests today were normal including both heart enzymes, both EKGs, your chest x-ray and CAT scan along with your lab work. [facility] Work Phone: Reason for referral (narrative)No reason for referral [facility] Work Phone: Summary Purpose Family History No Family History Records Found Relationship Condition Age at Onset Recorded Date/T fani mother Diabetes mellitus Unknown Myocardial infarction Unknown father Aortic aneurysm Unknown Advance Directives No Advanced Directives Records Found Advance Directive Response Recorded Date/ Time Advance Directives Yes January 19 4 2:22pm Living Will Yes November 25, 2021 5:57am Power of Bellows Charger Assembler Yes November 25 5:57am Advance Directive Response Recorded Date/ Time Name of Medical Power of Bellows Charger Assembler tari lindsay November 25, 2021 5:57am Advance Directives Yes January 19 4 2:22pm Living Will Yes November 25, 2021 5:57am Power of Bellows Charger Assembler Yes November 25 5:57am Advance Directive Response Recorded Date/ Time Advance Directives Yes January 19 4 2:22pm Living Will Yes May 04, 2022 12:08pm Power of Bellows Charger Assembler Yes April 12:08pm Advance Directive Response Recorded Date/ Time Advance Directives Yes January 19 4 2:22pm Living Will Yes April 09 3 11:07am Power of Bellows Charger Assembler Yes April 09, 2 023 11:07am Name of Medical Power of Bellows Charger Assembler present April 09, 2023 11:07am Advance Directive Response Recorded Date/ Time Name of Medical Power of Bellows Charger Assembler present April 09, 2023 10:07am Advance Directives Yes January 19 4 1:22pm Living Will Yes April 09 10:07am Power of Bellows Charger Assembler Yes April 09, 023 10:07am Advance Directive Response Recorded Date/ Time Advance Directives Yes April 2:00pm Advance Directive Response Recorded Date/ Time Living Will Yes April 09 11:07am Do you have a Healthcare Power of Bellows Charger Assembler? Yes April 09, 2023 11:07am Advance Directives Yes April 2:00pm Advance Directive Response Recorded Date/ Time Do you have a Healthcare Power of Bellows Charger Assembler? Yes April 15, 2025 5:53pm Advance Directives Yes April 2:00pm Chief Complaint and Reason for Visit Chief Complaint 1 y fu hematuria Reason for Visit Encounter for pre-op erative cardiovascular clearance Essential (primary) hypertension Hyperlipidemia History of coronary artery stent placement Chief Complaint hematuria 6 M FU Reason for Visit Diminished pulses in lower extremity Fatigue 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 pectoris Essential (primary) hypertension Hyperlipidemia Chief Complaint 6 M FU DECREASED PEDAL PULSES Reason for Visit Diminished pulses in lower extremity Fatigue 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 pectoris Essential (primary) hypertension Hyperlipidemia Chief Complaint URINARY Chief Complaint URINARY MED FOLLOW UP Reason for Visit Health care [facility] BPH (benign prostatic hyperplasia) Essential (primary) hypertension [...] 9:5 5am 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 pectoris November 28, 2024 [...] 9:5 5am 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 pectoris November 28, 2024 7:53am Essential (primary) hypertension November 142024 7:53am Hyperlipidemia November 28, 2024 7:5 3am BPH (benign prostatic hyperplasia) March 05, 2025 9:54am Essential (primary) hypertension March 052024 9:54am GERD (gastroesophageal reflux disease) [facility] 2024 9:54am Hematuria March 05, 2025 9:54 [...] 052024 9:54am GERD (gastroesophageal reflux disease) J [facility] 2024 9:54am Hematuria March 05, 2025 9:54 am Type 2 diabetes mellitus March 05, 2025 9:54am Chief Complaint Admit Date eorders February 23, 2025 6:25 am med fu March 05, 2025 9:54 am NEED ORDER April 04, 2025 8: 04am Gross hematuria April 12, 2025 7: 15am CHEST PAIN April 15, 2025 4: 47pm Additional Source Comments (unrecognized sect ion and content) No Status Records FoundNo Status Records Found INFORMATION SOURCE (unrecogn ized section and content) DATE CREATED AUTHOR 09/29/2021 [facility] DATE CREATED AUTHOR AUTHOR'S RADHA WHEATLEY 05/11/2025 [facility] Goals (unrecognized section and content) Goals may [...] November 09, 2024 End: November 09, 2024 sAa WESTBROOK PA Attending Provider Active St art: [...] 23, 2025 End: February 23, 2025 Corry WESTBROOK PA Attending Provider Active Start: February 23, 2025 End: February 23, 2025 Corry WESTBROOK PA Referring Provider Active Start: February 23, [...] April 04, 2025 End: April 04, 2025 Team Status: Active Member Role/Relationship Status Dates Dr. Chase Cohen MD Primary Care Provider Active Start: April 12, 2025 Dr. Eligio Navarro MD Attending Provider Active Start: April 12, 2025 Dr. Eligio Navarro MD Referring Provider Active Start: April 12, 2025 Team Status: Inactive Member Role/Relationship Status Dates Dr. Chase Cohen MD Primary Care Provider Active Start: April 15, 2025 End: April 15, 2025 Dr. Catrachito Nguyen MD Emergency Provider Active S tart: April 15, 2025 End: April 15, 2025 Team Status: Inactive Member Role/Relationship Status Dates Dr. Chase Cohen MD Primary Care Provider Active Start: April 12, 2025 End: April 12, 2025 Dr. Eligio Navarro MD Attending Provider Active Start: April 12, 2025 End: April 12, 2025 Dr. Eligio Navarro MD Referring Provider Active Start: April 12, 2025 End: April 12, 2025 FOR RECORDS PERTAINING TO PATIENTS WHO [...] BE BASED ON THE PRIMARY CLINICAL RECORDS. [facility] [employer] provides no warranty or guarantee of the accuracy or completeness of information in this document.
[2025-05-11] MEDS: Lactated Ringers 1,000 ML 15 ML IV ×2 (06:41→07:29)
--- NOTE | 2025-05-11 06:58 | PCM.PRE.AN2 ---
ASA Classification* ASA Classification ASA Classification: 2 Assessment & Plan Anesthesia* Anesthesia Assessment Anesthesia Assessment: Discussed sedation and/or anesthesia options, risks, benefits, and alternatives with patient/parents/legal guardian/POA. Questions invited. The patient/parents/legal guardian/POA seems to understand and agrees to proceed with anesthesia plan. Reviewed the physical assessment, medical history, allergy history and patient home medications list prior to surgery/procedure/anesthetic and documented any changes. Performed airway and anesthesia risk assessments. Anesthesia Type Anesthesia Type: General History Source History Obtained from:: Patient, Chart and Significant Other (Spouse in the room) Anesthesia Focused Assessment* Temperature: 97.7 F Pulse Rate: 72 Blood Pressure: 123/70 Respiratory Rate: 16 Pulse Ox: 98 Oxygen Delivery Method: Room Air Airway Assessment Mouth opens: >3 cm Mallampati Score: II Teeth Condition: Missing Neck Range of motion (ROM): Limited ROM Labs Anesthesia Preop lab: CBC WBC, (4.4-11.0) 12.2 K/mm3 H 04/15/25, 17: RBC, (4.6-6.2) 4.30 M/mm3 L 04/15/25, 17:01 Hgb, (13.0-16.5) 13.2 g/dL 04/15/25, 17: Hct, (40-54) 38.0 % L 04/15/25, 17:01 Plt Count, (150-450) 305 K/mm3 04/15/25, 17:01 CHEMISTRY Potassium, (3.3-5.1) 3.9 mmol/L 04/15/25, 17:01 Sodium, (133-145) 136 mmol/L 04/15/25, 17:01 Magnesium, (1.6-2.6) 1.7 mg/dL 05/03/21, 04:45 BUN, (4-19) 16 mg/dL 04/15/25, 17:01 Creatinine, (0.70-1.20) 1.19 mg/dL 04/15/25, 17:01 Glucose, (70-99) 155 mg/dL H 04/15/25, 17:01 POC Glucose, (70-110) 107 mg/dL 01/26/14, 09:51 TSH, (0.358-3.74) 1.63 uIU/mL 10/06/23, 09:37 COAG PT, (11.7-14.9) 13.7 SECONDS 04/09/23, 10:20 Pre-Assessment Diagnosis/Proposed Procedure Planned Operative Procedure(s): LAP ROBOTIC SIMPLE PROSTATECTOMY Anesthesia History Anesthesia History - brine supervisor: Anesthesia History - brine supervisor Hx Hospitalization No 04/27/25 10:14 Any Problems With Anesthesia No 04/27/25 10:14 Cholinesterase deficiency No 04/27/25 10:14 You/Your Family Experience No 04/27/25 10:14 fever (hyperthermia) with Relationship Recent Exposure to Contagious No 05/11/25 06:23 Disease Does patient have nerve No 04/27/25 10:14 stimulator Patient instructed to have device shut off --Does patient have Pacemaker No 05/11/25 06:23 or ICD? When Was Last Pacemaker Check QUESTION #4 FULL TEXT: You/Your Family Experience fever (hyperthermia) with Anesthesia Last Oral Intake Last Oral intake: Last Oral Intake NPO since 19:00 05/11/25 06:23 Meds taken in AM with sips of Yes 05/11/25 06:23 water? Meds patient instructed to take am of surgery PONV PONV - brine supervisor: PONV - brine supervisor Female No 04/27/25 10:14 HX of Motion Sickness No 04/27/25 10:14 HX of N/V After Surgery No 04/27/25 10:14 Non-Smoker Yes 04/27/25 10:14 Duration of Surgery greater Yes 04/27/25 10:14 than 60 minutes Number of Risk Factors 2 04/27/25 10:14 PONV Score Moderate Risk 04/27/25 10:14 Height & Weight Height & Weight: Anesthesia: Height & Weight Height 5 ft 10 in 05/11/25 06:23 Weight: 73.3 kg 05/11/25 06:23 Body Mass Index (BMI) 23.1 05/11/25 06:23 Respiratory Assessment Respiratory Assessment - brine supervisor: Respiratory Tract Infection Hx - brine supervisor Hx Respiratory Tract Infection No 04/27/25 10:14 STOP Sleep Apnea STOP Sleep Apnea - brine supervisor: STOP Sleep Apnea - brine supervisor Hx Hypertension Yes: CONTROLLED WITH MEDS 04/27/25 10:14 Hx Sleep Apnea No 04/27/25 10:14 CPAP No 04/19/24 14:00 BIPAP No 04/19/24 14:00 Do you snore loudly (louder No 04/27/25 10:14 than talking or can be heard Do you often feel tired/ No 04/27/25 10:14 fatigued/ sleepy during daytime? Has anyone observed you stop No 04/27/25 10:14 breathing during sleep? STOP Results Negative 04/27/25 10:14 QUESTION #5 FULL TEXT : Do you snore loudly (louder than talking or can be heard through closed doors)? Tobacco Use History Tobacco Use History - brine supervisor: Tobacco Use History - brine supervisor Tobacco Use Smoking Status Former smoker 04/27/25 10:14 Hx Tobacco Use No 04/27/25 10:14 Years Smoking Packs Smoked per Day Smoking Cessation Date was No - quit smoking greater 04/27/25 10:14 within the last 15 years than 15 years ago Hx Smoking Cessation Date 04/16/95 04/27/25 10:14 Hx Smoking Cessation Counseling Hematologic Medial History Hematologic Hx - brine supervisor: Hematologic Medical Hx - compliance lead Hx of Blood Transfusion No 04/27/25 10:14 Hx of Transfusion in last 3 No 04/27/25 10:14 Months Date of Last Transfusion (if within last 3 months) Ever experience any problems No 04/27/25 10:14 with transfusion(s)? Specify any problems Hx of Preganancy in last 3 N/A 04/27/25 10:14 Months Nurse Filling Out Transfusion DSCHRIBER 04/27/25 10:14 & Questions: Date: 04/27/25 04/27/25 10:14 Time: 10:16 04/27/25 10:14 Patient unable to answer at this time (ie. confused, unrespo /Reproduction History /Reproductive History - brine supervisor: /Reproductive Hx- brine supervisor Hx Now No 04/27/25 10:14 Gestational Age (in weeks): EDC: Hx Hx Para Hx Section SAB No 04/27/25 10:14 Active Medications Active Medications: Current Medications Generic Name Dose Route Start Last Admin Trade Name Freq PRN Reason Stop Dose Admin Cefazolin Sodium 2 gm/ Sodium 110 mls @ 200 mls/hr 05/11/25 07:30 Chloride IV 05/11/25 08:02 INTRAOP ONE Lactated Ringer's 1,000 mls @ 15 mls/hr 05/11/25 06:15 05/11/25 06:41 IV 15 mls/hr .Q48H JING Administration PFSH Medical History Loss of hearing Diabetes Bladder disease High cholesterol Back pain Injury of head and neck Dietary restriction History of ulceration Gastric reflux Leg cramps Hypertension Wears glasses Arthritis Stroke/cerebrovascular accident Former smoker History of heart attack History of stress test History of echocardiogram Cardiology follow-up encounter History of ST elevation myocardial infarction (STEMI) (05/02/21) Atherosclerosis of coronary artery of [place] heart without angina pectoris BPH (benign prostatic hyperplasia) Enlarged prostate Home Medications ?Medication ?Instructions ?Recorded ?Last Taken ?Type multivitamin 1 tab PO DAILY supplement 08/29/20 05/10/25 History blood-glucose meter (OneTouch #1 ea 06/07/23 Unknown Rx Ultra2 Meter) blood sugar diagnostic (Blood #100 ea 07/06/23 Unknown Rx Glucose Test strips) atorvastatin 40 mg tablet 40 mg PO QHS cholesterol #90 tabs 05/02/24 05/10/25 Rx clopidogrel 75 mg tablet (Plavix) 75 mg PO DAILY BLOOD THINNER #90 07/24/24 04/30/25 Rx tabs amlodipine 10 mg tablet 10 mg PO DAILY BP #90 TABLETS 03/06/25 05/11/25 04:30 Rx sitagliptin phosphate 100 mg 100 mg PO DAILY for diabetes 03/06/25 05/06/25 Rx tablet (Januvia) mellitus #90 TABLETS fenofibrate nanocrystallized 145 145 mg PO DAILY CHOLESTEROL 04/27/25 05/10/25 History mg tablet losartan 100 mg tablet 100 mg PO DAILY BP 04/27/25 05/11/25 04:30 History pantoprazole 40 mg tablet,delayed 40 mg PO DAILY GERD 04/27/25 05/11/25 04:30 History release Allergy/AdvReac Type Severity Reaction Status Date / Time dulaglutide (From [facility]) Allergy Intermediate Nausea Verified 05/11/25 06:21 niacin Allergy GI Upset, Verified 05/11/25 06:21 PUD w/blood, Hot Flashes amoxicillin trihydrate (From AdvReac Abd Verified 05/11/25 06:21 Augmentin) cramps/diarrhea potassium clavulanate (From AdvReac Abd Verified 05/11/25 06:21 Augmentin) cramps/diarrhea Family History Mother Diabetes Myocardial infarction Father AA (aortic aneurysm) Surgical History History of cystoscopy History of cardiac catheterization History of foot surgery History of colonoscopy S/P trigger finger release History of repair of rotator cuff History of coronary artery stent placement (05/02/21) Social History housing: house Smoking Status: Former smoker quit date: 08/16/93 Tobacco: How many years used: 30 alcohol intake: never substance use type: does not use caffeine: Yes Type: coffee Number of servings: 2 what type of physical activity do you participate in: walking Review of Systems (Anesthesia) ROS Narrative System reviewed and no additional complaints, except as documented.
--- NOTE | 2025-05-11 07:27 | DCINST_ITS ---
Discharge Instructions DC O2, CPAP, BIPAP needs Home O2 Discharge instructions: No Dressing / Incision Discharge Activity: Return to Normal Activity, May Not Drive and May Shower Return to work on:: 06/15/25 May shower in (days): 1 Dressing / Incision Call your doctor if you observe: Fever of 101 or Higher, Inability to have a bowel movement and Uncontrolled pain Cleanse incision/area with: Soap & Water Catheter: Fishman to leg bag and Fishman to large bag Drain: [place] Follow Up Care Please Follow Up With: Eligio Navarro MD When: Call [phone] for an appointment Test Results: Test results from this visit will be discussed in further detail at your follow- up appointment, if applicable. Discharge Plan Admission Primary Reason for Your Visit: Simple prostatectomy Attending Provider: Eligio Navarro Primary Care Provider: Chase Cohen Instructions Print Language: Citizen Of [place] Discharge Orders/Prescriptions Prescriptions: New ciprofloxacin HCl [Cipro] 500 mg tablet 500 mg PO BID Qty: 20 0RF docusate sodium [Colace] 100 mg capsule 100 mg PO BID Qty: 20 0RF oxycodone 5 mg tablet 5 mg PO Q6H PRN (Reason: pain) 7 Days Qty: 14 0RF Continued atorvastatin 40 mg tablet 40 mg PO QHS Qty: 90 3RF pantoprazole 40 mg tablet,delayed release (DR/EC) 40 mg PO DAILY Rx Instructions: TAKE 1 TABLET BY MOUTH DAILY losartan 100 mg tablet 100 mg PO DAILY Rx Instructions: TAKE 1 TABLET BY MOUTH DAILY FOR HYPERTENSION fenofibrate nanocrystallized 145 mg tablet 145 mg PO DAILY Rx Instructions: TAKE 1 TABLET BY MOUTH EVERY DAY (DME) blood-glucose meter [OneTouch Ultra2 Meter] [facility] See Rx Instructions .Route Qty: 1 0RF Rx Instructions: As directed (DME) Blood Glucose Test Strip See Rx Instructions .ROUTE .MEDSUPPLY Qty: 100 3RF Rx Instructions: One Touch Ultra - As directed Daily Januvia 100 mg tablet 100 mg PO DAILY Qty: 90 1RF amlodipine 10 mg tablet 10 mg PO DAILY Qty: 90 1RF Held clopidogrel [Plavix] 75 mg tablet 75 mg PO DAILY Qty: 90 3RF Hold Instructions: Resume on 05/25/25. No Action multivitamin Tablet 1 tab PO DAILY Referrals / Follow Up: Chase Cohen MD [Primary Care Provider, Internal Medicine] Eligio Navarro MD [Med Staff - Active Staff, Urology] Disposition Disposition (needs filled in before D/C Order can be placed): Home, Self Care
[2025-05-11] MEDS: Cefazolin 1 GM/5 ML Vial 2 GM IV (07:29)
--- NOTE | 2025-05-11 07:30 | PROST_PTH ---
PATIENT: GENI OJEDA LOC: MS3 U#:[id number] AGE/SX: 80/M ROOM: [facility] RE05/11/[address]: Dr. Eligio Navarro MD : 1945 BED: 1 DIS: 05/12/2025 SPEC #: [id number] RECD: 05/11/25 10:38 STATUS: RIAN CA #: [id number] BRENDA: 05/11/25 07:[address]: Eligio Navarro DEPT: SURGICAL PATHOLOGY RECD BY: Ananda Sauceda ENTERED: 05/11/25 11:43 SP TYPE: PROSTATE OTHR DR: Dr. Chase Cohen MD Tissues: A - Prostate, NOS Procedures: Surgery Specimen Level HEADER OPERATION: Laparoscopic robotic simple prostatectomy PRE-OP DIAGNOSIS: Benign prostatic hyperplasia TISSUE SUBMITTED: A- Prostate MICROSCOPIC DIAGNOSIS A. Prostate, laparoscopic robotic simple prostatectomy: * Benign stromal and glandular hyperplasia. COMMENT Selected slides/images were reviewed in intradepartmental consultation by Dr Vivek Haile ( pathology division, [facility]). MICROSCOPIC DESCRIPTION Slides are reviewed. GROSS DESCRIPTION A. Received in formalin labeled with the patient's name and date of . Designated as prostate is a 119.2 g, shaggy and disrupted prostatectomy in 2 pieces, devoid of attached adnexa or orientation, collectively measuring 7.3 x 6.9 x 5.2 cm. The two pieces are differentially inked black and green (for microscopic orientation only). Sectioning reveals marinelli-pink to white, rubbery, focally cystic and diffusely nodular cut surfaces. There are two nodules that demonstrate slightly different gross appearance from the remainder of the specimen: 1.9 cm (edematous) and 1.7 cm (white and somewhat fleshy). However, no definitive mass lesions are grossly appreciated. Seismographer sections are submitted in 12 cassettes, to include the focally cystic area in cassette A10 and two individually described nodules in cassettes A11-A12. MN 05/11/2025 CPT:05197
[2025-05-11] MEDS: Lidocaine 1% (5 ml sdv) 5 ML Vial IV (07:35)
[2025-05-11] MEDS: fentaNYL 100 MCG/2 ML Ampul IV (08:13)
--- NOTE | 2025-05-11 09:26 | OP.PCM_ITS ---
Operative Report (Standard) Operative Information Date of Procedure: 05/11/25 Pre-Operative Diagnosis: BPH with obstruction Post-Operative Diagnosis: The same Surgery/Procedure Performed: Simple robotic prostatectomy churn operator: No Type of Anesthesia: General RN Documented Start/Stop Times: Operation Date: 05/11/25 07:30 Case Time Into Pre-Op 05/11/25 06:02 Out of Pre-Op 05/11/25 07:24 Anesthesia Start 05/11/25 07:28 Into Room 05/11/25 07:28 Procedure Start 05/11/25 07:54 Procedure Start Time: 07:54 Procedure Stop Time: 09:27 Select all DRAINS/GRAFTS/IMPLANTS that apply: Drains Drain details: ree-way Estimated Blood Loss: 200 cc Specimen collected: Yes Description of specimen(s) removed: Prostate tissue Description of surgery: Patient presents for a simple robotic prostatectomy. He understands that organ to do enucleation of the obstructing adenoma and then after his surgery he will need a catheter to allow this to heal. He understands is no guarantees that after the surgery he will be able to urinate spontaneously and may need to learn how to do self intermittent catheterization. We also talked about the risk of surgery which involves risk of bleeding and infection scar tissue formation bladder neck contracture. Patient was taken back to the operating room at this induction of anesthesia he underwent and intubation and was placed supine on the table. The abdomen was shaved prepped and draped in usual sterile fashion. A Fishman catheter was placed into the penis. I then infiltrated the skin above the umbilicus with lidocaine and made a small 5 mm incision in the skin. I then advanced a Veress needle into the peritoneal cavity and inflated the peritoneal cavity with CO2 gas. Once the pressure was at 15 mm and a nice distention of the abdomen then the camera trocar was put into the abdomen. We then looked in with the 0 degree lens and we placed a right arm trocar and left arm trocar and then an air seal suction port high up in the abdomen to allow the sales operations assistant to use this for suction. The robot was then docked and then we proceeded with the dissection. The colon was mobilized from the flexure of the colon on the patient's left side once this was freed up then the bladder was distended with 300 cc of sterile normal saline. I then made an incision in the bladder in the midline once we got inside the bladder that drained out all the saline we then used 2 Dany needles to retract the bladder laterally. Once the bladder was retracted in a clamshell fashion laterally then we got inside the bladder inspected the bladder deflated the balloon left the catheter in place. We then started with scoring the mucosa circumferentially all the way around very large protruding adenomatous prostate. I then dissected between the adenoma and the bladder inferiorly working my way in the avascular enucleation plane between the adenoma and the prostate capsule, pseudocapsule all the way inferiorly I then started working my way laterally up on the right side of the prostate until I got to the anterior part freeing up the adenomatous tissue from the prostate and the anteri or tissue and cutting through the bladder muscle and mucosa. We then worked our way laterally on the left side of the adenomatous tissue freeing up the adenoma from the prostate and the bladder muscle and mucosa I then came on top of the adenoma and was able to retract the adenoma out and then split the adenoma in half and identified the catheter and then identified the urethral strip the urethral strip was then carefully transected and then the right adenomatous tissue was removed and then the left adenomatous tissue was removed all intact and all this was placed in Endo Catch bag. Then we cauterized the prostate fossa extensively to control hemostasis Floseal was placed in the prostatic fossa. I then used a 3 oh V-Loc stitch to bring down the mucosa and advance it down towards the urethra circumferentially to advance the mucosa down to the urethral stump. We then placed a Fishman catheter, 20 Romansh into the bladder with no continuous irrigation. Irrigate out the bladder irrigate all the clots out we then closed the bladder with 2 layers using 2 oh V-Loc stitch and then a 4-0 Vicryl stitch. Both the Dany needles were removed that were retracting the bladder. We then undocked the robot we extracted the prostate adenoma through the umbilicus port we closed the air seal port with 1012 stitch and then we closed all the other ports with subcuticular stitches once the prostate was extracted to the camera port and we reapproximated the fascia and the camera port with a 0 Vicryl [id number] fashion stitch. Minimal blood loss during the case catheter was irrigated and draining well patient anesthetic was reversed and he was taken back to the PACU in good condition. The role of the rug shampooer SECURITY SYSTEMS SALES REPRESENTATIVE, assisted with myself during the entire procedure, the SECURITY SYSTEMS SALES REPRESENTATIVE assisted by passing instruments through the air seal port, passing suture, needles, sponges during the surgery. The RFA also assisted with providing some suction using the suction irrigation and some irrigation during the surgery. Also the sales operations assistant provided some traction minorly during the dissection of the prostate and the seminal vesicles. The RFA also helped me extract the prostate at the end of the case and helped close the fascia, and the sales operations assistant also helped close the skin incisions with subcuticular stitches. The sales operations assistant was monitored closely and under my direct supervision the entire case. 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
--- NOTE | 2025-05-11 09:48 | PCM.POST.ANE ---
Anesthesia: Postop Eval I Current Vital Signs Temperature: 98.4 F Pulse Rate: 84 Blood Pressure: 132/85 Respiratory Rate: 16 Pulse Ox: 94 Assessment Airway patent: Yes Spontaneous unlabored respirations: Yes nausea: No Vomiting: No Anesthesia Complication: No Fluid Hydration Crystalloid volume administer (ml): 1,250 Total IV fluid infused: 1,250 Progress Note Anesthesia document: Postop Eval 1 completed: Yes
[2025-05-11] MEDS: 0.9% Normal Saline (1000mL) 1,000 ML 125 ML IV ×2 (11:27→18:06)
--- NOTE | 2025-05-11 14:45 | CASEMGMT ---
Social Work- Pt brought in living will document; assembler unit copied and placed on pt chart. DUNCAN Mitchell
--- NOTE | 2025-05-11 15:44 | POSTOPAN2_ITS ---
Anesthesia Postop Eval I Sum Postop Eval Completion status Anesthesia document: Postop Eval 1 completed: Yes Anesthesia Postop Eval I Summary Anesthesia Postop Eval I Summary: Anesthesia Postop Eval I: Assessment Summary Airway patent Yes 05/11/25 09:48 [email or web address] [email or web address] Spontaneous unlabored Yes 05/11/25 09:48 [email or web address] [email or web address] respirations Mental status nausea No 05/11/25 09:48 [email or web address] [email or web address] Vomiting No 05/11/25 09:48 [email or web address] [email or web address] Anesthesia Postop Eval I: Fluid Summary Crystalloid volume administer 1,250 05/11/25 09:48 [email or web address] [email or web address] (ml) Colloids volume administered ( ml) Blood Product volume administered (ml) Total IV fluid infused 1,250 05/11/25 09:48 [email or web address] Anesthesia Postop Eval I: Summary Notes Anesthesia Complication No 05/11/25 09:48 [email or web address] Anesthesia Complication Comment: Post-operative progress note Anesthesia: Postop Eval II Evaluation Mental status: Awake and Calm Pain Level: 1 nausea: No Vomiting: No Complications Anesthesia Complication: No
--- NOTE | 2025-05-11 15:44 | PCM.POSTANE2 ---
Anesthesia Postop Eval I Sum Postop Eval Completion status Anesthesia document: Postop Eval 1 completed: Yes Anesthesia Postop Eval I Summary Anesthesia Postop Eval I Summary: Anesthesia Postop Eval I: Assessment Summary Airway patent Yes 05/11/25 09:48 OCCUPATIONAL HEALTH [email or web address] Spontaneous unlabored Yes 05/11/25 09:48 OCCUPATIONAL HEALTH PHYSICIAN.JBOR respirations Mental status nausea No 05/11/25 09:48 OCCUPATIONAL HEALTH PHYSICIAN.[email or web address] Vomiting No 05/11/25 09:48 OCCUPATIONAL HEALTH [email or web address] Anesthesia Postop Eval I: Fluid Summary Crystalloid volume administer 1,250 05/11/25 09:48 OCCUPATIONAL HEALTH [email or web address].[email or web address] (ml) Colloids volume administered ( ml) Blood Product volume administered (ml) Total IV fluid infused 1,250 05/11/25 09:48 OCCUPATIONAL HEALTH [email or web address] Anesthesia Postop Eval I: Summary Notes Anesthesia Complication No 05/11/25 09:48 OCCUPATIONAL HEALTH [email or web address] Anesthesia Complication Comment: Post-operative progress note Anesthesia: Postop Eval II Evaluation Mental status: Awake and Calm Pain Level: 1 nausea: No Vomiting: No Complications Anesthesia Complication: No
[2025-05-12 00:52] VITALS: BP 108/57; PULSE 68; RESP 16; TEMP 36.6; O2SAT 92
[2025-05-12 04:55] VITALS: BP 133/63; PULSE 61; RESP 16; TEMP 36.5; O2SAT 93
[2025-05-12 08:22] VITALS: BP 148/77; PULSE 71; RESP 16; TEMP 37.1; O2SAT 94
--- NOTE | 2025-05-12 08:46 | PCM.DC.SUM ---
Providers Date of Admission: 05/11/25 Primary Care Physician: Dr. Chase Cohen MD Reason For Visit: Lap Robotic Simple Prostatectomy Medications at Discharge Home Medications multivitamin 1 tab PO DAILY supplement 08/29/20 blood-glucose meter (OneTouch Ultra2 Meter) #1 ea 06/07/23 blood sugar diagnostic (Blood Glucose Test strips) #100 ea 07/06/23 atorvastatin 40 mg tablet 40 mg PO QHS cholesterol #90 tabs 05/02/24 clopidogrel 75 mg tablet (Plavix) 75 mg PO DAILY BLOOD THINNER #90 tabs 07/24/24 Held on 05/11/25. Instructions: Resume on 05/25/25. amlodipine 10 mg tablet 10 mg PO DAILY BP #90 TABLETS 03/06/25 sitagliptin phosphate 100 mg tablet (Januvia) 100 mg PO DAILY for diabetes mellitus #90 TABLETS 03/06/25 fenofibrate nanocrystallized 145 mg tablet 145 mg PO DAILY CHOLESTEROL 04/27/25 losartan 100 mg tablet 100 mg PO DAILY BP 04/27/25 pantoprazole 40 mg tablet,delayed release 40 mg PO DAILY GERD 04/27/25 ciprofloxacin HCl 500 mg tablet (Cipro) 500 mg PO BID #20 tabs 05/11/25 docusate sodium 100 mg capsule (Colace) 100 mg PO BID #20 caps 05/11/25 oxycodone 5 mg tablet 5 mg PO Q6H PRN pain 7 days #14 tabs 05/11/25 Hospital Course Operations - (simple robotic prostatectomy) Weight / BMI Weight Weight: 73.3 kg Body Mass Index (BMI) 23.1 D/C Instructions Return to work on: 06/15/25 May shower in (days): 1 Call your doctor if you observe: Fever of 101 or Higher, Inability to have a bowel movement and Uncontrolled pain Cleanse incision/area with: Soap & Water Catheter: Fishman to leg bag and Fishman to large bag Drain: [place] DC O2, CPAP, BIPAP Needs Home O2 Discharge instructions: No Please Follow Up With: Eligio Navarro MD When: Call [phone] for an appointment Meaningful Use Info Meaningful Use Meaningful Use Diagnoses (Choose all that apply): None applicable Discharge Plan Admission Admit Date/Time: 05/11/25 07:24 Primary Reason for Your Visit: Simple prostatectomy Attending Provider: Eligio Navarro Primary Care Provider: Chase Cohen Discharge Orders/Prescriptions Prescriptions: New ciprofloxacin HCl [Cipro] 500 mg tablet 500 mg PO BID Qty: 20 0RF docusate sodium [Colace] 100 mg capsule 100 mg PO BID Qty: 20 0RF oxycodone 5 mg tablet 5 mg PO Q6H PRN (Reason: pain) 7 Days Qty: 14 0RF Continued atorvastatin 40 mg tablet 40 mg PO QHS Qty: 90 3RF pantoprazole 40 mg tablet,delayed release (DR/EC) 40 mg PO DAILY Rx Instructions: TAKE 1 TABLET BY MOUTH DAILY losartan 100 mg tablet 100 mg PO DAILY Rx Instructions: TAKE 1 TABLET BY MOUTH DAILY FOR HYPERTENSION fenofibrate nanocrystallized 145 mg tablet 145 mg PO DAILY Rx Instructions: TAKE 1 TABLET BY MOUTH EVERY DAY (DME) blood-glucose meter [[employer] Ultra2 Meter[facility] Instructions .Route Qty: 1 0RF Rx Instructions: As directed (DME) Blood Glucose Test Strip See Rx Instructions .ROUTE .MEDSUPPLY Qty: 100 3RF Rx Instructions: One Touch Ultra - As directed Daily Januvia 100 mg tablet 100 mg PO DAILY Qty: 90 1RF amlodipine 10 mg tablet 10 mg PO DAILY Qty: 90 1RF Held clopidogrel [Plavix] 75 mg tablet 75 mg PO DAILY Qty: 90 3RF Hold Instructions: Resume on 05/25/25. No Action multivitamin Tablet 1 tab PO DAILY Referrals / Follow Up: Chase Cohen MD [Primary Care Provider, Internal Medicine] Eligio Navarro MD [Med Staff - Active Staff, Urology] Disposition Discharge Orders: Discharge Patient (Routine); Ordered 05/12/25 Ordered By: Dr. Eligio Navarro
--- NOTE | 2025-05-12 10:42 | CASEMGMT ---
RN ASHWIN NOTE: Intro role of CM to patient and FLOWERS form explained re: Observation status for treatment of lap robotic simple prostatectomy.? Explained hospitalization will be paid per?his insurance policy for Outpatient billing?and condition will continue to be evaluated for Inpt necessity. Also let pt know that [facility] sends paper in the billing packet with their phone number if questions arise. Pt and verbalize understanding and do not have further questions. ?Form signed, copy made and placed in chart, and original given to pt & . Pt to discharge home w/ F/C. Pt states nurse has done F/C care/education w/him and he feels comfortable w/going home w/ F/C. Adam ZARAGOZAN RN CM
--- NOTE | 2025-05-12 10:47 | NURSING ---
patient declined flu vaccine at this time
== END 2025-05-12 10:50 | disposition home or self-care (01) ==
LOC: SDC 08:09 → MS3 08:09
PROVIDERS: Admitting Provider Urology; PCP Internal Medicine; Referring Provider Urology; Visit Provider Urology
PROC: 0VT04ZZ Resection of Prostate, Percutaneous Endoscopic Approach (ICD-10-PCS; CPT 55867; principal; 2025-05-11 07:10)
DX: N40.1 Benign prostatic hyperplasia with lower urinary tract symptoms (principal); E11.9 Type 2 diabetes mellitus without complications; N13.8 Other obstructive and reflux uropathy; R31.0 Gross hematuria; Z79.899 Other long term (current) drug therapy; Z79.02 Long term (current) use of antithrombotics/antiplatelets; Z79.84 Long term (current) use of oral hypoglycemic drugs; I10 Essential (primary) hypertension; Z87.891 Personal history of nicotine dependence; K21.9 Gastro-esophageal reflux disease without esophagitis; I25.10 Atherosclerotic heart disease of native coronary artery without angina pectoris
CPT/HCPCS: 55867; 00840; 82962; 88309; 94668; 96361; 96365; 96366; 96375; 96376; 99221; A4216; G0378; J0744; J2405

== ENCOUNTER 2025-05-15 19:09 | Emergency (ER) | payer MEDICARE, SELFPAY ==
[2025-05-15 19:10] VITALS: BP 156/95; PULSE 120; RESP 18; TEMP 36.6; O2SAT 99; BMI 23.8
[2025-05-15 19:12] VITALS: BP 142/75; PULSE 94; RESP 18; TEMP 36.6; O2SAT 95
[2025-05-15 20:09] VITALS: BP 112/70; PULSE 90; RESP 18; TEMP 36.6; O2SAT 96
[2025-05-15 21:12] VITALS: BP 140/76; PULSE 87; RESP 18; TEMP 36.6; O2SAT 97
[2025-05-15 21:39] VITALS: BP 101/59; PULSE 86; RESP 18; TEMP 36.7; O2SAT 96
--- NOTE | 2025-05-15 21:55 | EX.ED.DYSGE1 ---
HPI History of Present Illness Chief Complaint: Fishman C/O Detail of Chief Complaint: Urine leaking around 30 Macanese three-way Fishman placed by urology during isac Informant: patient and spouse/S.O. Onset/Context/Timing Onset: Today Context: Sudden Onset Timing: Continuous Quality: Urine leaking around Fishman Location: Current Severity: Moderate Maximum Severity: Moderate Worsened by: Nothing specific Relieved by: Nothing Associated Symptoms Associated Symptoms: No constitutional symptoms, no abdominal symptoms Narrative Narrative: Patient is a 80-year-old male who on May 11 underwent simple robotic prostatectomy for BPH. He had a three-way Fishman placed. He presents now because of urine going around the Fishman. Became significant this evening. He presents to the emergency room for evaluation. He denies fever, chills night sweats. There is blood noted. There is no clots. He complains of pressure in the suprapubic area. He denies back pain or flank pain. Prior similar symptoms: No Recent Illness/Hospitalization: Yes [facility] Medical History Loss of hearing Diabetes Bladder disease High cholesterol Back pain Injury of head and neck Dietary restriction History of ulceration Gastric reflux Leg cramps Hypertension Wears glasses Arthritis Stroke/cerebrovascular accident Former smoker History of heart attack History of stress test History of echocardiogram Cardiology follow-up encounter History of ST elevation myocardial infarction (STEMI) (05/02/21) Atherosclerosis of coronary artery of [place] heart without angina pectoris BPH (benign prostatic hyperplasia) Enlarged prostate Home Medications ?Medication ?Instructions ?Recorded ?Last Taken ?Type multivitamin 1 tab PO DAILY supplement 08/29/20 05/10/25 History blood-glucose meter (OneTouch #1 ea 06/07/23 Unknown Rx Ultra2 Meter) blood sugar diagnostic (Blood #100 ea 07/06/23 Unknown Rx Glucose Test strips) atorvastatin 40 mg tablet 40 mg PO QHS cholesterol #90 tabs 05/02/24 05/10/25 Rx clopidogrel 75 mg tablet (Plavix) 75 mg PO DAILY BLOOD THINNER #90 07/24/24 04/30/25 Rx Held on 05/11/25. tabs Instructions: Resume on 05/25/25. amlodipine 10 mg tablet 10 mg PO DAILY BP #90 TABLETS 03/06/25 05/11/25 04:30 Rx sitagliptin phosphate 100 mg 100 mg PO DAILY for diabetes 03/06/25 05/06/25 Rx tablet (Januvia) mellitus #90 TABLETS fenofibrate nanocrystallized 145 145 mg PO DAILY CHOLESTEROL 04/27/25 05/10/25 History mg tablet losartan 100 mg tablet 100 mg PO DAILY BP 04/27/25 05/11/25 04:30 History pantoprazole 40 mg tablet,delayed 40 mg PO DAILY GERD 04/27/25 05/11/25 04:30 History release ciprofloxacin HCl 500 mg tablet 500 mg PO BID #20 tabs 05/11/25 Unknown Rx (Cipro) docusate sodium 100 mg capsule 100 mg PO BID #20 caps 05/11/25 Unknown Rx (Colace) oxycodone 5 mg tablet 5 mg PO Q6H PRN pain 7 days #14 05/11/25 Unknown Rx tabs Allergy/AdvReac Type Severity Reaction Status Date / Time dulaglutide ([facility] Allergy Intermediate Nausea Verified 05/15/25 19:09 niacin Allergy GI Upset, Verified 05/15/25 19:09 PUD w/blood, Hot Flashes amoxicillin trihydrate (From AdvReac Abd Verified 05/15/25 19:09 Augmentin) cramps/diarrhea potassium clavulanate (From AdvReac Abd Verified 05/15/25 19:09 Augmentin) cramps/diarrhea Family History Mother Diabetes Myocardial infarction Father AA (aortic aneurysm) Surgical History History of cystoscopy History of cardiac catheterization History of foot surgery History of colonoscopy S/P trigger finger release History of repair of rotator cuff History of coronary artery stent placement (05/02/21) Social History housing: house Smoking Status: Former smoker quit date: 08/16/93 Tobacco: How many years used: 30 alcohol intake: never substance use type: does not use caffeine: Yes Type: coffee Number of servings: 2 what type of physical activity do you participate in: walking ROS ROS ED Constitutional Constitutional ED: Denies chills, fever(s), subjective, sweats or weight loss Cardiovascular Cardiovascular: Denies chest pain or palpitations Respiratory/Chest Respiratory/Chest: Denies cough, dyspnea or dyspnea on exertion Gastrointestinal Gastrointestinal: Reports abdominal pain; Denies constipation, diarrhea, melena, nausea or vomiting Genitourinary Genitourinary ED: Reports hematuria and other Details: Urine around the Fishman as noted in the HPI narrative ; Denies dysuria or urinary frequency Musculoskeletal Musculoskeletal: Denies back pain Integumentary Denies rash Hematologic/Lymphatic Hematologic/Lymphatic: Reports systems reviewed and no addt'l complaints, except as documented EXAM Physical Exam Const Vital Signs: 05/15/25 19:10 05/15/25 19:12 05/15/25 20:09 Temperature 97.9 F 97.9 F 97.8 F Temperature Source Temporal Oral Oral Pulse Rate 120 H 94 90 Respiratory Rate 18 18 18 Blood Pressure 156/95 H 142/75 H 112/70 Blood Pressure Mean 115 97 84 Pulse Ox 99 95 96 Oxygen Delivery Method Room Air Room Air Room Air 05/15/25 21:12 05/15/25 21:39 Temperature 97.9 F 98.0 F Temperature Source Oral Pulse Rate 87 86 Respiratory Rate 18 18 Blood Pressure 140/76 H 101/59 L Blood Pressure Mean 97 73 Pulse Ox 97 96 Oxygen Delivery Method Room Air Positive well nourished and well developed General Appearance ED: well developed and NAD; Negative for pallor HEENT Reports moist mucous membranes HEENT Narrative: Head is atraumatic and normocephalic. Ears are normal Eyes PERRL and EOMs intact bilaterally General Eye ED: Negative for pale conjunctiva or scleral icterus Neck no lymphadenopathy, supple and no JVD Resp normal respiratory effort and clear to auscultation bilaterally Cardio regular rate, regular rhythm, S1 normal heart sound, S2 normal heart sound and no murmurs GI non-distended; Negative for non-tender or hepatosplenomegaly GI Narrative: Patient has discomfort over the bladder. He is circumcised. Fishman is noted be in proper position. There is no lesions noted on the glans or shaft of the penis. There is leakage of urine noted. He has bloody urine that has consistency of a white zone fundal. Palpation: soft and tender suprapubic Narrative: Documented under the abdominal portion. Extremity normal to inspection Neuro oriented x3 and CN's II-XII intact bilaterally Sensorium / Orientation: alert Psych mental status grossly normal Skin no rashes or lesions noted, no wounds and skin turgor normal General Skin Exam: Negative for jaundice or pallor MDM MDM MDM Narrative Medical decision making narrative: Recent simple robotic prostatectomy for BPH. Patient has significant of urine leaking around the 30 Macanese three-way. The urine is a white send Bendel color. There is no clots. Assessed the balloon. The integrity of balloon is intact. Called Dr. Navarro. He recommended placing an 18 Macanese Fishman. He suspects patient is spasming and urine is leaking around the tube. A 18 Macanese was placed by nursing staff. He had significant mount of flow. He feels much better. There is minimal leakage at this point. Plan is to discharge to home Management Discussion w/another healthcare provider: Adoption Counselor (Documented MDM narrative.) Treatment and Re-Evaluation :: Patient has significant amount of urine drained after the 18 Macanese Fishman was placed by nurse. Patient states he feels much better. He has minimal leakage at this point. He was informed this is not unexpected. He was informed that I did speak with Dr. Navarro. He is to keep his follow-up appointment. Discharge Plan Triage Chief Complaint: Fishman C/O ED Provider: Sean Gabriel Dx/Rx/DC Orders Clinical Impression: Complication of Fishman catheter, Type 2 diabetes mellitus, BPH (benign prostatic hyperplasia), Essential (primary) hypertension, CKD (chronic kidney disease), History of ST elevation myocardial infarction (STEMI) Instructions: ED Fishman Catheter, Care Prescriptions: No Action multivitamin Tablet 1 tab PO DAILY atorvastatin 40 mg tablet 40 mg PO QHS Qty: 90 3RF pantoprazole 40 mg tablet,delayed release (DR/EC) 40 mg PO DAILY Rx Instructions: TAKE 1 TABLET BY MOUTH DAILY losartan 100 mg tablet 100 mg PO DAILY Rx Instructions: TAKE 1 TABLET BY MOUTH DAILY FOR HYPERTENSION fenofibrate nanocrystallized 145 mg tablet 145 mg PO DAILY Rx Instructions: TAKE 1 TABLET BY MOUTH EVERY DAY ciprofloxacin HCl [Cipro] 500 mg tablet 500 mg PO BID Qty: 20 0RF docusate sodium [Colace] 100 mg capsule 100 mg PO BID Qty: 20 0RF oxycodone 5 mg tablet 5 mg PO Q6H PRN (Reason: pain) 7 Days Qty: 14 0RF (DME) blood-glucose meter [[employer]uch Ultra2 Meter] Misc See Rx Instructions .Route Qty: 1 0RF Rx Instructions: As directed (DME) Blood Glucose Test Strip See Rx Instructions .ROUTE .MEDSUPPLY Qty: 100 3RF Rx Instructions: One Touch Ultra - As directed Daily clopidogrel [Plavix] 75 mg tablet 75 mg PO DAILY Qty: 90 3RF Januvia 100 mg tablet 100 mg PO DAILY Qty: 90 1RF amlodipine 10 mg tablet 10 mg PO DAILY Qty: 90 1RF Primary Care Provider: Chase Cohen Referrals: Chase Cohen MD [Primary Care Provider, Internal Medicine] Eligio Navarro MD [Med Staff - Active Staff, Urology] - Keep [place] appointment Print Language: Tajik Disposition Disposition: Home, Self Care Discharge Date/Time: 05/15/25 22:01
== END 2025-05-15 22:01 | disposition home or self-care (01) ==
PROVIDERS: Emergency Provider Emergency Medicine; PCP Internal Medicine; Visit Provider Emergency Medicine
DX: T83.89XA Other specified complication of genitourinary prosthetic devices, implants and grafts, initial encounter (principal); E11.22 Type 2 diabetes mellitus with diabetic chronic kidney disease; X58.XXXA Exposure to other specified factors, initial encounter; N18.9 Chronic kidney disease, unspecified; I12.9 Hypertensive chronic kidney disease with stage 1 through stage 4 chronic kidney disease, or unspecified chronic kidney disease; I25.2 Old myocardial infarction; N40.0 Benign prostatic hyperplasia without lower urinary tract symptoms; Z79.84 Long term (current) use of oral hypoglycemic drugs; Z79.899 Other long term (current) drug therapy; Z87.891 Personal history of nicotine dependence
CPT/HCPCS: 51702; 99283